=== PATIENT | female | born 1930 | race Caucasian/White ===

== ENCOUNTER → 2017-04-12 | Outpatient (CLI) | payer MEDICARE, OTHER ==
--- NOTE | 2017-04-12 16:20 | REP ---
HISTORY: Pain after trauma. COMPARISON: No priors. Frontal view of the chest 11/20/2004. The frontal view of the chest is unchanged showing chronic changes. Multiple views of the left ribs show the bones to be somewhat demineralized. There is no radiographic evidence of a fracture. The exam is limited by a large amount of content in the left upper quadrant and multiple superimposed ribs. IMPRESSION: No acute fracture with limitations as described above. Signed by Jesus Dowling DO 04/12/2017 04:37 P
== END ==
LOC: M WUC 13:31
PROVIDERS: ATTEND Physician Assistant
DX: S20.222A Contusion of left back wall of thorax, initial encounter (principal); X58.XXXA Exposure to other specified factors, initial encounter; Y92.9 Unspecified place or not applicable; Y93.9 Activity, unspecified; Y99.9 Unspecified external cause status

== ENCOUNTER 2019-05-22 07:01 | Inpatient (IN) | payer MEDICARE, OTHER ==
[~2019-05-22] VITALS: Ht 152.4 cm; Wt 76.1 kg
[2019-05-22] MEDS ORDERED: ROSU40TA4 PO (07:13)
[2019-05-22] MEDS ORDERED: FURO20TA2 PO (07:13)
[2019-05-22] MEDS ORDERED: METO37.5 PO (07:13)
[2019-05-22] MEDS ORDERED: KLOR20TA42 PO (07:13)
[2019-05-22] MEDS ORDERED: LISI-542 PO (07:13)
[2019-05-22] MEDS ORDERED: MORPHINE 2 MG/ML 1ML VIAL (J2270) IV ONE (07:45)
--- NOTE | 2019-05-22 08:14 | REP ---
Show chest AP and lateral views with the patient upright: Comparison is the chest CT dated 04/10/2009 and left rib series dated 04/12/2017. Lung sood are clear. I suspect there is a hiatal hernia. There are sternotomy wires, unchanged. Cardiac size appears enlarged although there is magnification from AP positioning. Upon review of the the comparison rib series of 04/12/2017 there was grade 4 compression deformity of the T11 vertebral body. There are no sagittal reconstructed views on the comparison CT for evaluation of vertebral body heights. On the study today there is demineralization. There is thoracic kyphosis. Grade 4 compression of the T11 vertebral body is again identified. The vertebral bodies above this level are obscured on the current study. Impression: No acute cardiopulmonary findings. Hiatal hernia. Sternotomy wires and cardiomegaly. 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 Electronically Signed by Callum Blanco MD 05/22/2019 08:07 A
[2019-05-22 08:29] LABS: INR 1.15; PROTHROMBIN TIME 14.4 SECONDS (11.8-14.0)
[2019-05-22 08:30] LABS: PARTIAL THROMBOPLASTIN TIME 31.8 SECONDS (25.0-38.4)
[2019-05-22 08:35] LABS: BLOOD UREA NITROGEN 20 MG/DL (7-18); CARBON DIOXIDE LEVEL 24 MEQ/L (21-32); CHLORIDE LEVEL 103 MEQ/L (98-107); CREATININE FOR GFR 0.57 MG/DL (0.55-1.30); GLOMERULAR FILTRATION RATE > 60.0 (>32); GLUCOSE, FASTING 97 MG/DL (70-100); POTASSIUM SERUM 4.3 MEQ/L (3.5-5.1); SODIUM LEVEL 136 MEQ/L (136-145)
[2019-05-22 08:37] LABS: BASO % 0.1 % (0.0-1.0); EOS % 0.1 % (0.0-3.0); HEMATOCRIT 29.7 % (36.0-47.0); HEMOGLOBIN 9.4 g/dl (12.0-15.5); LYMPH # 0.5 10^3/uL (1.5-4.5); LYMPH % 6.2 % (24.0-44.0); MEAN CORPUSCULAR HEMOGLOBIN 29.6 pg (27.0-33.0); MEAN CORPUSCULAR HGB CONC 31.6 g/dl (32.0-36.5); MEAN CORPUSCULAR VOLUME 93.4 fl (80.0-96.0); MONO % 12.1 % (0.0-5.0); PLATELET COUNT, AUTOMATED 206 10^3/uL (150-450); RED BLOOD COUNT 3.18 10^6/uL (4.00-5.40); WHITE BLOOD COUNT 8.6 10^3/uL (4.0-10.0)
[2019-05-22 08:39] LABS: ALBUMIN 2.3 GM/DL (3.2-5.2); ALT/SGPT 24 U/L (12-78); BILIRUBIN,DIRECT 0.2 MG/DL (0.0-0.2); BILIRUBIN,TOTAL 0.4 MG/DL (0.2-1.0); CK-MB VALUE MASS 1.6 NG/ML (<3.6); CPK CREATINE PHOSPHOKINASE 37 U/L (26-192); MB/CK RELATIVE INDEX 4.32 (< OR =4); TOTAL PROTEIN 5.6 GM/DL (6.4-8.2); TROPONIN I < 0.02 NG/ML (< 0.10)
[2019-05-22] MEDS ORDERED: PANTOPRAZOLE 40MG INJ (PROTONIX) (C9113) IV ONE ×2 (09:30→11:15)
[2019-05-22] MEDS ORDERED: POTA20PW PO (09:38)
[2019-05-22] MEDS ORDERED: METO25TA4 PO (09:38)
[2019-05-22] MEDS ORDERED: APAP325T4 PO (09:39)
--- NOTE | 2019-05-22 10:40 | ECGEPIP ---
[facility] - ED Test Date: 2019-05-22 Pat Name: MIRIAM BAKER Department: Room: - Gender: Female Cardiographer: : [id number] Requested By: WILMER Gibbs Order Number: [id number] Reading MD: Susan Nelson Measurements Intervals [place] Rate: 96 P: 57 GA: 148 QRS: -17 QRSD: 121 T: 83 QT: 351 QTc: 445 Interpretive Statements SINUS RHYTHM WITH OCCASIONAL SUPRAVENTRICULAR PREMATURE COMPLEXES SEPTAL MYOCARDIAL INFARCTION, OF INDETERMINATE AGE IVCD NO PRIOR Electronically Signed on 05-22-2019 10:40:01 EDT by Susan Nelson
[2019-05-22] MEDS: PANTOPRAZOLE SODIUM 40 MG in D5W 50 ML IV SCH ×3 (11:48→21:33)
[2019-05-22 13:35] VITALS: BP 139/68
[2019-05-22] MEDS: ROSUVASTATIN 10 MG TAB (CRESTOR) PO SCH (15:15)
[2019-05-22] MEDS: ULTRACET TAB PO SCH ×2 (15:17→21:33)
[2019-05-22] MEDS: METOPROLOL TART 12.5 MG PER 1/2 TAB PO SCH ×2 (15:19→21:32)
[2019-05-22 15:20] LABS: HEMATOCRIT 28.1 % (36.0-47.0); HEMOGLOBIN 8.9 g/dl (12.0-15.5)
[2019-05-22] MEDS: DICLOFENAC EPOLAMINE 1.3 % PATCH TOP SCH ×2 (16:55→21:34)
--- NOTE | 2019-05-22 18:13 | HPEPDOC ---
General Date of Admission 05/22/19 Date of Service: May 22, 2019 Chief Complaint The patient is a 88-year-old female admitted with a reason for visit of Weakness. Source: Patient, RN/, Old records History of Present Illness 88 year old female with PMH of Hypertension, HLD, hiatal hernia, Aortic valve replacement in 2001 by bioprosthetic valve then again had TAVR in 2014 came to the ED for bilateral knee pain and inability to stand. She has had pain in her knees and right shoulders for many years got steroid injections last was 5 months back, seen by ortho in [place] minimal relief . While getting work up in the ED had a large black liquid stool in ED heme positive. She also complained of light headedness for 1 day soft to semiliquid black stools for 2 weeks and bight red Blood in stools off and on for 2 years but never seen a doctor for this. Her HH in ED was at 9.4 down from 11.2 which was 2 years ago. No more recent labs in the system prior to today. She says she takes pepto bismol on a daily basis often more than once other iraheta gets constipated so thought her soft black stools were due to that. Her main concern is her knees. Says the pain is in both knees is 10/10 in intensity, dull aching and throbbing in nature and becomes sharp when ever she tries to bear weight. There is no radiation. But her knees are very weak and from yesterday she has not been able to stand up. In the middle of the night she was rolled to the bathroom in her rolling walker with set by her daughter and then could not stand up the pivot to the commode. Her 2 sons came to help move her but she was in excruciating pain so they were afraid to move her forcefully so called the ambulance and brought her to the ED. She also complained of shoulder pain in the right thinks that she pulled a muscle. Home Medications Scheduled Lisinopril (Lisinopril) 5 Mg Tablet, 5 MG PO DAILY, (Reported) Metoprolol Tartrate (Metoprolol Tartrate) 25 Mg Tablet, 12.5 MG PO BID, (Reported) Potassium Chloride (Potassium Chloride) 20 Meq Packet, 20 MEQ PO DAILY, (Repor alice) Rosuvastatin Calcium (Rosuvastatin Calcium) 40 Mg Tablet, 40 MG PO DAILY, (Reported) Scheduled PRN Acetaminophen (Acetaminophen) 325 Mg Tablet, 650 MG PO Q4H PRN for PAIN, (Reported) Furosemide (Furosemide) 20 Mg Tablet, 20 MG PO BID PRN for EDEMA, (Reported) Allergies Coded Allergies: No Known Allergies (Verified , 01/06/05) Past Medical History Medical History Aortic valve replacement in 2001 and agin TAVR in 2015 Hypertension Hyperlipidemia Hiatal hernia. 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 Advanced osteoarthritis in both knees Surgical History AVR TAVR Cortisone injections in several joints Family History Significant Family History: Hypertension rest reviewed with pateint and is noncontributary Social History * Smoker: Denies Alcohol: Denies Drugs: denies A-FIB/CHADSVASC A-FIB History Current/History of A-Fib/PAF?: No Review of Systems Constitutional: Reports: Weakness; Denies: Chills, Fever, Night Sweats Eyes: Denies: Pain, Vision change ENT: Denies: Head Aches, Ear Pain, Dysphagia Skin: Denies: Rash, Lesions, Breakdown Pulmonary: Denies: Dyspnea, Cough Cardiovascular: Reports: Lt Headedness; Denies: Chest Pain, Palpitations, Orthopnea, Paroxysmal Noc. Dyspnea Gastrointestinal: Reports: Melena, Hematochezia; Denies: Nausea, Vomiting, Abdominal Pain Genitourinary: Denies: Dysuria, Frequency, Incontinence, Retention Musculoskeletal: Reports: Shoulder Pain (right), Joint Pain (both knees) Physical Examination General Exam: Positive: Alert, Cooperative, No Acute Distress Eye Exam: Positive: PERRLA, Conjunctiva & lids normal, EOMI; Negative: Sclera icteric ENT Exam: Positive: Atraumatic, Mucous membr. moist/pink, Pharynx Normal Neck Exam: Positive: Supple; Negative: JVD, thyromegaly Chest Exam: Positive: Clear to auscultation, Normal air movement Heart Exam: Positive: Rate Normal, Regular Rhythm, Normal S1, Normal S2; Negative: Murmurs, Rubs Telemetry: Positive: No significant arrhythmia Abdomen Exam: Positive: Normal bowel sounds, Soft, Tenderness (in the epigastrium and the right lower quadrant); Negative: Hepatospenomegaly Extremity Exam: Positive: Edema, Tenderness (both knees); Negative: Clubbing, Cyanosis Skin Exam: Positive: Nl turgor and temperature; Negative: Breakdown, Lesion Psych Exam: Positive: Memory Intact, Oriented x 3 Vital Signs Vital Signs Date Time Temp Pulse Resp B/P (MAP) Pulse Ox O2 Delivery O2 Flow Rate FiO2 05/22/19 09:16 91 96 05/22/19 08:15 121/63 (82) 05/22/19 07:45 18 05/22/19 07:14 99.5 Room Air Laboratory Data Labs 24H Laboratory Tests 2 05/22/19 07:55: Immature Granulocyte % (Auto) 0.5, White Blood Count 8.6, Red Blood Count 3.18L, Hemoglobin 9.4L, Hematocrit 29.7L, Mean Corpuscular Volume 93.4, Mean Corpuscular Hemoglobin 29.6, Mean Corpuscular Hemoglobin Concent 31.6L, Red Cell Distribution Width 13.2, Platelet Count 206, Neutrophils (%) (Auto) 81.0H, Lymphocytes (%) (Auto) 6.2L, Monocytes (%) (Auto) 12.1H, Eosinophils (%) (Auto) 0.1, Basophils (%) (Auto) 0.1, Neutrophils # (Auto) 7.0, Lymphocytes # (Auto) 0.5L, Monocytes # (Auto) 1.0H, Eosinophils # (Auto) 0.0, Basophils # (Auto) 0.0, Nucleated Red Blood Cells % (auto) 0.0, Prothrombin Time 14.4H, Prothromb Time International Ratio 1.15, Activated Partial Thromboplast Time 31.8, Anion Gap 9, Glomerular Filtration Rate > 60.0, Blood Urea Nitrogen 20H, Creatinine 0.57, Sodium Level 136, Potassium Level 4.3, Chloride Level 103, Carbon Dioxide Level 24, Calcium Level 8.0L, Aspartate Amino Transf (AST/SGOT) 30, Alanine Aminotransferase (ALT/SGPT) 24, Alkaline Phosphatase 94, Total Bilirubin 0.4, Direct Bilirubin 0.2, Total Creatine Kinase 37, Creatine Kinase MB 1.6, Creatine Kinase MB Relative Index 4.32H, Troponin I < 0.02, Total Protein 5.6L, Albumin 2.3L, Albumin/Globulin Ratio 0.70L CBC/BMP Laboratory Tests 05/22/19 07:55 Red Blood Count 3.18 L, Mean Corpuscular Volume 93.4, Mean Corpuscular Hemoglo bin 29.6, Mean Corpuscular Hemoglobin Concent 31.6 L, Red Cell Distribution Width 13.2, Neutrophils (%) (Auto) 81.0 H, Lymphocytes (%) (Auto) 6.2 L, Monocytes (%) (Auto) 12.1 H, Eosinophils (%) (Auto) 0.1, Basophils (%) (Auto) 0.1, Neutrophils # (Auto) 7.0, Lymphocytes # (Auto) 0.5 L, Monocytes # (Auto) 1.0 H, Eosinophils # (Auto) 0.0, Basophils # (Auto) 0.0, Calcium Level 8.0 L Assessment/Plan 88 year old female with PMH of Hypertension, HLD, hiatal hernia, Aortic valve replacement in 2001 by bioprosthetic valve then again had TAVR in 2014 came to the ED for bilateral knee pain and inability to stand. She has had pain in her knees and right shoulders for many years got steroid injections last was 5 months back, seen by ortho in [place] minimal relief . While getting work up in the ED had a large black liquid stool in ED heme positive. She was admitted for GIB and bilateral knee osteoarthritis with inability to ambulate. GIB will monitor HH q 6 hours PRBC transfusion prn is hh< 8.0 clear liquids protonix gtt GI consult Bilateral knee pain, right shoulder pain advanced osteoarthritis will get xrays flector patch in both knees ultracet tid Inability to ambulate due to severe pain in both knees, and generalized muscular deconditioning Pt evaluation and treatment Hyperlipidemia continue statin Hypertension continue metoprolol and lisinopril, hold lasix. GERD/Hiatal hernia on pantoprazole gtt. Plan / VTE VTE Prophylaxis Ordered?: Yes RANDELL CARRION MD May 22, 2019 09:32
[2019-05-22 19:06] LABS: HEMATOCRIT 27.6 % (36.0-47.0); HEMOGLOBIN 8.8 g/dl (12.0-15.5)
--- NOTE | 2019-05-22 20:12 | REP ---
BILATERAL KNEES: AP and lateral views of bilateral knees performed. I see no acute fracture or dislocation. On the left there is severe lateral joint space narrowing with subchondral sclerosis and vacuum phenomenon. There is mild diffuse spurring. On the right, there is severe medial joint space narrowing with subchondral sclerosis. There is moderate lateral joint space narrowing. There is mild diffuse spurring. IMPRESSION: Significant degenerative changes without fracture or dislocation. Electronically Signed by Callum Lindo MD 05/23/2019 02:36 P
[2019-05-22 22:00] VITALS: BP 155/67
[2019-05-23 00:14] LABS: HEMOGLOBIN 8.7 g/dl (12.0-15.5)
[2019-05-23] MEDS: PANTOPRAZOLE SODIUM 40 MG in D5W 50 ML IV SCH ×5 (02:09→23:07)
[2019-05-23 06:00] VITALS: BP 157/89
[2019-05-23 06:26] LABS: BASO % 0.1 % (0.0-1.0); EOS % 0.5 % (0.0-3.0); HEMATOCRIT 28.6 % (36.0-47.0); LYMPH # 0.6 10^3/uL (1.5-4.5); LYMPH % 7.9 % (24.0-44.0); MEAN CORPUSCULAR HEMOGLOBIN 29.4 pg (27.0-33.0); MEAN CORPUSCULAR HGB CONC 31.5 g/dl (32.0-36.5); MEAN CORPUSCULAR VOLUME 93.5 fl (80.0-96.0); MONO # 0.9 10^3/uL (0.0-0.8); MONO % 12.4 % (0.0-5.0); NEUTROPHILS # 5.9 10^3/uL (1.8-7.7); NEUTROPHILS % 78.6 % (36.0-66.0); PLATELET COUNT, AUTOMATED 193 10^3/uL (150-450); RED BLOOD COUNT 3.06 10^6/uL (4.00-5.40); WHITE BLOOD COUNT 7.5 10^3/uL (4.0-10.0)
[2019-05-23] MEDS: ULTRACET TAB PO SCH ×3 (06:32→22:00)
[2019-05-23 06:40] LABS: BLOOD UREA NITROGEN 17 MG/DL (7-18); CALCIUM LEVEL 8.3 MG/DL (8.8-10.2); CARBON DIOXIDE LEVEL 26 MEQ/L (21-32); CHLORIDE LEVEL 104 MEQ/L (98-107); CREATININE FOR GFR 0.48 MG/DL (0.55-1.30); GLOMERULAR FILTRATION RATE > 60.0 (>32); GLUCOSE, FASTING 86 MG/DL (70-100); POTASSIUM SERUM 4.1 MEQ/L (3.5-5.1); SODIUM LEVEL 135 MEQ/L (136-145)
[2019-05-23] MEDS: ROSUVASTATIN 10 MG TAB (CRESTOR) PO SCH (08:13)
[2019-05-23] MEDS: METOPROLOL TART 12.5 MG PER 1/2 TAB PO SCH ×2 (08:16→22:00)
[2019-05-23] MEDS: lisinopriL 5 MG TAB PO SCH (08:16)
[2019-05-23] MEDS: DICLOFENAC EPOLAMINE 1.3 % PATCH TOP SCH ×2 (10:16→22:01)
[2019-05-23 12:06] LABS: HEMATOCRIT 28.8 % (36.0-47.0); HEMOGLOBIN 8.8 g/dl (12.0-15.5)
--- NOTE | 2019-05-23 12:45 | IPNPDOC ---
Subjective Date Seen The patient was seen on 05/23/19. Subjective Chief Complaint/HPI Patient is still complaining of bilateral knee pain. She is hard of hearing but does not offer any more complaints of GI bleed General: Denies: ROS Unobtainable, Chills, Night Sweats, Fatigue, Malaise, Normal Appetite, Other Symptoms Constitutional: Denies: Chills, Fever, Malaise, Night Sweats, Weakness, Fatigue, Weight Loss, Lethargy, Other Eyes: Denies: Pain, Vision change, Conjunctivae inflammation, Eyelid inflammation, Redness, Other ENT: Denies: Head Aches, Ear Pain, Dysphagia, Sinus Congestion, Post Nasal Drip, Sore Throat, Epistaxis, Other Symptoms Skin: Denies: Rash, Lesions, Jaundice, Bruising, Itching, Dry, Breakdown, Nail Changes, Other Pulmonary: Denies: Dyspnea, Cough, Pleuritic Chest Pain, Other Symptoms Cardiovascular: Denies: Chest Pain, Palpitations, Orthopnea, Paroxysmal Noc. Dyspnea, Edema, Lt Headedness, Other Symptoms Gastrointestinal: Denies: Nausea, Vomiting, Abdominal Pain, Diarrhea, Constipation, Melena, Hematochezia, Other Symptoms Neurological: Denies: Weakness, Numbness, Incoordination, Change in speech, Confusion, Seizures, Other Symptoms Objective Physical Examination General Exam: Positive: Alert, Cooperative, No Acute Distress Eye Exam: Positive: PERRLA, Conjunctiva & lids normal, EOMI; Negative: Sclera icteric ENT Exam: Positive: Atraumatic, Mucous membr. moist/pink, Pharynx Normal Neck Exam: Positive: Supple; Negative: JVD, thyromegaly Chest Exam: Positive: Clear to auscultation, Normal air movement Heart Exam: Positive: Rate Normal, Regular Rhythm, Normal S1, Normal S2; Negative: Murmurs, Rubs Telemetry: Positive: No significant arrhythmia Abdomen Exam: Positive: Normal bowel sounds, Soft, Tenderness (in the epigastrium and the right lower quadrant); Negative: Hepatospenomegaly Extremity Exam: Positive: Edema, Tenderness (both knees); Negative: Clubbing, Cyanosis Skin Exam: Positive: Nl turgor and temperature; Negative: Breakdown, Lesion Psych Exam: Positive: Memory Intact, Oriented x 3 Assessment /Plan Problems (1) Knee pain Status: Acute (2) GIB (gastrointestinal bleeding) Status: Acute (3) Acute anemia Status: Acute Plan/VTE VTE Prophylaxis Ordered?: Yes Plan GIB H&H is stable Posttransfusion hemoglobin is 8.8/28.8 Still on clear liquids Continue Protonix drip GI consult was called is pending Further, as per GI recommendations Bilateral knee pain, right shoulder pain advanced osteoarthritis All x-rays are essentially within normal limit, no acute fracture. This shows advanced DJD flector patch in both knees ultracet tid Inability to ambulate due to severe pain in both knees, and generalized muscular deconditioning Pt evaluation and treatment Physical therapy consultation has been called and patient will be evaluated today Hyperlipidemia continue statin Hypertension continue metoprolol and lisinopril, hold lasix. GERD/Hiatal hernia on pantoprazole gtt. VS, I&O, 24H, Fishbone Vital Signs/I&O Vital Signs Date Time Temp Pulse Resp B/P (MAP) Pulse Ox O2 Delivery O2 Flow Rate FiO2 05/23/19 08:16 92 130/72 05/23/19 06:32 20 05/23/19 06:00 98.1 93 05/22/19 07:14 Room Air I&O- Last 24 Hours up to 6 AM 05/23/19 06:00 Intake Total 670 ml Balance 670 ml Laboratory Data 24H LABS Laboratory Tests 2 05/23/19 06:00: Immature Granulocyte % (Auto) 0.5, White Blood Count 7.5, Red Blood Count 3.06L, Hemoglobin 9.0L, Hematocrit 28.6L, Mean Corpuscular Volume 93.5, Mean Corpuscular Hemoglobin 29.4, Mean Corpuscular Hemoglobin Concent 31.5L, Red Cell Distribution Width 13.4, Platelet Count 193, Neutrophils (%) (Auto) 78.6H, Lymphocytes (%) (Auto) 7.9L, Monocytes (%) (Auto) 12.4H, Eosinophils (%) (Auto) 0.5, Basophils (%) (Auto) 0.1, Neutrophils # (Auto) 5.9, Lymphocytes # (Auto) 0.6L, Monocytes # (Auto) 0.9H, Eosinophils # (Auto) 0.0, Basophils # (Auto) 0.0, Nucleated Red Blood Cells % (auto) 0.0, Anion Gap 5L, Glomerular Filtration Rate > 60.0, Blood Urea Nitrogen 17, Creatinine 0.48L, Sodium Level 135L, Potassium Level 4.1, Chloride Level 104, Carbon Dioxide Level 26, Calcium Level 8.3L CBC/BMP Laboratory Tests 05/22/19 15:03 05/22/19 18:52 05/23/19 00:08 05/23/19 06:00 Red Blood Count 3.06 L, Mean Corpuscular Volume 93.5, Mean Corpuscular Hemoglobin 29.4, Mean Corpuscular Hemoglobin Concent 31.5 L, Red Cell Distribution Width 13.4, Neutrophils (%) (Auto) 78.6 H, Lymphocytes (%) (Auto) 7.9 L, Monocytes (%) (Auto) 12.4 H, Eosinophils (%) (Auto) 0.5, Basophils (%) (Auto) 0.1, Neutrophils # (Auto) 5.9, Lymphocytes # (Auto) 0.6 L, Monocytes # (Auto) 0.9 H, Eosinophils # (Auto) 0.0, Basophils # (Auto) 0.0, Calcium Level 8.3 L 05/23/19 11:45 Microbiology Microbiology 05/22/19 Gastrointestinal Tract Panel (PCR) - Final, Complete ANILA VARGAS MD May 23, 2019 12:45
[2019-05-23 14:00] VITALS: BP 133/74
--- NOTE | 2019-05-23 19:17 | CR ---
DATE OF CONSULTATION: 05/22/2019 This is an 88-year white female with multiple medical problems including hypertension, hyperlipidemia, hiatal hernia, apparent aortic valve replacement in 2001 by bioprosthetic valve, then the patient had another repair in 2014 by transcatheter aortic valve replacement (TAVR). The patient came to the emergency room complaining of bilateral knee pain and inability to stand. She apparently has had chronic pain in her knees and right shoulders for many years and receiving steroid injections. The last one apparently was five months ago. The patient has been seen by orthopedics in [place] with minimal relief. The patient was evaluated in the emergency room (ER) and apparently had a large black stool which was hemoccult positive. She apparently complained of lightheadedness and has had one day of soft, semi-black stools for approximately two weeks and bright red blood per rectum in the stools on-and-off for approximately two years. Her hemoglobin and hematocrit in the emergency room was 9.4 which is down from 11.2. She has not had any recent laboratories in our system. She has been taking Pepto-Bismol apparently on a daily basis. She has some issues with constipation. No complaints of abdominal pain, fevers, night sweats or shaking chills. The patient is being seen by gastroenterology (GI) for evaluation of her black stools and anemia. MEDICATIONS AT HOME: Include: Lisinopril, metoprolol, potassium, and a statin. ALLERGIES: No known declared allergies. PAST MEDICAL HISTORY: Positive for: 1. Aortic valve replacement in 2001 and again a transcatheter aortic valve replacement (TAVR) in 2014. 2. Hypertension. 3. Hyperlipidemia. 4. Hiatal hernia. 5. Chronic grade 4 compression deformity of T11 vertebral body. 6. Osteoarthritis in the knees. PAST SURGICAL HISTORY: Transcatheter aortic valve replacement (TAVR) and aortic valve replacement. FAMILY HISTORY: Possible hypertension but otherwise negative. SOCIAL HISTORY: Cigarettes, alcohol, drugs negative. REVIEW OF SYSTEMS: 12-point review of systems noncontributory. PHYSICAL EXAMINATION: General: This is a well-developed, slightly obese white female in no obvious acute distress. Chest is clear to auscultation. Cardiovascular examination showed a regular rhythm. Normal physiological split. A 2/6 systolic ejection murmur noted from the valve. Abdomen: Soft, nontender. No masses, guarding, rebound, or hepatosplenomegaly. Bowel sounds positive. Extremities: No cyanosis, clubbing, edema. Sina's negative. LABORATORY STUDIES: On admission shows a white count of 8600, hemoglobin and hematocrit is 9.4 and 29.7. Last count on 05/22/2019 was 8.8 and 27.6. The patient has not received any blood. The patient's chemistry studies on admission showed normal liver functions. Troponins were negative. Albumin was 2.3. IMAGING STUDIES: Noncontributory to the GI issues. ANALYSIS: Anemia, black tarry stools of unclear etiology in a patient with multiple medical problems. I am concerned the patient may not be able to do very well with a bowel preparation to set up for colonoscopy. We can try to perform an upper endoscopy but I would like to try to discuss this with her director of accounts payable, Dr. Garcia. PLAN: The plan will be to probably transfuse the patient at least one unit of packed cells to prepare for possible anesthetic, Propofol, prior to any kind of endoscopy.
[2019-05-23 22:00] VITALS: BP 146/81
[2019-05-24] MEDS: PANTOPRAZOLE SODIUM 40 MG in D5W 50 ML IV SCH ×4 (04:17→19:41)
[2019-05-24] MEDS: ULTRACET TAB PO SCH ×3 (05:51→22:42)
[2019-05-24 06:00] VITALS: BP 129/72
[2019-05-24 06:20] LABS: BASO % 0.1 % (0.0-1.0); EOS % 0.6 % (0.0-3.0); HEMATOCRIT 28.8 % (36.0-47.0); HEMOGLOBIN 9.2 g/dl (12.0-15.5); LYMPH # 0.6 10^3/uL (1.5-4.5); LYMPH % 8.3 % (24.0-44.0); MEAN CORPUSCULAR HEMOGLOBIN 29.9 pg (27.0-33.0); MEAN CORPUSCULAR HGB CONC 31.9 g/dl (32.0-36.5); MEAN CORPUSCULAR VOLUME 93.5 fl (80.0-96.0); MONO # 1.1 10^3/uL (0.0-0.8); MONO % 15.5 % (0.0-5.0); NEUTROPHILS # 5.2 10^3/uL (1.8-7.7); NEUTROPHILS % 75.1 % (36.0-66.0); PLATELET COUNT, AUTOMATED 178 10^3/uL (150-450); RED BLOOD COUNT 3.08 10^6/uL (4.00-5.40)
[2019-05-24 06:46] LABS: ALBUMIN 1.8 GM/DL (3.2-5.2); ALT/SGPT 19 U/L (12-78); BILIRUBIN,TOTAL 0.4 MG/DL (0.2-1.0); BLOOD UREA NITROGEN 16 MG/DL (7-18); CALCIUM LEVEL 7.9 MG/DL (8.8-10.2); CARBON DIOXIDE LEVEL 25 MEQ/L (21-32); CHLORIDE LEVEL 102 MEQ/L (98-107); CREATININE FOR GFR 0.49 MG/DL (0.55-1.30); GLOMERULAR FILTRATION RATE > 60.0 (>32); GLUCOSE, FASTING 89 MG/DL (70-100); SODIUM LEVEL 134 MEQ/L (136-145); TOTAL PROTEIN 5.6 GM/DL (6.4-8.2)
[2019-05-24] MEDS: METOPROLOL TART 12.5 MG PER 1/2 TAB PO SCH ×2 (07:59→22:42)
[2019-05-24] MEDS: ROSUVASTATIN 10 MG TAB (CRESTOR) PO SCH (07:59)
[2019-05-24] MEDS: DICLOFENAC EPOLAMINE 1.3 % PATCH TOP SCH ×2 (08:00→22:42)
[2019-05-24] MEDS: lisinopriL 5 MG TAB PO SCH (08:00)
[2019-05-24] MEDS: ACETAMINOPHEN 500 MG TAB PO PRN ×2 (08:01→17:43)
--- NOTE | 2019-05-24 10:50 | IPNPDOC ---
Subjective Date Seen The patient was seen on 05/24/19. Subjective Chief Complaint/HPI Patient is confused, hard of hearing but in no distress. Height offers no new complaints General: Denies: ROS Unobtainable, Chills, Night Sweats, Fatigue, Malaise, Normal Appetite, Other Symptoms Constitutional: Denies: Chills, Fever, Malaise, Night Sweats, Weakness, Fatigue, Weight Loss, Lethargy, Other Eyes: Denies: Pain, Vision change, Conjunctivae inflammation, Eyelid infl ammation, Redness, Other ENT: Denies: Head Aches, Ear Pain, Dysphagia, Sinus Congestion, Post Nasal Drip, Sore Throat, Epistaxis, Other Symptoms Skin: Denies: Rash, Lesions, Jaundice, Bruising, Itching, Dry, Breakdown, Nail Changes, Other Pulmonary: Denies: Dyspnea, Cough, Pleuritic Chest Pain, Other Symptoms Cardiovascular: Denies: Chest Pain, Palpitations, Orthopnea, Paroxysmal Noc. Dyspnea, Edema, Lt Headedness, Other Symptoms Gastrointestinal: Denies: Nausea, Vomiting, Abdominal Pain, Diarrhea, Constipation, Melena, Hematochezia, Other Symptoms Musculoskeletal: Denies: Neck Pain, Back Pain, Shoulder Pain, Arm Pain, Hand Pain, Leg Pain, Foot Pain, Joint Pain, Muscle Pain, Spasms, Other Symptoms Neurological: Denies: Weakness, Numbness, Incoordination, Change in speech, Confusion, Seizures, Other Symptoms Objective Physical Examination General Exam: Positive: Alert, Cooperative, No Acute Distress Eye Exam: Positive: PERRLA, Conjunctiva & lids normal, EOMI; Negative: Sclera icteric ENT Exam: Positive: Atraumatic, Mucous membr. moist/pink, Pharynx Normal Neck Exam: Positive: Supple; Negative: JVD, thyromegaly Chest Exam: Positive: Clear to auscultation, Normal air movement Heart Exam: Positive: Rate Normal, Regular Rhythm, Normal S1, Normal S2; Negative: Murmurs, Rubs Telemetry: Positive: No significant arrhythmia Abdomen Exam: Positive: Normal bowel sounds, Soft, Tenderness (in the epigastrium and the right lower quadrant); Negative: Hepatospenomegaly Extremity Exam: Positive: Edema, Tenderness (both knees); Negative: Clubbing, Cyanosis Skin Exam: Positive: Nl turgor and temperature; Negative: Breakdown, Lesion Psych Exam: Positive: Memory Intact, Oriented x 3 Assessment /Plan Problems (1) GIB (gastrointestinal bleeding) Status: Acute Problem Text: H&H is stable. Her hemoglobin is 9.2, hematocrit 28.8 GI consult was noted and appreciated Possible colonoscopy by Dr. Barone We will keep monitoring patient's H&H Continue PPI Further, as per GI recommendations (2) Knee pain Status: Acute Problem Text: Continue local care Physical therapy in progress (3) Acute anemia Status: Acute Problem Text: Secondary GI bleed Monitor H&H She'll probably require subacute area facility when she is ready to be dischar ged Plan/VTE VTE Prophylaxis Ordered?: Yes VS, I&O, 24H, Fishbone Vital Signs/I&O Vital Signs Date Time Temp Pulse Resp B/P (MAP) Pulse Ox O2 Delivery O2 Flow Rate FiO2 05/24/19 08:00 136/77 05/24/19 07:59 89 05/24/19 06:00 96.9 20 94 05/22/19 07:14 Room Air I&O- Last 24 Hours up to 6 AM 05/24/19 06:00 Intake Total 408 ml Output Total 0 ml Balance 408 ml Laboratory Data 24H LABS Laboratory Tests 2 05/24/19 06:06: Immature Granulocyte % (Auto) 0.4, White Blood Count 7.0, Red Blood Count 3.08L, Hemoglobin 9.2L, Hematocrit 28.8L, Mean Corpuscular Volume 93.5, Mean Corpuscular Hemoglobin 29.9, Mean Corpuscular Hemoglobin Concent 31.9L, Red Cell Distribution Width 13.3, Platelet Count 178, Neutrophils (%) (Auto) 75.1H, Lymphocytes (%) (Auto) 8.3L, Monocytes (%) (Auto) 15.5H, Eosinophils (%) (Auto) 0.6, Basophils (%) (Auto) 0.1, Neutrophils # (Auto) 5.2, Lymphocytes # (Auto) 0.6L, Monocytes # (Auto) 1.1H, Eosinophils # (Auto) 0.0, Basophils # (Auto) 0.0, Nucleated Red Blood Cells % (auto) 0.0, Anion Gap 7L, Glomerular Filtration Rate > 60.0, Blood Urea Nitrogen 16, Creatinine 0.49L, Sodium Level 134L, Potassium Level 4.0, Chloride Level 102, Carbon Dioxide Level 25, Calcium Level 7.9L, Aspartate Amino Transf (AST/SGOT) 27, Alanine Aminotransferase (ALT/SGPT) 19, Alkaline Phosphatase 82, Total Bilirubin 0.4, Total Protein 5.6L, Albumin 1.8#L, Albumin/Globulin Ratio 0.47L CBC/BMP Laboratory Tests 05/23/19 11:45 05/23/19 17:56 05/24/19 06:06 Red Blood Count 3.08 L, Mean Corpuscular Volume 93.5, Mean Corpuscular Hemoglobin 29.9, Mean Corpuscular Hemoglobin Concent 31.9 L, Red Cell Distribution Width 13.3, Neutrophils (%) (Auto) 75.1 H, Lymphocytes (%) (Auto) 8.3 L, Monocytes (%) (Auto) 15.5 H, Eosinophils (%) (Auto) 0.6, Basophils (%) (Auto) 0.1, Neutrophils # (Auto) 5.2, Lymphocytes # (Auto) 0.6 L, Monocytes # (Auto) 1.1 H, Eosinophils # (Auto) 0.0, Basophils # (Auto) 0.0, Calcium Level 7.9 L, Aspartate Amino Transf (AST/SGOT) 27, Alanine Aminotransferase (ALT/SGPT) 19, Alkaline Phosphatase 82, Total Bilirubin 0.4, Total Protein 5.6 L, Albumin 1.8 #L Microbiology Microbiology 05/23/19 Stool Occult Blood (TYESHA) - Final, Complete 05/22/19 Gastrointestinal Tract Panel (PCR) - Final, Complete ANILA VARGAS MD May 24, 2019 10:50
[2019-05-24] MEDS ORDERED: GOLYTELY SOLN 4000 ML BTL PO ONE (12:00)
[2019-05-24 14:00] VITALS: BP 109/57
--- NOTE | 2019-05-24 18:53 | ECHO ---
DATE OF PROCEDURE: 05/24/2019 REFERRING PHYSICIAN: Dr. Doty INDICATION: Heart murmur. The patient measures 152 cm and weighs 76 kg. DIMENSIONS: IVS: 1.6 LV: 4.4 LVPW: 1.2 LA: 4.2 Aorta: 3.8 IVC: 1.5 Mitral E wave velocity: 93 A wave: 105 E prime septal: 5.0 E prime lateral: 7.2 Ascending aorta: 3.9 FINDINGS: The study is of acceptable technical quality. The patient is in sinus rhythm. Left ventricle is normal size. There is mild to moderate left ventricular hypertrophy. Overall left ventricular systolic function is preserved, but there is a septal wall motion abnormality likely related to prior open heart surgery. I estimate ejection fraction (EF) around 60%. Right ventricle does not appear enlarged. Both atria are severely enlarged. Left atrium volume index is 50 mL per meter square. 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 There are degenerative abnormalities of mitral valve with mitral annular calcifications but mobility of leaflets is preserved. Tricuspid and pulmonic valves appear normal. No pericardial effusion is noted. Inferior vena cava is normal size. 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 Aortic arch and abdominal aorta was not well seen. Doppler interrogation of aortic bioprosthesis reveals no insufficiency. Mean gradient was 13 mmHg, which is within normal limits. There is no significant mitral valvular disease. There is mild tricuspid insufficiency. Calculated pulmonary artery pressure is in low 50s corresponding to moderate pulmonary hypertension. There is trace pulmonic insufficiency. Mitral inflow pattern and tissue Doppler imaging of mitral annulus revealed grade 1 diastolic dysfunction. CONCLUSIONS: 1. Study is of acceptable technical quality. 2. Normal left ventricular (LV) size with moderate left ventricular hypertrophy, septal wall motion abnormality and overall preserved LV systolic function. Grade 1 diastolic dysfunction. 3. Normally functioning bioprosthesis in aortic position. 4. Mild tricuspid insufficiency. 5. Likely normal central venous pressure but moderate pulmonary hypertension. 6. Severe biatrial enlargement. COMMENT: Subacute bacterial endocarditis (SBE) prophylaxis is recommended. MTDD
[2019-05-24 22:00] VITALS: BP 110/71
[2019-05-25] MEDS: PANTOPRAZOLE SODIUM 40 MG in D5W 50 ML IV SCH ×5 (00:04→22:19)
[2019-05-25 06:00] VITALS: BP 121/72
[2019-05-25 06:39] LABS: BASO % 0.1 % (0.0-1.0); EOS # 0.1 10^3/uL (0.0-0.50); EOS % 1.2 % (0.0-3.0); HEMATOCRIT 28.6 % (36.0-47.0); HEMOGLOBIN 9.1 g/dl (12.0-15.5); LYMPH # 0.6 10^3/uL (1.5-4.5); LYMPH % 7.4 % (24.0-44.0); MEAN CORPUSCULAR HEMOGLOBIN 28.6 pg (27.0-33.0); MEAN CORPUSCULAR HGB CONC 31.8 g/dl (32.0-36.5); MEAN CORPUSCULAR VOLUME 89.9 fl (80.0-96.0); MONO % 13.3 % (0.0-5.0); NEUTROPHILS % 77.7 % (36.0-66.0); PLATELET COUNT, AUTOMATED 193 10^3/uL (150-450); RED BLOOD COUNT 3.18 10^6/uL (4.00-5.40); WHITE BLOOD COUNT 7.8 10^3/uL (4.0-10.0)
[2019-05-25] MEDS: ULTRACET TAB PO SCH ×4 (06:44→21:56)
[2019-05-25 06:55] LABS: ALBUMIN 1.7 GM/DL (3.2-5.2); ALT/SGPT 22 U/L (12-78); BILIRUBIN,TOTAL 0.4 MG/DL (0.2-1.0); BLOOD UREA NITROGEN 12 MG/DL (7-18); CALCIUM LEVEL 7.7 MG/DL (8.8-10.2); CARBON DIOXIDE LEVEL 23 MEQ/L (21-32); CHLORIDE LEVEL 100 MEQ/L (98-107); CREATININE FOR GFR 0.37 MG/DL (0.55-1.30); GLOMERULAR FILTRATION RATE > 60.0 (>32); GLUCOSE, FASTING 68 MG/DL (70-100); POTASSIUM SERUM 3.8 MEQ/L (3.5-5.1); SODIUM LEVEL 133 MEQ/L (136-145); TOTAL PROTEIN 5.6 GM/DL (6.4-8.2)
[2019-05-25] MEDS: ROSUVASTATIN 10 MG TAB (CRESTOR) PO SCH (09:31)
[2019-05-25] MEDS: lisinopriL 5 MG TAB PO SCH (09:31)
[2019-05-25] MEDS: METOPROLOL TART 12.5 MG PER 1/2 TAB PO SCH ×2 (09:31→21:38)
[2019-05-25] MEDS: DICLOFENAC EPOLAMINE 1.3 % PATCH TOP SCH ×2 (09:32→21:39)
--- NOTE | 2019-05-25 11:22 | IPNPDOC ---
Subjective Date Seen The patient was seen on 05/25/19. Subjective Chief Complaint/HPI Patient confused but comfortable, in no apparent distress. Awaiting colonoscopy today General: Denies: ROS Unobtainable, Chills, Night Sweats, Fatigue, Malaise, Normal Appetite, Other Symptoms Constitutional: Denies: Chills, Fever, Malaise, Night Sweats, Weakness, Fatigue, Weight Loss, Lethargy, Other Eyes: Denies: Pain, Vision change, Conjunctivae inflammation, Eyelid inflamm ation, Redness, Other ENT: Denies: Head Aches, Ear Pain, Dysphagia, Sinus Congestion, Post Nasal Drip, Sore Throat, Epistaxis, Other Symptoms Skin: Denies: Rash, Lesions, Jaundice, Bruising, Itching, Dry, Breakdown, Nail Changes, Other Pulmonary: Denies: Dyspnea, Cough, Pleuritic Chest Pain, Other Symptoms Cardiovascular: Denies: Chest Pain, Palpitations, Orthopnea, Paroxysmal Noc. Dyspnea, Edema, Lt Headedness, Other Symptoms Gastrointestinal: Denies: Nausea, Vomiting, Abdominal Pain, Diarrhea, Constipation, Melena, Hematochezia, Other Symptoms Musculoskeletal: Denies: Neck Pain, Back Pain, Shoulder Pain, Arm Pain, Hand Pain, Leg Pain, Foot Pain, Joint Pain, Muscle Pain, Spasms, Other Symptoms Neurological: Denies: Weakness, Numbness, Incoordination, Change in speech, Confusion, Seizures, Other Symptoms Objective Physical Examination General Exam: Positive: Alert, Cooperative, No Acute Distress Eye Exam: Positive: PERRLA, Conjunctiva & lids normal, EOMI; Negative: Sclera icteric ENT Exam: Positive: Atraumatic, Mucous membr. moist/pink, Pharynx Normal Neck Exam: Positive: Supple; Negative: JVD, thyromegaly Chest Exam: Positive: Clear to auscultation, Normal air movement Heart Exam: Positive: Rate Normal, Regular Rhythm, Normal S1, Normal S2; Negative: Murmurs, Rubs Telemetry: Positive: No significant arrhythmia Abdomen Exam: Positive: Normal bowel sounds, Soft, Tenderness (in the epigastrium and the right lower quadrant); Negative: Hepatospenomegaly Extremity Exam: Positive: Edema, Tenderness (both knees); Negative: Clubbing, Cyanosis Skin Exam: Positive: Nl turgor and temperature; Negative: Breakdown, Lesion Psych Exam: Positive: Memory Intact, Oriented x 3 Assessment /Plan Problems (1) GIB (gastrointestinal bleeding) Status: Acute Problem Text: H&H is stable. Her hemoglobin is 9.1/28.6 Patient is scheduled for colonoscopy today by Dr. Barone We will keep monitoring patient's H&H Continue PPI Further, as per GI recommendations (2) Knee pain Status: Acute Problem Text: Continue local care Physical therapy in progress (3) Acute anemia Status: Acute Problem Text: Secondary GI bleed Monitor H&H She'll probably require subacute area facility when she is ready to be discharged Plan/VTE VTE Prophylaxis Ordered?: Yes VS, I&O, 24H, Fishbone Vital Signs/I&O Vital Signs Date Time Temp Pulse Resp B/P (MAP) Pulse Ox O2 Delivery O2 Flow Rate FiO2 05/25/19 09:31 138/74 05/25/19 09:31 91 05/25/19 06:44 18 05/25/19 06:00 97.1 94 05/22/19 07:14 Room Air I&O- Last 24 Hours up to 6 AM 05/25/19 06:00 Intake Total 1995 ml Output Total 0 ml Balance 1995 ml Laboratory Data 24H LABS Laboratory Tests 2 05/25/19 06:06: Immature Granulocyte % (Auto) 0.3, White Blood Count 7.8, Red Blood Count 3.18L, Hemoglobin 9.1L, Hematocrit 28.6L, Mean Corpuscular Volume 89.9, Mean Cor puscular Hemoglobin 28.6, Mean Corpuscular Hemoglobin Concent 31.8L, Red Cell Distribution Width 13.3, Platelet Count 193, Neutrophils (%) (Auto) 77.7H, Lymphocytes (%) (Auto) 7.4L, Monocytes (%) (Auto) 13.3H, Eosinophils (%) (Auto) 1.2, Basophils (%) (Auto) 0.1, Neutrophils # (Auto) 6.0, Lymphocytes # (Auto) 0.6L, Monocytes # (Auto) 1.0H, Eosinophils # (Auto) 0.1, Basophils # (Auto) 0.0, Nucleated Red Blood Cells % (auto) 0.0, Anion Gap 10, Glomerular Filtration Rate > 60.0, Blood Urea Nitrogen 12, Creatinine 0.37L, Sodium Level 133L, Potassium Level 3.8, Chloride Level 100, Carbon Dioxide Level 23, Calcium Level 7.7L, Aspartate Amino Transf (AST/SGOT) 34, Alanine Aminotransferase (ALT/SGPT) 22, Alkaline Phosphatase 86, Total Bilirubin 0.4, Total Protein 5.6L, Albumin 1.7L, Albumin/Globulin Ratio 0.44L CBC/BMP Laboratory Tests 05/25/19 06:06 Red Blood Count 3.18 L, Mean Corpuscular Volume 89.9, Mean Corpuscular Hemoglobin 28.6, Mean Corpuscular Hemoglobin Concent 31.8 L, Red Cell Distribution Width 13.3, Neutrophils (%) (Auto) 77.7 H, Lymphocytes (%) (Auto) 7.4 L, Monocytes (%) (Auto) 13.3 H, Eosinophils (%) (Auto) 1.2, Basophils (%) (Auto) 0.1, Neutrophils # (Auto) 6.0, Lymphocytes # (Auto) 0.6 L, Monocytes # (Auto) 1.0 H, Eosinophils # (Auto) 0.1, Basophils # (Auto) 0.0, Calcium Level 7.7 L, Aspartate Amino Transf (AST/SGOT) 34, Alanine Aminotransferase (ALT/SGPT) 22, Alkaline Phosphatase 86, Total Bilirubin 0.4, Total Protein 5.6 L, Albumin 1.7 L Microbiology Microbiology 05/23/19 Stool Occult Blood (TYESHA) - Final, Complete 05/22/19 Gastrointestinal Tract Panel (PCR) - Final, Complete ANILA VARGAS MD May 25, 2019 11:21
[2019-05-25] MEDS ORDERED: GENTAMICIN 80 MG in IV 1 EA IV ONE (11:30)
[2019-05-25] MEDS ORDERED: AMPICILLIN SOD 2 GM in D5W MINI-BAG PLUS 100 ML IV ONE (12:00)
[2019-05-25] MEDS ORDERED: propofoL 500 MG/50 ML VIAL As Ordered ONE (14:05)
[2019-05-25] MEDS ORDERED: LIDOCAINE 2% INJ 100 MG/5 ML SDV (FOR ANES.) As Ordered ONE (14:05)
--- NOTE | 2019-05-25 14:15 | ROOR ---
Patient Name: Carina Julien Procedure Date: 05/25/2019 7:02 AM Date of : 1930 Age: 88 Room: [facility] Gender: Female Note Status: Finalized Procedure: Upper GI endoscopy Indications: Iron deficiency anemia Providers: Cal Barone MD Referring MD: 2. Inpatient 2. Inpatient Requesting Provider: Medicines: Monitored Anesthesia Care Complications: No immediate complications. Procedure: Pre-Anesthesia Assessment: - The heart rate, respiratory rate, oxygen saturations, blood pressure, adequacy of pulmonary ventilation, and response to care were monitored throughout the procedure. The Endoscope was introduced through the mouth, and advanced to the second part of duodenum. The upper GI endoscopy was accomplished without difficulty. The patient tolerated the procedure well. Findings: The Z-line was regular and was found 33 cm from the incisors. A large hiatal hernia was present. No other significant abnormalities were identified in a careful examination of the stomach. The exam of the duodenum was otherwise normal. Impression: - Z-line regular, 33 cm from the incisors. - Large hiatal hernia. - No specimens collected. Recommendation: - Patient has a contact number available for emergencies. The signs and symptoms of potential delayed complications were discussed with the patient. Return to normal activities tomorrow. Written discharge instructions were provided to the patient. - Resume previous diet. - [facility]. - Continue present medications. - The findings and recommendations were discussed with the patient's family. Cal Barone MD Cal Barone MD 05/25/2019 2:15:51 PM Electronically signed by Cal Barone MD Number of Addenda: 0 Note Initiated On: 05/25/2019 7:02 AM Estimated Blood Loss: Estimated blood loss: none.
--- NOTE | 2019-05-25 14:36 | ROOR ---
Patient Name: Carina Julien Procedure Date: 05/25/2019 2:01 PM Date of : 1930 Age: 88 Room: [facility] Gender: Female Note Status: Finalized Procedure: Colonoscopy to 20 cms + Biopsies ( POOR PREP) Indications: Rectal bleeding, Iron deficiency anemia secondary to chronic blood loss Providers: Cal Barone MD Referring MD: 2. Inpatient 2. Inpatient Requesting Provider: Medicines: Monitored Anesthesia Care Complications: No immediate complications. Procedure: Pre-Anesthesia Assessment: - The heart rate, respiratory rate, oxygen saturations, blood pressure, adequacy of pulmonary ventilation, and response to care were monitored throughout the procedure. The Colonoscope was introduced through the anus with the intention of advancing to the cecum. The scope was advanced to the sigmoid colon before the procedure was aborted. Medications were given. The colonoscopy was performed without difficulty. The patient tolerated the procedure well. The quality of the bowel preparation was inadequate. Findings: The digital rectal exam revealed a firm rectal mass. The mass was circumferential. An ulcerated partially obstructing large mass was found in the rectum. The mass was partially circumferential (involving two-thirds of the lumen circumference). The mass measured six cm in length. No bleeding was present. This was biopsied with a cold forceps for histology. Extensive amounts of stool was found in the entire colon, interfering with visualization. The exam was otherwise without abnormality. Impression: - Preparation of the colon was inadequate. - Rectal mass. - Rule out malignancy, partially obstructing tumor in the rectum. Biopsied. - Stool in the entire examined colon. - The examination was otherwise normal. 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 Biopsied. - The procedure was aborted due to inadequate bowel prep. Recommendation: - Patient has a contact number available for emergencies. The signs and symptoms of potential delayed complications were discussed with the patient. Return to normal activities tomorrow. Written discharge instructions were provided to the patient. - [facility] to [facility] for [facility] care. - Await pathology results. - Telephone GI clinic for pathology results in 1 week. - Refer to a surgeon. - Await pathology results. - The findings and recommendations were discussed with the patient's family. Cal Barone MD Cal Barone MD 05/25/2019 2:36:46 PM Electronically signed by Cal Barone MD Number of Addenda: 0 Note Initiated On: 05/25/2019 2:01 PM Estimated Blood Loss: Estimated blood loss: none.
[2019-05-25 15:00] VITALS: BP 154/69
[2019-05-25 15:30] VITALS: BP 137/69
[2019-05-25 18:00] VITALS: BP 123/59
[2019-05-25 20:00] VITALS: BP 159/93
[2019-05-25 22:00] VITALS: BP 159/93
[2019-05-26 02:00] VITALS: BP 123/58
[2019-05-26] MEDS: PANTOPRAZOLE SODIUM 40 MG in D5W 50 ML IV SCH ×5 (03:45→23:25)
[2019-05-26] MEDS: ACETAMINOPHEN 500 MG TAB PO PRN ×2 (04:59→23:20)
[2019-05-26] MEDS: ULTRACET TAB PO SCH ×3 (05:15→21:03)
[2019-05-26 05:58] LABS: BASO % 0.3 % (0.0-1.0); EOS % 0.5 % (0.0-3.0); HEMATOCRIT 28.7 % (36.0-47.0); HEMOGLOBIN 9.1 g/dl (12.0-15.5); LYMPH # 0.7 10^3/uL (1.5-4.5); LYMPH % 9.6 % (24.0-44.0); MEAN CORPUSCULAR HGB CONC 31.7 g/dl (32.0-36.5); MEAN CORPUSCULAR VOLUME 91.4 fl (80.0-96.0); MONO # 1.3 10^3/uL (0.0-0.8); MONO % 16.9 % (0.0-5.0); NEUTROPHILS # 5.5 10^3/uL (1.8-7.7); NEUTROPHILS % 72.3 % (36.0-66.0); PLATELET COUNT, AUTOMATED 188 10^3/uL (150-450); RED BLOOD COUNT 3.14 10^6/uL (4.00-5.40); WHITE BLOOD COUNT 7.6 10^3/uL (4.0-10.0)
[2019-05-26 06:00] VITALS: BP 134/74
[2019-05-26 06:17] LABS: BLOOD UREA NITROGEN 11 MG/DL (7-18); CALCIUM LEVEL 7.7 MG/DL (8.8-10.2); CARBON DIOXIDE LEVEL 21 MEQ/L (21-32); CHLORIDE LEVEL 100 MEQ/L (98-107); CREATININE FOR GFR 0.44 MG/DL (0.55-1.30); GLOMERULAR FILTRATION RATE > 60.0 (>32); GLUCOSE, FASTING 54 MG/DL (70-100); POTASSIUM SERUM 3.5 MEQ/L (3.5-5.1); SODIUM LEVEL 135 MEQ/L (136-145)
[2019-05-26] MEDS: ROSUVASTATIN 10 MG TAB (CRESTOR) PO SCH (08:32)
[2019-05-26] MEDS: METOPROLOL TART 12.5 MG PER 1/2 TAB PO SCH ×2 (08:32→21:27)
[2019-05-26] MEDS: lisinopriL 5 MG TAB PO SCH (08:32)
[2019-05-26] MEDS: DICLOFENAC EPOLAMINE 1.3 % PATCH TOP SCH ×2 (08:33→21:27)
[2019-05-26] MEDS ORDERED: PERCOCET 5MG/325MG TAB PO PRN (10:30)
--- NOTE | 2019-05-26 11:19 | IPNPDOC ---
Subjective Date Seen The patient was seen on 05/26/19. Subjective Chief Complaint/HPI Patient is comfortable, both inside the bedside and patient offers no new complaints at the present time General: Denies: ROS Unobtainable, Chills, Night Sweats, Fatigue, Malaise, Normal Appetite, Other Symptoms Constitutional: Denies: Chills, Fever, Malaise, Night Sweats, Weakness, Fatigue, Weight Loss, Lethargy, Other Eyes: Denies: Pain, Vision change, Conjunctivae inflammation, Eyelid inflammation, Redness, Other ENT: Denies: Head Aches, Ear Pain, Dysphagia, Sinus Congestion, Post Nasal Drip, Sore Throat, Epistaxis, Other Symptoms Skin: Denies: Rash, Lesions, Jaundice, Bruising, Itching, Dry, Breakdown, Nail Changes, Other Pulmonary: Denies: Dyspnea, Cough, Pleuritic Chest Pain, Other Symptoms Cardiovascular: Denies: Chest Pain, Palpitations, Orthopnea, Paroxysmal Noc. Dyspnea, Edema, Lt Headedness, Other Symptoms Gastrointestinal: Denies: Nausea, Vomiting, Abdominal Pain, Diarrhea, Constipation, Melena, Hematochezia, Other Symptoms Musculoskeletal: Denies: Neck Pain, Back Pain, Shoulder Pain, Arm Pain, Hand Pain, Leg Pain, Foot Pain, Joint Pain, Muscle Pain, Spasms, Other Symptoms Neurological: Denies: Weakness, Numbness, Incoordination, Change in speech, Confusion, Seizures, Other Symptoms Objective Physical Examination General Exam: Positive: Alert, Cooperative, No Acute Distress Eye Exam: Positive: PERRLA, Conjunctiva & lids normal, EOMI; Negative: Sclera icteric ENT Exam: Positive: Atraumatic, Mucous membr. moist/pink, Pharynx Normal Neck Exam: Positive: Supple Chest Exam: Positive: Clear to auscultation, Normal air movement Heart Exam: Positive: Rate Normal, Regular Rhythm, Normal S1, Normal S2 Telemetry: Positive: No significant arrhythmia Abdomen Exam: Positive: Normal bowel sounds, Soft, Tenderness (in the epigastrium and the right lower quadrant) Extremity Exam: Positive: Edema, Tenderness (both knees) Skin Exam: Positive: Nl turgor and temperature Psych Exam: Positive: Memory Intact, Oriented x 3 Assessment /Plan Problems (1) GIB (gastrointestinal bleeding) Status: Acute Problem Text: Patient H&H stable at 9.1/28.7 . No more evidence of active hemorrhage Anoscopy was performed by Dr. Barone yesterday . There is a rectal mass on her colonoscopy EGD was essentially within normal limits Continue PPI by mouth Will await the biopsy report of the rectal mass Monitor H&H (2) Knee pain Status: Acute Problem Text: Continue local care Physical therapy in progress (3) Acute anemia Status: Acute Problem Text: Secondary GI bleed Monitor H&H Transfuse as needed (4) Rectal mass Status: Acute Problem Text: Discussed with Dr. Butt . He will see the patient for surgical evaluation Will order CT of the abdomen and pelvis Will possibly need a radiation therapy for rectal mass I had a long discussion with both sons and they agree with what for waiting till the biopsy report is back and CT of the abdomen and pelvis is back before the back and the decision Plan/VTE VTE Prophylaxis Ordered?: Yes VS, I&O, 24H, Fishbone Vital Signs/I&O Vital Signs Date Time Temp Pulse Resp B/P (MAP) Pulse Ox O2 Delivery O2 Flow Rate FiO2 05/26/19 08:32 131/87 05/26/19 08:32 81 05/26/19 06:00 97.7 18 97 05/22/19 07:14 Room Air I&O- Last 24 Hours up to 6 AM 05/26/19 06:00 Intake Total 197.5 ml Output Total 0 ml Balance 197.5 ml Laboratory Data 24H LABS Laboratory Tests 2 05/26/19 05:25: Immature Granulocyte % (Auto) 0.4, White Blood Count 7.6, Red Blood Count 3.14L, Hemoglobin 9.1L, Hematocrit 28.7L, Mean Corpuscular Volume 91.4, Mean Corpuscular Hemoglobin 29.0, Mean Corpuscular Hemoglobin Concent 31.7L, Red Cell Distribution Width 13.4, Platelet Count 188, Neutrophils (%) (Auto) 72.3H, Lymphocytes (%) (Auto) 9.6L, Monocytes (%) (Auto) 16.9H, Eosinophils (%) (Auto) 0.5, Basophils (%) (Auto) 0.3, Neutrophils # (Auto) 5.5, Lymphocytes # (Auto) 0.7L, Monocytes # (Auto) 1.3H, Eosinophils # (Auto) 0.0, Basophils # (Auto) 0.0, Nucleated Red Blood Cells % (auto) 0.0, Anion Gap 14, Glomerular Filtration Rate > 60.0, Blood Urea Nitrogen 11, Creatinine 0.44L, Sodium Level 135L, Potassium Level 3.5, Chloride Level 100, Carbon Dioxide Level 21, Calcium Level 7.7L CBC/BMP Laboratory Tests 05/26/19 05:25 Red Blood Count 3.14 L, Mean Corpuscular Volume 91.4, Mean Corpuscular Hemoglobin 29.0, Mean Corpuscular Hemoglobin Concent 31.7 L, Red Cell Distribution Width 13.4, Neutrophils (%) (Auto) 72.3 H, Lymphocytes (%) (Auto) 9.6 L, Monocytes (%) (Auto) 16.9 H, Eosinophils (%) (Auto) 0.5, Basophils (%) (Auto) 0.3, Neutrophils # (Auto) 5.5, Lymphocytes # (Auto) 0.7 L, Monocytes # (Auto) 1.3 H, Eosinophils # (Auto) 0.0, Basophils # (Auto) 0.0, Calcium Level 7.7 L Microbiology Microbiology 05/23/19 Stool Occult Blood (TYESHA) - Final, Complete 05/22/19 Gastrointestinal Tract Panel (PCR) - Final, Complete ANILA VARGAS MD May 26, 2019 11:19
[2019-05-26 14:00] VITALS: BP 116/55
[2019-05-26 18:00] VITALS: BP 115/57
[2019-05-26 22:00] VITALS: BP 133/67
[2019-05-27] MEDS: PANTOPRAZOLE SODIUM 40 MG in D5W 50 ML IV SCH ×2 (05:13→09:59)
[2019-05-27] MEDS: ULTRACET TAB PO SCH (05:16)
[2019-05-27 05:44] LABS: BASO % 0.3 % (0.0-1.0); EOS # 0.1 10^3/uL (0.0-0.50); EOS % 0.9 % (0.0-3.0); HEMATOCRIT 28.4 % (36.0-47.0); HEMOGLOBIN 9.2 g/dl (12.0-15.5); LYMPH # 0.7 10^3/uL (1.5-4.5); LYMPH % 9.6 % (24.0-44.0); MEAN CORPUSCULAR HEMOGLOBIN 29.6 pg (27.0-33.0); MEAN CORPUSCULAR HGB CONC 32.4 g/dl (32.0-36.5); MEAN CORPUSCULAR VOLUME 91.3 fl (80.0-96.0); MONO # 1.2 10^3/uL (0.0-0.8); MONO % 14.9 % (0.0-5.0); NEUTROPHILS # 5.7 10^3/uL (1.8-7.7); NEUTROPHILS % 73.9 % (36.0-66.0); PLATELET COUNT, AUTOMATED 201 10^3/uL (150-450); RED BLOOD COUNT 3.11 10^6/uL (4.00-5.40); WHITE BLOOD COUNT 7.7 10^3/uL (4.0-10.0)
[2019-05-27 06:00] VITALS: BP 145/79
[2019-05-27 06:04] LABS: BLOOD UREA NITROGEN 13 MG/DL (7-18); CALCIUM LEVEL 7.9 MG/DL (8.8-10.2); CARBON DIOXIDE LEVEL 28 MEQ/L (21-32); CHLORIDE LEVEL 102 MEQ/L (98-107); CREATININE FOR GFR 0.71 MG/DL (0.55-1.30); GLOMERULAR FILTRATION RATE > 60.0 (>32); GLUCOSE, FASTING 100 MG/DL (70-100); POTASSIUM SERUM 3.4 MEQ/L (3.5-5.1); SODIUM LEVEL 135 MEQ/L (136-145)
[2019-05-27] MEDS: ROSUVASTATIN 10 MG TAB (CRESTOR) PO SCH (08:02)
[2019-05-27] MEDS ORDERED: ISOVUE-370 76% 100ML VIAL (Q9967) As Ordered ONE (08:02)
[2019-05-27] MEDS: METOPROLOL TART 12.5 MG PER 1/2 TAB PO SCH ×2 (08:03→20:26)
[2019-05-27] MEDS: DICLOFENAC EPOLAMINE 1.3 % PATCH TOP SCH ×2 (08:03→20:26)
[2019-05-27] MEDS: lisinopriL 5 MG TAB PO SCH (08:04)
[2019-05-27] MEDS: PANTOPRAZOLE 20 MG TAB PO SCH (09:00)
[2019-05-27] MEDS ORDERED: POTASSIUM CHLORIDE 10 MEQ SR TABLET PO ONE (09:15)
[2019-05-27] MEDS: GASTROGRAFIN SOLUTION 30ML PO SCH ×2 (09:19→09:58)
--- NOTE | 2019-05-27 10:48 | IPNPDOC ---
Subjective Date Seen The patient was seen on 05/27/19. Subjective Chief Complaint/HPI Patient is comfortable in no apparent distress could not sleep last night, getting ready for CT of the abdomen and pelvis General: Denies: ROS Unobtainable, Chills, Night Sweats, Fatigue, Malaise, Normal Appetite, Other Symptoms Constitutional: Denies: Chills, Fever, Malaise, Night Sweats, Weakness, Fatigue, Weight Loss, Lethargy, Other Eyes: Denies: Pain, Vision change, Conjunctivae inflammation, Eyelid inflammation, Redness, Other ENT: Denies: Head Aches, Ear Pain, Dysphagia, Sinus Congestion, Post Nasal Drip, Sore Throat, Epistaxis, Other Symptoms Skin: Denies: Rash, Lesions, Jaundice, Bruising, Itching, Dry, Breakdown, Nail Changes, Other Pulmonary: Denies: Dyspnea, Cough, Pleuritic Chest Pain, Other Symptoms Cardiovascular: Denies: Chest Pain, Palpitations, Orthopnea, Paroxysmal Noc. Dyspnea, Edema, Lt Headedness, Other Symptoms Endocrine: Denies: Polydipsia, Polyphagia, Polyuria, Heat Intolerance, Cold Intolerance, Other Endocrine Sx Musculoskeletal: Denies: Neck Pain, Back Pain, Shoulder Pain, Arm Pain, Hand Pain, Leg Pain, Foot Pain, Joint Pain, Muscle Pain, Spasms, Other Symptoms Neurological: Denies: Weakness, Numbness, Incoordination, Change in speech, Confusion, Seizures, Other Symptoms Objective Physical Examination General Exam: Positive: Alert, Cooperative, No Acute Distress Eye Exam: Positive: PERRLA, Conjunctiva & lids normal, EOMI; Negative: Sclera icteric ENT Exam: Positive: Atraumatic, Mucous membr. moist/pink, Pharynx Normal Neck Exam: Positive: Supple Chest Exam: Positive: Clear to auscultation, Normal air movement Heart Exam: Positive: Rate Normal, Regular Rhythm, Normal S1, Normal S2 Telemetry: Positive: No significant arrhythmia Abdomen Exam: Positive: Normal bowel sounds, Soft, Tenderness (in the epigastrium and the right lower quadrant) Extremity Exam: Positive: Edema, Tenderness (both knees) Skin Exam: Positive: Nl turgor and temperature Psych Exam: Positive: Memory Intact, Oriented x 3 Assessment /Plan Problems (1) GIB (gastrointestinal bleeding) Status: Acute Problem Text: Patient H&H stable at 9.1/28.7 No more evidence of active hemorrhage Anoscopy was performed by Dr. Barone yesterday There is a rectal mass on her colonoscopy EGD was essentially within normal limits Continue PPI by mouth Will await the biopsy report of the rectal mass Monitor H&H (2) Knee pain Status: Acute Problem Text: Continue local care Physical therapy in progress (3) Acute anemia Status: Acute Problem Text: Secondary GI bleed Monitor H&H Transfuse as needed (4) Rectal mass Status: Acute Problem Text: Discussed with Dr. Butt . He will see the patient for surgical evaluation Will order CT of the abdomen and pelvis Will possibly need a radiation therapy for rectal mass I had a long discussion with both sons and they agree with what for waiting till the biopsy report is back and CT of the abdomen and pelvis is back before the back and the decision (5) Hypokalemia Status: Acute Problem Text: Potassium supplement given Repeat level in a.m. Plan/VTE VTE Prophylaxis Ordered?: Yes VS, I&O, 24H, Fishbone Vital Signs/I&O Vital Signs Date Time Temp Pulse Resp B/P (MAP) Pulse Ox O2 Delivery O2 Flow Rate FiO2 05/27/19 08:03 77 138/78 05/27/19 06:00 97.1 18 95 05/22/19 07:14 Room Air I&O- Last 24 Hours up to 6 AM 05/27/19 06:00 Intake Total 618 ml Balance 618 ml Laboratory Data 24H LABS Laboratory Tests 2 05/26/19 23:56: Bedside Glucose (Misc Panel) 111H 05/27/19 05:21: Immature Granulocyte % (Auto) 0.4, White Blood Count 7.7, Red Blood Count 3.11L, Hemoglobin 9.2L, Hematocrit 28.4L, Mean Corpuscular Volume 91.3, Mean Corpuscular Hemoglobin 29.6, Mean Corpuscular Hemoglobin Concent 32.4, Red Cell Distribution Width 13.4, Platelet Count 201, Neutrophils (%) (Auto) 73.9H, Lymphocytes (%) (Auto) 9.6L, Monocytes (%) (Auto) 14.9H, Eosinophils (%) (Auto) 0.9, Basophils (%) (Auto) 0.3, Neutrophils # (Auto) 5.7, Lymphocytes # (Auto) 0.7L, Monocytes # (Auto) 1.2H, Eosinophils # (Auto) 0.1, Basophils # (Auto) 0.0, Nucleated Red Blood Cells % (auto) 0.0, Anion Gap 5L, Glomerular Filtration Rate > 60.0, Blood Urea Nitrogen 13, Creatinine 0.71#, Sodium Level 135L, Potassium Level 3.4L, Chloride Level 102, Carbon Dioxide Level 28, Calcium Level 7.9L CBC/BMP Laboratory Tests 05/27/19 05:21 Red Blood Count 3.11 L, Mean Corpuscular Volume 91.3, Mean Corpuscular Hemoglo bin 29.6, Mean Corpuscular Hemoglobin Concent 32.4, Red Cell Distribution Width 13.4, Neutrophils (%) (Auto) 73.9 H, Lymphocytes (%) (Auto) 9.6 L, Monocytes (%) (Auto) 14.9 H, Eosinophils (%) (Auto) 0.9, Basophils (%) (Auto) 0.3, Neutrophils # (Auto) 5.7, Lymphocytes # (Auto) 0.7 L, Monocytes # (Auto) 1.2 H, Eosinophils # (Auto) 0.1, Basophils # (Auto) 0.0, Calcium Level 7.9 L Microbiology Microbiology 05/23/19 Stool Occult Blood (TYESHA) - Final, Complete 05/22/19 Gastrointestinal Tract Panel (PCR) - Final, Complete ANILA VARGAS MD May 27, 2019 10:48
--- NOTE | 2019-05-27 11:06 | REP ---
CT of the chest with IV contrast: Comparison is 04/10/2009. There is thoracic scoliosis as previously. There are no nodules or masses. There are small bilateral pleural effusions. There is atelectasis in the left lower lobe. 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 This measured 5.2 x 4.2 cm previously. There is an aortic valve replacement. This is unchanged. There is no ascending thoracic aortic dissection. The isthmus and descending thoracic aorta are unremarkable and unchanged. There is no mediastinal, hilar or axillary lymph node enlargement. There are calcified granulomas in the left hilus, unchanged. Cardiac size is enlarged. There is no pericardial effusion. Impression: Small bilateral pleural effusions. Atelectasis in the left lower lobe. 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 There are no lung masses or nodules. There is no mediastinal, hilar or axillary lymph node enlargement. There are calcified granulomas in the left hilus, unchanged. Electronically Signed by Callum Blanco MD 05/27/2019 10:58 A
--- NOTE | 2019-05-27 11:26 | REP ---
CT of the abdomen and pelvis with IV and bowel contrast: Studies performed. Contiguous with the chest CT performed this same date. There is circumferential wall thickening of the rectum in the sigmoid colon. This thickening is asymmetric is asymmetric, compatible with the clinical history of rectal mass. There is slight induration of the perirectal fat planes. The uterus and adnexa are unremarkable except for uterine calcifications compatible with degenerating fibroids. The bladder is unremarkable. There is no ascites. There is no pelvic adenopathy. There are small bilateral pleural effusions in the visualized lung sood. There is a hiatal hernia. There is atelectasis of the lower lobe of the left lung. There is a 1 cm hypodensity in the dome of the liver laterally, unchanged from a chest CT of 04/10/2009, likely a cyst. The hepatic parenchyma is otherwise homogeneous. The gallbladder, pancreas and spleen are unremarkable. The adrenals are unremarkable. The kidneys and abdominal aorta are unremarkable except for aortic calcified atheroma. There is no periaortic adenopathy or mass. There is no ascites. There is no bowel distension or obstruction. Impression: There is asymmetric wall thickening of the rectum and rectosigmoid colon compatible with neoplasm. There is no bowel obstruction. There is no ascites or adenopathy in the abdomen or pelvis. There is no hepatic or adrenal mass. There is a small stable hypodensity in the dome of the liver as described. There is an age indeterminate grade 3 compression of the T10 vertebral body, grade 4 of the T11 vertebral body and grade 4 of the T12 vertebral body. There is advanced degenerative disc disease throughout the lower thoracic and lumbar spine. There are no lytic, blastic or destructive skeletal changes. Electronically Signed by Callum Blanco MD 05/27/2019 11:17 A
[2019-05-27 14:00] VITALS: BP 113/59
--- NOTE | 2019-05-27 18:19 | IPN ---
DATE: 05/27/2019 The patient continues have her diarrhea and from her standpoint she underwent her CT scan of the chest, abdomen, and pelvis today and I am not seeing any evidence of metastatic disease. There is an enlarged lymph node around the rectal mass but otherwise I am not seeing any other significant lymphadenopathy. Her abdomen is distended, tympanitic, but otherwise nontender. IMPRESSION AND PLAN: The patient has evidence of a relatively large rectal mass that it is nearly obstructing. I do feel that it is reasonable to have radiation oncology evaluate her and make additional recommendations concerning treatment. I anticipate this may actually be her best option. She is an extremely frail individual who has difficulty moving around and operative intervention, although we could perform a possible laparoscopic diverting colostomy, this still seems as though it might be quite an undertaking for her and difficult for her to recover from. Thus at this point options were discussed extensively with the family and more importantly at this point recommending radiation oncology to see her. I do not think she would even tolerate neoadjuvant treatment for this to assist with the radiation but I will defer that judgment to the expertise of the radiation oncologist. From my standpoint she can progress her diet as tolerated with the goal of keeping her stools relatively soft so she does not have an obstruction at the site. If radiation oncology does not feel like she would have an adequate response or if they feel that she is at too high risk for obstruction, it may be reasonable to have her undergo a rectal stenting by the cinder dump crane operator. In any case, would recommend starting with the radiation oncology's recommendations next.
--- NOTE | 2019-05-27 18:21 | CR ---
DATE OF CONSULTATION: 05/26/2019 The patient was seen today. She was sleeping and thus did not awaken her from her sleep, but all of her family was present; and essentially at this point, we are still waiting on information from Dr. Barone's colonoscopy report i.e. his colonoscopy which revealed a mass in the distal rectum that was palpable on digital rectal exam and nearly obstructing. Pathology has not returned on this weekend. She has been having diarrhea without significant bloody bowel movements and I am asked for surgical recommendations concerning treatment for this. Her past medical history is significant for history of hypertension, hyperlipidemia, hiatal hernia, aortic valve replacement, bilateral knee pain, compression fractures at multiple levels. Advanced osteoarthritis. Medications include lisinopril, metoprolol, potassium, rosuvastatin, Tylenol and Lasix. PHYSICAL EXAMINATION: Reveals a frail individual, looks stated age. Exam today was deferred. IMPRESSION AND PLAN: At this point, we still have only initial information for her, but essentially it sounds as though she has a nearly obstructing rectal cancer, although it is almost perianal. Pathology will be helpful in determining what the next step is, but most importantly in her advanced age, I anticipate that radiation will be the next step for her. She is a relatively frail individual and I am not convinced that operative intervention would be the next best step for her. However, even more important then this is to determine if she has metastatic disease. If she has metastatic disease to liver/lungs, then she may forego any further treatment at all. Thus will obtain a CT scan of the abdomen, pelvis, chest tomorrow; and depending on those results, will make some additional recommendations.
[2019-05-27] MEDS ORDERED: diphenhydrAMINE 25 MG CAP PO ONE (21:00)
[2019-05-27 22:00] VITALS: BP 120/57
[2019-05-28] MEDS: ACETAMINOPHEN 500 MG TAB PO PRN (01:26)
[2019-05-28 06:00] VITALS: BP 145/75
[2019-05-28 06:08] LABS: BASO % 0.1 % (0.0-1.0); EOS # 0.1 10^3/uL (0.0-0.50); HEMATOCRIT 28.3 % (36.0-47.0); LYMPH # 0.8 10^3/uL (1.5-4.5); LYMPH % 11.5 % (24.0-44.0); MEAN CORPUSCULAR HEMOGLOBIN 28.2 pg (27.0-33.0); MEAN CORPUSCULAR HGB CONC 31.8 g/dl (32.0-36.5); MEAN CORPUSCULAR VOLUME 88.7 fl (80.0-96.0); MONO # 0.9 10^3/uL (0.0-0.8); MONO % 12.4 % (0.0-5.0); NEUTROPHILS # 5.5 10^3/uL (1.8-7.7); NEUTROPHILS % 74.6 % (36.0-66.0); PLATELET COUNT, AUTOMATED 207 10^3/uL (150-450); RED BLOOD COUNT 3.19 10^6/uL (4.00-5.40); WHITE BLOOD COUNT 7.3 10^3/uL (4.0-10.0)
[2019-05-28 06:23] LABS: BLOOD UREA NITROGEN 11 MG/DL (7-18); CALCIUM LEVEL 8.1 MG/DL (8.8-10.2); CARBON DIOXIDE LEVEL 28 MEQ/L (21-32); CHLORIDE LEVEL 103 MEQ/L (98-107); CREATININE FOR GFR 0.56 MG/DL (0.55-1.30); GLOMERULAR FILTRATION RATE > 60.0 (>32); GLUCOSE, FASTING 113 MG/DL (70-100); POTASSIUM SERUM 3.4 MEQ/L (3.5-5.1); SODIUM LEVEL 136 MEQ/L (136-145)
[2019-05-28 06:24] LABS: ALBUMIN 1.7 GM/DL (3.2-5.2); ALT/SGPT 23 U/L (12-78); BILIRUBIN,TOTAL 0.3 MG/DL (0.2-1.0); BLOOD UREA NITROGEN 11 MG/DL (7-18); CALCIUM LEVEL 7.8 MG/DL (8.8-10.2); CARBON DIOXIDE LEVEL 28 MEQ/L (21-32); CHLORIDE LEVEL 103 MEQ/L (98-107); CREATININE FOR GFR 0.57 MG/DL (0.55-1.30); GLOMERULAR FILTRATION RATE > 60.0 (>32); GLUCOSE, FASTING 105 MG/DL (70-100); POTASSIUM SERUM 3.6 MEQ/L (3.5-5.1); SODIUM LEVEL 139 MEQ/L (136-145); TOTAL PROTEIN 5.5 GM/DL (6.4-8.2)
[2019-05-28] MEDS: ROSUVASTATIN 10 MG TAB (CRESTOR) PO SCH (09:42)
[2019-05-28] MEDS: METOPROLOL TART 12.5 MG PER 1/2 TAB PO SCH ×2 (09:43→21:20)
[2019-05-28] MEDS: PANTOPRAZOLE 20 MG TAB PO SCH (09:43)
[2019-05-28] MEDS: DICLOFENAC EPOLAMINE 1.3 % PATCH TOP SCH ×2 (09:44→21:20)
[2019-05-28] MEDS: lisinopriL 5 MG TAB PO SCH (09:44)
--- NOTE | 2019-05-28 11:34 | IPNPDOC ---
Subjective Date Seen The patient was seen on 05/28/19. Subjective Chief Complaint/HPI Patient offers no new complaints at the present time. Wishes to go home General: Denies: ROS Unobtainable, Chills, Night Sweats, Fatigue, Malaise, Normal Appetite, Other Symptoms Constitutional: Denies: Chills, Fever, Malaise, Night Sweats, Weakness, Fatigue, Weight Loss, Lethargy, Other Eyes: Denies: Pain, Vision change, Conjunctivae inflammation, Eyelid inflammation, Redness, Other ENT: Denies: Head Aches, Ear Pain, Dysphagia, Sinus Congestion, Post Nasal Drip, Sore Throat, Epistaxis, Other Symptoms Skin: Denies: Rash, Lesions, Jaundice, Bruising, Itching, Dry, Breakdown, Nail Changes, Other Pulmonary: Denies: Dyspnea, Cough, Pleuritic Chest Pain, Other Symptoms Cardiovascular: Denies: Chest Pain, Palpitations, Orthopnea, Paroxysmal Noc. Dyspnea, Edema, Lt Headedness, Other Symptoms Gastrointestinal: Denies: Nausea, Vomiting, Abdominal Pain, Diarrhea, Con stipation, Melena, Hematochezia, Other Symptoms Genitourinary: Denies: Dysuria, Frequency, Incontinence, Hematuria, Retention, Other Symptoms Musculoskeletal: Denies: Neck Pain, Back Pain, Shoulder Pain, Arm Pain, Hand Pain, Leg Pain, Foot Pain, Joint Pain, Muscle Pain, Spasms, Other Symptoms Neurological: Denies: Weakness, Numbness, Incoordination, Change in speech, Confusion, Seizures, Other Symptoms Objective Physical Examination General Exam: Positive: Alert, Cooperative, No Acute Distress Eye Exam: Positive: PERRLA, Conjunctiva & lids normal, EOMI; Negative: Sclera icteric ENT Exam: Positive: Atraumatic, Mucous membr. moist/pink, Pharynx Normal Neck Exam: Positive: Supple Chest Exam: Positive: Clear to auscultation, Normal air movement Heart Exam: Positive: Rate Normal, Regular Rhythm, Normal S1, Normal S2 Telemetry: Positive: No significant arrhythmia Abdomen Exam: Positive: Normal bowel sounds, Soft, Tenderness (in the epigastrium and the right lower quadrant) Extremity Exam: Positive: Edema, Tenderness (both knees) Skin Exam: Positive: Nl turgor and temperature Psych Exam: Positive: Memory Intact, Oriented x 3 Assessment /Plan Problems (1) GIB (gastrointestinal bleeding) Status: Acute Problem Text: Patient H&H stable at 9.1/28.7 No more evidence of active hemorrhage Anoscopy was performed by Dr. Barone yesterday There is a rectal mass on her colonoscopy EGD was essentially within normal limits Continue PPI by mouth Will await the biopsy report of the rectal mass Monitor H&H (2) Knee pain Status: Acute Problem Text: Continue local care Physical therapy in progress (3) Acute anemia Status: Acute Problem Text: Secondary GI bleed Monitor H&H Transfuse as needed (4) Rectal mass Status: Acute Problem Text: CT abdomen consistent with rectosigmoid mass with possible partial luminal obstruction Stool softeners have been ordered Will follow radiation oncology consult for their input Discussed with patient's son, Rip in detail. He agreed with the radiation oncology consult consult Continue supportive care (5) Hypokalemia Status: Acute Problem Text: Potassium supplement given Repeat level in a.m. Plan/VTE VTE Prophylaxis Ordered?: Yes VS, I&O, 24H, Fishbone Vital Signs/I&O Vital Signs Date Time Temp Pulse Resp B/P (MAP) Pulse Ox O2 Delivery O2 Flow Rate FiO2 05/28/19 09:43 91 146/76 05/28/19 06:00 97.2 20 95 05/22/19 07:14 Room Air I&O- Last 24 Hours up to 6 AM 05/28/19 06:00 Intake Total 500 ml Output Total 0 ml Balance 500 ml Laboratory Data 24H LABS Laboratory Tests 2 05/28/19 05:39: Immature Granulocyte % (Auto) 0.4, White Blood Count 7.3, Red Blood Count 3.19L, Hemoglobin 9.0L, Hematocrit 28.3L, Mean Corpuscular Volume 88.7, Mean Corpuscular Hemoglobin 28.2, Mean Corpuscular Hemoglobin Concent 31.8L, Red Cell Distribution Width 13.2, Platelet Count 207, Neutrophils (%) (Auto) 74.6H, Lymphocytes (%) (Auto) 11.5L, Monocytes (%) (Auto) 12.4H, Eosinophils (%) (Auto) 1.0, Basophils (%) (Auto) 0.1, Neutrophils # (Auto) 5.5, Lymphocytes # (Auto) 0.8L, Monocytes # (Auto) 0.9H, Eosinophils # (Auto) 0.1, Basophils # (Auto) 0.0, Nucleated Red Blood Cells % (auto) 0.0, Anion Gap 8, Glomerular Filtration Rate > 60.0, Blood Urea Nitrogen 11, Creatinine 0.57, Sodium Level 139, Potassium Level 3.6, Chloride Level 103, Carbon Dioxide Level 28, Calcium Level 7.8L, Aspartate Amino Transf (AST/SGOT) 32, Alanine Aminotransferase (ALT/SGPT) 23, Alkaline Phosphatase 93, Total Bilirubin 0.3, Total Protein 5.5L, Albumin 1.7L, Albumin/Globulin Ratio 0.45L CBC/BMP Laboratory Tests 05/28/19 05:39 Red Blood Count 3.19 L, Mean Corpuscular Volume 88.7, Mean Corpuscular Hemoglobin 28.2, Mean Corpuscular Hemoglobin Concent 31.8 L, Red Cell Distribution Width 13.2, Neutrophils (%) (Auto) 74.6 H, Lymphocytes (%) (Auto) 11.5 L, Monocytes (%) (Auto) 12.4 H, Eosinophils (%) (Auto) 1.0, Basophils (%) (Auto) 0.1, Neutrophils # (Auto) 5.5, Lymphocytes # (Auto) 0.8 L, Monocytes # (Auto) 0.9 H, Eosinophils # (Auto) 0.1, Basophils # (Auto) 0.0, Calcium Level 7.8 L, Aspartate Amino Transf (AST/SGOT) 32, Alanine Aminotransferase (ALT/SGPT) 23, Alkaline Phosphatase 93, Total Bilirubin 0.3, Total Protein 5.5 L, Albumin 1.7 L Microbiology Microbiology 05/23/19 Stool Occult Blood (TYESHA) - Final, Complete 05/22/19 Gastrointestinal Tract Panel (PCR) - Final, Complete ANILA VARGAS MD May 28, 2019 11:34
[2019-05-28] MEDS: DOCUSATE SODIUM 100 MG CAP PO SCH ×2 (12:33→21:20)
[2019-05-28] MEDS: MIRALAX *UNIT DOSE* 17GM PACKET PO SCH (12:34)
[2019-05-28 14:00] VITALS: BP 126/60
[2019-05-28 22:00] VITALS: BP 137/62
[2019-05-29 06:00] VITALS: BP 117/72
[2019-05-29 06:46] LABS: BASO % 0.1 % (0.0-1.0); EOS # 0.1 10^3/uL (0.0-0.50); EOS % 0.9 % (0.0-3.0); HEMATOCRIT 27.2 % (36.0-47.0); HEMOGLOBIN 8.7 g/dl (12.0-15.5); LYMPH # 0.9 10^3/uL (1.5-4.5); LYMPH % 11.6 % (24.0-44.0); MEAN CORPUSCULAR HEMOGLOBIN 28.7 pg (27.0-33.0); MEAN CORPUSCULAR VOLUME 89.8 fl (80.0-96.0); MONO # 1.2 10^3/uL (0.0-0.8); MONO % 15.7 % (0.0-5.0); NEUTROPHILS # 5.4 10^3/uL (1.8-7.7); NEUTROPHILS % 71.2 % (36.0-66.0); PLATELET COUNT, AUTOMATED 216 10^3/uL (150-450); RED BLOOD COUNT 3.03 10^6/uL (4.00-5.40); WHITE BLOOD COUNT 7.6 10^3/uL (4.0-10.0)
[2019-05-29 07:14] LABS: BLOOD UREA NITROGEN 12 MG/DL (7-18); CALCIUM LEVEL 8.1 MG/DL (8.8-10.2); CARBON DIOXIDE LEVEL 29 MEQ/L (21-32); CHLORIDE LEVEL 103 MEQ/L (98-107); CREATININE FOR GFR 0.49 MG/DL (0.55-1.30); GLOMERULAR FILTRATION RATE > 60.0 (>32); GLUCOSE, FASTING 95 MG/DL (70-100); POTASSIUM SERUM 3.4 MEQ/L (3.5-5.1); SODIUM LEVEL 135 MEQ/L (136-145)
[2019-05-29] MEDS: BENZOCAINE 10% 9GM TUBE (ANBESOL) MT SCH ×4 (09:00→20:29)
[2019-05-29] MEDS ORDERED: POTASSIUM CHLORIDE 10 MEQ SR TABLET PO ONE (09:00)
[2019-05-29] MEDS: MIRALAX *UNIT DOSE* 17GM PACKET PO SCH (09:04)
[2019-05-29] MEDS: DICLOFENAC EPOLAMINE 1.3 % PATCH TOP SCH ×2 (09:05→20:29)
[2019-05-29] MEDS: lisinopriL 5 MG TAB PO SCH (09:06)
[2019-05-29] MEDS: DOCUSATE SODIUM 100 MG CAP PO SCH ×2 (09:07→20:29)
[2019-05-29] MEDS: ROSUVASTATIN 10 MG TAB (CRESTOR) PO SCH (09:07)
[2019-05-29] MEDS: METOPROLOL TART 12.5 MG PER 1/2 TAB PO SCH ×2 (09:07→20:30)
[2019-05-29] MEDS: PANTOPRAZOLE 20 MG TAB PO SCH (09:22)
--- NOTE | 2019-05-29 11:06 | IPNPDOC ---
Subjective Date Seen The patient was seen on 05/29/19. Subjective Chief Complaint/HPI Patient is comfortable in no distress. Offers no new complaints General: Denies: ROS Unobtainable, Chills, Night Sweats, Fatigue, Malaise, Normal Appetite, Other Symptoms Skin: Denies: Rash, Lesions, Jaundice, Bruising, Itching, Dry, Breakdown, Nail Changes, Other Pulmonary: Denies: Dyspnea, Cough, Pleuritic Chest Pain, Other Symptoms Cardiovascular: Denies: Chest Pain, Palpitations, Orthopnea, Paroxysmal Noc. Dyspnea, Edema, Lt Headedness, Other Symptoms Gastrointestinal: Denies: Nausea, Vomiting, Abdominal Pain, Diarrhea, Const ipation, Melena, Hematochezia, Other Symptoms Musculoskeletal: Denies: Neck Pain, Back Pain, Shoulder Pain, Arm Pain, Hand Pain, Leg Pain, Foot Pain, Joint Pain, Muscle Pain, Spasms, Other Symptoms Neurological: Denies: Weakness, Numbness, Incoordination, Change in speech, Confusion, Seizures, Other Symptoms Objective Physical Examination General Exam: Positive: Alert, No Acute Distress Eye Exam: Positive: Sclera icteric Chest Exam: Positive: Clear to auscultation, Normal air movement Heart Exam: Positive: Rate Normal, Regular Rhythm, Normal S1, Normal S2 Abdomen Exam: Positive: Normal bowel sounds, Soft, Tenderness (in the epigastrium and the right lower quadrant) Extremity Exam: Positive: Edema, Tenderness (both knees) Skin Exam: Positive: Nl turgor and temperature Assessment /Plan Problems (1) GIB (gastrointestinal bleeding) Status: Acute Problem Text: Most likely secondary to rectal mass Hemoglobin is 8.7 and hematocrit 27.2 No more active bleeding noted Continue PPI by mouth Biopsy report from rectal masses still pending Monitor H&H (2) Knee pain Status: Acute Problem Text: Continue local care Physical therapy in progress (3) Acute anemia Status: Acute Problem Text: Secondary GI bleed Monitor H&H Transfuse as needed (4) Rectal mass Status: Acute Problem Text: CT abdomen consistent with rectosigmoid mass with possible partial luminal obstruction Stool softeners have been ordered Discussed with Dr. Miller yesterday and he will do a radiation oncology consult and give us further recommendation, possible palliative radiation to the rectal mass Dr Bazan from oncology also has been called Palliative consult also has been called Patient is not a surgical candidate secondary to advanced age Patient's family is agreeable for the current management (5) Hypokalemia Status: Acute Problem Text: Potassium supplement given today Repeat level in a.m. Plan/VTE VTE Prophylaxis Ordered?: Yes VS, I&O, 24H, Fishbone Vital Signs/I&O Vital Signs Date Time Temp Pulse Resp B/P (MAP) Pulse Ox O2 Delivery O2 Flow Rate FiO2 05/29/19 06:00 98.4 82 17 117/72 (87) 96 I&O- Last 24 Hours up to 6 AM 05/29/19 06:00 Intake Total 690 ml Output Total 0 ml Balance 690 ml Laboratory Data 24H LABS Laboratory Tests 2 05/29/19 05:54: Immature Granulocyte % (Auto) 0.5, White Blood Count 7.6, Red Blood Count 3.03L, Hemoglobin 8.7L, Hematocrit 27.2L, Mean Corpuscular Volume 89.8, Mean Corpuscular Hemoglobin 28.7, Mean Corpuscular Hemoglobin Concent 32.0, Red Cell Distribution Width 13.2, Platelet Count 216, Neutrophils (%) (Auto) 71.2H, Lymphocytes (%) (Auto) 11.6L, Monocytes (%) (Auto) 15.7H, Eosinophils (%) (Auto) 0.9, Basophils (%) (Auto) 0.1, Neutrophils # (Auto) 5.4, Lymphocytes # (Auto) 0. 9L, Monocytes # (Auto) 1.2H, Eosinophils # (Auto) 0.1, Basophils # (Auto) 0.0, Nucleated Red Blood Cells % (auto) 0.0, Anion Gap 3L, Glomerular Filtration Rate > 60.0, Blood Urea Nitrogen 12, Creatinine 0.49L, Sodium Level 135L, Potassium Level 3.4L, Chloride Level 103, Carbon Dioxide Level 29, Calcium Level 8.1L CBC/BMP Laboratory Tests 05/29/19 05:54 Red Blood Count 3.03 L, Mean Corpuscular Volume 89.8, Mean Corpuscular Hemoglobin 28.7, Mean Corpuscular Hemoglobin Concent 32.0, Red Cell Distribution Width 13.2, Neutrophils (%) (Auto) 71.2 H, Lymphocytes (%) (Auto) 11.6 L, Monocytes (%) (Auto) 15.7 H, Eosinophils (%) (Auto) 0.9, Basophils (%) (Auto) 0.1, Neutrophils # (Auto) 5.4, Lymphocytes # (Auto) 0.9 L, Monocytes # (Auto) 1.2 H, Eosinophils # (Auto) 0.1, Basophils # (Auto) 0.0, Calcium Level 8.1 L Microbiology Microbiology 05/23/19 Stool Occult Blood (TYESHA) - Final, Complete 05/22/19 Gastrointestinal Tract Panel (PCR) - Final, Complete ANILA VARGAS MD May 29, 2019 11:06
[2019-05-29 15:16] VITALS: BP 148/71
[2019-05-29 22:00] VITALS: BP 140/68
[2019-05-30 06:00] VITALS: BP 140/68
[2019-05-30 06:11] LABS: HEMATOCRIT 28.6 % (36.0-47.0); HEMOGLOBIN 9.1 g/dl (12.0-15.5); MEAN CORPUSCULAR HEMOGLOBIN 29.4 pg (27.0-33.0); MEAN CORPUSCULAR HGB CONC 31.8 g/dl (32.0-36.5); MEAN CORPUSCULAR VOLUME 92.6 fl (80.0-96.0); PLATELET COUNT, AUTOMATED 201 10^3/uL (150-450); RED BLOOD COUNT 3.09 10^6/uL (4.00-5.40); WHITE BLOOD COUNT 8.6 10^3/uL (4.0-10.0)
[2019-05-30 06:33] LABS: ALBUMIN 1.5 GM/DL (3.2-5.2); ALT/SGPT 19 U/L (12-78); BILIRUBIN,TOTAL 0.3 MG/DL (0.2-1.0); BLOOD UREA NITROGEN 13 MG/DL (7-18); CARBON DIOXIDE LEVEL 28 MEQ/L (21-32); CHLORIDE LEVEL 104 MEQ/L (98-107); CREATININE FOR GFR 0.46 MG/DL (0.55-1.30); GLOMERULAR FILTRATION RATE > 60.0 (>32); GLUCOSE, FASTING 91 MG/DL (70-100); POTASSIUM SERUM 3.8 MEQ/L (3.5-5.1); SODIUM LEVEL 139 MEQ/L (136-145); TOTAL PROTEIN 5.8 GM/DL (6.4-8.2)
[2019-05-30] MEDS ORDERED: POTASSIUM CHL PWD 20 MEQ PACKET PO SCH (09:00)
[2019-05-30] MEDS: MIRALAX *UNIT DOSE* 17GM PACKET PO SCH (10:05)
[2019-05-30] MEDS: ROSUVASTATIN 10 MG TAB (CRESTOR) PO SCH (10:05)
[2019-05-30] MEDS: METOPROLOL TART 12.5 MG PER 1/2 TAB PO SCH (10:06)
[2019-05-30 10:07] VITALS: BP 150/83
[2019-05-30] MEDS: DOCUSATE SODIUM 100 MG CAP PO SCH (10:07)
[2019-05-30] MEDS: lisinopriL 5 MG TAB PO SCH (10:07)
[2019-05-30] MEDS: BENZOCAINE 10% 9GM TUBE (ANBESOL) MT SCH (10:08)
[2019-05-30] MEDS: DICLOFENAC EPOLAMINE 1.3 % PATCH TOP SCH (10:09)
[2019-05-30] MEDS: PANTOPRAZOLE 20 MG TAB PO SCH (10:15)
--- NOTE | 2019-05-30 12:55 | DS.PDOC ---
Discharge Summary General Date of Admission May 22, 2019 at 11:00 Date of Discharge 05/30/19 Discharge Summary PROCEDURES PERFORMED DURING STAY: [None]. ADMITTING DIAGNOSES: 1. GIB 2. Polyarthralgia 3. Debility 4. HLD 5. HTN 6. GERD/Hiatal Hernia 7. Anemia 8. Rectal mass DISCHARGE DIAGNOSES: 1. GIB 2. Polyarthralgia 3. Debility 4. HLD 5. HTN 6. GERD/Hiatal Hernia 7. Anemia 8. Rectal mass COMPLICATIONS/CHIEF COMPLAINT: weakness HISTORY OF PRESENT ILLNESS: "88 year old female with PMH of Hypertension, HLD, hiatal hernia, Aortic valve replacement in 2001 by bioprosthetic valve then again had TAVR in 2014 came to the ED for bilateral knee pain and inability to stand. She has had pain in her knees and right shoulders for many years got steroid injections last was 5 months back, seen by ortho in [place] minimal relief . While getting work up in the ED had a large black liquid stool in ED heme positive. She also complained of light headedness for 1 day soft to semiliquid black stools for 2 w eeks and bight red Blood in stools off and on for 2 years but never seen a doctor for this. Her HH in ED was at 9.4 down from 11.2 which was 2 years ago. No more recent labs in the system prior to today. She says she takes pepto bismol on a daily basis often more than once other iraheta gets constipated so thought her soft black stools were due to that. Her main concern is her knees. Says the pain is in both knees is 10/10 in intensity, dull aching and throbbing in nature and becomes sharp when ever she tries to bear weight. There is no radiation. But her knees are very weak and from yesterday she has not been able to stand up. In the middle of the night she was rolled to the bathroom in her r olling walker with set by her daughter and then could not stand up the pivot to the commode. Her 2 sons came to help move her but she was in excruciating pain so they were afraid to move her forcefully so called the ambulance and brought her to the ED. She also complained of shoulder pain in the right thinks that she pulled a muscle." HOSPITAL COURSE: Patient's bleeding was found to be 2/2 Rectal mass, bleeding resolved during course of hospitalization on PPI and supportive care. CT also showed evidence of possible partial luminal obstruction and patient was started on stool softener. Dr. Falcon, Dr. Bazan as well as Radiation Oncology were notified, considering possible palliative radiation tot he rectal mass. She is not a candidate for surgical resection given advance age and functional status. Patient to be transferred to ARU for continue Rehab with possible palliative Oncologic int erventions. DISCHARGE MEDICATIONS: Please see below. ALLERGIES: Please see below. PHYSICAL EXAMINATION ON DISCHARGE: VITAL SIGNS: Please see below. General: Alert, lethargic, heard of hearing Eyes: Normal sclera, EOMI, GAVIN HENT: Atraumatic, neck supple, moist mucous membranes Cardiovascular: Normal rate, normal rhythm. b/l LE nonpitting edema. Pulmonary: Clear to auscultation b/l, no wheezing GI: Soft, obese, nontender Skin: Warm and dry Neuro: CN grossly intact. Diffuse/generalized weakness throughout with difficulty in hearing. Psych: oriented x 3 LABORATORY DATA: Please see below. IMAGING: Abd/Pelvis CT- Impression: There is asymmetric wall thickening of the rectum and rectosigmoid colon compatible with neoplasm. There is no bowel obstruction. There is no ascites or adenopathy in the abdomen or pelvis. There is no hepatic or adrenal mass. There is a small stable hypodensity in the dome of the liver as described. There is an age indeterminate grade 3 compression of the T10 vertebral body, grade 4 of the T11 vertebral body and grade 4 of the T12 vertebral body. There is advanced degenerative disc disease throughout the lower thoracic and lumbar spine. There are no lytic, blastic or destructive skeletal changes. Chest CT- Impression: Small bilateral pleural effusions. Atelectasis in the left lower lobe. 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 There are no lung masses or nodules. There is no mediastinal, hilar or axillary lymph node enlargement. There are calcified granulomas in the left hilus, unchanged. PROGNOSIS: Poor ACTIVITY: [As tolerated]. DIET: Regular DISCHARGE PLAN: Continue Rehab in ARU To continue being followed by Onc/Rad Onc for possible palliative interventions Palliative care consult DISPOSITION: ARU. DISCHARGE INSTRUCTIONS: continue Rehab, need compression stockings ITEMS TO FOLLOWUP ON ON OUTPATIENT: None DISCHARGE CONDITION: [Stable]. TIME SPENT ON DISCHARGE: 35 minutes. Vital Signs/I&Os Vital Signs Date Time Temp Pulse Resp B/P (MAP) Pulse Ox O2 Delivery O2 Flow Rate FiO2 05/30/19 10:07 150/83 05/30/19 10:06 91 05/29/19 22:00 98.5 18 94 I&O- Last 24 Hours up to 6 AM 05/30/19 06:00 Intake Total 460 ml Balance 460 ml Laboratory Data Labs 24H Laboratory Tests 2 05/30/19 05:46: Nucleated Red Blood Cells % (auto) 0.0, Anion Gap 7L, Glomerular Filtration Rate > 60.0, Blood Urea Nitrogen 13, Creatinine 0.46L, Sodium Level 139, Potassium Level 3.8, Chloride Level 104, Carbon Dioxide Level 28, Calcium Level 8.0L, Aspartate Amino Transf (AST/SGOT) 28, Alanine Aminotransferase (ALT/SGPT) 19, Alkaline Phosphatase 84, Total Bilirubin 0.3, Total Protein 5.8L, Albumin 1.5L, Albumin/Globulin Ratio 0.35L CBC/BMP Laboratory Tests 05/30/19 05:46 Red Blood Count 3.09 L, Mean Corpuscular Volume 92.6, Mean Corpuscular Hemoglobin 29.4, Mean Corpuscular Hemoglobin Concent 31.8 L, Red Cell Distribution Width 13.2, Calcium Level 8.0 L, Aspartate Amino Transf (AST/SGOT) 28, Alanine Aminotransferase (ALT/SGPT) 19, Alkaline Phosphatase 84, Total Bilirubin 0.3, Total Protein 5.8 L, Albumin 1.5 L Microbiology Microbiology 05/23/19 Stool Occult Blood (TYESHA) - Final, Complete 05/22/19 Gastrointestinal Tract Panel (PCR) - Final, Complete Discharge Medications Scheduled Lisinopril (Lisinopril) 5 Mg Tablet, 5 MG PO DAILY, (Reported) Metoprolol Tartrate (Metoprolol Tartrate) 25 Mg Tablet, 12.5 MG PO BID, (Reported) Potassium Chloride (Potassium Chloride) 20 Meq Packet, 20 MEQ PO DAILY, (Reported) Rosuvastatin Calcium (Rosuvastatin Calcium) 40 Mg Tablet, 40 MG PO DAILY, (Reported) Scheduled PRN Acetaminophen (Acetaminophen) 325 Mg Tablet, 650 MG PO Q4H PRN for PAIN, (Reported) Furosemide (Furosemide) 20 Mg Tablet, 20 MG PO BID PRN for EDEMA, (Reported) Allergies Coded Allergies: No Known Allergies (Verified , 01/06/05) TOYA STUART MD May 30, 2019 12:55
[2019-05-30] MEDS ORDERED: FURO20TA2 PO (15:11)
[2019-05-30] MEDS ORDERED: POTA20PW PO (15:11)
[2019-05-30] MEDS ORDERED: LISI-542 PO (15:11)
[2019-05-30] MEDS ORDERED: CRES40TA PO (15:11)
[2019-05-30] MEDS ORDERED: METO25TA4 PO (15:11)
[2019-05-30] MEDS ORDERED: ACET-908 PO (15:11)
--- NOTE | 2019-05-30 15:50 | CR ---
RADIATION ONCOLOGY CONSULTATION NOTE DATE: 05/28/2019 CART NUMBER: [id number] DIAGNOSIS: Rectal cancer. STAGE: In progress. ECOG PERFORMANCE STATUS: 4 CONSULTATION NOTE: Ms. Julien is a very pleasant, 88-year-old white female with the diagnosis of a rectal mass, which has been biopsied, but pathology is not yet available to us. She is presenting to me for discussion of her therapeutic options. HISTORY OF PRESENT ILLNESS: The patient has a long list of medical problems. She has had chronic pain. More recently, she has been complaining of large black stools. She reports that her discolored stools have been going on for 2 years with bright red blood or so. She was seen in the emergency room and was found to be anemic from her chronic bleeding. The patient was subsequently seen by Dr. Cal Barone MD and was found to have a large rectal mass, which was partially obstructing and almost circumferential. A colonoscopy was done on 05/25/2019 and the mass was found to involve two-thirds of the lumen circumference. It measured 6 cm in length. It looked quite malignant and biopsy was undertaken. The pathology report is not yet available to us. She is now presenting however for discussion of her various therapeutic options. PAST MEDICAL HISTORY: The patient's past medical history is positive for hypertension, hyperlipidemia, hiatal hernia, osteoarthritis, and an aortic valve replacement in 2001 and then again with transcatheter aortic valve replacement (TAVR) in 2014. ALLERGIES: The patient has NO KNOWN DRUG ALLERGIES. SOCIAL HISTORY: The patient does not smoke cigarettes nor abuse alcohol. FAMILY HISTORY: The patient's family history is negative for rectal cancer or other malignancies. PHYSICAL EXAMINATION: The patient is an elderly, frail white female who is sitting in her chair with her family in her hospital room. Rectal examination, therefore, was quite limited. HEENT: Exam is normocephalic, atraumatic. Extraocular movements appear to be intact. The remainder of the physical was deferred at this point. The patient was quite sensitive to touch recoiling when I tried to touch her arms. ASSESSMENT: I had a very lengthy discussion with this patient and her family. First, we need to obtain the results of the pathology report. This will tell us what type of cancer she has. 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 I discussed the standard treatment for such malignancy, which would include neoadjuvant chemo and radiation followed by surgery. At the present time, according to the patient's CT scans of the chest, abdomen and pelvis, the disease appears to be limited. There is no evidence of metastatic disease or lymphadenopathy. Therefore, technically if she were treatable this could be a potentially curative disease. The concern, however is the patient's multiple medical problems and advanced age. I agree with Dr. Butt that the likelihood of her tolerating a major surgery or for that matter even chemotherapy may be doubtful. I of course will defer to the expertise of the medical oncologist and surgeon on that point. This leaves us with the idea of palliation. I think she would be a candidate for palliative radiation therapy and I have so informed the family. I have discussed with the patient and her family in detail the potential benefits as well as possible acute chronic sequelae of external beam radiation therapy. We discussed logistics of treatment planning, simulation and subsequent fractionated daily radiation treatments. I did scheduled the patient for simulation tomorrow and radiation treatments can begin subsequently. Of course. we first need to obtain a pathologic confirmation of malignancy. In addition, I have put in a consultation for medical oncology. I look forward to their expert opinion on whether or not she would be a candidate for radiation sensitizing chemotherapy. Clearly the chance of local control would increase with the use of radiation sensitization, however, the potential difficulties tolerating is the question we are asking. I have made the patient and her family aware that radiation alone or even radiation with systemic therapy without subsequent surgery would not be curative. The only way to permanently get rid of this lesion would be a combination of chemotherapy radiation and surgery. I made it clear to them that our goal here would be some type of local control and palliation. I did discuss in detail the possibilities of laparoscopic diverting colostomy. This of course may not pallitate with the patient's bleeding or pain but will pallitate unrestricted bowel movement. Again, I will defer of course to the expertise of Dr. Butt with regards to her ability to tolerate such a procedure. I did make the patient aware that we are already dealing with an obstructive issue here and that radiation may cause some edema and swelling further worsening her rectal obstruction. I made it clear that it may be necessary to undergo diverting colostomy secondary to that issue once we begin radiation. We have also mentioned the possibility of hospice care as another alternative in this woman who is almost [id number]. Once again in summary, step #1 will be obtaining the pathologic confirmation of malignancy, step #2 will be presentation our multidisciplinary tumor conference, step #3 will be our medical oncology consultation, step #4 will be radiation oncology treatment planning. We will then coordinate her care and can initiate radiation without delay if the patient chooses such treatment. Thank you for allowing us to participate in the care of this very pleasant woman. If I could be of any further assistance, please feel free to contact me anytime. As always, warm regards. I look forward to working closely with all of this patient's managing physicians in her care. She is truly a delightful patient with a wonderful family. cc: Parish Butt Jr, MD [place], MD Imtiaz Khokhar, MD Gerald Weinstein, MD MTDD
--- NOTE | 2019-05-31 09:15 | IPN ---
RADIATION ONCOLOGY SIMULATION NOTE DATE: 05/29/2019 CHART #: [id number] We took Ms. Julien to the CT scan for CT simulation of her rectal field. CT was accomplished without difficulty. Unfortunately, when the patient came down today her condition has significantly deteriorated since I saw her last night. She was confused and staring off into space. She seemed slightly agitated and unable to answer questions. I had a lengthy discussion with this patient's family. In light of her present condition, it appears that she is presenting with end-stage issues. The patient's family at this time understands this. We will continue with presentation at multidisciplinary tumor conference and following her closely. If the patient's condition does not improve, I doubt radiation will be of any benefit and I think just comfort care would be indicated at this point in this terminal patient.
--- NOTE | 2019-05-31 14:57 | CR ---
DATE OF SERVICE: 05/29/2019 REASON FOR CONSULTATION: Newly diagnosed adenocarcinoma of the colon, moderately differentiated. HISTORY OF PRESENT ILLNESS: This is an 88-year-old female who was seen on 05/30/2019 with her daughter and nephew at the bedside. The patient's medical records were reviewed. It is noted that the patient has had numerous medical conditions. Hypertension, hyperlipidemia, hiatal hernia, apparent aortic valve replacement in 2001 by bioprosthetic valve. The patient had another repair in 2014 by transcatheter aortic valve replacement. The patient presented to the emergency room complaining of bilateral knee pain and inability to stand. She also reported that she had steroid injections of the knees at [facility]. In the emergency room, the patient reported black stool with hemoccult that was positive, associated with lightheadedness and dizziness. Her daughter reports that the patient had blood in her stools. The patient had a hemoglobin of 9.4 in the emergency room. She has been taking Pepcid on a daily basis. GI was consulted. PAST MEDICAL HISTORY: As per HPI. 1. Aortic valve replacement. 2. Hypertension. 3. Dyslipidemia. 4. Hiatal hernia. 5. T11 chronic compression. 6. Osteoarthritis of the knee. PAST SURGICAL HISTORY: 1. Transcatheter aortic valve replacement. FAMILY HISTORY: Hypertension, otherwise noncontributory. SOCIAL HISTORY: As per record, the patient denies the use of cigarettes, alcohol or illicit drugs. REVIEW OF SYSTEMS: Unable to obtain accurately as the patient was disoriented for evaluation on 05/30/2019 at 10:00 a.m. PHYSICAL EXAMINATION: Awake, alert, oriented times two. VITAL SIGNS: Temperature 98.5, pulse 95, respiratory rate 19, blood pressure 140/68, pulse oximetry 94%. LUNGS: Bilateral air entry. No added sounds. HEENT: Conjunctivae not injected. Sclerae nonicteric. CARDIAC: S1, S2. Positive ejection murmur, systolic 2/6 noted. ABDOMEN: Obese. Organomegaly is not noted. Soft, nontender. Bowel sounds positive. EXTREMITIES: Trace edema in the left. Right knee is swollen with bandage covering the right knee. The patient's right hand appears bluish. NEUROLOGIC: Nonfocal. LYMPHATICS: Unremarkable. LABORATORY DATA: CBC and CMP on 05/30/2019 showed hemoglobin 9.1. Chemistry showed albumin 1.5, remainder unremarkable. Coagulation: PT 14.4. IMAGING STUDIES: Abdominal CT on 05/27/2019 showed asymmetric wall thickening of the rectosigmoid colon compatible with neoplasm. T10 vertebral body grade III compression. T11 vertebral body compression grade IV. Chest CT showed bilateral pleural effusions. Dilation of ascending thoracic aorta. ASSESSMENT AND PLAN: This is an 88-year-old female with newly diagnosed adenocarcinoma of the rectosigmoid. The patient's performance status is 3 to 4 and with multiple comorbid conditions and is found not to be a candidate for surgery, as well as she is not a candidate for chemotherapy. Therefore, the case was discussed with Dr. Miller and the most appropriate plan is to proceed with palliative radiation. PLAN: plan to follow the patient upon discharge in the cancer clinic if family does not pursue hospice care. The patient and her daughter were counseled about the plan. Both understand and agree to proceed as above. I spent 55 minutes during this encounter with more than 50% counseling the patient about the above plan of care. The patient and her family members voiced understand. It is unclear whether the patient was comprehending the information; however, she nodded her head that she understood.
--- NOTE | 2019-06-01 07:45 | IPN ---
RADIATION ONCOLOGY PROGRESS NOTE DATE: 05/30/2019 CHART #: [id number] DIAGNOSIS: Rectal cancer. We undertook simulation of this patient yesterday. Her condition at that time was quite lethargic. She was incoherent and disoriented. We did simulate her and are presently undergoing treatment planning. At this time, I believe we will be able to initiate palliative radiation tomorrow. We are planning on delivering two fractions of radiation this week, perhaps with large fraction sizes of 300 cGy each. This may already initiate some type of response. We will then reevaluate her for further radiation. The patient was seen by the medical oncologist today and clearly deemed not to be a candidate for chemotherapy. In light of her overall condition after seeing her yesterday, palliative care or indeed hospice may be in line for this patient. Clearly, her prognosis is quite poor. Things may worsen following radiation before they get better and indeed she may be in need of a diverting colostomy if she fully obstructs. Hopefully, this will not be the case. Once again, in summary, radiation treatment planning is underway and we are planning on starting the patient tomorrow. We will use a hypo fractionated schedule in order to expedite a response. MTDD
== END 2019-05-30 12:47 | DRG 375 ==
LOC: M ED 07:01 → M ED INP 11:00 → M MSPAV 13:30
PROVIDERS: ADMIT Internal Medicine Nephrology; ATTEND Student in an Organized Health Care Education/Training Program
PROC: 0DJ08ZZ Inspection of Upper Intestinal Tract, Via Natural or Artificial Opening Endoscopic (ICD-10-PCS; 2019-05-25)
PROC: 0DBP8ZX Excision of Rectum, Via Natural or Artificial Opening Endoscopic, Diagnostic (ICD-10-PCS; principal; 2019-05-25 14:15)
DX: C20 Malignant neoplasm of rectum (principal); D62 Acute posthemorrhagic anemia; K92.2 Gastrointestinal hemorrhage, unspecified; M17.0 Bilateral primary osteoarthritis of knee; M19.011 Primary osteoarthritis, right shoulder; M19.012 Primary osteoarthritis, left shoulder; E87.6 Hypokalemia; E78.5 Hyperlipidemia, unspecified; I10 Essential (primary) hypertension; K21.9 Gastro-esophageal reflux disease without esophagitis; K44.9 Diaphragmatic hernia without obstruction or gangrene; Z95.3 Presence of xenogenic heart valve; Z79.899 Other long term (current) drug therapy

== ENCOUNTER 2019-05-30 11:57 | Inpatient (IN) | payer MEDICARE, OTHER ==
[~2019-05-30] VITALS: Ht 152.4 cm; Wt 72.0 kg
[~2019-05-30 11:57] MED LIST: APAP325T4 PO; FURO20TA2 PO; KLOR20TA42 PO; LISI-542 PO; METO25TA4 PO; METO37.5 PO; POTA20PW PO; ROSU40TA4 PO
[2019-05-30 12:50] VITALS: BP 129/63
[2019-05-30] MEDS ORDERED: BISACODYL 10 MG SUPP PR PRN (14:15)
[2019-05-30] MEDS ORDERED: FURO20TA2 PO (15:11)
[2019-05-30] MEDS ORDERED: LISI-542 PO (15:11)
[2019-05-30] MEDS ORDERED: CRES40TA PO (15:11)
[2019-05-30] MEDS ORDERED: ACET-908 PO (15:11)
[2019-05-30] MEDS ORDERED: METO25TA4 PO (15:11)
[2019-05-30] MEDS ORDERED: POTA20PW PO (15:11)
[2019-05-30] MEDS: BENZOCAINE 10% 9GM TUBE (ANBESOL) MT SCH ×2 (16:07→22:02)
[2019-05-30] MEDS: DULoxetine 30 MG CAP (CYMBALTA) PO SCH (16:07)
[2019-05-30] MEDS: ACETAMINOPHEN 500 MG TAB PO SCH ×2 (16:07→22:05)
[2019-05-30 20:00] VITALS: BP 126/61
--- NOTE | 2019-05-30 20:08 | CR.PDOC ---
General Date of Consultation: May 30, 2019 Consultation CHIEF COMPLAINT: generalized weakness HISTORY OF PRESENT ILLNESS: Patient is an 88-year-old female with past medical history of hypertension, hyperlipidemia, aVR as well as TAVR was transferred to rehabilitation unit after admission for generalized weakness with GI bleed and rectal mass. Consult was placed for Dr. Miller, Dr. Bazan and radiation oncology to assess for possible palliative radiation to the rectal mass. Patient was noted to have severe generalized weakness requiring intensive physical therapy. Due to her poor functional status, it is uncertain whether she will receive any type of radiation or treatment to the rectal mass post evaluation by specialist. PAST MEDICAL HISTORY: Refer to HPI PAST SURGICAL HISTORY: AVR 2001 TaVR 2014 SOCIAL HISTORY: Denies tobacco, alcohol or illicit drug use. FAMILY HISTORY: None reported ALLERGIES: Please see below. REVIEW OF SYSTEMS: 10 point review of system negative except as stated in HPI HOME MEDICATIONS: Please see below. PHYSICAL EXAMINATION: General: Alert, lethargic, heard of hearing Eyes: Normal sclera, EOMI, GAVIN HENT: Atraumatic, neck supple, moist mucous membranes Cardiovascular: Normal rate, normal rhythm. b/l LE nonpitting edema. Pulmonary: Clear to auscultation b/l, no wheezing GI: Soft, obese, nontender Skin: Warm and dry Neuro: CN grossly intact. Diffuse/generalized weakness throughout with difficulty in hearing. Psych: oriented x 3t. No focal deficits. Strengths equal b/l. Psych: oriented x 3 LABORATORY DATA: See below. MICROBIOLOGY: Please see below. ASSESSMENT AND PLAN: 1. Significant Debility - will require frequent PT in rehab unit. 2. Rectal mass - Being assessed for possible palliative RT. - Oncology, Rad Onc consulted prior to transfer. - Unsure if she will be a candidate for any type of treatment. 3. GIB - Resolved. - c/w to monitor daily CBCs. Treat anemia as needed. Vital Signs/I&O Vital Signs Date Time Temp Pulse Resp B/P (MAP) Pulse Ox O2 Delivery O2 Flow Rate FiO2 05/30/19 12:50 97.8 76 18 129/63 (85) 94 Allergies Coded Allergies: No Known Allergies (Verified , 01/06/05) Home Medications Scheduled Lisinopril (Lisinopril) 5 Mg Tablet, 5 MG PO DAILY, (Reported) Metoprolol Tartrate (Metoprolol Tartrate) 25 Mg Tablet, 12.5 MG PO BID, (Reported) Potassium Chloride (Potassium Chloride) 20 Meq Packet, 20 MEQ PO DAILY, (Reported) Rosuvastatin Calcium (Crestor) 40 Mg Tablet, 40 MG PO DAILY, (Reported) Scheduled PRN Acetaminophen (Acetaminophen) 325 Mg Tablet, 650 MG PO Q4H PRN for PAIN, (Rep orted) Furosemide (Furosemide) 20 Mg Tablet, 20 MG PO BID PRN for EDEMA, (Reported) TOYA STUART MD May 30, 2019 20:08
[2019-05-30] MEDS: DICLOFENAC EPOLAMINE 1.3 % PATCH TOP SCH (22:01)
[2019-05-30] MEDS: HEPARIN SOD (PORCINE) 5000 UNITS/ML VIAL SC SCH (22:02)
[2019-05-30] MEDS: SENNA 8.6 MG TAB (SENOKOT) PO SCH (22:02)
[2019-05-30] MEDS: DOCUSATE SODIUM 100 MG CAP PO SCH (22:02)
[2019-05-30] MEDS: PANTOPRAZOLE 40MG TAB (PROTONIX) PO SCH (22:02)
[2019-05-30] MEDS: METOPROLOL TART 12.5 MG PER 1/2 TAB PO SCH (22:03)
[2019-05-31] MEDS: methylPREDNISolone 4 MG TAB PO SCH ×6 (04:02→23:51)
[2019-05-31 05:34] VITALS: BP 134/62
[2019-05-31 06:00] LABS: BASO % 0.3 % (0.0-1.0); EOS # 0.1 10^3/uL (0.0-0.50); EOS % 1.8 % (0.0-3.0); HEMATOCRIT 28.7 % (36.0-47.0); HEMOGLOBIN 9.2 g/dl (12.0-15.5); LYMPH # 0.7 10^3/uL (1.5-4.5); LYMPH % 8.3 % (24.0-44.0); MEAN CORPUSCULAR HEMOGLOBIN 29.6 pg (27.0-33.0); MEAN CORPUSCULAR HGB CONC 32.1 g/dl (32.0-36.5); MEAN CORPUSCULAR VOLUME 92.3 fl (80.0-96.0); MONO # 0.9 10^3/uL (0.0-0.8); MONO % 10.6 % (0.0-5.0); NEUTROPHILS # 6.3 10^3/uL (1.8-7.7); NEUTROPHILS % 78.6 % (36.0-66.0); PLATELET COUNT, AUTOMATED 201 10^3/uL (150-450); RED BLOOD COUNT 3.11 10^6/uL (4.00-5.40)
[2019-05-31] MEDS ORDERED: methylPREDNISolone 4 MG TAB PO SCH (06:00)
[2019-05-31 06:28] LABS: ALBUMIN 1.5 GM/DL (3.2-5.2); ALT/SGPT 20 U/L (12-78); BILIRUBIN,TOTAL 0.4 MG/DL (0.2-1.0); BLOOD UREA NITROGEN 14 MG/DL (7-18); CALCIUM LEVEL 7.8 MG/DL (8.8-10.2); CARBON DIOXIDE LEVEL 29 MEQ/L (21-32); CHLORIDE LEVEL 103 MEQ/L (98-107); CREATININE FOR GFR 0.43 MG/DL (0.55-1.30); GLOMERULAR FILTRATION RATE > 60.0 (>32); GLUCOSE, FASTING 92 MG/DL (70-100); SODIUM LEVEL 136 MEQ/L (136-145); TOTAL PROTEIN 5.3 GM/DL (6.4-8.2)
[2019-05-31] MEDS: HEPARIN SOD (PORCINE) 5000 UNITS/ML VIAL SC SCH ×2 (08:50→20:10)
[2019-05-31] MEDS: DOCUSATE SODIUM 100 MG CAP PO SCH ×2 (08:51→20:10)
[2019-05-31] MEDS: ACETAMINOPHEN 500 MG TAB PO SCH ×3 (08:51→20:12)
[2019-05-31] MEDS: METOPROLOL TART 12.5 MG PER 1/2 TAB PO SCH ×2 (08:51→20:11)
[2019-05-31] MEDS: DULoxetine 30 MG CAP (CYMBALTA) PO SCH (08:51)
[2019-05-31] MEDS: POTASSIUM CHLORIDE 10 MEQ SR TABLET PO SCH (08:51)
[2019-05-31] MEDS: lisinopriL 5 MG TAB PO SCH (08:52)
[2019-05-31] MEDS: PANTOPRAZOLE 40MG TAB (PROTONIX) PO SCH ×2 (08:52→20:10)
[2019-05-31] MEDS: DICLOFENAC EPOLAMINE 1.3 % PATCH TOP SCH ×2 (08:52→22:34)
[2019-05-31] MEDS: BENZOCAINE 10% 9GM TUBE (ANBESOL) MT SCH ×3 (08:52→20:21)
[2019-05-31] MEDS ORDERED: PANTOPRAZOLE 40MG TAB (PROTONIX) PO SCH (09:00)
--- NOTE | 2019-05-31 13:39 | REP ---
Bilateral lower extremity deep vein duplex ultrasound: The deep veins demonstrate normal compression, normal Doppler color flow and normal Doppler waveforms with respiration and augmentation from the popliteal vein to the common femoral vein the right or the left. There is a left popliteal fossa Ruiz's cyst measuring six pleural 8-0.8 x 4.9 cm. Impression: There is no deep vein thrombus there are left lower extremities . There is a left popliteal fossa Ruiz's cyst. Electronically Signed by Callum Blanco MD 05/31/2019 01:30 P
--- NOTE | 2019-05-31 13:56 | HPEPDOC ---
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 While in the ED she had melena, which was positive for blood, and reported having loose black stools for weeks. She reported her knee pain was her greatest concern, for which Xrays revealed arthritis changes. She was provided with pain medicine and evaluated by GI who performed an Endoscopy on 05/25/19 showing a large hiatal hernia and a colonoscopy was not successfully completed to do poor bowel prep. Patient was found to have a rectal mass which was biopsied with pathology showing adenocarcinoma. She was evaluated by surgery who did not recommend surgical intervention, CT abdomen pelvis and chest did rule out metastatic disease, and she was scheduled for radiation treatment. Patient was seen by therapy and noted to be well below her prior level of function for mobility and ADLs and deemed medically appropriate for discharge to ARU on 05/30/19. REVIEW OF SYSTEMS: The following is a completed review of systems and has been reviewed. Review of systems otherwise unremarkable. PAIN: Patient self reports diffuse pain worst in the right knee EYES: No recent vision changes EARS, NOSE, & THROAT:+ PAUMA CARDIOVASCULAR: Denies chest pain or palpitations PULMONARY: Denies shortness of breath GASTROINTESTINAL: Denies constipation/diarrhea GENITOURINARY: +incontinence (chronic) MUSCULOSKELETAL: OA NEUROLOGICAL: no seizure activity or tremor HEMATOLOGICAL:+ anemia SKIN: no rash PSYCHIATRIC: Unremarkable All other review of systems found to be negative. PAST MEDICAL HISTORY: as per HPI PAST SURGICAL HISTORY: as per HPI ALLERGIES: Please see below. MEDICATIONS: Please see below. 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 GENERAL: Pleasant and cooperative. No acute distress. HEENT: PERRL. Extraocular movements intact. Clear conjunctiva CARDIOVASCULAR: Regular rate and rhythm. No murmurs, rubs, or gallops LUNGS: Clear to auscultation bilaterally. No wheezes. No rhonchi ABDOMEN: Soft, nontender, mildly distended. Positive bowel sounds. Normal active bowel sounds NEUROLOGICAL: Alert and oriented times three. Cranial nerves II through XII grossly intact. Sensation grossly intact EXTREMITIES: 4\5 strength bilateral upper extremities. >3\5 strength right lower extremity. >3/5 strength in left lower extremity. restricted range of motion in in all 4 extremities (+) TTP bilateral knees- medial/lateral joint line, with mild swelling (+) Hawkin's left shoulder with crepitus + gabriele's bilat SKIN: intact LABORATORY DATA: Please see below. IMAGING:[Imaging documentation personally reviewed by record]. FUNCTIONAL STATUS: Premorbid: Modified Independent household distances with RW, assistance with A DLs On Admission: Mod- Maximum assistance for bathing, upper body dressing, bed chair and wheelchair transfers, toilet transfers, ambulation. GOALS: Mod-I ambulation with RW hosuehold distances, functional transfers, grooming, toileting, supervision for stairs and bathing, medical optimization, assess for DMEs ASSESSMENT:88-year-old F with past medical history of HTN, multi-joint OA who presents status post acute on chronic OA exacerbation with difficulty walking and newly diagnosed rectal tumor. PLAN: 1. Rehab: PT- improve strength, maintain ROM, stretch bilat LE OT- improve strength, maintain ROM, stretch bilat UE for optimal ADL management 2. Neuro: avoid delirogenic meds, patient reporting she became delirious with tramadol 3. 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 CArdio: pmh AVR, with grade 1 diastolic CHF, c/u BP and HLD meds, medicine consulted to assist in management 5. Resp: encourage incentive spirometry 6. GI/heme-onc- recently diagnosed rectal tumor, plan for radiation per Dr. Paul candelaria, monitor Hgb while on medrol dose pack, protonix increased to BID -c/u stool softener 7. DVT ppx: nani order dopplers, c/u teds and heparin 8. Dispo: tbd POST ADMISSION PHYSICIAN EVALUATION: Medical and functional status: Description of medical status, medical assessment: As above. Rehabilitation diagnosis and current and prior cold morbid medical conditions as above. Risk of complications and plans to mitigate them as above. Description of functional status current status is as above. Prior status as above. Status compared to preadmission: There are no clinically significant differences between the patient's current status and the information described on the preadmission screening document. Treatment plan anticipated: Treatment plan is as described above. Required disciplines including physical therapy, occupational therapy, others as noted above. Intensity of services: 3 hours a day, 6 days a week. Special considerations: There are no specific special or safety considerations that would likely preclude immediate implementation of an intensive rehabilit ation program or subsequently influence the plan of care ATTESTATION: Considering all the information above, it is my best judgment that this patient requires intensive rehabilitation therapy as described above and an inpatient hospital environment due to the complexity of nursing, medical, and rehabilitation needs required by the patient. Furthermore, this patient can reasonably be expected to participate in an benefit from an inpatient rehabilitation stay with an interdisciplinary team approach to the delivery of rehabilitation care under the direction and supervision of rehabilitation phys ician. PROGNOSIS: fair ESTIMATED LENGTH OF STAY:18-21 days. PROJECTED DISCHARGE DESTINATION: Home with family support and any durable medical equipment required to increase functional safety and mobility. TIME SPENT COUNSELING AND COORDINATING INITIAL CARE: Greater than 70 minutes. Vital Signs Vital Sign - Last 24 Hours 05/30/19 05/30/19 05/31/19 05/31/19 20:00 22:03 05:34 08:51 Temp 97.5 97.0 Pulse 89 89 73 73 Resp 18 18 B/P (MAP) 126/61 (82) 126/61 134/62 (86) 134/62 Pulse Ox 100 93 05/31/19 08:52 B/P (MAP) 134/62 Laboratory Data CBC/BMP Laboratory Tests 05/31/19 05:29 Red Blood Count 3.11 L, Mean Corpuscular Volume 92.3, Mean Corpuscular Hemoglobin 29.6, Mean Corpuscular Hemoglobin Concent 32.1, Red Cell Distribution Width 13.1, Neutrophils (%) (Auto) 78.6 H, Lymphocytes (%) (Auto) 8.3 L, Monocytes (%) (Auto) 10.6 H, Eosinophils (%) (Auto) 1.8, Basophils (%) (Auto) 0.3, Neutrophils # (Auto) 6.3, Lymphocytes # (Auto) 0.7 L, Monocytes # (Auto) 0.9 H, Eosinophils # (Auto) 0.1, Basophils # (Auto) 0.0, Calcium Level 7.8 L, Aspartate Amino Transf (AST/SGOT) 30, Alanine Aminotransferase (ALT/SGPT) 20, Alkaline Phosphatase 81, Total Bilirubin 0.4, Total Protein 5.3 L, Albumin 1.5 L Labs 24H Laboratory Tests 2 05/31/19 05:29: Immature Granulocyte % (Auto) 0.4, White Blood Count 8.0, Red Blood Count 3.11L, Hemoglobin 9.2L, Hematocrit 28.7L, Mean Corpuscular Volume 92.3, Mean Corpuscular Hemoglobin 29.6, Mean Corpuscular Hemoglobin Concent 32.1, Red Cell Distribution Width 13.1, Platelet Count 201, Neutrophils (%) (Auto) 78.6H, Lymphocytes (%) (Auto) 8.3L, Monocytes (%) (Auto) 10.6H, Eosinophils (%) (Auto) 1.8, Basophils (%) (Auto) 0.3, Neutrophils # (Auto) 6.3, Lymphocytes # (Auto) 0.7L, Monocytes # (Auto) 0.9H, Eosinophils # (Auto) 0.1, Basophils # (Auto) 0.0, Nucleated Red Blood Cells % (auto) 0.0, Anion Gap 4L, Glomerular Filtration Rate > 60.0, Blood Urea Nitrogen 14, Creatinine 0.43L, Sodium Level 136, Potassium Level 4.0, Chloride Level 103, Carbon Dioxide Level 29, Calcium Level 7.8L, Aspartate Amino Transf (AST/SGOT) 30, Alanine Aminotransferase (ALT/SGPT) 20, Alkaline Phosphatase 81, Total Bilirubin 0.4, Total Protein 5.3L, Albumin 1.5L, Albumin/Globulin Ratio 0.39L Home Medications Scheduled Lisinopril (Lisinopril) 5 Mg Tablet, 5 MG PO DAILY, (Reported) Metoprolol Tartrate (Metoprolol Tartrate) 25 Mg Tablet, 12.5 MG PO BID, (Reported) Potassium Chloride (Potassium Chloride) 20 Meq Packet, 20 MEQ PO DAILY, (Reported) Rosuvastatin Calcium (Crestor) 40 Mg Tablet, 40 MG PO DAILY, (Reported) Scheduled PRN Acetaminophen (Acetaminophen) 325 Mg Tablet, 650 MG PO Q4H PRN for PAIN, (Reported) Furosemide (Furosemide) 20 Mg Tablet, 20 MG PO BID PRN for EDEMA, (Reported) Allergies Coded Allergies: No Known Allergies (Verified , 01/06/05) A-FIB/CHADSVASC A-FIB History Current/History of A-Fib/PAF?: No BROOKLYN CALLES MD May 31, 2019 13:56
[2019-05-31 14:00] VITALS: BP 129/66
--- NOTE | 2019-05-31 16:18 | IPNPDOC ---
Date Seen The patient was seen on 05/31/19. Progress Note SUBJECTIVE: Patient complains of chronic diffuse joint pains as before. No other complaints. Afebrile overnight. OBJECTIVE PHYSICAL EXAMINATION: VITAL SIGNS: Please see below. General: No acute distress, Alert Eyes: Normal sclera, EOMI, GAVIN HENT: Atraumatic, neck supple, moist mucous membranes Cardiovascular: Normal rate, normal rhythm. No murmurs appreciated. Pulmonary: Clear to auscultation b/l, no wheezing GI: Soft, nontender, nondistended Skin: Warm and dry Neuro: CN grossly intact. No focal deficits. Strengths equal b/l. Psych: oriented x 3 LABORATORY DATA, IMAGING STUDIES, MICROBIOLOGY: Please see below. DVT prophylaxis ordered?: HSQ ASSESSMENT AND PLAN: 1. Significant Debility - c/w PT. 2. Adenocarcinoma of the rectum - Being assessed for palliative RT. - Not a candidate for surgical intervention or chemo. - Oncology consulted. 3. GIB - Resolved. - c/w to monitor daily CBCs. Treat anemia as needed. 4. Severe OA - Severe polyarthralgias. - Started on Cymbalta and medrol dose pack. - Pain control. 5. HTN -BP controlled. c/w metoprolol. 6. HLD -c/w Crestor 40 mg daily 7. 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 VS, I&O, [facility] Vital Signs/I&O Vital Signs Date Time Temp Pulse Resp B/P (MAP) Pulse Ox O2 Delivery O2 Flow Rate FiO2 05/31/19 08:52 134/62 05/31/19 08:51 73 05/31/19 05:34 97.0 18 93 I&O- Last 24 Hours up to 6 AM 05/31/19 06:00 Intake Total 110 ml Balance 110 ml Laboratory Data 24H LABS Laboratory Tests 2 05/31/19 05:29: Immature Granulocyte % (Auto) 0.4, White Blood Count 8.0, Red Blood Count 3.11L, Hemoglobin 9.2L, Hematocrit 28.7L, Mean Corpuscular Volume 92.3, Mean Corpuscular Hemoglobin 29.6, Mean Corpuscular Hemoglobin Concent 32.1, Red Cell Distribution Width 13.1, Platelet Count 201, Neutrophils (%) (Auto) 78.6H, Lymphocytes (%) (Auto) 8.3L, Monocytes (%) (Auto) 10.6H, Eosinophils (%) (Auto) 1.8, Basophils (%) (Auto) 0.3, Neutrophils # (Auto) 6.3, Lymphocytes # (Auto) 0.7L, Monocytes # (Auto) 0.9H, Eosinophils # (Auto) 0.1, Basophils # (Auto) 0.0, Nucleated Red Blood Cells % (auto) 0.0, Anion Gap 4L, Glomerular Filtration Rate > 60.0, Blood Urea Nitrogen 14, Creatinine 0.43L, Sodium Level 136, Potassium Level 4.0, Chloride Level 103, Carbon Dioxide Level 29, Calcium Level 7.8L, Aspartate Amino Transf (AST/SGOT) 30, Alanine Aminotransferase (ALT/SGPT) 20, Alkaline Phosphatase 81, Total Bilirubin 0.4, Total Protein 5.3L, Albumin 1.5L, Albumin/Globulin Ratio 0.39L CBC/BMP Laboratory Tests 05/31/19 05:29 Red Blood Count 3.11 L, Mean Corpuscular Volume 92.3, Mean Corpuscular Hemoglobin 29.6, Mean Corpuscular Hemoglobin Concent 32.1, Red Cell Distribution Width 13.1, Neutrophils (%) (Auto) 78.6 H, Lymphocytes (%) (Auto) 8.3 L, Monocytes (%) (Auto) 10.6 H, Eosinophils (%) (Auto) 1.8, Basophils (%) (Auto) 0.3, Neutrophils # (Auto) 6.3, Lymphocytes # (Auto) 0.7 L, Monocytes # (Auto) 0.9 H, Eosinophils # (Auto) 0.1, Basophils # (Auto) 0.0, Calcium Level 7.8 L, Aspartate Amino Transf (AST/SGOT) 30, Alanine Aminotransferase (ALT/SGPT) 20, Alkaline Phosphatase 81, Total Bilirubin 0.4, Total Protein 5.3 L, Albumin 1.5 L TOYA STUART MD May 31, 2019 16:18
[2019-05-31] MEDS: ROSUVASTATIN 10 MG TAB (CRESTOR) PO SCH (20:10)
[2019-05-31] MEDS: SENNA 8.6 MG TAB (SENOKOT) PO SCH (20:11)
[2019-05-31 21:19] VITALS: BP 144/67
[2019-06-01 05:17] VITALS: BP 124/69
[2019-06-01] MEDS: methylPREDNISolone 4 MG TAB PO SCH ×5 (05:36→20:51)
[2019-06-01 06:43] LABS: BASO % 0.1 % (0.0-1.0); EOS % 0.1 % (0.0-3.0); HEMATOCRIT 30.4 % (36.0-47.0); HEMOGLOBIN 9.6 g/dl (12.0-15.5); HEMOGLOBIN 9.7 g/dl (12.0-15.5); LYMPH # 0.7 10^3/uL (1.5-4.5); LYMPH % 6.1 % (24.0-44.0); MEAN CORPUSCULAR HEMOGLOBIN 28.9 pg (27.0-33.0); MEAN CORPUSCULAR HEMOGLOBIN 29.1 pg (27.0-33.0); MEAN CORPUSCULAR HGB CONC 31.6 g/dl (32.0-36.5); MEAN CORPUSCULAR HGB CONC 31.9 g/dl (32.0-36.5); MEAN CORPUSCULAR VOLUME 91.3 fl (80.0-96.0); MEAN CORPUSCULAR VOLUME 91.6 fl (80.0-96.0); MONO # 0.9 10^3/uL (0.0-0.8); MONO % 8.5 % (0.0-5.0); NEUTROPHILS % 84.6 % (36.0-66.0); PLATELET COUNT, AUTOMATED 220 10^3/uL (150-450); PLATELET COUNT, AUTOMATED 228 10^3/uL (150-450); RED BLOOD COUNT 3.32 10^6/uL (4.00-5.40); RED BLOOD COUNT 3.33 10^6/uL (4.00-5.40); WHITE BLOOD COUNT 10.4 10^3/uL (4.0-10.0); WHITE BLOOD COUNT 10.6 10^3/uL (4.0-10.0)
[2019-06-01 07:01] LABS: BLOOD UREA NITROGEN 13 MG/DL (7-18); CALCIUM LEVEL 7.9 MG/DL (8.8-10.2); CARBON DIOXIDE LEVEL 22 MEQ/L (21-32); CHLORIDE LEVEL 102 MEQ/L (98-107); CREATININE FOR GFR 0.35 MG/DL (0.55-1.30); GLOMERULAR FILTRATION RATE > 60.0 (>32); GLUCOSE, FASTING 99 MG/DL (70-100); POTASSIUM SERUM 4.2 MEQ/L (3.5-5.1); SODIUM LEVEL 132 MEQ/L (136-145)
[2019-06-01] MEDS: DULoxetine 30 MG CAP (CYMBALTA) PO SCH (08:52)
[2019-06-01] MEDS: BENZOCAINE 10% 9GM TUBE (ANBESOL) MT SCH ×3 (08:52→20:57)
[2019-06-01] MEDS: lisinopriL 5 MG TAB PO SCH (08:53)
[2019-06-01] MEDS: POTASSIUM CHLORIDE 10 MEQ SR TABLET PO SCH (08:53)
[2019-06-01] MEDS: DOCUSATE SODIUM 100 MG CAP PO SCH ×2 (08:53→20:50)
[2019-06-01] MEDS: HEPARIN SOD (PORCINE) 5000 UNITS/ML VIAL SC SCH ×2 (08:54→20:51)
[2019-06-01] MEDS: PANTOPRAZOLE 40MG TAB (PROTONIX) PO SCH ×2 (08:54→20:51)
[2019-06-01] MEDS: ACETAMINOPHEN 500 MG TAB PO SCH ×3 (08:54→20:50)
[2019-06-01] MEDS: METOPROLOL TART 12.5 MG PER 1/2 TAB PO SCH ×2 (08:54→20:50)
[2019-06-01] MEDS: DICLOFENAC EPOLAMINE 1.3 % PATCH TOP SCH ×2 (08:55→20:51)
--- NOTE | 2019-06-01 10:48 | IPNPDOC ---
PM&R Progress Note DATE OF SERVICE: May 31, 2019 [employer] Member Progress Note Subjective: Patient reporting her right knee pain is better today with the initiation of steroids. REVIEW OF SYSTEMS: The following is a completed review of systems and has been reviewed. Review of systems otherwise unremarkable. PAIN: Patient self reports diffuse pain worst in the right knee EYES: No recent vision changes EARS, NOSE, & THROAT:+ [place] CARDIOVASCULAR: Denies chest pain or palpitations PULMONARY: Denies shortness of breath GASTROINTESTINAL: Denies constipation/diarrhea GENITOURINARY: +incontinence (chronic) MUSCULOSKELETAL: OA NEUROLOGICAL: no seizure activity or tremor HEMATOLOGICAL:+ anemia SKIN: no rash PSYCHIATRIC: Unremarkable All other review of systems found to be negative. PHYSICAL EXAMINATION: VITAL SIGNS: Please see below. GENERAL: Pleasant and cooperative. No acute distress. HEENT: PERRL. Extraocular movements intact. Clear conjunctiva CARDIOVASCULAR: Regular rate and rhythm. No murmurs, rubs, or gallops LUNGS: Clear to auscultation bilaterally. No wheezes. No rhonchi ABDOMEN: Soft, nontender, mildly distended. Positive bowel sounds. Normal active bowel sounds NEUROLOGICAL: Alert and oriented times three. Cranial nerves II through XII grossly intact. Sensation grossly intact EXTREMITIES: 4\5 strength bilateral upper extremities. >3\5 strength right lower extremity. >3/5 strength in left lower extremity. restricted range of motion in in all 4 extremities (+) TTP bilateral knees- medial/lateral joint line, with mild swelling (+) Hawkin's left shoulder with crepitus + gabriele's bilat GOALS: Mod-I ambulation with RW hosuehold distances, functional transfers, grooming, toileting, supervision for stairs and bathing, medical optimization, assess for DMEs ASSESSMENT:88-year-old F with past medical history of HTN, multi-joint OA who presents status post acute on chronic OA exacerbation with difficulty walking and newly diagnosed rectal tumor. PLAN: 1. Rehab: PT- improve strength, maintain ROM, stretch bilat LE- difficulty with bed mobility and standing OT- improve strength, maintain ROM, stretch bilat UE for optimal ADL management 2. Neuro: avoid delirogenic meds, patient reporting she became delirious with tramadol 3. 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 CArdio: pmh AVR, with grade 1 diastolic CHF, c/u BP and HLD meds, medicine consulted to assist in management 5. Resp: encourage incentive spirometry 6. GI/heme-onc- recently diagnosed rectal tumor, plan for radiation per Dr. Paul candelaria, monitor Hgb while on medrol dose pack, protonix increased to BID -c/u stool softener 7. DVT ppx: dopplers negative for DVT, + left lew's cysts, c/u teds and heparin 8. Dispo: tbd Allergies Coded Allergies: No Known Allergies (Verified , 01/06/05) Vital Signs Vital Signs Date Time Temp Pulse Resp B/P (MAP) Pulse Ox O2 Delivery O2 Flow Rate FiO2 06/01/19 08:54 70 06/01/19 08:53 134/70 06/01/19 05:17 97.6 20 05/31/19 21:19 94 Laboratory Data CBC/BMP Laboratory Tests 06/01/19 06:32 Red Blood Count 3.32 L, Mean Corpuscular Volume 91.6, Mean Corpuscular Hemoglobin 28.9, Mean Corpuscular Hemoglobin Concent 31.6 L, Red Cell Distribution Width 12.7, Neutrophils (%) (Auto) 84.6 H, Lymphocytes (%) (Auto) 6.1 L, Monocytes (%) (Auto) 8.5 H, Eosinophils (%) (Auto) 0.1, Basophils (%) (Auto) 0.1, Neutrophils # (Auto) 9.0 H, Lymphocytes # (Auto) 0.7 L, Monocytes # (Auto) 0.9 H, Eosinophils # (Auto) 0.0, Basophils # (Auto) 0.0, Calcium Level 7.9 L Labs 24H Laboratory Tests 2 06/01/19 06:32: Immature Granulocyte % (Auto) 0.6, White Blood Count 10.6H, Red Blood Count 3.32L, Hemoglobin 9.6L, Hematocrit 30.4L, Mean Corpuscular Volume 91.6, Mean Corpuscular Hemoglobin 28.9, Mean Corpuscular Hemoglobin Concent 31.6L, Red Cell Distribution Width 12.7, Platelet Count 220, Neutrophils (%) (Auto) 84.6H, Lymphocytes (%) (Auto) 6.1L, Monocytes (%) (Auto) 8.5H, Eosinophils (%) (Auto) 0.1, Basophils (%) (Auto) 0.1, Neutrophils # (Auto) 9.0H, Lymphocytes # (Auto) 0.7L, Monocytes # (Auto) 0.9H, Eosinophils # (Auto) 0.0, Basophils # (Auto) 0.0, Nucleated Red Blood Cells % (auto) 0.0, Anion Gap 8, Glomerular Filtration Rate > 60.0, Blood Urea Nitrogen 13, Creatinine 0.35L, Sodium Level 132L, Potassium Level 4.2, Chloride Level 102, Carbon Dioxide Level 22, Calcium Level 7.9L Current Medications Current Medications Current Medications Medications (Trade) Dose Ordered Sig/Harleen Route PRN Reason Start Time Stop Time Status Last Admin Dose Admin Acetaminophen (Tylenol Tab) 1,000 mg TID PO 05/30/19 16:00 06/01/19 08:54 Benzocaine (Anbesol Gel) TO MOUTH SORES TID MT 05/30/19 16:00 06/01/19 08:52 Bisacodyl (Dulcolax Suppository) 10 mg DAILYPRN PRN [place] CONSTIPATION 05/30/19 14:15 Diclofenac Epolamine (Flector 1.3%) 2 patch Q12H [facility] 05/30/19 21:00 06/01/19 08:55 Docusate Sodium (Colace) 100 mg BID PO 05/30/19 21:00 06/01/19 08:53 Duloxetine HCl (Cymbalta) 30 mg DAILY PO 05/30/19 09:00 06/01/19 08:52 Heparin Sodium (Porcine) (Heparin) 5,000 units Q12H [place] 05/30/19 21:00 06/01/19 08:54 Home Med (Med Rec Complete!) ASDIRECTED XX 05/30/19 15:15 05/30/19 15:20 DC Lisinopril (Prinivil) 5 mg DAILY PO 05/31/19 09:00 06/01/19 08:53 Methylprednisolone (Medrol) 4 mg ASDIRECTED PO 05/31/19 06:00 UNV Methylprednisolone (Medrol) 4 mg BID PO 06/04/19 09:00 06/04/19 21:01 Methylprednisolone (Medrol) 4 mg DAILY PO 06/05/19 09:00 06/05/19 09:01 Methylprednisolone (Medrol) 4 mg Q4H PO 05/31/19 04:00 06/01/19 00:01 DC 05/31/19 23:51 Methylprednisolone (Medrol) 4 mg Q4H PO 06/01/19 06:00 06/01/19 22:01 06/01/19 09:00 Methylprednisolone (Medrol) 4 mg QID PO 06/02/19 09:00 06/02/19 21:01 Methylprednisolone (Medrol) 4 mg TID PO 06/03/19 09:00 06/03/19 21:01 Metoprolol Tartrate (Lopressor) 12.5 mg BID PO 05/30/19 21:00 06/01/19 08:54 Pantoprazole Sodium (Protonix) 40 mg BID PO 05/30/19 21:00 06/01/19 08:54 Pantoprazole Sodium (Protonix) 40 mg DAILY PO 05/31/19 09:00 05/31/19 09:00 DC Potassium Chloride (Micro-K Extencaps) 20 meq DAILY PO 05/31/19 09:00 06/01/19 08:53 Rosuvastatin Calcium (Crestor) 40 mg QHS PO 05/31/19 21:00 05/31/19 20:10 Senna (Senokot) 1 tab QHS PO 05/30/19 21:00 05/31/19 20:11 BROOKLYN CALLES MD Jun 01, 2019 10:48
--- NOTE | 2019-06-01 10:49 | IPNPDOC ---
PM&R Progress Note DATE OF SERVICE: Jun 01, 2019 Systems Analyst Engineer Progress Note Subjective: Patient reporting she feels ok, she is preparing to see radiation-oncology today to plan for palliative radiation. REVIEW OF SYSTEMS: The following is a completed review of systems and has been reviewed. Review of systems otherwise unremarkable. PAIN: Patient self reports diffuse pain worst in the right knee EYES: No recent vision changes EARS, NOSE, & THROAT:+ [place] CARDIOVASCULAR: Denies chest pain or palpitations PULMONARY: Denies shortness of breath GASTROINTESTINAL: Denies constipation/diarrhea GENITOURINARY: +incontinence (chronic) MUSCULOSKELETAL: OA NEUROLOGICAL: no seizure activity or tremor HEMATOLOGICAL:+ anemia SKIN: no rash PSYCHIATRIC: Unremarkable All other review of systems found to be negative. PHYSICAL EXAMINATION: VITAL SIGNS: Please see below. GENERAL: Pleasant and cooperative. No acute distress. HEENT: PERRL. Extraocular movements intact. Clear conjunctiva CARDIOVASCULAR: Regular rate and rhythm. No murmurs, rubs, or gallops LUNGS: Clear to auscultation bilaterally. No wheezes. No rhonchi ABDOMEN: Soft, nontender, mildly distended. Positive bowel sounds. Normal active bowel sounds NEUROLOGICAL: Alert and oriented times three. Cranial nerves II through XII grossly intact. Sensation grossly intact EXTREMITIES: 4\5 strength bilateral upper extremities. >3\5 strength right lower extremity. >3/5 strength in left lower extremity. restricted range of motion in in all 4 extremities (+) TTP bilateral knees- medial/lateral joint line, with mild swelling (+) Hawkin's left shoulder with crepitus + gabriele's bilat GOALS: Mod-I ambulation with RW hosuehold distances, functional transfers, grooming, toileting, supervision for stairs and bathing, medical optimization, assess for DMEs ASSESSMENT:88-year-old F with past medical history of HTN, multi-joint OA who presents status post acute on chronic OA exacerbation with difficulty walking and newly diagnosed rectal tumor. PLAN: 1. Rehab: PT- improve strength, maintain ROM, stretch bilat LE- difficulty with bed mobility and standing OT- improve strength, maintain ROM, stretch bilat UE for optimal ADL management 2. Neuro: avoid delirogenic meds, patient reporting she became delirious with tramadol 3. 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 CArdio: pmh AVR, with grade 1 diastolic CHF, c/u BP and HLD meds, medicine consulted to assist in management 5. Resp: encourage incentive spirometry 6. GI/heme-onc- recently diagnosed rectal tumor, plan for radiation per Dr. Paul candelaria, monitor Hgb while on medrol dose pack, protonix increased to BID -c/u stool softener 7. Hyponatremia-Na 132, recheck tomorrow and consider fluid restriction in setting of grade 1 diastolic CHF, changing diet to regular 8. DVT ppx: dopplers negative for DVT, + left lew's cysts, c/u teds and heparin 9. Dispo: tbd Allergies Coded Allergies: No Known Allergies (Verified , 01/06/05) Vital Signs Vital Signs Date Time Temp Pulse Resp B/P (MAP) Pulse Ox O2 Delivery O2 Flow Rate FiO2 06/01/19 08:54 70 06/01/19 08:53 134/70 06/01/19 05:17 97.6 20 05/31/19 21:19 94 Laboratory Data CBC/BMP Laboratory Tests 06/01/19 06:32 Red Blood Count 3.32 L, Mean Corpuscular Volume 91.6, Mean Corpuscular Hemoglobin 28.9, Mean Corpuscular Hemoglobin Concent 31.6 L, Red Cell Distribution Width 12.7, Neutrophils (%) (Auto) 84.6 H, Lymphocytes (%) (Auto) 6.1 L, Monocytes (%) (Auto) 8.5 H, Eosinophils (%) (Auto) 0.1, Basophils (%) (Auto) 0.1, Neutrophils # (Auto) 9.0 H, Lymphocytes # (Auto) 0.7 L, Monocytes # (Auto) 0.9 H, Eosinophils # (Auto) 0.0, Basophils # (Auto) 0.0, Calcium Level 7.9 L Labs 24H Laboratory Tests 2 06/01/19 06:32: Immature Granulocyte % (Auto) 0.6, White Blood Count 10.6H, Red Blood Count 3.32L, Hemoglobin 9.6L, Hematocrit 30.4L, Mean Corpuscular Volume 91.6, Mean Corpuscular Hemoglobin 28.9, Mean Corpuscular Hemoglobin Concent 31.6L, Red Cell Distribution Width 12.7, Platelet Count 220, Neutrophils (%) (Auto) 84.6H, Lymphocytes (%) (Auto) 6.1L, Monocytes (%) (Auto) 8.5H, Eosinophils (%) (Auto) 0.1, Basophils (%) (Auto) 0.1, Neutrophils # (Auto) 9.0H, Lymphocytes # (Auto) 0.7L, Monocytes # (Auto) 0.9H, Eosinophils # (Auto) 0.0, Basophils # (Auto) 0.0, Nucleated Red Blood Cells % (auto) 0.0, Anion Gap 8, Glomerular Filtration Rate > 60.0, Blood Urea Nitrogen 13, Creatinine 0.35L, Sodium Level 132L, Potassium Level 4.2, Chloride Level 102, Carbon Dioxide Level 22, Calcium Level 7.9L Current Medications Current Medications Current Medications Medications (Trade) Dose Ordered Sig/Harleen Route PRN Reason Start Time Stop Time Status Last Admin Dose Admin Acetaminophen (Tylenol Tab) 1,000 mg TID PO 05/30/19 16:00 06/01/19 08:54 Benzocaine (Anbesol Gel) TO MOUTH SORES TID MT 05/30/19 16:00 06/01/19 08:52 Bisacodyl (Dulcolax Suppository) 10 mg DAILYPRN PRN [place] CONSTIPATION 05/30/19 14:15 Diclofenac Epolamine (Flector 1.3%) 2 patch Q12H [facility] 05/30/19 21:00 06/01/19 08:55 Docusate Sodium (Colace) 100 mg BID PO 05/30/19 21:00 06/01/19 08:53 Duloxetine HCl (Cymbalta) 30 mg DAILY PO 05/30/19 09:00 06/01/19 08:52 Heparin Sodium (Porcine) (Heparin) 5,000 units Q12H [place] 05/30/19 21:00 06/01/19 08:54 Home Med (Med Rec Complete!) ASDIRECTED XX 05/30/19 15:15 05/30/19 15:20 DC Lisinopril (Prinivil) 5 mg DAILY PO 05/31/19 09:00 06/01/19 08:53 Methylprednisolone (Medrol) 4 mg ASDIRECTED PO 05/31/19 06:00 UNV Methylprednisolone (Medrol) 4 mg BID PO 06/04/19 09:00 06/04/19 21:01 Methylprednisolone (Medrol) 4 mg DAILY PO 06/05/19 09:00 06/05/19 09:01 Methylprednisolone (Medrol) 4 mg Q4H PO 05/31/19 04:00 06/01/19 00:01 DC 05/31/19 23:51 Methylprednisolone (Medrol) 4 mg Q4H PO 06/01/19 06:00 06/01/19 22:01 06/01/19 09:00 Methylprednisolone (Medrol) 4 mg QID PO 06/02/19 09:00 06/02/19 21:01 Methylprednisolone (Medrol) 4 mg TID PO 06/03/19 09:00 06/03/19 21:01 Metoprolol Tartrate (Lopressor) 12.5 mg BID PO 05/30/19 21:00 06/01/19 08:54 Pantoprazole Sodium (Protonix) 40 mg BID PO 05/30/19 21:00 06/01/19 08:54 Pantoprazole Sodium (Protonix) 40 mg DAILY PO 05/31/19 09:00 05/31/19 09:00 DC Potassium Chloride (Micro-K Extencaps) 20 meq DAILY PO 05/31/19 09:00 06/01/19 08:53 Rosuvastatin Calcium (Crestor) 40 mg QHS PO 05/31/19 21:00 05/31/19 20:10 Senna (Senokot) 1 tab QHS PO 05/30/19 21:00 05/31/19 20:11 BROOKLYN CALLES MD Jun 01, 2019 10:49
[2019-06-01 14:00] VITALS: BP 135/76
--- NOTE | 2019-06-01 16:24 | IPNPDOC ---
Date Seen The patient was seen on 06/01/19. Progress Note SUBJECTIVE: Patient has no physical complaints this morning. Afebrile overnight. Na 132. WBC 10.6 from 10.4. OBJECTIVE PHYSICAL EXAMINATION: VITAL SIGNS: Please see below. General: No acute distress, Alert Eyes: Normal sclera, EOMI, GAVIN HENT: Atraumatic, neck supple, moist mucous membranes Cardiovascular: Normal rate, normal rhythm. No murmurs appreciated. Pulmonary: Clear to auscultation b/l, no wheezing GI: Soft, nontender, nondistended Skin: Warm and dry Neuro: CN grossly intact. No focal deficits. Strengths equal b/l. Psych: oriented x 3 LABORATORY DATA, IMAGING STUDIES, MICROBIOLOGY: Please see below. DVT prophylaxis ordered?: HSQ ASSESSMENT AND PLAN: 1. Significant Debility - c/w PT. 2. Adenocarcinoma of the rectum - Being assessed for palliative RT. - Not a candidate for surgical intervention or chemo. - Oncology consulted. 3. GIB - Resolved. - c/w to monitor daily CBCs. Treat anemia as needed. 4. Severe OA - Severe polyarthralgias. - Started on Cymbalta and medrol dose pack. - Pain control. 5. HTN -BP controlled. c/w metoprolol. 6. HLD -c/w Crestor 40 mg daily 7. 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 Hyponatremia - SIADH 2/2 malignancy vs. hypovolemic due to poor oral intake. - c/w monitor Na level tomorrow. - Mild without symptoms can be monitored. Consider salt tablets if continues to decline. VS, I&O, 24H, Fishbone Vital Signs/I&O Vital Signs Date Time Temp Pulse Resp B/P (MAP) Pulse Ox O2 Delivery O2 Flow Rate FiO2 06/01/19 14:00 97.2 93 20 135/76 (95) 96 I&O- Last 24 Hours up to 6 AM 06/01/19 06:00 Intake Total 460 ml Balance 460 ml Laboratory Data 24H LABS Laboratory Tests 2 06/01/19 06:32: Immature Granulocyte % (Auto) 0.6, White Blood Count 10.6H, Red Blood Count 3.32L, Hemoglobin 9.6L, Hematocrit 30.4L, Mean Corpuscular Volume 91.6, Mean Corpuscular Hemoglobin 28.9, Mean Corpuscular Hemoglobin Concent 31.6L, Red Cell Distribution Width 12.7, Platelet Count 220, Neutrophils (%) (Auto) 84.6H, Lymphocytes (%) (Auto) 6.1L, Monocytes (%) (Auto) 8.5H, Eosinophils (%) (Auto) 0.1, Basophils (%) (Auto) 0.1, Neutrophils # (Auto) 9.0H, Lymphocytes # (Auto) 0.7L, Monocytes # (Auto) 0.9H, Eosinophils # (Auto) 0.0, Basophils # (Auto) 0.0, Nucleated Red Blood Cells % (auto) 0.0, Anion Gap 8, Glomerular Filtration Rate > 60.0, Blood Urea Nitrogen 13, Creatinine 0.35L, Sodium Level 132L, Potassium Level 4.2, Chloride Level 102, Carbon Dioxide Level 22, Calcium Level 7.9L CBC/BMP Laboratory Tests 06/01/19 06:32 Red Blood Count 3.32 L, Mean Corpuscular Volume 91.6, Mean Corpuscular Hemoglobin 28.9, Mean Corpuscular Hemoglobin Concent 31.6 L, Red Cell Distribution Width 12.7, Neutrophils (%) (Auto) 84.6 H, Lymphocytes (%) (Auto) 6.1 L, Monocytes (%) (Auto) 8.5 H, Eosinophils (%) (Auto) 0.1, Basophils (%) (Auto) 0.1, Neutrophils # (Auto) 9.0 H, Lymphocytes # (Auto) 0.7 L, Monocytes # (Auto) 0.9 H, Eosinophils # (Auto) 0.0, Basophils # (Auto) 0.0, Calcium Level 7.9 L TOYA STUART MD Jun 01, 2019 16:24
[2019-06-01 20:00] VITALS: BP 121/61
[2019-06-01] MEDS: ROSUVASTATIN 10 MG TAB (CRESTOR) PO SCH (20:50)
[2019-06-01] MEDS: SENNA 8.6 MG TAB (SENOKOT) PO SCH (20:50)
[2019-06-02 06:00] VITALS: BP 135/63
[2019-06-02 06:11] LABS: HEMATOCRIT 30.9 % (36.0-47.0); HEMOGLOBIN 9.8 g/dl (12.0-15.5); MEAN CORPUSCULAR HEMOGLOBIN 28.9 pg (27.0-33.0); MEAN CORPUSCULAR HGB CONC 31.7 g/dl (32.0-36.5); MEAN CORPUSCULAR VOLUME 91.2 fl (80.0-96.0); PLATELET COUNT, AUTOMATED 228 10^3/uL (150-450); RED BLOOD COUNT 3.39 10^6/uL (4.00-5.40); WHITE BLOOD COUNT 8.7 10^3/uL (4.0-10.0)
[2019-06-02 06:35] LABS: BLOOD UREA NITROGEN 18 MG/DL (7-18); CALCIUM LEVEL 8.2 MG/DL (8.8-10.2); CARBON DIOXIDE LEVEL 27 MEQ/L (21-32); CHLORIDE LEVEL 100 MEQ/L (98-107); CREATININE FOR GFR 0.43 MG/DL (0.55-1.30); GLOMERULAR FILTRATION RATE > 60.0 (>32); GLUCOSE, FASTING 102 MG/DL (70-100); POTASSIUM SERUM 4.3 MEQ/L (3.5-5.1); SODIUM LEVEL 132 MEQ/L (136-145)
[2019-06-02] MEDS: HEPARIN SOD (PORCINE) 5000 UNITS/ML VIAL SC SCH ×2 (10:07→20:38)
[2019-06-02] MEDS: DOCUSATE SODIUM 100 MG CAP PO SCH ×2 (10:07→20:38)
[2019-06-02] MEDS: POTASSIUM CHLORIDE 10 MEQ SR TABLET PO SCH (10:07)
[2019-06-02] MEDS: PANTOPRAZOLE 40MG TAB (PROTONIX) PO SCH ×2 (10:08→20:38)
[2019-06-02] MEDS: DULoxetine 30 MG CAP (CYMBALTA) PO SCH (10:08)
[2019-06-02] MEDS: DICLOFENAC EPOLAMINE 1.3 % PATCH TOP SCH ×2 (10:08→20:37)
[2019-06-02] MEDS: methylPREDNISolone 4 MG TAB PO SCH ×4 (10:09→20:38)
[2019-06-02] MEDS: ACETAMINOPHEN 500 MG TAB PO SCH ×3 (10:09→20:37)
[2019-06-02] MEDS: lisinopriL 5 MG TAB PO SCH (10:11)
[2019-06-02] MEDS: METOPROLOL TART 12.5 MG PER 1/2 TAB PO SCH ×2 (10:11→20:37)
[2019-06-02] MEDS: BENZOCAINE 10% 9GM TUBE (ANBESOL) MT SCH ×3 (10:15→20:38)
--- NOTE | 2019-06-02 11:32 | IPNPDOC ---
Date Seen The patient was seen on 06/02/19. Progress Note SUBJECTIVE: Patient says she is not well because she wants to go home but know that she is too weak to do so but offered no physical complaints. Afebrile overnight. Na 132, unchanged. WBC 8.7. OBJECTIVE PHYSICAL EXAMINATION: VITAL SIGNS: Please see below. General: No acute distress, Alert, generalized weakness Eyes: Normal sclera, EOMI, GAVIN HENT: Atraumatic, neck supple, moist mucous membranes Cardiovascular: Normal rate, normal rhythm. No murmurs appreciated. Pulmonary: Clear to auscultation b/l, no wheezing GI: Soft, nontender, nondistended Skin: Warm and dry Neuro: CN grossly intact. No focal deficits. Strengths equal b/l. Psych: oriented x 3 LABORATORY DATA, IMAGING STUDIES, MICROBIOLOGY: Please see below. DVT prophylaxis ordered?: HSQ ASSESSMENT AND PLAN: 1. Significant Debility - c/w PT. - Encourage oral intake. 2. Adenocarcinoma of the rectum - Being assessed for palliative RT. - Not a candidate for surgical intervention or chemo. - Oncology consulted. 3. GIB - Resolved. - c/w to monitor daily CBCs. Treat anemia as needed. 4. Severe OA - Severe polyarthralgias. - Started on Cymbalta and medrol dose pack. - Pain control. 5. HTN -BP controlled. c/w metoprolol. 6. HLD -c/w Crestor 40 mg daily 7. 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 Hyponatremia - SIADH 2/2 malignancy vs. hypovolemic due to poor oral intake. - c/w monitor Na level tomorrow. - Mild without symptoms can be monitored. Consider salt tablets if continues to decline. 9. Hyponatremia - Mild. 2/2 poor oral intake and dehydration. May need IVF supplementation if continue to decline. VS, I&O, 24H, Fishbone Vital Signs/I&O Vital Signs Date Time Temp Pulse Resp B/P (MAP) Pulse Ox O2 Delivery O2 Flow Rate FiO2 06/02/19 10:11 87 06/02/19 10:11 105/51 06/02/19 06:00 96.7 18 97 I&O- Last 24 Hours up to 6 AM 06/02/19 06:00 Intake Total 720 ml Output Total 75 ml Balance 645 ml Laboratory Data 24H LABS Laboratory Tests 2 06/02/19 05:50: Nucleated Red Blood Cells % (auto) 0.0, Anion Gap 5L, Glomerular Filtration Rate > 60.0, Blood Urea Nitrogen 18, Creatinine 0.43L, Sodium Level 132L, Potassium Level 4.3, Chloride Level 100, Carbon Dioxide Level 27, Calcium Level 8.2L CBC/BMP Laboratory Tests 06/02/19 05:50 Red Blood Count 3.39 L, Mean Corpuscular Volume 91.2, Mean Corpuscular Hemo globin 28.9, Mean Corpuscular Hemoglobin Concent 31.7 L, Red Cell Distribution Width 13.0, Calcium Level 8.2 L TOYA STUART MD Jun 02, 2019 11:32
[2019-06-02 14:00] VITALS: BP 120/64
[2019-06-02 20:00] VITALS: BP 139/65
[2019-06-02] MEDS: ROSUVASTATIN 10 MG TAB (CRESTOR) PO SCH (20:38)
[2019-06-02] MEDS: SENNA 8.6 MG TAB (SENOKOT) PO SCH (20:38)
[2019-06-03 06:00] VITALS: BP 142/68
[2019-06-03 07:18] LABS: HEMATOCRIT 30.3 % (36.0-47.0); HEMOGLOBIN 9.5 g/dl (12.0-15.5); MEAN CORPUSCULAR HEMOGLOBIN 27.9 pg (27.0-33.0); MEAN CORPUSCULAR HGB CONC 31.4 g/dl (32.0-36.5); MEAN CORPUSCULAR VOLUME 89.1 fl (80.0-96.0); PLATELET COUNT, AUTOMATED 238 10^3/uL (150-450); WHITE BLOOD COUNT 9.1 10^3/uL (4.0-10.0)
[2019-06-03 07:39] LABS: BLOOD UREA NITROGEN 18 MG/DL (7-18); CALCIUM LEVEL 8.2 MG/DL (8.8-10.2); CARBON DIOXIDE LEVEL 27 MEQ/L (21-32); CHLORIDE LEVEL 100 MEQ/L (98-107); CREATININE FOR GFR 0.47 MG/DL (0.55-1.30); GLOMERULAR FILTRATION RATE > 60.0 (>32); GLUCOSE, FASTING 94 MG/DL (70-100); POTASSIUM SERUM 4.4 MEQ/L (3.5-5.1); SODIUM LEVEL 131 MEQ/L (136-145)
[2019-06-03] MEDS: PANTOPRAZOLE 40MG TAB (PROTONIX) PO SCH ×2 (10:19→21:36)
[2019-06-03] MEDS: methylPREDNISolone 4 MG TAB PO SCH ×3 (10:19→21:36)
[2019-06-03] MEDS: DULoxetine 30 MG CAP (CYMBALTA) PO SCH (10:19)
[2019-06-03] MEDS: DOCUSATE SODIUM 100 MG CAP PO SCH ×2 (10:19→21:36)
[2019-06-03] MEDS: POTASSIUM CHLORIDE 10 MEQ SR TABLET PO SCH (10:19)
[2019-06-03] MEDS: DICLOFENAC EPOLAMINE 1.3 % PATCH TOP SCH ×2 (10:20→21:37)
[2019-06-03] MEDS: ACETAMINOPHEN 500 MG TAB PO SCH ×3 (10:20→21:37)
[2019-06-03] MEDS: HEPARIN SOD (PORCINE) 5000 UNITS/ML VIAL SC SCH ×2 (10:20→21:36)
[2019-06-03] MEDS: lisinopriL 5 MG TAB PO SCH (10:23)
[2019-06-03] MEDS: METOPROLOL TART 12.5 MG PER 1/2 TAB PO SCH ×2 (10:25→21:36)
[2019-06-03] MEDS: NS 500 ML IV ONE ×2 (10:26→12:00)
[2019-06-03] MEDS: BENZOCAINE 10% 9GM TUBE (ANBESOL) MT SCH ×3 (10:32→21:35)
[2019-06-03 14:00] VITALS: BP 109/60
--- NOTE | 2019-06-03 16:09 | IPNPDOC ---
Date Seen The patient was seen on 06/03/19. Progress Note SUBJECTIVE: Patient appeared unchanged, still say she wants to go home. No events reported overnight, patient getting continue PT. Afebrile overnight. Na 131 today, 500cc NS ordered at maintenance rate. OBJECTIVE PHYSICAL EXAMINATION: VITAL SIGNS: Please see below. General: No acute distress, Alert, generalized weakness Eyes: Normal sclera, EOMI, GAVIN HENT: Atraumatic, neck supple, moist mucous membranes Cardiovascular: Normal rate, normal rhythm. No murmurs appreciated. Pulmonary: Clear to auscultation b/l, no wheezing GI: Soft, nontender, nondistended Skin: Warm and dry Neuro: CN grossly intact. No focal deficits. Strengths equal b/l. Psych: oriented x 3 LABORATORY DATA, IMAGING STUDIES, MICROBIOLOGY: Please see below. DVT prophylaxis ordered?: HSQ ASSESSMENT AND PLAN: 1. Significant Debility - c/w PT. - Encourage oral intake. 2. Adenocarcinoma of the rectum - Being assessed for palliative RT. - Not a candidate for surgical intervention or chemo. - Oncology consulted. 3. GIB - Resolved. - c/w to monitor daily CBCs. Treat anemia as needed. 4. Severe OA - Severe polyarthralgias. - Started on Cymbalta and medrol dose pack. - Pain control. 5. HTN -BP controlled. c/w metoprolol. 6. HLD -c/w Crestor 40 mg daily 7. 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 Hyponatremia - SIADH 2/2 malignancy vs. hypovolemic due to poor oral intake. - c/w monitor Na level tomorrow. - Mild without symptoms can be monitored. Consider salt tablets if continues to decline. 9. Hyponatremia - Mild. 2/2 poor oral intake and dehydration. - Get 500 cc NS today for volume repletion. - c/w monitor BMPs. VS, I&O, 24H, [facility] Vital Signs/I&O Vital Signs Date Time Temp Pulse Resp B/P (MAP) Pulse Ox O2 Delivery O2 Flow Rate FiO2 06/03/19 14:00 98.4 75 17 109/60 (76) 96 I&O- Last 24 Hours up to 6 AM 06/03/19 06:00 Intake Total 420 ml Output Total 0 ml Balance 420 ml Laboratory Data 24H LABS Laboratory Tests 2 06/03/19 06:57: Nucleated Red Blood Cells % (auto) 0.0, Anion Gap 4L, Glomerular Filtration Rate > 60.0, Blood Urea Nitrogen 18, Creatinine 0.47L, Sodium Level 131L, Potassium Level 4.4, Chloride Level 100, Carbon Dioxide Level 27, Calcium Level 8.2L CBC/BMP Laboratory Tests 06/03/19 06:57 Red Blood Count 3.40 L, Mean Corpuscular Volume 89.1, Mean Corpuscular Hemog lobin 27.9, Mean Corpuscular Hemoglobin Concent 31.4 L, Red Cell Distribution Width 13.0, Calcium Level 8.2 L TOYA STUART MD Jun 03, 2019 16:09
[2019-06-03 20:03] VITALS: BP 123/60
[2019-06-03] MEDS: SENNA 8.6 MG TAB (SENOKOT) PO SCH (21:36)
[2019-06-03] MEDS: ROSUVASTATIN 10 MG TAB (CRESTOR) PO SCH (21:36)
[2019-06-04 06:00] VITALS: BP 122/58
[2019-06-04 07:52] LABS: HEMATOCRIT 27.7 % (36.0-47.0); HEMOGLOBIN 8.7 g/dl (12.0-15.5); MEAN CORPUSCULAR HEMOGLOBIN 28.1 pg (27.0-33.0); MEAN CORPUSCULAR HGB CONC 31.4 g/dl (32.0-36.5); MEAN CORPUSCULAR VOLUME 89.4 fl (80.0-96.0); PLATELET COUNT, AUTOMATED 191 10^3/uL (150-450); WHITE BLOOD COUNT 6.8 10^3/uL (4.0-10.0)
[2019-06-04 08:18] LABS: BLOOD UREA NITROGEN 15 MG/DL (7-18); CALCIUM LEVEL 7.9 MG/DL (8.8-10.2); CARBON DIOXIDE LEVEL 28 MEQ/L (21-32); CHLORIDE LEVEL 102 MEQ/L (98-107); CREATININE FOR GFR 0.37 MG/DL (0.55-1.30); GLOMERULAR FILTRATION RATE > 60.0 (>32); GLUCOSE, FASTING 86 MG/DL (70-100); POTASSIUM SERUM 4.4 MEQ/L (3.5-5.1); SODIUM LEVEL 135 MEQ/L (136-145)
--- NOTE | 2019-06-04 09:25 | IPNPDOC ---
Date Seen The patient was seen on 06/04/19. Progress Note SUBJECTIVE: Patient was in bed this morning, not talking much but had no complaints. Received 500 cc NS yesterday. Na up to 135 from 131 yesterday. OBJECTIVE PHYSICAL EXAMINATION: VITAL SIGNS: Please see below. General: No acute distress, Alert, generalized weakness Eyes: Normal sclera, EOMI, GAVIN HENT: Atraumatic, neck supple, moist mucous membranes Cardiovascular: Normal rate, normal rhythm. No murmurs appreciated. Pulmonary: Clear to auscultation b/l, no wheezing GI: Soft, nontender, nondistended Skin: Warm and dry Neuro: CN grossly intact. No focal deficits. generalized weakness. LABORATORY DATA, IMAGING STUDIES, MICROBIOLOGY: Please see below. DVT prophylaxis ordered?: HSQ ASSESSMENT AND PLAN: 1. Significant Debility - c/w PT. - Encourage oral intake. 2. Adenocarcinoma of the rectum - Being assessed for palliative RT. - Not a candidate for surgical intervention or chemo. - Oncology consulted. 3. GIB - Resolved. - c/w to monitor daily CBCs. Treat anemia as needed. 4. Severe OA - Severe polyarthralgias. - Started on Cymbalta and medrol dose pack. - Pain control. 5. HTN -BP controlled. c/w metoprolol. 6. HLD -c/w Crestor 40 mg daily 7. 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 Hyponatremia - Mild. 2/2 poor oral intake and dehydration. - Improved post 500 cc IVF yesterday. - c/w monitor BMPs, may require intermittent IVF support. VS, I&O, 24H, [facility] Vital Signs/I&O Vital Signs Date Time Temp Pulse Resp B/P (MAP) Pulse Ox O2 Delivery O2 Flow Rate FiO2 06/04/19 06:00 96.8 73 18 122/58 (79) 98 I&O- Last 24 Hours up to 6 AM 06/04/19 05:59 Intake Total 760 ml Output Total 0 ml Balance 760 ml Laboratory Data 24H LABS Laboratory Tests 2 06/04/19 07:28: Nucleated Red Blood Cells % (auto) 0.0, Anion Gap 5L, Glomerular Filtration Rate > 60.0, Blood Urea Nitrogen 15, Creatinine 0.37L, Sodium Level 135L, Potassium Level 4.4, Chloride Level 102, Carbon Dioxide Level 28, Calcium Level 7.9L CBC/BMP Laboratory Tests 06/04/19 07:28 Red Blood Count 3.10 L, Mean Corpuscular Volume 89.4, Mean Corpuscular Hemoglobin 28.1, Mean Corpuscular Hemoglobin Concent 31.4 L, Red Cell Distribu tion Width 13.1, Calcium Level 7.9 L TOYA STUART MD Jun 04, 2019 09:25
[2019-06-04] MEDS: BENZOCAINE 10% 9GM TUBE (ANBESOL) MT SCH ×3 (09:31→20:45)
[2019-06-04] MEDS: HEPARIN SOD (PORCINE) 5000 UNITS/ML VIAL SC SCH ×2 (09:31→20:45)
[2019-06-04] MEDS: methylPREDNISolone 4 MG TAB PO SCH ×2 (09:31→20:45)
[2019-06-04] MEDS: DULoxetine 30 MG CAP (CYMBALTA) PO SCH (09:32)
[2019-06-04] MEDS: DOCUSATE SODIUM 100 MG CAP PO SCH ×2 (09:33→21:00)
[2019-06-04] MEDS: POTASSIUM CHLORIDE 10 MEQ SR TABLET PO SCH (09:34)
[2019-06-04] MEDS: PANTOPRAZOLE 40MG TAB (PROTONIX) PO SCH ×2 (09:35→20:46)
[2019-06-04] MEDS: lisinopriL 5 MG TAB PO SCH (09:35)
[2019-06-04] MEDS: ACETAMINOPHEN 500 MG TAB PO SCH ×3 (09:35→20:46)
[2019-06-04] MEDS: METOPROLOL TART 12.5 MG PER 1/2 TAB PO SCH ×2 (09:36→20:46)
[2019-06-04] MEDS: DICLOFENAC EPOLAMINE 1.3 % PATCH TOP SCH ×2 (09:37→20:46)
[2019-06-04 14:00] VITALS: BP 139/63
[2019-06-04 20:00] VITALS: BP 121/60
[2019-06-04] MEDS: ROSUVASTATIN 10 MG TAB (CRESTOR) PO SCH (20:45)
[2019-06-04] MEDS: SENNA 8.6 MG TAB (SENOKOT) PO SCH (21:00)
[2019-06-05 05:30] VITALS: BP 141/67
[2019-06-05 07:24] LABS: HEMATOCRIT 29.3 % (36.0-47.0); HEMOGLOBIN 9.4 g/dl (12.0-15.5); MEAN CORPUSCULAR HEMOGLOBIN 29.5 pg (27.0-33.0); MEAN CORPUSCULAR HGB CONC 32.1 g/dl (32.0-36.5); MEAN CORPUSCULAR VOLUME 91.8 fl (80.0-96.0); PLATELET COUNT, AUTOMATED 183 10^3/uL (150-450); RED BLOOD COUNT 3.19 10^6/uL (4.00-5.40); WHITE BLOOD COUNT 6.8 10^3/uL (4.0-10.0)
[2019-06-05 07:43] LABS: BLOOD UREA NITROGEN 12 MG/DL (7-18); CALCIUM LEVEL 8.2 MG/DL (8.8-10.2); CARBON DIOXIDE LEVEL 31 MEQ/L (21-32); CHLORIDE LEVEL 100 MEQ/L (98-107); CREATININE FOR GFR 0.37 MG/DL (0.55-1.30); GLOMERULAR FILTRATION RATE > 60.0 (>32); GLUCOSE, FASTING 91 MG/DL (70-100); POTASSIUM SERUM 4.4 MEQ/L (3.5-5.1); SODIUM LEVEL 134 MEQ/L (136-145)
[2019-06-05] MEDS: DOCUSATE SODIUM 100 MG CAP PO SCH ×2 (09:00→20:43)
[2019-06-05] MEDS ORDERED: methylPREDNISolone 4 MG TAB PO SCH (09:00)
[2019-06-05] MEDS: DICLOFENAC EPOLAMINE 1.3 % PATCH TOP SCH ×2 (09:47→20:45)
[2019-06-05] MEDS: METOPROLOL TART 12.5 MG PER 1/2 TAB PO SCH ×3 (09:47→20:46)
[2019-06-05] MEDS: HEPARIN SOD (PORCINE) 5000 UNITS/ML VIAL SC SCH ×2 (09:47→20:43)
[2019-06-05] MEDS: PANTOPRAZOLE 40MG TAB (PROTONIX) PO SCH ×2 (09:48→20:43)
[2019-06-05] MEDS: POTASSIUM CHLORIDE 10 MEQ SR TABLET PO SCH (09:48)
[2019-06-05] MEDS: lisinopriL 5 MG TAB PO SCH (09:48)
[2019-06-05] MEDS: ACETAMINOPHEN 500 MG TAB PO SCH ×3 (09:49→20:44)
[2019-06-05] MEDS: DULoxetine 30 MG CAP (CYMBALTA) PO SCH (09:49)
[2019-06-05] MEDS: BENZOCAINE 10% 9GM TUBE (ANBESOL) MT SCH ×3 (09:57→20:44)
[2019-06-05 14:00] VITALS: BP 134/64
[2019-06-05 20:00] VITALS: BP 119/58
[2019-06-05] MEDS: SENNA 8.6 MG TAB (SENOKOT) PO SCH (20:43)
[2019-06-05] MEDS: ROSUVASTATIN 10 MG TAB (CRESTOR) PO SCH (20:44)
[2019-06-05] MEDS: BOUDREAUX'S BUTT PASTE TOP SCH (21:00)
[2019-06-06 06:00] VITALS: BP 124/66
[2019-06-06 07:26] LABS: HEMATOCRIT 28.3 % (36.0-47.0); HEMOGLOBIN 8.9 g/dl (12.0-15.5); MEAN CORPUSCULAR HEMOGLOBIN 28.2 pg (27.0-33.0); MEAN CORPUSCULAR HGB CONC 31.4 g/dl (32.0-36.5); MEAN CORPUSCULAR VOLUME 89.6 fl (80.0-96.0); PLATELET COUNT, AUTOMATED 171 10^3/uL (150-450); RED BLOOD COUNT 3.16 10^6/uL (4.00-5.40); WHITE BLOOD COUNT 6.4 10^3/uL (4.0-10.0)
[2019-06-06 07:56] LABS: BLOOD UREA NITROGEN 15 MG/DL (7-18); CALCIUM LEVEL 7.9 MG/DL (8.8-10.2); CARBON DIOXIDE LEVEL 29 MEQ/L (21-32); CHLORIDE LEVEL 100 MEQ/L (98-107); CREATININE FOR GFR 0.39 MG/DL (0.55-1.30); GLOMERULAR FILTRATION RATE > 60.0 (>32); GLUCOSE, FASTING 90 MG/DL (70-100); POTASSIUM SERUM 4.2 MEQ/L (3.5-5.1); SODIUM LEVEL 132 MEQ/L (136-145)
[2019-06-06] MEDS: BOUDREAUX'S BUTT PASTE TOP SCH ×4 (09:00→20:31)
[2019-06-06] MEDS: BENZOCAINE 10% 9GM TUBE (ANBESOL) MT SCH ×3 (09:00→20:30)
[2019-06-06] MEDS: DICLOFENAC EPOLAMINE 1.3 % PATCH TOP SCH ×2 (09:46→20:31)
[2019-06-06] MEDS: HEPARIN SOD (PORCINE) 5000 UNITS/ML VIAL SC SCH ×2 (09:47→20:31)
[2019-06-06] MEDS: METOPROLOL TART 12.5 MG PER 1/2 TAB PO SCH ×2 (09:47→20:30)
[2019-06-06] MEDS: ACETAMINOPHEN 500 MG TAB PO SCH ×3 (09:48→20:30)
[2019-06-06] MEDS: PANTOPRAZOLE 40MG TAB (PROTONIX) PO SCH ×2 (09:49→20:29)
[2019-06-06] MEDS: DULoxetine 30 MG CAP (CYMBALTA) PO SCH (09:49)
[2019-06-06] MEDS: lisinopriL 5 MG TAB PO SCH (09:49)
[2019-06-06] MEDS: POTASSIUM CHLORIDE 10 MEQ SR TABLET PO SCH (09:49)
[2019-06-06] MEDS: DOCUSATE SODIUM 100 MG CAP PO SCH ×2 (09:49→20:29)
[2019-06-06] MEDS ORDERED: ACETAMINOPH W/CODEINE #3 TAB UD PO ONE (12:00)
--- NOTE | 2019-06-06 12:14 | IPNPDOC ---
PM&R Progress Note DATE OF SERVICE: Jun 05, 2019 [facility] Progress Note Subjective: Patient reporting she is having loose stools, but otherwise feels ok. She was encouraged to push herself more in therapy now that her pain is getting better. REVIEW OF SYSTEMS: The following is a completed review of systems and has been reviewed. Review of systems otherwise unremarkable. PAIN: Patient self reports diffuse pain worst in the right knee EYES: No recent vision changes EARS, NOSE, & THROAT:+ CHILKAT CARDIOVASCULAR: Denies chest pain or palpitations PULMONARY: Denies shortness of breath GASTROINTESTINAL: Denies constipation/diarrhea GENITOURINARY: +incontinence (chronic) MUSCULOSKELETAL: OA NEUROLOGICAL: no seizure activity or tremor HEMATOLOGICAL:+ anemia SKIN: no rash PSYCHIATRIC: Unremarkable All other review of systems found to be negative. PHYSICAL EXAMINATION: VITAL SIGNS: Please see below. GENERAL: Pleasant and cooperative. No acute distress. HEENT: PERRL. Extraocular movements intact. Clear conjunctiva CARDIOVASCULAR: Regular rate and rhythm. No murmurs, rubs, or gallops LUNGS: Clear to auscultation bilaterally. No wheezes. No rhonchi ABDOMEN: Soft, nontender, mildly distended. Positive bowel sounds. Normal active bowel sounds NEUROLOGICAL: Alert and oriented times three. Cranial nerves II through XII grossly intact. Sensation grossly intact EXTREMITIES: 4\5 strength bilateral upper extremities. >3\5 strength right lower extremity. >3/5 strength in left lower extremity. restricted range of motion in in all 4 extremities (+) TTP bilateral knees- medial/lateral joint line, with mild swelling (+) Hawkin's left shoulder with crepitus + gabriele's bilat GOALS: Mod-I ambulation with RW household distances, functional transfers, grooming, toileting, supervision for stairs and bathing, medical optimization, assess for DMEs ASSESSMENT:88-year-old F with past medical history of HTN, multi-joint OA who presents status post acute on chronic OA exacerbation with difficulty walking and newly diagnosed rectal tumor. PLAN: 1. Rehab: PT- improve strength, maintain ROM, stretch bilat LE- difficulty with bed mobility and standing OT- improve strength, maintain ROM, stretch bilat UE for optimal ADL management 2. Neuro: avoid delirogenic meds, patient reporting she became delirious with tramadol 3. 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 CArdio: pmh AVR, with grade 1 diastolic CHF, c/u BP and HLD meds, medicine consulted to assist in management 5. Resp: encourage incentive spirometry 6. GI/heme-onc- recently diagnosed rectal tumor, plan for radiation per Dr. Paul candelaria, monitor Hgb while on medrol dose pack, protonix increased to BID -c/u stool softener 7. Hyponatremia-Na 132, recheck tomorrow and consider fluid restriction in setting of grade 1 diastolic CHF, changing diet to regular 8. DVT ppx: dopplers negative for DVT, + left lew's cysts, c/u teds and heparin 9. Dispo: tbd Allergies Coded Allergies: No Known Allergies (Verified , 01/06/05) Vital Signs Vital Signs Date Time Temp Pulse Resp B/P (MAP) Pulse Ox O2 Delivery O2 Flow Rate FiO2 06/06/19 09:49 130/69 06/06/19 09:47 91 06/06/19 06:00 98.3 18 95 Laboratory Data CBC/BMP Laboratory Tests 06/06/19 07:00 Red Blood Count 3.16 L, Mean Corpuscular Volume 89.6, Mean Corpuscular Hemoglobin 28.2, Mean Corpuscular Hemoglobin Concent 31.4 L, Red Cell Distribution Width 13.2, Calcium Level 7.9 L Labs 24H Laboratory Tests 2 06/06/19 07:00: Nucleated Red Blood Cells % (auto) 0.0, Anion Gap 3L, Glomerular Filtration Rate > 60.0, Blood Urea Nitrogen 15, Creatinine 0.39L, Sodium Level 132L, Potassium Level 4.2, Chloride Level 100, Carbon Dioxide Level 29, Calcium Level 7.9L Current Medications Current Medications Current Medications Medications (Trade) Dose Ordered Sig/Harleen Route PRN Reason Start Time Stop Time Status Last Admin Dose Admin Acetaminophen (Tylenol Tab) 1,000 mg TID PO 05/30/19 16:00 06/06/19 09:48 Benzocaine (Anbesol Gel) TO MOUTH SORES TID MT 05/30/19 16:00 06/06/19 09:00 Bisacodyl (Dulcolax Suppository) 10 mg DAILYPRN PRN [place] CONSTIPATION 05/30/19 14:15 Diclofenac Epolamine (Flector 1.3%) 2 patch Q12H TOP 05/30/19 21:00 06/06/19 09:46 Docusate Sodium (Colace) 100 mg BID PO 05/30/19 21:00 06/06/19 09:49 Duloxetine HCl (Cymbalta) 30 mg DAILY PO 05/30/19 09:00 06/06/19 09:49 Heparin Sodium (Porcine) (Heparin) 5,000 units Q12H SC 05/30/19 21:00 06/06/19 09:47 Home Med (Med Rec Complete!) ASDIRECTED XX 05/30/19 15:15 05/30/19 15:20 DC Lisinopril (Prinivil) 5 mg DAILY PO 05/31/19 09:00 06/06/19 09:49 Methylprednisolone (Medrol) 4 mg ASDIRECTED PO 05/31/19 06:00 UNV Methylprednisolone (Medrol) 4 mg BID PO 06/04/19 09:00 06/04/19 21:01 DC 06/04/19 20:45 Methylprednisolone (Medrol) 4 mg DAILY PO 06/05/19 09:00 06/05/19 09:01 DC 06/05/19 09:48 Methylprednisolone (Medrol) 4 mg Q4H PO 05/31/19 04:00 06/01/19 00:01 DC 05/31/19 23:51 Methylprednisolone (Medrol) 4 mg Q4H PO 06/01/19 06:00 06/01/19 22:01 DC 06/01/19 20:51 Methylprednisolone (Medrol) 4 mg QID PO 06/02/19 09:00 06/02/19 21:01 DC 06/02/19 20:38 Methylprednisolone (Medrol) 4 mg TID PO 06/03/19 09:00 06/03/19 21:01 DC 06/03/19 21:36 Metoprolol Tartrate (Lopressor) 12.5 mg BID PO 05/30/19 21:00 06/06/19 09:47 Pantoprazole Sodium (Protonix) 40 mg BID PO 05/30/19 21:00 06/06/19 09:49 Pantoprazole Sodium (Protonix) 40 mg DAILY PO 05/31/19 09:00 05/31/19 09:00 DC Potassium Chloride (Micro-K Extencaps) 20 meq DAILY PO 05/31/19 09:00 06/06/19 09:49 Rosuvastatin Calcium (Crestor) 40 mg QHS PO 05/31/19 21:00 06/05/19 20:44 Senna (Senokot) 1 tab QHS PO 05/30/19 21:00 06/05/19 20:43 Zinc Oxide (Boudreauxs Butt Paste) 1 dose TID TOP 06/05/19 21:00 BROOKLYN CALLES MD Jun 06, 2019 12:14
--- NOTE | 2019-06-06 12:16 | IPNPDOC ---
PM&R Progress Note DATE OF SERVICE: Jun 06, 2019 Registration Specialist Progress Note Subjective: Patient seen in OT working on arm bike exercises stating in the past Tylenol-3 seemed to help her. She would like to try this today. REVIEW OF SYSTEMS: The following is a completed review of systems and has been reviewed. Review of systems otherwise unremarkable. PAIN: Patient self reports diffuse pain worst in the right knee EYES: No recent vision changes EARS, NOSE, & THROAT:+ TEJON CARDIOVASCULAR: Denies chest pain or palpitations PULMONARY: Denies shortness of breath GASTROINTESTINAL: Denies constipation/diarrhea GENITOURINARY: +incontinence (chronic) MUSCULOSKELETAL: OA NEUROLOGICAL: no seizure activity or tremor HEMATOLOGICAL:+ anemia SKIN: no rash PSYCHIATRIC: Unremarkable All other review of systems found to be negative. PHYSICAL EXAMINATION: VITAL SIGNS: Please see below. GENERAL: Pleasant and cooperative. No acute distress. HEENT: PERRL. Extraocular movements intact. Clear conjunctiva CARDIOVASCULAR: Regular rate and rhythm. No murmurs, rubs, or gallops LUNGS: Clear to auscultation bilaterally. No wheezes. No rhonchi ABDOMEN: Soft, nontender, mildly distended. Positive bowel sounds. Normal active bowel sounds NEUROLOGICAL: Alert and oriented times three. Cranial nerves II through XII grossly intact. Sensation grossly intact EXTREMITIES: 4\5 strength bilateral upper extremities. >3\5 strength right lower extremity. >3/5 strength in left lower extremity. restricted range of motion in in all 4 extremities (+) TTP bilateral knees- medial/lateral joint line, with mild swelling (+) Hawkin's left shoulder with crepitus + gabriele's bilat ASSESSMENT:88-year-old F with past medical history of HTN, multi-joint OA who presents status post acute on chronic OA exacerbation with difficulty walking and newly diagnosed rectal tumor. PLAN: 1. Rehab: PT- improve strength, maintain ROM, stretch bilat LE- difficulty with bed mobility and standing OT- improve strength, maintain ROM, stretch bilat UE for optimal ADL management 2. Neuro: avoid delirogenic meds, patient reporting she became delirious with tramadol 3. Ortho: acute flare of bilateral knee OA and right shoulder OA severely limiting mobility in setting of rectal mass, will start medrol dose pack, Cymbalta, c/u Flector patches, and Tylenol, will trial Tylenol with codeine and monitor for delirium 4. CArdio: pmh AVR, with grade 1 diastolic CHF, c/u BP and HLD meds, medicine consulted to assist in management 5. Resp: encourage incentive spirometry 6. GI/heme-onc- recently diagnosed rectal tumor, plan for radiation per Dr. Paul candelaria, monitor Hgb while on medrol dose pack, protonix increased to BID -c/u stool softener 7. Hyponatremia-still at Na 132 will fluid restrict to 1800cc/day in setting of grade 1 diastolic CHF, c/u regular diet 8. DVT ppx: dopplers negative for DVT, + left lew's cysts, c/u teds and heparin 9. Dispo: tbd Allergies Coded Allergies: No Known Allergies (Verified , 01/06/05) Vital Signs Vital Signs Date Time Temp Pulse Resp B/P (MAP) Pulse Ox O2 Delivery O2 Flow Rate FiO2 06/06/19 09:49 130/69 06/06/19 09:47 91 06/06/19 06:00 98.3 18 95 Laboratory Data CBC/BMP Laboratory Tests 06/06/19 07:00 Red Blood Count 3.16 L, Mean Corpuscular Volume 89.6, Mean Corpuscular Hemoglobin 28.2, Mean Corpuscular Hemoglobin Concent 31.4 L, Red Cell Distribution Width 13.2, Calcium Level 7.9 L Labs 24H Laboratory Tests 2 06/06/19 07:00: Nucleated Red Blood Cells % (auto) 0.0, Anion Gap 3L, Glomerular Filtration Rate > 60.0, Blood Urea Nitrogen 15, Creatinine 0.39L, Sodium Level 132L, Potassium Level 4.2, Chloride Level 100, Carbon Dioxide Level 29, Calcium Level 7.9L Current Medications Current Medications Current Medications Medications (Trade) Dose Ordered Sig/Harleen Route PRN Reason Start Time Stop Time Status Last Admin Dose Admin Acetaminophen (Tylenol Tab) 1,000 mg TID PO 05/30/19 16:00 06/06/19 09:48 Benzocaine (Anbesol Gel) TO MOUTH SORES TID MT 05/30/19 16:00 06/06/19 09:00 Bisacodyl (Dulcolax Suppository) 10 mg DAILYPRN PRN [place] CONSTIPATION 05/30/19 14:15 Diclofenac Epolamine (Flector 1.3%) 2 patch Q12H TOP 05/30/19 21:00 06/06/19 09:46 Docusate Sodium (Colace) 100 mg BID PO 05/30/19 21:00 06/06/19 09:49 Duloxetine HCl (Cymbalta) 30 mg DAILY PO 05/30/19 09:00 06/06/19 09:49 Heparin Sodium (Porcine) (Heparin) 5,000 units Q12H SC 05/30/19 21:00 06/06/19 09:47 Home Med (Med Rec Complete!) ASDIRECTED XX 05/30/19 15:15 05/30/19 15:20 DC Lisinopril (Prinivil) 5 mg DAILY PO 05/31/19 09:00 06/06/19 09:49 Methylprednisolone (Medrol) 4 mg ASDIRECTED PO 05/31/19 06:00 UNV Methylprednisolone (Medrol) 4 mg BID PO 06/04/19 09:00 06/04/19 21:01 DC 06/04/19 20:45 Methylprednisolone (Medrol) 4 mg DAILY PO 06/05/19 09:00 06/05/19 09:01 DC 06/05/19 09:48 Methylprednisolone (Medrol) 4 mg Q4H PO 05/31/19 04:00 06/01/19 00:01 DC 05/31/19 23:51 Methylprednisolone (Medrol) 4 mg Q4H PO 06/01/19 06:00 06/01/19 22:01 DC 06/01/19 20:51 Methylprednisolone (Medrol) 4 mg QID PO 06/02/19 09:00 06/02/19 21:01 DC 06/02/19 20:38 Methylprednisolone (Medrol) 4 mg TID PO 06/03/19 09:00 06/03/19 21:01 DC 06/03/19 21:36 Metoprolol Tartrate (Lopressor) 12.5 mg BID PO 05/30/19 21:00 06/06/19 09:47 Pantoprazole Sodium (Protonix) 40 mg BID PO 05/30/19 21:00 06/06/19 09:49 Pantoprazole Sodium (Protonix) 40 mg DAILY PO 05/31/19 09:00 05/31/19 09:00 DC Potassium Chloride (Micro-K Extencaps) 20 meq DAILY PO 05/31/19 09:00 06/06/19 09:49 Rosuvastatin Calcium (Crestor) 40 mg QHS PO 05/31/19 21:00 06/05/19 20:44 Senna (Senokot) 1 tab QHS PO 05/30/19 21:00 06/05/19 20:43 Zinc Oxide (Boudreauxs Butt Paste) 1 dose TID TOP 06/05/19 21:00 BROOKLYN CALLES MD Jun 06, 2019 12:16
[2019-06-06 14:00] VITALS: BP 121/58
[2019-06-06 20:00] VITALS: BP 148/61
[2019-06-06] MEDS: SENNA 8.6 MG TAB (SENOKOT) PO SCH (20:29)
[2019-06-06] MEDS: ROSUVASTATIN 10 MG TAB (CRESTOR) PO SCH (20:29)
[2019-06-07 04:00] VITALS: BP 138/63
[2019-06-07] MEDS: ACETAMINOPH W/CODEINE #3 TAB UD PO SCH ×3 (09:00→21:17)
[2019-06-07] MEDS ORDERED: ACETAMINOPH W/CODEINE #3 TAB UD PO ONE (09:00)
[2019-06-07] MEDS: DOCUSATE SODIUM 100 MG CAP PO SCH ×2 (09:12→21:17)
[2019-06-07] MEDS: ACETAMINOPHEN 500 MG TAB PO SCH (09:13)
[2019-06-07] MEDS: POTASSIUM CHLORIDE 10 MEQ SR TABLET PO SCH (09:13)
[2019-06-07] MEDS: PANTOPRAZOLE 40MG TAB (PROTONIX) PO SCH ×2 (09:13→21:17)
[2019-06-07] MEDS: DULoxetine 30 MG CAP (CYMBALTA) PO SCH (09:13)
[2019-06-07] MEDS: DICLOFENAC EPOLAMINE 1.3 % PATCH TOP SCH ×2 (09:14→21:18)
[2019-06-07] MEDS: HEPARIN SOD (PORCINE) 5000 UNITS/ML VIAL SC SCH ×2 (09:14→21:16)
[2019-06-07] MEDS: BENZOCAINE 10% 9GM TUBE (ANBESOL) MT SCH ×3 (09:15→21:18)
[2019-06-07] MEDS: BOUDREAUX'S BUTT PASTE TOP SCH ×3 (09:15→21:18)
[2019-06-07] MEDS: lisinopriL 5 MG TAB PO SCH (09:15)
[2019-06-07] MEDS: METOPROLOL TART 12.5 MG PER 1/2 TAB PO SCH ×2 (09:15→21:16)
--- NOTE | 2019-06-07 09:51 | IPNPDOC ---
PM&R Progress Note DATE OF SERVICE: Jun 07, 2019 Rn Wound Care Progress Note Subjective: Patient seen in her room today, stating she does not think she feels up to doing therapy, but was encouraged to try. She cannot tell if the Tylenol with codeine helped her yesterday, but would like to try it again today. REVIEW OF SYSTEMS: The following is a completed review of systems and has been reviewed. Review of systems otherwise unremarkable. PAIN: Patient self reports diffuse pain worst in the right knee EYES: No recent vision changes EARS, NOSE, & THROAT:+ MINTO CARDIOVASCULAR: Denies chest pain or palpitations PULMONARY: Denies shortness of breath GASTROINTESTINAL: Denies constipation/diarrhea GENITOURINARY: +incontinence (chronic) MUSCULOSKELETAL: OA NEUROLOGICAL: no seizure activity or tremor HEMATOLOGICAL:+ anemia SKIN: no rash PSYCHIATRIC: Unremarkable All other review of systems found to be negative. PHYSICAL EXAMINATION: VITAL SIGNS: Please see below. GENERAL: Pleasant and cooperative. No acute distress. HEENT: PERRL. Extraocular movements intact. Clear conjunctiva CARDIOVASCULAR: Regular rate and rhythm. No murmurs, rubs, or gallops LUNGS: Clear to auscultation bilaterally. No wheezes. No rhonchi ABDOMEN: Soft, nontender, mildly distended. Positive bowel sounds. Normal active bowel sounds NEUROLOGICAL: Alert and oriented times three. Cranial nerves II through XII grossly intact. Sensation grossly intact EXTREMITIES: 4\5 strength bilateral upper extremities. >3\5 strength right lower extremity. >3/5 strength in left lower extremity. restricted range of motion in in all 4 extremities (+) TTP bilateral knees- medial/lateral joint line, with mild swelling (+) Hawkin's left shoulder with crepitus + gabriele's bilat ASSESSMENT:88-year-old F with past medical history of HTN, multi-joint OA who presents status post acute on chronic OA exacerbation with difficulty walking and newly diagnosed rectal tumor. PLAN: 1. Rehab: PT- improve strength, maintain ROM, stretch bilat LE- difficulty with bed mobility and standing OT- improve strength, maintain ROM, stretch bilat UE for optimal ADL management 2. Neuro: avoid delirogenic meds, patient reporting she became delirious with tramadol 3. Ortho: acute flare of bilateral knee OA and right shoulder OA severely limiting mobility in setting of rectal mass, s/p medrol dose pack -will increase Cymbalta to 60mg, c/u Flector patches, c/u Tylenol with codeine and monitor for delirium -will add low dose gabapentin 4. Cardio: pmh AVR, with grade 1 diastolic CHF, c/u BP and HLD meds, medicine consulted to assist in management 5. Resp: encourage incentive spirometry 6. GI/heme-onc- recently diagnosed rectal tumor, receiving radiation with Dr. Paul candelaria -c/u protonix increased to BID -c/u stool softener 7. Hyponatremia- c/u to fluid restrict to 1800cc/day in setting of grade 1 diastolic CHF, c/u regular diet, check BMP tomorrow 8. DVT ppx: dopplers negative for DVT, + left lew's cysts, c/u teds and heparin 9. Insomnia- will start Remeron 9. Dispo: tbd Allergies Coded Allergies: No Known Allergies (Verified , 01/06/05) Vital Signs Vital Signs Date Time Temp Pulse Resp B/P (MAP) Pulse Ox O2 Delivery O2 Flow Rate FiO2 06/07/19 09:33 18 06/07/19 09:15 82 138/63 06/07/19 04:00 98.1 98 Current Medications Current Medications Current Medications Medications (Trade) Dose Ordered Sig/Harleen Route PRN Reason Start Time Stop Time Status Last Admin Dose Admin Acetaminophen (Tylenol Tab) 1,000 mg TID PO 05/30/19 16:00 06/07/19 09:13 Benzocaine (Anbesol Gel) TO MOUTH SORES TID MT 05/30/19 16:00 06/07/19 09:15 Bisacodyl (Dulcolax Suppository) 10 mg DAILYPRN PRN [place] CONSTIPATION 05/30/19 14:15 Diclofenac Epolamine (Flector 1.3%) 2 patch Q12H TOP 05/30/19 21:00 06/07/19 09:14 Docusate Sodium (Colace) 100 mg BID PO 05/30/19 21:00 06/07/19 09:12 Duloxetine HCl (Cymbalta) 30 mg DAILY PO 05/30/19 09:00 06/07/19 09:13 Heparin Sodium (Porcine) (Heparin) 5,000 units Q12H SC 05/30/19 21:00 06/07/19 09:14 Home Med (Med Rec Complete!) ASDIRECTED XX 05/30/19 15:15 05/30/19 15:20 DC Lisinopril (Prinivil) 5 mg DAILY PO 05/31/19 09:00 06/07/19 09:15 Methylprednisolone (Medrol) 4 mg ASDIRECTED PO 05/31/19 06:00 UNV Methylprednisolone (Medrol) 4 mg BID PO 06/04/19 09:00 06/04/19 21:01 DC 06/04/19 20:45 Methylprednisolone (Medrol) 4 mg DAILY PO 06/05/19 09:00 06/05/19 09:01 DC 06/05/19 09:48 Methylprednisolone (Medrol) 4 mg Q4H PO 05/31/19 04:00 06/01/19 00:01 DC 05/31/19 23:51 Methylprednisolone (Medrol) 4 mg Q4H PO 06/01/19 06:00 06/01/19 22:01 DC 06/01/19 20:51 Methylprednisolone (Medrol) 4 mg QID PO 06/02/19 09:00 06/02/19 21:01 DC 06/02/19 20:38 Methylprednisolone (Medrol) 4 mg TID PO 06/03/19 09:00 06/03/19 21:01 DC 06/03/19 21:36 Metoprolol Tartrate (Lopressor) 12.5 mg BID PO 05/30/19 21:00 06/07/19 09:15 Pantoprazole Sodium (Protonix) 40 mg BID PO 05/30/19 21:00 06/07/19 09:13 Pantoprazole Sodium (Protonix) 40 mg DAILY PO 05/31/19 09:00 05/31/19 09:00 DC Potassium Chloride (Micro-K Extencaps) 20 meq DAILY PO 05/31/19 09:00 06/07/19 09:13 Rosuvastatin Calcium (Crestor) 40 mg QHS PO 05/31/19 21:00 06/06/19 20:29 Senna (Senokot) 1 tab QHS PO 05/30/19 21:00 06/06/19 20:29 Zinc Oxide (Boudreauxs Butt Paste) 1 dose TID TOP 06/05/19 21:00 06/07/19 09:15 BROOKLYN CALLES MD Jun 07, 2019 09:51
[2019-06-07] MEDS: GABAPENTIN 100 MG CAP PO SCH ×2 (10:14→21:17)
[2019-06-07 14:00] VITALS: BP 111/56
[2019-06-07] MEDS ORDERED: predniSONE 5 MG TAB PO ONE (15:00)
[2019-06-07] MEDS ORDERED: predniSONE 5 MG TAB PO SCH (15:00)
[2019-06-07] MEDS: ACETAMINOPHEN TAB 650MG DOSE (2X325MG) PO SCH ×2 (15:55→21:17)
[2019-06-07] MEDS: SENNA 8.6 MG TAB (SENOKOT) PO SCH (21:16)
[2019-06-07] MEDS: MIRTAZAPINE 7.5MG PER 1/2 TABLET PO SCH (21:16)
[2019-06-07] MEDS: ROSUVASTATIN 10 MG TAB (CRESTOR) PO SCH (21:17)
[2019-06-07 21:27] VITALS: BP 131/60
[2019-06-08 05:55] VITALS: BP 148/68
[2019-06-08 06:58] LABS: BASO % 0.2 % (0.0-1.0); EOS # 0.1 10^3/uL (0.0-0.5); EOS % 1.4 % (0.0-3.0); HEMATOCRIT 29.9 % (36.0-47.0); HEMOGLOBIN 9.3 g/dl (12.0-15.5); LYMPH # 0.6 10^3/uL (1.5-5.0); LYMPH % 9.9 % (24.0-44.0); MEAN CORPUSCULAR HGB CONC 31.1 g/dl (32.0-36.5); MEAN CORPUSCULAR VOLUME 93.1 fl (80.0-96.0); MONO # 0.7 10^3/uL (0.0-0.8); MONO % 12.7 % (0.0-5.0); NEUTROPHILS # 4.2 10^3/uL (1.5-8.5); NEUTROPHILS % 75.3 % (36.0-66.0); PLATELET COUNT, AUTOMATED 158 10^3/uL (150-450); RED BLOOD COUNT 3.21 10^6/uL (4.00-5.40); WHITE BLOOD COUNT 5.6 10^3/uL (4.0-10.0)
[2019-06-08 07:09] LABS: BLOOD UREA NITROGEN 15 MG/DL (7-18); CALCIUM LEVEL 8.4 MG/DL (8.8-10.2); CARBON DIOXIDE LEVEL 28 MEQ/L (21-32); CHLORIDE LEVEL 102 MEQ/L (98-107); CREATININE FOR GFR 0.44 MG/DL (0.55-1.30); GLOMERULAR FILTRATION RATE > 60.0 (>32); GLUCOSE, FASTING 87 MG/DL (70-100); POTASSIUM SERUM 4.6 MEQ/L (3.5-5.1); SODIUM LEVEL 134 MEQ/L (136-145)
[2019-06-08] MEDS: DOCUSATE SODIUM 100 MG CAP PO SCH ×3 (09:00→21:18)
[2019-06-08] MEDS: BENZOCAINE 10% 9GM TUBE (ANBESOL) MT SCH ×3 (09:26→21:20)
[2019-06-08] MEDS: HEPARIN SOD (PORCINE) 5000 UNITS/ML VIAL SC SCH ×2 (09:26→21:20)
[2019-06-08] MEDS: BOUDREAUX'S BUTT PASTE TOP SCH ×3 (09:26→21:20)
[2019-06-08] MEDS: GABAPENTIN 100 MG CAP PO SCH ×2 (09:27→21:19)
[2019-06-08] MEDS: METOPROLOL TART 12.5 MG PER 1/2 TAB PO SCH ×2 (09:27→21:19)
[2019-06-08] MEDS: PANTOPRAZOLE 40MG TAB (PROTONIX) PO SCH ×2 (09:27→21:18)
[2019-06-08] MEDS: ACETAMINOPH W/CODEINE #3 TAB UD PO SCH (09:27)
[2019-06-08] MEDS: predniSONE 5 MG TAB PO SCH (09:28)
[2019-06-08] MEDS: ACETAMINOPHEN TAB 650MG DOSE (2X325MG) PO SCH ×3 (09:28→21:18)
[2019-06-08] MEDS: lisinopriL 5 MG TAB PO SCH (09:28)
[2019-06-08] MEDS: DULoxetine 30 MG CAP (CYMBALTA) PO SCH (09:28)
[2019-06-08] MEDS: POTASSIUM CHLORIDE 10 MEQ SR TABLET PO SCH (09:28)
[2019-06-08] MEDS: DICLOFENAC EPOLAMINE 1.3 % PATCH TOP SCH ×2 (09:29→21:19)
--- NOTE | 2019-06-08 11:57 | IPN ---
RADIATION ONCOLOGY PROGRESS NOTE DATE: 06/05/2019 CHART NUMBER: [id number] DIAGNOSIS: Rectal cancer. PROGRESS NOTE: Mrs. Julien an 88-year-old female with a diagnosis of a rectal cancer is currently receiving local regional palliative radiotherapy to the rectal area. She has achieved a dose thus far of 900 cGy of an anticipated 3000 cGy. She appears to be tolerating her radiotherapy reasonably well and she feels that the pain in the pelvic area has improved slightly. She is complaining of new pain in her neck and shoulder. As stated, she denies any nausea, vomiting, coughing, sputum production or hemoptysis. EXAMINATION FINDINGS: The skin within the irradiated volume shows no changes thus far. There is no palpable peripheral lymphadenopathy. Lungs are clear. Heart: Regular without murmurs. Abdomen: Without evidence of hepatomegaly, masses, deep abdominal tenderness. The remainder of the physical examination is unchanged. IMPRESSION: Tolerating therapy well. PLAN: Treatments to continue.
--- NOTE | 2019-06-08 12:08 | IPNPDOC ---
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 REVIEW OF SYSTEMS: The following is a completed review of systems and has been reviewed. Review of systems otherwise unremarkable. PAIN: Patient self reports diffuse pain worst in the right knee EYES: No recent vision changes EARS, NOSE, & THROAT:+ [place] CARDIOVASCULAR: Denies chest pain or palpitations PULMONARY: Denies shortness of breath GASTROINTESTINAL: Denies constipation/diarrhea GENITOURINARY: +incontinence (chronic) MUSCULOSKELETAL: OA NEUROLOGICAL: no seizure activity or tremor HEMATOLOGICAL:+ anemia SKIN: no rash PSYCHIATRIC: Unremarkable All other review of systems found to be negative. PHYSICAL EXAMINATION: VITAL SIGNS: Please see below. GENERAL: Pleasant and cooperative. No acute distress. HEENT: PERRL. Extraocular movements intact. Clear conjunctiva CARDIOVASCULAR: Regular rate and rhythm. No murmurs, rubs, or gallops LUNGS: Clear to auscultation bilaterally. No wheezes. No rhonchi ABDOMEN: Soft, nontender, mildly distended. Positive bowel sounds. Normal active bowel sounds NEUROLOGICAL: Alert and oriented times three. Cranial nerves II through XII grossly intact. Sensation grossly intact EXTREMITIES: 4\5 strength bilateral upper extremities. >3\5 strength right lower extremity. >3/5 strength in left lower extremity. restricted range of motion in in all 4 extremities (+) TTP bilateral knees- medial/lateral joint line, with mild swelling (+) Hawkin's left shoulder with crepitus + gabriele's bilat ASSESSMENT:88-year-old F with past medical history of HTN, multi-joint OA who presents status post acute on chronic OA exacerbation with difficulty walking and newly diagnosed rectal tumor. PLAN: 1. Rehab: PT- improve strength, maintain ROM, stretch bilat LE- difficulty with bed mobility and standing OT- improve strength, maintain ROM, stretch bilat UE for optimal ADL management 2. Neuro: avoid delirogenic meds, patient reporting she became delirious with tramadol 3. Ortho: acute flare of bilateral knee OA and right shoulder OA severely limiting mobility in setting of rectal mass, s/p medrol dose pack will start daily prednisone 5 mg daily to assist with worsening inflammation since medrol pack tapered -c/u Cymbalta 60mg, c/u Flector patches, change Tylenol with codeine to prn to avoid daytime drowsiness and monitor for delirium -c/u low dose gabapentin 4. Cardio: pmh AVR, with grade 1 diastolic CHF, c/u BP and HLD meds, medicine consulted to assist in management 5. Resp: encourage incentive spirometry 6. GI/heme-onc- recently diagnosed rectal tumor, receiving radiation with Dr. Miller -c/u protonix increased to BID -c/u stool softener 7. Hyponatremia- c/u to fluid restrict to 1800cc/day in setting of grade 1 diastolic CHF, c/u regular diet, Na134, c/u to monitor 8. DVT ppx: dopplers negative for DVT, + left lew's cysts, c/u teds and heparin 9. Insomnia- c/u Remeron for insomnia and mood, patient endorses feeling of depression 9. Dispo: tbd Allergies Coded Allergies: No Known Allergies (Verified , 01/06/05) Vital Signs Vital Signs Date Time Temp Pulse Resp B/P (MAP) Pulse Ox O2 Delivery O2 Flow Rate FiO2 06/08/19 09:57 18 06/08/19 09:28 148/68 06/08/19 09:27 86 06/08/19 05:55 97.1 96 Laboratory Data CBC/BMP Laboratory Tests 06/08/19 06:31 Red Blood Count 3.21 L, Mean Corpuscular Volume 93.1, Mean Corpuscular Hemoglobin 29.0, Mean Corpuscular Hemoglobin Concent 31.1 L, Red Cell Distribution Width 13.5, Neutrophils (%) (Auto) 75.3 H, Lymphocytes (%) (Auto) 9.9 L, Monocytes (%) (Auto) 12.7 H, Eosinophils (%) (Auto) 1.4, Basophils (%) (Auto) 0.2, Neutrophils # (Auto) 4.2, Lymphocytes # (Auto) 0.6 L, Monocytes # (Auto) 0.7, Eosinophils # (Auto) 0.1, Basophils # (Auto) 0.0, Calcium Level 8.4 L Labs 24H Laboratory Tests 2 06/08/19 06:31: Immature Granulocyte % (Auto) 0.5, White Blood Count 5.6, Red Blood Count 3.21L, Hemoglobin 9.3L, Hematocrit 29.9L, Mean Corpuscular Volume 93.1, Mean Corpuscular Hemoglobin 29.0, Mean Corpuscular Hemoglobin Concent 31.1L, Red Cell Distribution Width 13.5, Platelet Count 158, Neutrophils (%) (Auto) 75.3H, Lymphocytes (%) (Auto) 9.9L, Monocytes (%) (Auto) 12.7H, Eosinophils (%) (Auto) 1.4, Basophils (%) (Auto) 0.2, Neutrophils # (Auto) 4.2, Lymphocytes # (Auto) 0.6L, Monocytes # (Auto) 0.7, Eosinophils # (Auto) 0.1, Basophils # (Auto) 0.0, Nucleated Red Blood Cells % (auto) 0.0, Anion Gap 4L, Glomerular Filtration Rate > 60.0, Blood Urea Nitrogen 15, Creatinine 0.44L, Sodium Level 134L, Potassium Level 4.6, Chloride Level 102, Carbon Dioxide Level 28, Calcium Level 8.4L Current Medications Current Medications Current Medications Medications (Trade) Dose Ordered Sig/Harleen Route PRN Reason Start Time Stop Time Status Last Admin Dose Admin Acetaminophen (Tylenol Tab) 650 mg TID PO 06/07/19 16:00 06/08/19 09:28 Acetaminophen (Tylenol Tab) 1,000 mg TID PO 05/30/19 16:00 06/07/19 09:45 DC 06/07/19 09:13 Acetaminophen/ Codeine Phosphate (Tylenol/Codeine #3 Tablet) 1 ea TID PO 06/07/19 09:00 06/08/19 09:27 Benzocaine (Anbesol Gel) TO MOUTH SORES TID MT 05/30/19 16:00 06/08/19 09:26 Bisacodyl (Dulcolax Suppository) 10 mg DAILYPRN PRN [place] CONSTIPATION 05/30/19 14:15 Diclofenac Epolamine (Flector 1.3%) 2 patch Q12H TOP 05/30/19 21:00 06/08/19 09:29 Docusate Sodium (Colace) 100 mg BID PO 05/30/19 21:00 06/08/19 09:27 Duloxetine HCl (Cymbalta) 30 mg DAILY PO 05/30/19 09:00 06/07/19 09:45 DC 06/07/19 09:13 Duloxetine HCl (Cymbalta) 60 mg DAILY PO 06/08/19 09:00 06/08/19 09:28 Gabapentin (Neurontin) 100 mg BID PO 06/07/19 09:00 06/08/19 09:27 Heparin Sodium (Porcine) (Heparin) 5,000 units Q12H SC 05/30/19 21:00 06/08/19 09:26 Home Med (Med Rec Complete!) ASDIRECTED XX 05/30/19 15:15 05/30/19 15:20 DC Lisinopril (Prinivil) 5 mg DAILY PO 05/31/19 09:00 06/08/19 09:28 Methylprednisolone (Medrol) 4 mg ASDIRECTED PO 05/31/19 06:00 UNV Methylprednisolone (Medrol) 4 mg BID PO 06/04/19 09:00 06/04/19 21:01 DC 06/04/19 20:45 Methylprednisolone (Medrol) 4 mg DAILY PO 06/05/19 09:00 06/05/19 09:01 DC 06/05/19 09:48 Methylprednisolone (Medrol) 4 mg Q4H PO 05/31/19 04:00 06/01/19 00:01 DC 05/31/19 23:51 Methylprednisolone (Medrol) 4 mg Q4H PO 06/01/19 06:00 06/01/19 22:01 DC 06/01/19 20:51 Methylprednisolone (Medrol) 4 mg QID PO 06/02/19 09:00 06/02/19 21:01 DC 06/02/19 20:38 Methylprednisolone (Medrol) 4 mg TID PO 06/03/19 09:00 06/03/19 21:01 DC 06/03/19 21:36 Metoprolol Tartrate (Lopressor) 12.5 mg BID PO 05/30/19 21:00 06/08/19 09:27 Mirtazapine (Remeron) 7.5 mg QHS PO 06/07/19 21:00 06/07/19 21:16 Pantoprazole Sodium (Protonix) 40 mg BID PO 05/30/19 21:00 06/08/19 09:27 Pantoprazole Sodium (Protonix) 40 mg DAILY PO 05/31/19 09:00 05/31/19 09:00 DC Potassium Chloride (Micro-K Extencaps) 20 meq DAILY PO 05/31/19 09:00 06/08/19 09:28 Prednisone (Deltasone) 5 mg DAILY PO 06/07/19 15:00 06/07/19 15:00 DC Prednisone (Deltasone) 5 mg DAILY PO 06/08/19 09:00 06/08/19 09:28 Rosuvastatin Calcium (Crestor) 40 mg QHS PO 05/31/19 21:00 06/07/19 21:17 Senna (Senokot) 1 tab QHS PO 05/30/19 21:00 06/07/19 21:16 Zinc Oxide (Boudreauxs Butt Paste) 1 dose TID TOP 06/05/19 21:00 06/08/19 09:26 BROOKLYN CALLES MD Jun 08, 2019 12:08
[2019-06-08 14:00] VITALS: BP 114/57
[2019-06-08] MEDS ORDERED: ACETAMINOPH W/CODEINE #3 TAB UD PO PRN (15:00)
[2019-06-08 20:00] VITALS: BP 117/56
[2019-06-08] MEDS: ROSUVASTATIN 10 MG TAB (CRESTOR) PO SCH (21:18)
[2019-06-08] MEDS: MIRTAZAPINE 7.5MG PER 1/2 TABLET PO SCH (21:19)
[2019-06-08] MEDS: SENNA 8.6 MG TAB (SENOKOT) PO SCH (21:19)
[2019-06-09 06:00] VITALS: BP 122/56
[2019-06-09] MEDS: DICLOFENAC EPOLAMINE 1.3 % PATCH TOP SCH ×2 (09:13→21:01)
[2019-06-09] MEDS: HEPARIN SOD (PORCINE) 5000 UNITS/ML VIAL SC SCH ×2 (09:13→20:59)
[2019-06-09] MEDS: METOPROLOL TART 12.5 MG PER 1/2 TAB PO SCH ×2 (09:14→20:59)
[2019-06-09] MEDS: ACETAMINOPHEN TAB 650MG DOSE (2X325MG) PO SCH ×3 (09:14→21:00)
[2019-06-09] MEDS: GABAPENTIN 100 MG CAP PO SCH ×2 (09:14→21:00)
[2019-06-09] MEDS: predniSONE 5 MG TAB PO SCH (09:14)
[2019-06-09] MEDS: lisinopriL 5 MG TAB PO SCH (09:14)
[2019-06-09] MEDS: POTASSIUM CHLORIDE 10 MEQ SR TABLET PO SCH (09:15)
[2019-06-09] MEDS: DOCUSATE SODIUM 100 MG CAP PO SCH ×2 (09:15→21:00)
[2019-06-09] MEDS: BOUDREAUX'S BUTT PASTE TOP SCH ×3 (09:15→21:02)
[2019-06-09] MEDS: PANTOPRAZOLE 40MG TAB (PROTONIX) PO SCH ×2 (09:15→21:00)
[2019-06-09] MEDS: DULoxetine 30 MG CAP (CYMBALTA) PO SCH (09:15)
[2019-06-09] MEDS: BENZOCAINE 10% 9GM TUBE (ANBESOL) MT SCH ×3 (09:16→21:01)
[2019-06-09 20:00] VITALS: BP 119/57
[2019-06-09] MEDS: SENNA 8.6 MG TAB (SENOKOT) PO SCH (21:00)
[2019-06-09] MEDS: ROSUVASTATIN 10 MG TAB (CRESTOR) PO SCH (21:00)
[2019-06-09] MEDS: MIRTAZAPINE 7.5MG PER 1/2 TABLET PO SCH (21:04)
[2019-06-10 06:00] VITALS: BP 121/60
[2019-06-10] MEDS: DICLOFENAC EPOLAMINE 1.3 % PATCH TOP SCH ×2 (08:41→20:51)
[2019-06-10] MEDS: DULoxetine 30 MG CAP (CYMBALTA) PO SCH (08:42)
[2019-06-10] MEDS: ACETAMINOPHEN TAB 650MG DOSE (2X325MG) PO SCH ×3 (08:42→20:52)
[2019-06-10] MEDS: PANTOPRAZOLE 40MG TAB (PROTONIX) PO SCH ×2 (08:42→20:51)
[2019-06-10] MEDS: POTASSIUM CHLORIDE 10 MEQ SR TABLET PO SCH (08:42)
[2019-06-10] MEDS: METOPROLOL TART 12.5 MG PER 1/2 TAB PO SCH ×2 (08:42→20:52)
[2019-06-10] MEDS: predniSONE 5 MG TAB PO SCH (08:42)
[2019-06-10] MEDS: lisinopriL 5 MG TAB PO SCH (08:42)
[2019-06-10] MEDS: GABAPENTIN 100 MG CAP PO SCH ×2 (08:42→20:51)
[2019-06-10] MEDS: DOCUSATE SODIUM 100 MG CAP PO SCH ×2 (08:42→20:51)
[2019-06-10] MEDS: HEPARIN SOD (PORCINE) 5000 UNITS/ML VIAL SC SCH ×2 (08:42→20:52)
[2019-06-10] MEDS: BOUDREAUX'S BUTT PASTE TOP SCH ×3 (08:43→20:52)
[2019-06-10] MEDS: BENZOCAINE 10% 9GM TUBE (ANBESOL) MT SCH ×3 (08:43→20:53)
[2019-06-10 14:00] VITALS: BP 104/52
--- NOTE | 2019-06-10 17:05 | IPNPDOC ---
Text Note Date of Service The patient was seen on 06/10/19. NOTE Patient is in no distress. She is hard of hearing and wears hearing aids. She is avidly watching a football game. Physical exam: HENT: Neck is supple, oral mucosa is moist, she does not have any scleral icterus or injection Cardiovascular: Regular rate and rhythm with a normal S1 and S2 Respiratory: Clear to auscultation with good air movement. Abdomen: Soft, nontender, nondistended, mild central obesity. Extremities: No remarkable edema, pedal pulses are palpable. Neuro no focal neuromotor or sensory deficits Assessment/plan: Rectal adenocarcinoma. Proceed with palliative radiation therapy. Osteoarthritis. Analgesics, Cymbalta and oral steroids. Essential hypertension. Remains controlled on metoprolol VS,Fishbone, I+O VS, Fishbone, I+O Vital Signs Date Time Temp Pulse Resp B/P (MAP) Pulse Ox O2 Delivery O2 Flow Rate FiO2 06/10/19 14:00 97.0 76 16 104/52 (05) 94 I&O- Last 24 Hours up to 6 AM 06/10/19 06:00 Intake Total 1080 ml Balance 1080 ml ROBYN SOLIS MD Jun 10, 2019 17:05
[2019-06-10 20:00] VITALS: BP 118/56
[2019-06-10] MEDS: MIRTAZAPINE 7.5MG PER 1/2 TABLET PO SCH (20:51)
[2019-06-10] MEDS: ROSUVASTATIN 10 MG TAB (CRESTOR) PO SCH (20:51)
[2019-06-10] MEDS: SENNA 8.6 MG TAB (SENOKOT) PO SCH (20:52)
[2019-06-11 06:00] VITALS: BP 116/80
[2019-06-11 06:38] LABS: BASO % 0.2 % (0.0-1.0); EOS # 0.1 10^3/uL (0.0-0.5); HEMATOCRIT 27.9 % (36.0-47.0); LYMPH # 0.4 10^3/uL (1.5-5.0); LYMPH % 6.4 % (24.0-44.0); MEAN CORPUSCULAR HEMOGLOBIN 29.5 pg (27.0-33.0); MEAN CORPUSCULAR HGB CONC 32.3 g/dl (32.0-36.5); MEAN CORPUSCULAR VOLUME 91.5 fl (80.0-96.0); MONO # 0.7 10^3/uL (0.0-0.8); MONO % 11.4 % (0.0-5.0); NEUTROPHILS # 5.1 10^3/uL (1.5-8.5); NEUTROPHILS % 79.4 % (36.0-66.0); PLATELET COUNT, AUTOMATED 136 10^3/uL (150-450); RED BLOOD COUNT 3.05 10^6/uL (4.00-5.40); WHITE BLOOD COUNT 6.4 10^3/uL (4.0-10.0)
[2019-06-11 06:59] LABS: BLOOD UREA NITROGEN 13 MG/DL (7-18); CALCIUM LEVEL 8.2 MG/DL (8.8-10.2); CARBON DIOXIDE LEVEL 27 MEQ/L (21-32); CHLORIDE LEVEL 101 MEQ/L (98-107); CREATININE FOR GFR 0.39 MG/DL (0.55-1.30); GLOMERULAR FILTRATION RATE > 60.0 (>32); GLUCOSE, FASTING 88 MG/DL (70-100); POTASSIUM SERUM 4.2 MEQ/L (3.5-5.1); SODIUM LEVEL 134 MEQ/L (136-145)
[2019-06-11] MEDS: HEPARIN SOD (PORCINE) 5000 UNITS/ML VIAL SC SCH ×2 (09:00→20:09)
[2019-06-11] MEDS: BOUDREAUX'S BUTT PASTE TOP SCH ×3 (09:00→20:12)
[2019-06-11] MEDS: predniSONE 5 MG TAB PO SCH (09:17)
[2019-06-11] MEDS: BENZOCAINE 10% 9GM TUBE (ANBESOL) MT SCH ×3 (09:18→20:09)
[2019-06-11] MEDS: PANTOPRAZOLE 40MG TAB (PROTONIX) PO SCH ×2 (09:20→20:09)
[2019-06-11] MEDS: lisinopriL 5 MG TAB PO SCH (09:20)
[2019-06-11] MEDS: METOPROLOL TART 12.5 MG PER 1/2 TAB PO SCH ×2 (09:20→20:10)
[2019-06-11] MEDS: DULoxetine 30 MG CAP (CYMBALTA) PO SCH (09:21)
[2019-06-11] MEDS: ACETAMINOPHEN TAB 650MG DOSE (2X325MG) PO SCH ×3 (09:21→20:10)
[2019-06-11] MEDS: GABAPENTIN 100 MG CAP PO SCH ×2 (09:21→20:09)
[2019-06-11] MEDS: DOCUSATE SODIUM 100 MG CAP PO SCH ×2 (09:21→20:10)
[2019-06-11] MEDS: POTASSIUM CHLORIDE 10 MEQ SR TABLET PO SCH (09:21)
[2019-06-11] MEDS: DICLOFENAC EPOLAMINE 1.3 % PATCH TOP SCH ×2 (09:22→20:11)
[2019-06-11 14:00] VITALS: BP 122/58
--- NOTE | 2019-06-11 14:18 | IPNPDOC ---
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 She was able to do [id number] with a walker with a lot of help and encoura gement and was reminded to do her shoulder pendulum exercises to maintain range of motion. She was short of breath with activity. REVIEW OF SYSTEMS: The following is a completed review of systems and has been reviewed. Review of systems otherwise unremarkable. PAIN: Patient self reports diffuse pain worst in the right knee EYES: No recent vision changes EARS, NOSE, & THROAT:+ [place] CARDIOVASCULAR: Denies chest pain or palpitations PULMONARY: Denies shortness of breath GASTROINTESTINAL:+ loose stools GENITOURINARY: +incontinence (chronic) MUSCULOSKELETAL: OA NEUROLOGICAL: no seizure activity or tremor HEMATOLOGICAL:+ anemia SKIN: no rash PSYCHIATRIC: Unremarkable All other review of systems found to be negative. PHYSICAL EXAMINATION: VITAL SIGNS: Please see below. GENERAL: Pleasant and cooperative. No acute distress. HEENT: PERRL. Extraocular movements intact. Clear conjunctiva CARDIOVASCULAR: Regular rate and rhythm. No murmurs, rubs, or gallops LUNGS: decreased breath sounds bilaterally. No wheezes. No rhonchi ABDOMEN: Soft, nontender, mildly distended. Positive bowel sounds. Normal active bowel sounds NEUROLOGICAL: Alert and oriented times three. Cranial nerves II through XII grossly intact. Sensation grossly intact EXTREMITIES: 4\5 strength bilateral upper extremities. >3\5 strength right lower extremity. >3/5 strength in left lower extremity. restricted range of motion in in all 4 extremities RUE edema (+) TTP bilateral knees- medial/lateral joint line, with mild swelling (+) Hawkin's left shoulder with crepitus + gabriele's bilat ASSESSMENT:88-year-old F with past medical history of HTN, multi-joint OA who presents status post acute on chronic OA exacerbation with difficulty walking and newly diagnosed rectal tumor. PLAN: 1. Rehab: PT- improve strength, maintain ROM, stretch bilat LE- difficulty with bed mobility and standing OT- improve strength, maintain ROM, stretch bilat UE for optimal ADL management 2. Neuro: avoid delirogenic meds, patient reporting she became delirious with tramadol 3. 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 Cardio: pmh AVR, with grade 1 diastolic CHF, c/u BP and HLD meds, medicine consulted to assist in management, will start lasix 20 daily for suspected fluid overload 5. Resp: encourage incentive spirometry 6. GI/heme-onc- recently diagnosed rectal tumor, receiving radiation with Dr. Miller -c/u protonix increased to BID -c/u stool softener 7. Hyponatremia- c/u to fluid restrict to 1800cc/day in setting of grade 1 diastolic CHF, c/u regular diet, Na134, c/u to monitor 8. DVT ppx: dopplers negative for DVT, + left lew's cysts, c/u teds and heparin 9. Insomnia- c/u Remeron for insomnia and mood will increase to 15mg, patient endorses feeling of depression 9. Dispo: tbd Allergies Coded Allergies: No Known Allergies (Verified , 01/06/05) Vital Signs Vital Signs Date Time Temp Pulse Resp B/P (MAP) Pulse Ox O2 Delivery O2 Flow Rate FiO2 06/11/19 09:20 89 120/59 06/11/19 06:00 98.3 18 92 Laboratory Data CBC/BMP Laboratory Tests 06/11/19 06:21 Red Blood Count 3.05 L, Mean Corpuscular Volume 91.5, Mean Corpuscular Hemoglobin 29.5, Mean Corpuscular Hemoglobin Concent 32.3, Red Cell Distribution Width 14.2, Neutrophils (%) (Auto) 79.4 H, Lymphocytes (%) (Auto) 6.4 L, Monocytes (%) (Auto) 11.4 H, Eosinophils (%) (Auto) 2.0, Basophils (%) (Auto) 0.2, Neutrophils # (Auto) 5.1, Lymphocytes # (Auto) 0.4 L, Monocytes # (Auto) 0.7, Eosinophils # (Auto) 0.1, Basophils # (Auto) 0.0, Calcium Level 8.2 L Labs 24H Laboratory Tests 2 06/11/19 06:21: Immature Granulocyte % (Auto) 0.6, White Blood Count 6.4, Red Blood Count 3.05L, Hemoglobin 9.0L, Hematocrit 27.9L, Mean Corpuscular Volume 91.5, Mean Corpuscular Hemoglobin 29.5, Mean Corpuscular Hemoglobin Concent 32.3, Red Cell Distribution Width 14.2, Platelet Count 136L, Neutrophils (%) (Auto) 79.4H, Lymphocytes (%) (Auto) 6.4L, Monocytes (%) (Auto) 11.4H, Eosinophils (%) (Auto) 2.0, Basophils (%) (Auto) 0.2, Neutrophils # (Auto) 5.1, Lymphocytes # (Auto) 0.4L, Monocytes # (Auto) 0.7, Eosinophils # (Auto) 0.1, Basophils # (Auto) 0.0, Nucleated Red Blood Cells % (auto) 0.0, Anion Gap 6L, Glomerular Filtration Rate > 60.0, Blood Urea Nitrogen 13, Creatinine 0.39L, Sodium Level 134L, Potassium Level 4.2, Chloride Level 101, Carbon Dioxide Level 27, Calcium Level 8.2L Current Medications Current Medications Current Medications Medications (Trade) Dose Ordered Sig/Harleen Route PRN Reason Start Time Stop Time Status Last Admin Dose Admin Acetaminophen (Tylenol Tab) 650 mg TID PO 06/07/19 16:00 06/11/19 09:21 Acetaminophen (Tylenol Tab) 1,000 mg TID PO 05/30/19 16:00 06/07/19 09:45 DC 06/07/19 09:13 Acetaminophen/ Codeine Phosphate (Tylenol/Codeine #3 Tablet) 1 ea Q6HP PRN PO MILD PAIN (PS 8-10) 06/08/19 15:00 06/09/19 06:29 Acetaminophen/ Codeine Phosphate (Tylenol/Codeine #3 Tablet) 1 ea TID PO 06/07/19 09:00 06/08/19 14:24 DC 06/08/19 09:27 Benzocaine (Anbesol Gel) TO MOUTH SORES TID MT 05/30/19 16:00 06/11/19 09:18 Bisacodyl (Dulcolax Suppository) 10 mg DAILYPRN PRN [place] CONSTIPATION 05/30/19 14:15 Diclofenac Epolamine (Flector 1.3%) 2 patch Q12H [facility] 05/30/19 21:00 06/11/19 09:22 Docusate Sodium (Colace) 100 mg BID PO 05/30/19 21:00 06/11/19 09:21 Duloxetine HCl (Cymbalta) 30 mg DAILY PO 05/30/19 09:00 06/07/19 09:45 DC 06/07/19 09:13 Duloxetine HCl (Cymbalta) 60 mg DAILY PO 06/08/19 09:00 06/11/19 09:21 Gabapentin (Neurontin) 100 mg BID PO 06/07/19 09:00 06/11/19 09:21 Heparin Sodium (Porcine) (Heparin) 5,000 units Q12H SC 05/30/19 21:00 06/10/19 20:52 Home Med (Med Rec Complete!) ASDIRECTED XX 05/30/19 15:15 05/30/19 15:20 DC Lisinopril (Prinivil) 5 mg DAILY PO 05/31/19 09:00 06/11/19 09:20 Methylprednisolone (Medrol) 4 mg ASDIRECTED PO 05/31/19 06:00 UNV Methylprednisolone (Medrol) 4 mg BID PO 06/04/19 09:00 06/04/19 21:01 DC 06/04/19 20:45 Methylprednisolone (Medrol) 4 mg DAILY PO 06/05/19 09:00 06/05/19 09:01 DC 06/05/19 09:48 Methylprednisolone (Medrol) 4 mg Q4H PO 05/31/19 04:00 06/01/19 00:01 DC 05/31/19 23:51 Methylprednisolone (Medrol) 4 mg Q4H PO 06/01/19 06:00 06/01/19 22:01 DC 06/01/19 20:51 Methylprednisolone (Medrol) 4 mg QID PO 06/02/19 09:00 06/02/19 21:01 DC 06/02/19 20:38 Methylprednisolone (Medrol) 4 mg TID PO 06/03/19 09:00 06/03/19 21:01 DC 06/03/19 21:36 Metoprolol Tartrate (Lopressor) 12.5 mg BID PO 05/30/19 21:00 06/11/19 09:20 Mirtazapine (Remeron) 7.5 mg QHS PO 06/07/19 21:00 06/10/19 20:51 Miscellaneous (Unresolved Clarification Entry) SEE LABEL COMMENTS DAILY XX 06/11/19 09:00 06/11/19 09:00 Pantoprazole Sodium (Protonix) 40 mg BID PO 05/30/19 21:00 06/11/19 09:20 Pantoprazole Sodium (Protonix) 40 mg DAILY PO 05/31/19 09:00 05/31/19 09:00 DC Potassium Chloride (Micro-K Extencaps) 20 meq DAILY PO 05/31/19 09:00 06/11/19 09:21 Prednisone (Deltasone) 5 mg DAILY PO 06/07/19 15:00 06/07/19 15:00 DC Prednisone (Deltasone) 5 mg DAILY PO 06/08/19 09:00 06/11/19 09:17 Rosuvastatin Calcium (Crestor) 40 mg QHS PO 05/31/19 21:00 06/10/19 20:51 Senna (Senokot) 1 tab QHS PO 05/30/19 21:00 06/10/19 20:52 Zinc Oxide (Boudreauxs Butt Paste) 1 dose TID TOP 06/05/19 21:00 06/10/19 20:52 BROOKLYN CALLES MD Jun 11, 2019 14:18
[2019-06-11] MEDS: FUROSEMIDE 20 MG TAB PO SCH (16:15)
[2019-06-11 19:51] VITALS: BP 108/70
[2019-06-11] MEDS: MIRTAZAPINE 15 MG TAB PO SCH (20:10)
[2019-06-11] MEDS: SENNA 8.6 MG TAB (SENOKOT) PO SCH (20:10)
[2019-06-11] MEDS: ROSUVASTATIN 10 MG TAB (CRESTOR) PO SCH (20:10)
[2019-06-12 06:00] VITALS: BP 122/60
[2019-06-12 08:00] VITALS: BP 123/59
[2019-06-12] MEDS: PANTOPRAZOLE 40MG TAB (PROTONIX) PO SCH ×2 (09:14→20:35)
[2019-06-12] MEDS: DULoxetine 30 MG CAP (CYMBALTA) PO SCH (09:14)
[2019-06-12] MEDS: ACETAMINOPHEN TAB 650MG DOSE (2X325MG) PO SCH ×3 (09:14→20:33)
[2019-06-12] MEDS: BENZOCAINE 10% 9GM TUBE (ANBESOL) MT SCH ×3 (09:14→20:36)
[2019-06-12] MEDS: METOPROLOL TART 12.5 MG PER 1/2 TAB PO SCH ×2 (09:15→20:34)
[2019-06-12] MEDS: GABAPENTIN 100 MG CAP PO SCH (09:15)
[2019-06-12] MEDS: POTASSIUM CHLORIDE 10 MEQ SR TABLET PO SCH (09:15)
[2019-06-12] MEDS: DOCUSATE SODIUM 100 MG CAP PO SCH ×2 (09:15→20:36)
[2019-06-12] MEDS: FUROSEMIDE 20 MG TAB PO SCH (09:15)
[2019-06-12] MEDS: lisinopriL 5 MG TAB PO SCH (09:16)
[2019-06-12] MEDS: BOUDREAUX'S BUTT PASTE TOP SCH ×3 (09:16→20:34)
[2019-06-12] MEDS: HEPARIN SOD (PORCINE) 5000 UNITS/ML VIAL SC SCH ×2 (09:16→20:34)
[2019-06-12] MEDS: predniSONE 5 MG TAB PO SCH (09:16)
[2019-06-12] MEDS: DICLOFENAC EPOLAMINE 1.3 % PATCH TOP SCH ×2 (09:16→20:35)
[2019-06-12 09:53] LABS: HEMATOCRIT 28.7 % (36.0-47.0); HEMOGLOBIN 9.1 g/dl (12.0-15.5); MEAN CORPUSCULAR HGB CONC 31.7 g/dl (32.0-36.5); MEAN CORPUSCULAR VOLUME 91.4 fl (80.0-96.0); PLATELET COUNT, AUTOMATED 130 10^3/uL (150-450); RED BLOOD COUNT 3.14 10^6/uL (4.00-5.40)
[2019-06-12 10:11] LABS: ERYTHROCYTE SEDIMENTATION RATE 73 mm/hr (0-30)
[2019-06-12 10:27] LABS: BLOOD UREA NITROGEN 14 MG/DL (7-18); C REACTIVE PROTEIN QUANTITATIV 8.25 MG/DL (0.00-0.30); CALCIUM LEVEL 7.8 MG/DL (8.8-10.2); CARBON DIOXIDE LEVEL 25 MEQ/L (21-32); CHLORIDE LEVEL 99 MEQ/L (98-107); CREATININE FOR GFR 0.52 MG/DL (0.55-1.30); GLOMERULAR FILTRATION RATE > 60.0 (>32); GLUCOSE, FASTING 137 MG/DL (70-100); SODIUM LEVEL 132 MEQ/L (136-145); TROPONIN I < 0.02 NG/ML (< 0.10)
[2019-06-12 14:00] VITALS: BP 101/53
--- NOTE | 2019-06-12 14:14 | IPNPDOC ---
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 REVIEW OF SYSTEMS: The following is a completed review of systems and has been reviewed. Review of systems otherwise unremarkable. PAIN: Patient self reports diffuse pain worst in the right knee EYES: No recent vision changes EARS, NOSE, & THROAT:+ [place] CARDIOVASCULAR: Denies chest pain or palpitations PULMONARY: Denies shortness of breath GASTROINTESTINAL:+ loose stools GENITOURINARY: +incontinence (chronic) MUSCULOSKELETAL: OA NEUROLOGICAL: no seizure activity or tremor HEMATOLOGICAL:+ anemia SKIN: no rash PSYCHIATRIC: Unremarkable All other review of systems found to be negative. PHYSICAL EXAMINATION: VITAL SIGNS: Please see below. GENERAL: Pleasant and cooperative. No acute distress. HEENT: PERRL. Extraocular movements intact. Clear conjunctiva CARDIOVASCULAR: Regular rate and rhythm. No murmurs, rubs, or gallops LUNGS: decreased breath sounds bilaterally. No wheezes. No rhonchi ABDOMEN: Soft, nontender, mildly distended. Positive bowel sounds. Normal active bowel sounds NEUROLOGICAL: Alert and oriented times three. Cranial nerves II through XII grossly intact. Sensation grossly intact EXTREMITIES: 4\5 strength bilateral upper extremities. >3\5 strength right lower extremity. >3/5 strength in left lower extremity. restricted range of motion in in all 4 extremities RUE edema (+) TTP bilateral knees- medial/lateral joint line, with mild swelling (+) Hawkin's left shoulder with crepitus + gabriele's bilat ASSESSMENT:88-year-old F with past medical history of HTN, multi-joint OA who presents status post acute on chronic OA exacerbation with difficulty walking and newly diagnosed rectal tumor. PLAN: 1. Rehab: PT- improve strength, maintain ROM, stretch bilat LE- difficulty with bed mobility and standing OT- improve strength, maintain ROM, stretch bilat UE for optimal ADL management 2. Neuro: avoid delirogenic meds, patient reporting she became delirious with tramadol 3. 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 Cardio: pmh AVR, with grade 1 diastolic CHF, c/u BP and HLD meds, medicine consulted to assist in management, will start lasix 20 daily for suspected fluid overload 5. Resp: encourage incentive spirometry 6. GI/heme-onc- recently diagnosed rectal tumor, receiving radiation with Dr. Miller -c/u protonix increased to BID -c/u stool softener 7. Hyponatremia- c/u to fluid restrict to 1800cc/day in setting of grade 1 diastolic CHF, c/u regular diet, Na132 will add salt tabs 8. DVT ppx: dopplers negative for DVT, + left lew's cysts, c/u teds and heparin 9. Insomnia- c/u Remeron for insomnia, increased to 15mg, patient endorses feeling of depression 9. Dispo: tbd Allergies Coded Allergies: No Known Allergies (Verified , 01/06/05) Vital Signs Vital Signs Date Time Temp Pulse Resp B/P (MAP) Pulse Ox O2 Delivery O2 Flow Rate FiO2 06/12/19 09:15 101 123/63 06/12/19 08:00 98.7 17 94 Laboratory Data CBC/BMP Laboratory Tests 06/12/19 09:40 Red Blood Count 3.14 L, Mean Corpuscular Volume 91.4, Mean Corpuscular Hemoglobin 29.0, Mean Corpuscular Hemoglobin Concent 31.7 L, Red Cell Distribution Width 14.5, Calcium Level 7.8 L Labs 24H Laboratory Tests 2 06/12/19 09:40: Nucleated Red Blood Cells % (auto) 0.0, Erythrocyte Sedimentation Rate 73H, Anion Gap 8, Glomerular Filtration Rate > 60.0, Blood Urea Nitrogen 14, Creatinine 0.52L, Sodium Level 132L, Potassium Level 4.0, Chloride Level 99, Carbon Dioxide Level 25, Calcium Level 7.8L, Troponin I < 0.02, C-Reactive Protein, Quantitative 8.25H Current Medications Current Medications Current Medications Medications (Trade) Dose Ordered Sig/Harleen Route PRN Reason Start Time Stop Time Status Last Admin Dose Admin Acetaminophen (Tylenol Tab) 650 mg TID PO 06/07/19 16:00 06/12/19 09:14 Acetaminophen (Tylenol Tab) 1,000 mg TID PO 05/30/19 16:00 06/07/19 09:45 DC 06/07/19 09:13 Acetaminophen/ Codeine Phosphate (Tylenol/Codeine #3 Tablet) 1 ea Q6HP PRN PO MILD PAIN (PS 8-10) 06/08/19 15:00 06/09/19 06:29 Acetaminophen/ Codeine Phosphate (Tylenol/Codeine #3 Tablet) 1 ea TID PO 06/07/19 09:00 06/08/19 14:24 DC 06/08/19 09:27 Benzocaine (Anbesol Gel) TO MOUTH SORES TID MT 05/30/19 16:00 06/12/19 09:14 Bisacodyl (Dulcolax Suppository) 10 mg DAILYPRN PRN [place] CONSTIPATION 05/30/19 14:15 Diclofenac Epolamine (Flector 1.3%) 2 patch Q12H TOP 05/30/19 21:00 06/12/19 09:16 Docusate Sodium (Colace) 100 mg BID PO 05/30/19 21:00 06/12/19 09:15 Duloxetine HCl (Cymbalta) 30 mg DAILY PO 05/30/19 09:00 06/07/19 09:45 DC 06/07/19 09:13 Duloxetine HCl (Cymbalta) 60 mg DAILY PO 06/08/19 09:00 06/12/19 09:14 Furosemide (Lasix) 20 mg DAILY PO 06/11/19 14:15 06/12/19 09:15 Gabapentin (Neurontin) 100 mg BID PO 06/07/19 09:00 06/12/19 09:15 Heparin Sodium (Porcine) (Heparin) 5,000 units Q12H [facility] 05/30/19 21:00 06/12/19 09:16 Home Med (Med Rec Complete!) ASDIRECTED XX 05/30/19 15:15 05/30/19 15:20 DC Lisinopril (Prinivil) 5 mg DAILY PO 05/31/19 09:00 06/12/19 09:16 Methylprednisolone (Medrol) 4 mg ASDIRECTED PO 05/31/19 06:00 UNV Methylprednisolone (Medrol) 4 mg BID PO 06/04/19 09:00 06/04/19 21:01 DC 06/04/19 20:45 Methylprednisolone (Medrol) 4 mg DAILY PO 06/05/19 09:00 06/05/19 09:01 DC 06/05/19 09:48 Methylprednisolone (Medrol) 4 mg Q4H PO 05/31/19 04:00 06/01/19 00:01 DC 05/31/19 23:51 Methylprednisolone (Medrol) 4 mg Q4H PO 06/01/19 06:00 06/01/19 22:01 DC 06/01/19 20:51 Methylprednisolone (Medrol) 4 mg QID PO 06/02/19 09:00 06/02/19 21:01 DC 06/02/19 20:38 Methylprednisolone (Medrol) 4 mg TID PO 06/03/19 09:00 06/03/19 21:01 DC 06/03/19 21:36 Metoprolol Tartrate (Lopressor) 12.5 mg BID PO 05/30/19 21:00 06/12/19 09:15 Mirtazapine (Remeron) 7.5 mg QHS PO 06/07/19 21:00 06/11/19 14:10 DC 06/10/19 20:51 Mirtazapine (Remeron) 15 mg QHS PO 06/11/19 21:00 06/11/19 20:10 Miscellaneous (Unresolved Clarification Entry) SEE LABEL COMMENTS DAILY XX 06/11/19 09:00 06/11/19 14:14 DC 06/11/19 09:00 Pantoprazole Sodium (Protonix) 40 mg BID PO 05/30/19 21:00 06/12/19 09:14 Pantoprazole Sodium (Protonix) 40 mg DAILY PO 05/31/19 09:00 05/31/19 09:00 DC Potassium Chloride (Micro-K Extencaps) 20 meq DAILY PO 05/31/19 09:00 06/12/19 09:15 Prednisone (Deltasone) 5 mg DAILY PO 06/07/19 15:00 06/07/19 15:00 DC Prednisone (Deltasone) 5 mg DAILY PO 06/08/19 09:00 06/12/19 09:16 Rosuvastatin Calcium (Crestor) 40 mg QHS PO 05/31/19 21:00 06/11/19 20:10 Senna (Senokot) 1 tab QHS PO 05/30/19 21:00 9/9/19 20:10 Zinc Oxide (Boudreauxs Butt Paste) 1 dose TID TOP 06/05/19 21:00 06/12/19 09:16 BROOKLYN CALLES MD Jun 12, 2019 14:14
--- NOTE | 2019-06-12 15:40 | IPNPDOC ---
Text Note Date of Service The patient was seen on 06/12/19. NOTE This publications writer was called to see Carina Julien for chest pain. The pain was pr imarily to her anterior chest wall, but she did have overall body aches. The patient has underlying history of a rectal mass for which she is undergoing palliative radiation. Cardiac history includes recent TAVR.. Objective: Physical exam: HENT: Neck was only moderately supple, I do not appreciate adenopathy or thyromegaly, oral mucosa was moist, patient was tearful Cardiovascular: Regular rate and rhythm, no appreciable murmur Respiratory: Occasional coarse breath sounds, but generally good air movement, chest wall to either side of the sternum in particular was very tender to touch. Abdomen: Soft, nontender. Extremities: No notable edema, these were somewhat tender to touch as well as th e ankles and feet. Neuro: Patient required assistance for any mobility and was tremulous. Psych: Patient was rather agitated and distressed. Assessment and plan: This publications writer was called to address complaints of chest pain. It was felt to be primarily musculoskeletal. Concern was raised for possible costochondritis. CBC obtained was within normal limits. Troponin was negative at less than 0.02. ESR was 73 with a C-reactive protein of 8.25. Although these are elevated they do not necessarily indicate acute inflammatory process in this patient. Upon reexamination, I do not elicit significant chest pain to palpation. Acute costochondritis or pericarditis has been ruled out; she does not require acute medical treatment such as steroids or NSAIDs at this time. VS,Fishbone, I+O VS, Fishbone, I+O Laboratory Tests 06/12/19 09:40 Red Blood Count 3.14 L, Mean Corpuscular Volume 91.4, Mean Corpuscular Hemoglobin 29.0, Mean Corpuscular Hemoglobin Concent 31.7 L, Red Cell Distribution Width 14.5, Calcium Level 7.8 L Vital Signs Date Time Temp Pulse Resp B/P (MAP) Pulse Ox O2 Delivery O2 Flow Rate FiO2 06/12/19 14:00 97.9 99 17 101/53 (32) 92 I&O- Last 24 Hours up to 6 AM 06/12/19 06:00 Intake Total 740 ml Balance 740 ml ROBYN SOLIS MD Jun 12, 2019 15:40
[2019-06-12 20:00] VITALS: BP 130/61
[2019-06-12] MEDS: SODIUM CHLORIDE 1 GM TAB PO SCH (20:34)
[2019-06-12] MEDS: SENNA 8.6 MG TAB (SENOKOT) PO SCH (20:35)
[2019-06-12] MEDS: MIRTAZAPINE 15 MG TAB PO SCH (20:35)
[2019-06-12] MEDS: ROSUVASTATIN 10 MG TAB (CRESTOR) PO SCH (20:36)
[2019-06-13 06:00] VITALS: BP 131/59
[2019-06-13 07:01] LABS: BASO % 0.2 % (0.0-1.0); EOS # 0.1 10^3/uL (0.0-0.5); EOS % 1.8 % (0.0-3.0); HEMATOCRIT 26.6 % (36.0-47.0); HEMOGLOBIN 8.4 g/dl (12.0-15.5); LYMPH # 0.5 10^3/uL (1.5-5.0); MEAN CORPUSCULAR HEMOGLOBIN 28.4 pg (27.0-33.0); MEAN CORPUSCULAR HGB CONC 31.6 g/dl (32.0-36.5); MEAN CORPUSCULAR VOLUME 89.9 fl (80.0-96.0); MONO # 0.7 10^3/uL (0.0-0.8); MONO % 12.1 % (0.0-5.0); NEUTROPHILS # 4.4 10^3/uL (1.5-8.5); NEUTROPHILS % 77.4 % (36.0-66.0); PLATELET COUNT, AUTOMATED 131 10^3/uL (150-450); RED BLOOD COUNT 2.96 10^6/uL (4.00-5.40); WHITE BLOOD COUNT 5.6 10^3/uL (4.0-10.0)
[2019-06-13 07:27] LABS: BLOOD UREA NITROGEN 14 MG/DL (7-18); CARBON DIOXIDE LEVEL 27 MEQ/L (21-32); CHLORIDE LEVEL 100 MEQ/L (98-107); CREATININE FOR GFR 0.43 MG/DL (0.55-1.30); GLOMERULAR FILTRATION RATE > 60.0 (>32); GLUCOSE, FASTING 86 MG/DL (70-100); SODIUM LEVEL 134 MEQ/L (136-145)
[2019-06-13] MEDS: BOUDREAUX'S BUTT PASTE TOP SCH (09:00)
[2019-06-13] MEDS: ACETAMINOPHEN TAB 650MG DOSE (2X325MG) PO SCH ×3 (09:05→21:53)
[2019-06-13] MEDS: DICLOFENAC EPOLAMINE 1.3 % PATCH TOP SCH ×2 (09:06→21:48)
[2019-06-13] MEDS: HEPARIN SOD (PORCINE) 5000 UNITS/ML VIAL SC SCH ×2 (09:06→21:51)
[2019-06-13] MEDS: DOCUSATE SODIUM 100 MG CAP PO SCH ×2 (09:06→21:51)
[2019-06-13] MEDS: PANTOPRAZOLE 40MG TAB (PROTONIX) PO SCH ×2 (09:06→21:51)
[2019-06-13] MEDS: FUROSEMIDE 20 MG TAB PO SCH (09:06)
[2019-06-13] MEDS: DULoxetine 30 MG CAP (CYMBALTA) PO SCH (09:07)
[2019-06-13] MEDS: POTASSIUM CHLORIDE 10 MEQ SR TABLET PO SCH (09:07)
[2019-06-13] MEDS: lisinopriL 5 MG TAB PO SCH (09:07)
[2019-06-13] MEDS: METOPROLOL TART 12.5 MG PER 1/2 TAB PO SCH ×2 (09:08→21:51)
[2019-06-13] MEDS: BENZOCAINE 10% 9GM TUBE (ANBESOL) MT SCH ×3 (09:09→21:54)
[2019-06-13] MEDS: SODIUM CHLORIDE 1 GM TAB PO SCH ×2 (09:09→21:51)
[2019-06-13] MEDS: predniSONE 5 MG TAB PO SCH (09:09)
[2019-06-13] MEDS: MAGIC MOUTHWASH SUSPENSION BTL SSP SCH ×2 (12:00→17:22)
[2019-06-13 14:00] VITALS: BP 110/58
[2019-06-13 20:00] VITALS: BP 120/59
[2019-06-13] MEDS: MIRTAZAPINE 15 MG TAB PO SCH (21:51)
[2019-06-13] MEDS: SENNA 8.6 MG TAB (SENOKOT) PO SCH (21:51)
[2019-06-13] MEDS: ROSUVASTATIN 10 MG TAB (CRESTOR) PO SCH (21:52)
[2019-06-14 05:23] VITALS: BP 130/60
[2019-06-14] MEDS: SODIUM CHLORIDE 1 GM TAB PO SCH ×2 (07:56→21:12)
[2019-06-14] MEDS: DULoxetine 30 MG CAP (CYMBALTA) PO SCH (07:56)
[2019-06-14] MEDS: HEPARIN SOD (PORCINE) 5000 UNITS/ML VIAL SC SCH ×2 (07:57→21:10)
[2019-06-14] MEDS: DICLOFENAC EPOLAMINE 1.3 % PATCH TOP SCH ×2 (07:58→21:07)
[2019-06-14] MEDS: FUROSEMIDE 20 MG TAB PO SCH (07:58)
[2019-06-14] MEDS: lisinopriL 5 MG TAB PO SCH (07:58)
[2019-06-14] MEDS: PANTOPRAZOLE 40MG TAB (PROTONIX) PO SCH ×2 (07:59→21:12)
[2019-06-14] MEDS: predniSONE 5 MG TAB PO SCH (07:59)
[2019-06-14] MEDS: ACETAMINOPHEN TAB 650MG DOSE (2X325MG) PO SCH ×3 (08:00→21:14)
[2019-06-14] MEDS: DOCUSATE SODIUM 100 MG CAP PO SCH ×2 (08:00→21:12)
[2019-06-14] MEDS: POTASSIUM CHLORIDE 10 MEQ SR TABLET PO SCH (08:00)
[2019-06-14] MEDS: METOPROLOL TART 12.5 MG PER 1/2 TAB PO SCH ×2 (08:00→21:12)
[2019-06-14] MEDS: BENZOCAINE 10% 9GM TUBE (ANBESOL) MT SCH ×3 (08:01→21:05)
[2019-06-14] MEDS: MAGIC MOUTHWASH SUSPENSION BTL SSP SCH ×3 (08:01→17:05)
--- NOTE | 2019-06-14 13:03 | IPNPDOC ---
PM&R Progress Note DATE OF SERVICE: Jun 13, 2019 Business Management Manager Progress Note Subjective: Patient seen in her room stating she is not sure whether she wants to continue with radiation and wants to leave the decision up to her children. She reports she is hallucinating at times, but is aware of it and that this had been happening prior to the addition of Remeron. She was encouraged to try to participate in therapy more, but endorsed a desire to not do therapy as she felt overwhelmed. REVIEW OF SYSTEMS: The following is a completed review of systems and has been reviewed. Review of systems otherwise unremarkable. PAIN: Patient self reports diffuse pain worst in the right knee EYES: No recent vision changes EARS, NOSE, & THROAT:+ [place] CARDIOVASCULAR: Denies chest pain or palpitations PULMONARY: Denies shortness of breath GASTROINTESTINAL:+ loose stools GENITOURINARY: +incontinence (chronic) MUSCULOSKELETAL: OA NEUROLOGICAL: no seizure activity or tremor HEMATOLOGICAL:+ anemia SKIN: no rash PSYCHIATRIC: Unremarkable All other review of systems found to be negative. PHYSICAL EXAMINATION: VITAL SIGNS: Please see below. GENERAL: Pleasant and cooperative. No acute distress. HEENT: PERRL. Extraocular movements intact. Clear conjunctiva CARDIOVASCULAR: Regular rate and rhythm. No murmurs, rubs, or gallops LUNGS: decreased breath sounds bilaterally. No wheezes. No rhonchi ABDOMEN: Soft, nontender, mildly distended. Positive bowel sounds. Normal active bowel sounds NEUROLOGICAL: Alert and oriented times three. Cranial nerves II through XII grossly intact. Sensation grossly intact EXTREMITIES: 4\5 strength bilateral upper extremities. >3\5 strength right lower extremity. >3/5 strength in left lower extremity. restricted range of motion in in all 4 extremities RUE edema (+) TTP bilateral knees- medial/lateral joint line, with minimal swelling (+) Hawkin's left shoulder with crepitus + gabriele's bilat ASSESSMENT:88-year-old F with past medical history of HTN, multi-joint OA who presents status post acute on chronic OA exacerbation with difficulty walking and newly diagnosed rectal tumor. PLAN: 1. Rehab: PT- improve strength, maintain ROM, stretch bilat LE- difficulty with bed mobility and standing, slightly improving with participation and tolerance OT- improve strength, maintain ROM, stretch bilat UE for optimal ADL management 2. Neuro: avoid delirogenic meds, patient reporting she became delirious with tramadol, still with episodes of delirium 3. Ortho: acute flare of bilateral knee OA and right shoulder OA severely limiting mobility in setting of rectal mass, c/u prednisone 5 mg daily, in flammation improving -c/u Cymbalta 60mg, c/u Flector patches, will hold Tylenol-3 for delirium although has only receive one dose since the 6th - stopped gabapentin for potential contribution to delirium 4. Cardio: pmh AVR, with grade 1 diastolic CHF, c/u BP and HLD meds, medicine consulted to assist in management, will start lasix 20 daily for suspected fluid overload 5. Resp: encourage incentive spirometry 6. GI/heme-onc- recently diagnosed rectal tumor, receiving radiation with Dr. Miller -c/u protonix increased to BID -c/u stool softener 7. Hyponatremia- c/u to fluid restrict to 1800cc/day in setting of grade 1 diastolic CHF, c/u regular diet, Na improving on salt tabs -continue LAsix 20mg daily 8. DVT ppx: dopplers negative for DVT, + left lew's cysts, c/u teds and heparin 9. Insomnia- c/u Remeron for insomnia, increased to 15mg, patient endorses feeling of depression 9. Dispo: tbd Allergies Coded Allergies: No Known Allergies (Verified , 01/06/05) Vital Signs Vital Signs Date Time Temp Pulse Resp B/P (MAP) Pulse Ox O2 Delivery O2 Flow Rate FiO2 06/14/19 08:00 20 06/14/19 08:00 72 130/60 06/14/19 05:23 97.5 92 Current Medications Current Medications Current Medications Medications (Trade) Dose Ordered Sig/Harleen Route PRN Reason Start Time Stop Time Status Last Admin Dose Admin Acetaminophen (Tylenol Tab) 650 mg TID PO 06/07/19 16:00 06/14/19 08:00 Acetaminophen (Tylenol Tab) 1,000 mg TID PO 05/30/19 16:00 06/07/19 09:45 DC 06/07/19 09:13 Acetaminophen/ Codeine Phosphate (Tylenol/Codeine #3 Tablet) 1 ea Q6HP PRN PO MILD PAIN (PS 8-10) 06/08/19 15:00 06/12/19 14:13 DC 06/09/19 06:29 Acetaminophen/ Codeine Phosphate (Tylenol/Codeine #3 Tablet) 1 ea TID PO 06/07/19 09:00 06/08/19 14:24 DC 06/08/19 09:27 Benzocaine (Anbesol Gel) TO MOUTH SORES TID MT 05/30/19 16:00 06/14/19 08:01 Bisacodyl (Dulcolax Suppository) 10 mg DAILYPRN PRN ME CONSTIPATION 05/30/19 14:15 Diclofenac Epolamine (Flector 1.3%) 2 patch Q12H TOP 05/30/19 21:00 06/14/19 07:58 Docusate Sodium (Colace) 100 mg BID PO 05/30/19 21:00 06/14/19 08:00 Duloxetine HCl (Cymbalta) 30 mg DAILY PO 05/30/19 09:00 06/07/19 09:45 DC 06/07/19 09:13 Duloxetine HCl (Cymbalta) 60 mg DAILY PO 06/08/19 09:00 06/14/19 07:56 Furosemide (Lasix) 20 mg DAILY PO 06/11/19 14:15 06/14/19 07:58 Gabapentin (Neurontin) 100 mg BID PO 06/07/19 09:00 06/12/19 14:13 DC 06/12/19 09:15 Heparin Sodium (Porcine) (Heparin) 5,000 units Q12H SC 05/30/19 21:00 06/14/19 07:57 Home Med (Med Rec Complete!) ASDIRECTED XX 05/30/19 15:15 05/30/19 15:20 DC Lidocaine/ Diphenhydr/Alum/ Mg/Simeth (Magic Mouthwash) 5ml AC SSP 06/13/19 12:00 06/14/19 08:01 Lisinopril (Prinivil) 5 mg DAILY PO 05/31/19 09:00 06/14/19 07:58 Methylprednisolone (Medrol) 4 mg ASDIRECTED PO 05/31/19 06:00 UNV Methylprednisolone (Medrol) 4 mg BID PO 06/04/19 09:00 06/04/19 21:01 DC 06/04/19 20:45 Methylprednisolone (Medrol) 4 mg DAILY PO 06/05/19 09:00 06/05/19 09:01 DC 06/05/19 09:48 Methylprednisolone (Medrol) 4 mg Q4H PO 05/31/19 04:00 06/01/19 00:01 DC 05/31/19 23:51 Methylprednisolone (Medrol) 4 mg Q4H PO 06/01/19 06:00 06/01/19 22:01 DC 06/01/19 20:51 Methylprednisolone (Medrol) 4 mg QID PO 06/02/19 09:00 06/02/19 21:01 DC 06/02/19 20:38 Methylprednisolone (Medrol) 4 mg TID PO 06/03/19 09:00 06/03/19 21:01 DC 06/03/19 21:36 Metoprolol Tartrate (Lopressor) 12.5 mg BID PO 05/30/19 21:00 06/14/19 08:00 Mirtazapine (Remeron) 7.5 mg QHS PO 06/07/19 21:00 06/11/19 14:10 DC 06/10/19 20:51 Mirtazapine (Remeron) 15 mg QHS PO 06/11/19 21:00 06/13/19 21:51 Miscellaneous (Unresolved Clarification Entry) SEE LABEL COMMENTS DAILY XX 06/11/19 09:00 06/11/19 14:14 DC 06/11/19 09:00 Pantoprazole Sodium (Protonix) 40 mg BID PO 05/30/19 21:00 06/14/19 07:59 Pantoprazole Sodium (Protonix) 40 mg DAILY PO 05/31/19 09:00 05/31/19 09:00 DC Potassium Chloride (Micro-K Extencaps) 20 meq DAILY PO 05/31/19 09:00 06/14/19 08:00 Prednisone (Deltasone) 5 mg DAILY PO 06/07/19 15:00 06/07/19 15:00 DC Prednisone (Deltasone) 5 mg DAILY PO 06/08/19 09:00 06/14/19 07:59 Rosuvastatin Calcium (Crestor) 40 mg QHS PO 05/31/19 21:00 06/13/19 21:52 Senna (Senokot) 1 tab QHS PO 05/30/19 21:00 06/13/19 21:51 Sodium Chloride (Sodium Chloride) 1 gm BID PO 06/12/19 21:00 06/14/19 07:56 Zinc Oxide (Boudreauxs Butt Paste) 1 dose TID TOP 06/05/19 21:00 06/13/19 11:28 DC 06/12/19 20:34 BROOKLYN CALLES MD Jun 14, 2019 13:03
--- NOTE | 2019-06-14 13:26 | IPNPDOC ---
PM&R Progress Note DATE OF SERVICE: Jun 14, 2019 Milk Pasteurizer Progress Note Subjective: Patient seen in her room lying on her side stating she stood for a little while in therapy and would like to sit in her chair for lunch today. REVIEW OF SYSTEMS: The following is a completed review of systems and has been reviewed. Review of systems otherwise unremarkable. PAIN: Patient self reports diffuse pain worst in the right knee EYES: No recent vision changes EARS, NOSE, & THROAT:+ [place] CARDIOVASCULAR: Denies chest pain or palpitations PULMONARY: Denies shortness of breath GASTROINTESTINAL:+ loose stools GENITOURINARY: +incontinence (chronic) MUSCULOSKELETAL: OA NEUROLOGICAL: no seizure activity or tremor HEMATOLOGICAL:+ anemia SKIN: no rash PSYCHIATRIC: Unremarkable All other review of systems found to be negative. PHYSICAL EXAMINATION: VITAL SIGNS: Please see below. GENERAL: Pleasant and cooperative. No acute distress. HEENT: PERRL. Extraocular movements intact. Clear conjunctiva CARDIOVASCULAR: Regular rate and rhythm. No murmurs, rubs, or gallops LUNGS: decreased breath sounds bilaterally. No wheezes. No rhonchi ABDOMEN: Soft, nontender, mildly distended. Positive bowel sounds. Normal active bowel sounds NEUROLOGICAL: Alert and oriented times three. Cranial nerves II through XII grossly intact. Sensation grossly intact EXTREMITIES: 4\5 strength bilateral upper extremities. >3\5 strength right lower extremity. >3/5 strength in left lower extremity. restricted range of motion in in all 4 extremities RUE edema (+) TTP bilateral knees- medial/lateral joint line, with minimal swelling (+) Hawkin's left shoulder with crepitus + gabriele's bilat ASSESSMENT:88-year-old F with past medical history of HTN, multi-joint OA who presents status post acute on chronic OA exacerbation with difficulty walking and newly diagnosed rectal tumor. PLAN: 1. Rehab: PT- improve strength, maintain ROM, stretch bilat LE- difficulty with bed mobility and standing, slightly improving with participation and tolerance OT- improve strength, maintain ROM, stretch bilat UE for optimal ADL management 2. Neuro: avoid delirogenic meds, patient reporting she became delirious with tramadol, still with episodes of delirium 3. 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 Cardio: pmh AVR, with grade 1 diastolic CHF, c/u BP and HLD meds, medicine consulted to assist in management, will start lasix 20 daily for suspected fluid overload 5. Resp: encourage incentive spirometry 6. GI/heme-onc- recently diagnosed rectal tumor, receiving radiation with Dr. Miller -c/u protonix increased to BID -c/u stool softener 7. Hyponatremia- c/u to fluid restrict to 1800cc/day in setting of grade 1 diastolic CHF, c/u regular diet, Na improving on salt tabs -continue LAsix 20mg daily 8. DVT ppx: dopplers negative for DVT, + left lew's cysts, c/u teds and heparin 9. Insomnia- c/u Remeron for insomnia, increased to 15mg, patient endorses feeling of depression 9. Dispo: pending approval for STR Allergies Coded Allergies: No Known Allergies (Verified , 01/06/05) Vital Signs Vital Signs Date Time Temp Pulse Resp B/P (MAP) Pulse Ox O2 Delivery O2 Flow Rate FiO2 06/14/19 08:00 20 06/14/19 08:00 72 130/60 06/14/19 05:23 97.5 92 Current Medications Current Medications Current Medications Medications (Trade) Dose Ordered Sig/Harleen Route PRN Reason Start Time Stop Time Status Last Admin Dose Admin Acetaminophen (Tylenol Tab) 650 mg TID PO 06/07/19 16:00 06/14/19 08:00 Acetaminophen (Tylenol Tab) 1,000 mg TID PO 05/30/19 16:00 06/07/19 09:45 DC 06/07/19 09:13 Acetaminophen/ Codeine Phosphate (Tylenol/Codeine #3 Tablet) 1 ea Q6HP PRN PO MILD PAIN (PS 8-10) 06/08/19 15:00 06/12/19 14:13 DC 06/09/19 06:29 Acetaminophen/ Codeine Phosphate (Tylenol/Codeine #3 Tablet) 1 ea TID PO 06/07/19 09:00 06/08/19 14:24 DC 06/08/19 09:27 Benzocaine (Anbesol Gel) TO MOUTH SORES TID MT 05/30/19 16:00 06/14/19 08:01 Bisacodyl (Dulcolax Suppository) 10 mg DAILYPRN PRN [place] CONSTIPATION 05/30/19 14:15 Diclofenac Epolamine (Flector 1.3%) 2 patch Q12H TOP 05/30/19 21:00 06/14/19 07:58 Docusate Sodium (Colace) 100 mg BID PO 05/30/19 21:00 06/14/19 08:00 Duloxetine HCl (Cymbalta) 30 mg DAILY PO 05/30/19 09:00 06/07/19 09:45 DC 06/07/19 09:13 Duloxetine HCl (Cymbalta) 60 mg DAILY PO 06/08/19 09:00 06/14/19 07:56 Furosemide (Lasix) 20 mg DAILY PO 06/11/19 14:15 06/14/19 07:58 Gabapentin (Neurontin) 100 mg BID PO 06/07/19 09:00 06/12/19 14:13 DC 06/12/19 09:15 Heparin Sodium (Porcine) (Heparin) 5,000 units Q12H SC 05/30/19 21:00 06/14/19 07:57 Home Med (Med Rec Complete!) ASDIRECTED XX 05/30/19 15:15 05/30/19 15:20 DC Lidocaine/ Diphenhydr/Alum/ Mg/Simeth (Magic Mouthwash) 5ml AC SSP 06/13/19 12:00 06/14/19 08:01 Lisinopril (Prinivil) 5 mg DAILY PO 05/31/19 09:00 06/14/19 07:58 Methylprednisolone (Medrol) 4 mg ASDIRECTED PO 05/31/19 06:00 UNV Methylprednisolone (Medrol) 4 mg BID PO 06/04/19 09:00 06/04/19 21:01 DC 06/04/19 20:45 Methylprednisolone (Medrol) 4 mg DAILY PO 06/05/19 09:00 06/05/19 09:01 DC 06/05/19 09:48 Methylprednisolone (Medrol) 4 mg Q4H PO 05/31/19 04:00 06/01/19 00:01 DC 05/31/19 23:51 Methylprednisolone (Medrol) 4 mg Q4H PO 06/01/19 06:00 06/01/19 22:01 DC 06/01/19 20:51 Methylprednisolone (Medrol) 4 mg QID PO 06/02/19 09:00 06/02/19 21:01 DC 06/02/19 20:38 Methylprednisolone (Medrol) 4 mg TID PO 06/03/19 09:00 06/03/19 21:01 DC 06/03/19 21:36 Metoprolol Tartrate (Lopressor) 12.5 mg BID PO 05/30/19 21:00 06/14/19 08:00 Mirtazapine (Remeron) 7.5 mg QHS PO 06/07/19 21:00 06/11/19 14:10 DC 06/10/19 20:51 Mirtazapine (Remeron) 15 mg QHS PO 06/11/19 21:00 06/13/19 21:51 Miscellaneous (Unresolved Clarification Entry) SEE LABEL COMMENTS DAILY XX 06/11/19 09:00 06/11/19 14:14 DC 06/11/19 09:00 Pantoprazole Sodium (Protonix) 40 mg BID PO 05/30/19 21:00 06/14/19 07:59 Pantoprazole Sodium (Protonix) 40 mg DAILY PO 05/31/19 09:00 05/31/19 09:00 DC Potassium Chloride (Micro-K Extencaps) 20 meq DAILY PO 05/31/19 09:00 06/14/19 08:00 Prednisone (Deltasone) 5 mg DAILY PO 06/07/19 15:00 06/07/19 15:00 DC Prednisone (Deltasone) 5 mg DAILY PO 06/08/19 09:00 06/14/19 07:59 Rosuvastatin Calcium (Crestor) 40 mg QHS PO 05/31/19 21:00 06/13/19 21:52 Senna (Senokot) 1 tab QHS PO 05/30/19 21:00 06/13/19 21:51 Sodium Chloride (Sodium Chloride) 1 gm BID PO 06/12/19 21:00 06/14/19 07:56 Zinc Oxide (Boudreauxs Butt Paste) 1 dose TID TOP 06/05/19 21:00 06/13/19 11:28 DC 06/12/19 20:34 BROOKLYN CALLES MD Jun 14, 2019 13:26
[2019-06-14 14:00] VITALS: BP 134/60
[2019-06-14 20:08] VITALS: BP 112/53
[2019-06-14] MEDS: SENNA 8.6 MG TAB (SENOKOT) PO SCH (21:12)
[2019-06-14] MEDS: ROSUVASTATIN 10 MG TAB (CRESTOR) PO SCH (21:12)
[2019-06-14] MEDS: MIRTAZAPINE 15 MG TAB PO SCH (21:12)
[2019-06-15 05:45] VITALS: BP 133/63
[2019-06-15 06:58] LABS: BASO % 0.2 % (0.0-1.0); EOS # 0.1 10^3/uL (0.0-0.5); EOS % 1.3 % (0.0-3.0); HEMOGLOBIN 8.3 g/dl (12.0-15.5); LYMPH # 0.4 10^3/uL (1.5-5.0); LYMPH % 6.7 % (24.0-44.0); MEAN CORPUSCULAR HEMOGLOBIN 27.9 pg (27.0-33.0); MEAN CORPUSCULAR HGB CONC 30.7 g/dl (32.0-36.5); MEAN CORPUSCULAR VOLUME 90.9 fl (80.0-96.0); MONO # 0.7 10^3/uL (0.0-0.8); MONO % 13.1 % (0.0-5.0); NEUTROPHILS # 4.3 10^3/uL (1.5-8.5); NEUTROPHILS % 78.2 % (36.0-66.0); PLATELET COUNT, AUTOMATED 141 10^3/uL (150-450); RED BLOOD COUNT 2.97 10^6/uL (4.00-5.40); WHITE BLOOD COUNT 5.5 10^3/uL (4.0-10.0)
[2019-06-15 07:14] LABS: BLOOD UREA NITROGEN 15 MG/DL (7-18); CALCIUM LEVEL 8.2 MG/DL (8.8-10.2); CARBON DIOXIDE LEVEL 26 MEQ/L (21-32); CHLORIDE LEVEL 102 MEQ/L (98-107); CREATININE FOR GFR 0.49 MG/DL (0.55-1.30); GLOMERULAR FILTRATION RATE > 60.0 (>32); GLUCOSE, FASTING 93 MG/DL (70-100); POTASSIUM SERUM 4.2 MEQ/L (3.5-5.1); SODIUM LEVEL 135 MEQ/L (136-145)
[2019-06-15] MEDS: DOCUSATE SODIUM 100 MG CAP PO SCH ×2 (09:00→21:35)
[2019-06-15] MEDS: BENZOCAINE 10% 9GM TUBE (ANBESOL) MT SCH ×3 (09:17→21:36)
[2019-06-15] MEDS: MAGIC MOUTHWASH SUSPENSION BTL SSP SCH ×3 (09:17→17:05)
[2019-06-15] MEDS: predniSONE 5 MG TAB PO SCH (09:20)
[2019-06-15] MEDS: HEPARIN SOD (PORCINE) 5000 UNITS/ML VIAL SC SCH ×2 (09:20→21:35)
[2019-06-15] MEDS: METOPROLOL TART 12.5 MG PER 1/2 TAB PO SCH ×2 (09:21→21:00)
[2019-06-15] MEDS: SODIUM CHLORIDE 1 GM TAB PO SCH ×2 (09:21→21:35)
[2019-06-15] MEDS: ACETAMINOPHEN TAB 650MG DOSE (2X325MG) PO SCH ×3 (09:21→21:35)
[2019-06-15] MEDS: FUROSEMIDE 20 MG TAB PO SCH (09:21)
[2019-06-15] MEDS: POTASSIUM CHLORIDE 10 MEQ SR TABLET PO SCH (09:21)
[2019-06-15] MEDS: DICLOFENAC EPOLAMINE 1.3 % PATCH TOP SCH ×2 (09:22→21:36)
[2019-06-15] MEDS: DULoxetine 30 MG CAP (CYMBALTA) PO SCH (09:22)
[2019-06-15] MEDS: lisinopriL 5 MG TAB PO SCH (09:22)
[2019-06-15] MEDS: PANTOPRAZOLE 40MG TAB (PROTONIX) PO SCH ×2 (09:22→21:35)
[2019-06-15 14:00] VITALS: BP 109/59
[2019-06-15 20:00] VITALS: BP 111/52
[2019-06-15] MEDS: SENNA 8.6 MG TAB (SENOKOT) PO SCH (21:35)
[2019-06-15] MEDS: MIRTAZAPINE 15 MG TAB PO SCH (21:35)
[2019-06-15] MEDS: ROSUVASTATIN 10 MG TAB (CRESTOR) PO SCH (21:35)
[2019-06-16 05:55] VITALS: BP 148/65
[2019-06-16] MEDS: MAGIC MOUTHWASH SUSPENSION BTL SSP SCH ×3 (07:30→17:02)
[2019-06-16] MEDS: BENZOCAINE 10% 9GM TUBE (ANBESOL) MT SCH ×3 (09:00→21:00)
[2019-06-16] MEDS: POTASSIUM CHLORIDE 10 MEQ SR TABLET PO SCH (10:24)
[2019-06-16] MEDS: HEPARIN SOD (PORCINE) 5000 UNITS/ML VIAL SC SCH ×2 (10:24→21:00)
[2019-06-16] MEDS: DULoxetine 30 MG CAP (CYMBALTA) PO SCH (10:24)
[2019-06-16] MEDS: predniSONE 5 MG TAB PO SCH (10:24)
[2019-06-16] MEDS: DOCUSATE SODIUM 100 MG CAP PO SCH ×2 (10:25→21:00)
[2019-06-16] MEDS: SODIUM CHLORIDE 1 GM TAB PO SCH ×2 (10:25→21:00)
[2019-06-16] MEDS: lisinopriL 5 MG TAB PO SCH (10:26)
[2019-06-16] MEDS: ACETAMINOPHEN TAB 650MG DOSE (2X325MG) PO SCH ×3 (10:26→21:00)
[2019-06-16] MEDS: FUROSEMIDE 20 MG TAB PO SCH (10:26)
[2019-06-16] MEDS: PANTOPRAZOLE 40MG TAB (PROTONIX) PO SCH ×2 (10:26→21:01)
[2019-06-16] MEDS: METOPROLOL TART 12.5 MG PER 1/2 TAB PO SCH ×2 (10:27→21:02)
[2019-06-16] MEDS: DICLOFENAC EPOLAMINE 1.3 % PATCH TOP SCH ×2 (10:27→21:00)
[2019-06-16 11:30] LABS: APPEARANCE, URINE MANUAL HAZY (CLEAR); COLOR, URINE MANUAL YELLOW (YELLOW)
[2019-06-16 11:31] LABS: BILIRUBIN, URINE MANUAL 1+ (NEGATIVE); GLUCOSE, URINE (UA) MANUAL NEGATIVE (NEGATIVE); KETONE, URINE MANUAL NEGATIVE (NEGATIVE); PROTEIN, URINE MANUAL 1+ mg/dL (NEGATIVE); UROBILINOGEN, URINE MANUAL 1 MG mg/dl (NORMAL)
[2019-06-16 11:32] LABS: BLOOD URINE MANUAL POSITIVE (NEGATIVE); LEUKOCYTE ESTERASE, URINE MAN POSITIVE (NEGATIVE); NITRITE, URINE MANUAL POSITIVE (NEGATIVE)
[2019-06-16 11:34] LABS: RBC, URINE NONE SEEN /hpf (0-3); SQUAMOUS EPITHELIAL CELL URINE NONE SEEN /hpf (SMALL AMT)
[2019-06-16 11:35] LABS: BACTERIA, URINE LARGE AMOUNT; HYALINE CAST, URINE NONE SEEN /lpf (0-1)
--- NOTE | 2019-06-16 11:46 | REP ---
REASON FOR EXAM: Cough and pyrexia. COMPARISON EXAM: 05/22/2019 The technique utilized in obtaining the radiograph has magnified the cardiac silhouette and accentuated the interstitial markings. There is no change from the prior exam. Fibrotic changes, status quo. Mild cardiomegaly accentuated by technique, status quo. Previous median sternotomy again noted. No new abnormal opacities have developed. There is no change in the osseous structures. IMPRESSION: Stable chest. Electronically Signed by Jesus Dowling DO 06/16/2019 11:50 A
--- NOTE | 2019-06-16 15:12 | IPNPDOC ---
Text Note Date of Service The patient was seen on 06/16/19. 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 Concern was raised for possible development of pneumonia. Patient is on acute rehabilitation where she is undergoing physical therapy and palliative radiation for rectal mass. Radiation therapy is reported complete. Patient also has a recent history of TAVR. She is not having any chest pain at this time. She does not have any notable complaints. OBJECTIVE: Patient has had temperature 99.1 - 100. Physical exam: General: Patient is up in a chair. She is hard of hearing and wears hearing aids. She is currently eating lunch and exhibiting a good appetite. HENT: Neck is supple, oral mucosa is moist, no adenopathy or thyromegaly. Cardiovascular: Regular rate and rhythm, murmur is audible to auscultation. Respiratory: Patient does have intermittent coarse, wheezy cough, cough is nonproductive. Abdomen: Soft, nontender, nondistended. Extremities: No peripheral edema or lesions, pedal pulses are palpable. : Patient is incontinent of stool and urine and wears a diaper. Neuro: Patient's mobility is limited by weakness; she requires remarkable assistance Psych: Patient is aware of and interactive with her family. Data of interest: Chest x-ray is unremarkable for any infiltrate or effusion, urinalysis is positive--urine has been sent for culture Assessment/plan: 1. Fever. Concern had been raised for pneumonia, but chest x-ray is clear. Likely source appears to be urine as she is incontinent and has a positive urinalysis. She will be placed on empiric antibiotics for now while awaiting culture results. 2. Rectal carcinoma. Patient has completed a course of palliative radiation. Will need to monitor for possible development of radiation proctitis. 3. The patient remains on the acute rehabilitation unit with her rehabilitation program. She is at risk of increased morbidity and mortality from her underlying medical problems. We have introduced a MOLST form to her medical power of set builder, who is her daughter. She plans to review and discuss it with her brothers before making any decisions. VS,Fishbone, I+O VS, Fishbone, I+O Vital Signs Date Time Temp Pulse Resp B/P (MAP) Pulse Ox O2 Delivery O2 Flow Rate FiO2 06/16/19 12:59 20 06/16/19 10:27 88 148/65 06/16/19 10:00 100.0 06/16/19 05:55 98 I&O- Last 24 Hours up to 6 AM 06/16/19 06:00 Intake Total 838 ml Output Total 0 ml Balance 838 ml ROBYN SOLIS MD Jun 16, 2019 15:12
[2019-06-16] MEDS: CIPROFLOXACIN 250 MG TAB PO SCH (17:00)
[2019-06-16 20:00] VITALS: BP 136/62
[2019-06-16] MEDS: SENNA 8.6 MG TAB (SENOKOT) PO SCH (21:00)
[2019-06-16] MEDS: MIRTAZAPINE 15 MG TAB PO SCH (21:01)
[2019-06-16] MEDS: ROSUVASTATIN 10 MG TAB (CRESTOR) PO SCH (21:01)
[2019-06-17 04:00] VITALS: BP 129/64
[2019-06-17] MEDS: CIPROFLOXACIN 250 MG TAB PO SCH ×2 (06:32→16:59)
[2019-06-17] MEDS: SODIUM CHLORIDE 1 GM TAB PO SCH ×2 (09:05→21:37)
[2019-06-17] MEDS: DOCUSATE SODIUM 100 MG CAP PO SCH ×2 (09:05→21:38)
[2019-06-17] MEDS: POTASSIUM CHLORIDE 10 MEQ SR TABLET PO SCH (09:05)
[2019-06-17] MEDS: HEPARIN SOD (PORCINE) 5000 UNITS/ML VIAL SC SCH ×2 (09:05→21:37)
[2019-06-17] MEDS: PANTOPRAZOLE 40MG TAB (PROTONIX) PO SCH ×2 (09:05→21:38)
[2019-06-17] MEDS: DULoxetine 30 MG CAP (CYMBALTA) PO SCH (09:06)
[2019-06-17] MEDS: predniSONE 5 MG TAB PO SCH (09:06)
[2019-06-17] MEDS: lisinopriL 5 MG TAB PO SCH (09:06)
[2019-06-17] MEDS: FUROSEMIDE 20 MG TAB PO SCH (09:06)
[2019-06-17] MEDS: DICLOFENAC EPOLAMINE 1.3 % PATCH TOP SCH ×2 (09:07→21:39)
[2019-06-17] MEDS: ACETAMINOPHEN TAB 650MG DOSE (2X325MG) PO SCH ×3 (09:07→21:38)
[2019-06-17] MEDS: BENZOCAINE 10% 9GM TUBE (ANBESOL) MT SCH ×3 (09:17→21:42)
[2019-06-17] MEDS: MAGIC MOUTHWASH SUSPENSION BTL SSP SCH ×3 (09:17→17:00)
[2019-06-17] MEDS: METOPROLOL TART 12.5 MG PER 1/2 TAB PO SCH ×2 (12:46→21:42)
[2019-06-17 14:00] VITALS: BP 134/63
--- NOTE | 2019-06-17 19:51 | IPNPDOC ---
Text Note Date of Service The patient was seen on 06/17/19. NOTE Subjective: Ms. Julien is not coughing as much today. She is tolerating a diet. She is not having any chest pain or shortness of breath. She is watching football. Objective: Physical exam: General: Patient is sitting up feeding herself and watching football. Her da ughter is at bedside. HENT: Neck is supple, no adenopathy, oral mucosa is moist. Cardiovascular: Regular rate and rhythm. Respiratory: The patient does not have a cough currently. She demonstrates good air movement Extremities: No peripheral edema or lesions ASSESSMENT/PLAN: 1. Fever. Concern had been raised for pneumonia, but chest x-ray is clear. Her cough appears resolved. Likely source appears to be urine as she is incontinent and has a positive urinalysis. She will be placed on empiric antibiotics for now while awaiting culture results. 2. Rectal carcinoma. Patient has completed a course of palliative radiation. Will need to monitor for possible development of radiation proctitis. VS,Fishbone, I+O VS, Fishbone, I+O Vital Signs Date Time Temp Pulse Resp B/P (MAP) Pulse Ox O2 Delivery O2 Flow Rate FiO2 06/17/19 14:50 18 06/17/19 14:10 99.1 06/17/19 14:00 95 134/63 (86) 95 I&O- Last 24 Hours up to 6 AM 06/17/19 05:59 Intake Total 820 ml Balance 820 ml ROBYN SOLIS MD Jun 17, 2019 19:51
[2019-06-17 20:00] VITALS: BP 126/60
[2019-06-17] MEDS: SENNA 8.6 MG TAB (SENOKOT) PO SCH (21:38)
[2019-06-17] MEDS: ROSUVASTATIN 10 MG TAB (CRESTOR) PO SCH (21:38)
[2019-06-17] MEDS: MIRTAZAPINE 15 MG TAB PO SCH (21:38)
[2019-06-18] MEDS: CIPROFLOXACIN 250 MG TAB PO SCH ×2 (05:37→17:33)
[2019-06-18 05:58] VITALS: BP 167/67
[2019-06-18 06:31] VITALS: BP 118/56
[2019-06-18] MEDS: PANTOPRAZOLE 40MG TAB (PROTONIX) PO SCH ×2 (09:15→20:51)
[2019-06-18] MEDS: METOPROLOL TART 12.5 MG PER 1/2 TAB PO SCH ×2 (09:15→21:00)
[2019-06-18] MEDS: DICLOFENAC EPOLAMINE 1.3 % PATCH TOP SCH ×2 (09:15→20:52)
[2019-06-18] MEDS: DOCUSATE SODIUM 100 MG CAP PO SCH ×2 (09:15→20:51)
[2019-06-18] MEDS: SODIUM CHLORIDE 1 GM TAB PO SCH ×2 (09:16→20:51)
[2019-06-18] MEDS: POTASSIUM CHLORIDE 10 MEQ SR TABLET PO SCH (09:16)
[2019-06-18] MEDS: ACETAMINOPHEN TAB 650MG DOSE (2X325MG) PO SCH ×3 (09:16→20:51)
[2019-06-18] MEDS: lisinopriL 5 MG TAB PO SCH (09:16)
[2019-06-18] MEDS: DULoxetine 30 MG CAP (CYMBALTA) PO SCH (09:16)
[2019-06-18] MEDS: predniSONE 5 MG TAB PO SCH (09:16)
[2019-06-18] MEDS: HEPARIN SOD (PORCINE) 5000 UNITS/ML VIAL SC SCH ×2 (09:17→20:50)
[2019-06-18] MEDS: FUROSEMIDE 20 MG TAB PO SCH (09:17)
[2019-06-18] MEDS: MAGIC MOUTHWASH SUSPENSION BTL SSP SCH ×3 (09:17→17:33)
[2019-06-18] MEDS: BENZOCAINE 10% 9GM TUBE (ANBESOL) MT SCH ×3 (09:17→20:52)
[2019-06-18] MEDS: LACTOBACILLUS ACIDOPHILUS CAP (BACID) PO SCH ×3 (12:28→20:51)
[2019-06-18 14:00] VITALS: BP 102/55
--- NOTE | 2019-06-18 15:25 | IPNPDOC ---
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 REVIEW OF SYSTEMS: The following is a completed review of systems and has been reviewed. Review of systems otherwise unremarkable. PAIN: Patient self reports diffuse pain worst in the right knee EYES: No recent vision changes EARS, NOSE, & THROAT:+ [place] CARDIOVASCULAR: Denies chest pain or palpitations PULMONARY: Denies shortness of breath GASTROINTESTINAL:+ loose stools GENITOURINARY: +incontinence (chronic) MUSCULOSKELETAL: OA NEUROLOGICAL: no seizure activity or tremor HEMATOLOGICAL:+ anemia SKIN: no rash PSYCHIATRIC: Unremarkable All other review of systems found to be negative. PHYSICAL EXAMINATION: VITAL SIGNS: Please see below. GENERAL: Pleasant and cooperative. No acute distress. HEENT: PERRL. Extraocular movements intact. Clear conjunctiva CARDIOVASCULAR: Regular rate and rhythm. No murmurs, rubs, or gallops LUNGS: decreased breath sounds bilaterally. No wheezes. No rhonchi ABDOMEN: Soft, nontender, mildly distended. Positive bowel sounds. Normal active bowel sounds NEUROLOGICAL: Alert and oriented times three. Cranial nerves II through XII grossly intact. Sensation grossly intact EXTREMITIES: 4\5 strength bilateral upper extremities. >3\5 strength right lower extremity. >3/5 strength in left lower extremity. restricted range of motion in in all 4 extremities RUE edema (+) TTP bilateral knees- medial/lateral joint line, with minimal swelling (+) Hawkin's left shoulder with crepitus + gabriele's bilat ASSESSMENT:88-year-old F with past medical history of HTN, multi-joint OA who presents status post acute on chronic OA exacerbation with difficulty walking and newly diagnosed rectal tumor. PLAN: 1. Rehab: PT- improve strength, maintain ROM, stretch bilat LE- difficulty with bed mobility and standing, slightly improving with participation and tolerance OT- improve strength, maintain ROM, stretch bilat UE for optimal ADL management 2. Neuro: avoid delirogenic meds, patient reporting she became delirious with tramadol, still with episodes of delirium 3. 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 Cardio: pmh AVR, with grade 1 diastolic CHF, c/u BP and HLD meds, medicine consulted to assist in management, will start lasix 20 daily for suspected fluid overload 5. Resp: encourage incentive spirometry 6. GI/heme-onc- recently diagnosed rectal tumor, receiving radiation with Dr. Miller -c/u protonix increased to BID -c/u stool softener 7. Hyponatremia- c/u to fluid restrict to 1800cc/day in setting of grade 1 milan stolic CHF, c/u regular diet, Na improving on salt tabs -continue LAsix 20mg daily 8. : patient on day 3 for UTI, will add bacid 8. DVT ppx: dopplers negative for DVT, + left lew's cysts, c/u teds and heparin 9. Insomnia- c/u Remeron for insomnia, increased to 15mg, patient endorses feeling of depression 9. Dispo: family and patient requesting to go home and are willing and able to provide 24-7 care and feel comfortable with difficult transfers. Patient and family aware that discharge at this time is not functionally optimal as patient is at high risk of falling and without daily therapy will likely grow weaker and more difficult to mobilize. Patient and family understand these risks and are wish to proceed towards home as soon as equipment is ready and once family training has been provided. Allergies Coded Allergies: No Known Allergies (Verified , 01/06/05) Vital Signs Vital Signs Date Time Temp Pulse Resp B/P (MAP) Pulse Ox O2 Delivery O2 Flow Rate FiO2 06/18/19 14:00 97.8 81 20 102/55 (87) 95 Current Medications Current Medications Current Medications Medications (Trade) Dose Ordered Sig/Harleen Route PRN Reason Start Time Stop Time Status Last Admin Dose Admin Acetaminophen (Tylenol Tab) 650 mg TID PO 06/07/19 16:00 06/18/19 09:16 Acetaminophen (Tylenol Tab) 1,000 mg TID PO 05/30/19 16:00 06/07/19 09:45 DC 06/07/19 09:13 Acetaminophen/ Codeine Phosphate (Tylenol/Codeine #3 Tablet) 1 ea Q6HP PRN PO MILD PAIN (PS 8-10) 06/08/19 15:00 06/12/19 14:13 DC 06/09/19 06:29 Acetaminophen/ Codeine Phosphate (Tylenol/Codeine #3 Tablet) 1 ea TID PO 06/07/19 09:00 06/08/19 14:24 DC 06/08/19 09:27 Benzocaine (Anbesol Gel) TO MOUTH SORES TID MT 05/30/19 16:00 06/18/19 09:17 Bisacodyl (Dulcolax Suppository) 10 mg DAILYPRN PRN [place] CONSTIPATION 05/30/19 14:15 Ciprofloxacin (Cipro) 250 mg BID@,18 PO 06/16/19 18:00 06/18/19 05:37 Diclofenac Epolamine (Flector 1.3%) 2 patch Q12H TOP 05/30/19 21:00 06/18/19 09:15 Docusate Sodium (Colace) 100 mg BID PO 05/30/19 21:00 06/18/19 09:15 Duloxetine HCl (Cymbalta) 30 mg DAILY PO 05/30/19 09:00 06/07/19 09:45 DC 06/07/19 09:13 Duloxetine HCl (Cymbalta) 60 mg DAILY PO 06/08/19 09:00 06/18/19 09:16 Furosemide (Lasix) 20 mg DAILY PO 06/11/19 14:15 06/18/19 09:17 Gabapentin (Neurontin) 100 mg BID PO 06/07/19 09:00 06/12/19 14:13 DC 06/12/19 09:15 Heparin Sodium (Porcine) (Heparin) 5,000 units Q12H SC 05/30/19 21:00 06/18/19 09:17 Home Med (Med Rec Complete!) ASDIRECTED XX 05/30/19 15:15 05/30/19 15:20 DC Lactobacillus Acidophilus (Bacid) 1 ea TID PO 06/18/19 09:00 06/18/19 12:28 Lidocaine/ Diphenhydr/Alum/ Mg/Simeth (Magic Mouthwash) 5ml AC SSP 06/13/19 12:00 06/18/19 12:28 Lisinopril (Prinivil) 5 mg DAILY PO 05/31/19 09:00 06/18/19 09:16 Methylprednisolone (Medrol) 4 mg ASDIRECTED PO 05/31/19 06:00 UNV Methylprednisolone (Medrol) 4 mg BID PO 06/04/19 09:00 06/04/19 21:01 DC 06/04/19 20:45 Methylprednisolone (Medrol) 4 mg DAILY PO 06/05/19 09:00 06/05/19 09:01 DC 06/05/19 09:48 Methylprednisolone (Medrol) 4 mg Q4H PO 05/31/19 04:00 06/01/19 00:01 DC 05/31/19 23:51 Methylprednisolone (Medrol) 4 mg Q4H PO 06/01/19 06:00 06/01/19 22:01 DC 06/01/19 20:51 Methylprednisolone (Medrol) 4 mg QID PO 06/02/19 09:00 06/02/19 21:01 DC 06/02/19 20:38 Methylprednisolone (Medrol) 4 mg TID PO 06/03/19 09:00 06/03/19 21:01 DC 06/03/19 21:36 Metoprolol Tartrate (Lopressor) 12.5 mg BID PO 05/30/19 21:00 06/18/19 09:15 Mirtazapine (Remeron) 7.5 mg QHS PO 06/07/19 21:00 06/11/19 14:10 DC 06/10/19 20:51 Mirtazapine (Remeron) 15 mg QHS PO 06/11/19 21:00 06/17/19 21:38 Miscellaneous (Unresolved Clarification Entry) SEE LABEL COMMENTS DAILY XX 06/17/19 09:00 06/18/19 10:01 DC Miscellaneous (Unresolved Clarification Entry) SEE LABEL COMMENTS DAILY XX 06/19/19 09:00 06/19/19 09:00 DC Miscellaneous (Unresolved Clarification Entry) SEE LABEL COMMENTS DAILY XX 06/11/19 09:00 06/11/19 14:14 DC 06/11/19 09:00 Pantoprazole Sodium (Protonix) 40 mg BID PO 05/30/19 21:00 06/18/19 09:15 Pantoprazole Sodium (Protonix) 40 mg DAILY PO 05/31/19 09:00 05/31/19 09:00 DC Potassium Chloride (Micro-K Extencaps) 20 meq DAILY PO 05/31/19 09:00 06/18/19 09:16 Prednisone (Deltasone) 5 mg DAILY PO 06/07/19 15:00 06/07/19 15:00 DC Prednisone (Deltasone) 5 mg DAILY PO 06/08/19 09:00 06/18/19 09:16 Rosuvastatin Calcium (Crestor) 40 mg QHS PO 05/31/19 21:00 06/17/19 21:38 Senna (Senokot) 1 tab QHS PO 05/30/19 21:00 06/17/19 21:38 Sodium Chloride (Sodium Chloride) 1 gm BID PO 06/12/19 21:00 06/18/19 09:16 Zinc Oxide (Boudreauxs Butt Paste) 1 dose TID TOP 06/05/19 21:00 06/13/19 11:28 DC 06/12/19 20:34 BROOKLYN CALLES MD Jun 18, 2019 15:25
[2019-06-18 19:52] VITALS: BP 110/55
[2019-06-18] MEDS: SENNA 8.6 MG TAB (SENOKOT) PO SCH (20:51)
[2019-06-18] MEDS: MIRTAZAPINE 15 MG TAB PO SCH (20:51)
[2019-06-18] MEDS: ROSUVASTATIN 10 MG TAB (CRESTOR) PO SCH (20:51)
[2019-06-19 05:31] VITALS: BP 144/69
[2019-06-19] MEDS: CIPROFLOXACIN 250 MG TAB PO SCH ×2 (05:56→18:18)
[2019-06-19] MEDS: POTASSIUM CHLORIDE 10 MEQ SR TABLET PO SCH (09:48)
[2019-06-19] MEDS: DULoxetine 30 MG CAP (CYMBALTA) PO SCH (09:48)
[2019-06-19] MEDS: METOPROLOL TART 12.5 MG PER 1/2 TAB PO SCH ×2 (09:48→21:43)
[2019-06-19] MEDS: DOCUSATE SODIUM 100 MG CAP PO SCH ×2 (09:48→21:42)
[2019-06-19] MEDS: LACTOBACILLUS ACIDOPHILUS CAP (BACID) PO SCH ×3 (09:48→21:43)
[2019-06-19] MEDS: predniSONE 5 MG TAB PO SCH (09:48)
[2019-06-19] MEDS: SODIUM CHLORIDE 1 GM TAB PO SCH ×2 (09:48→21:42)
[2019-06-19] MEDS: HEPARIN SOD (PORCINE) 5000 UNITS/ML VIAL SC SCH ×2 (09:49→21:41)
[2019-06-19] MEDS: FUROSEMIDE 20 MG TAB PO SCH (09:49)
[2019-06-19] MEDS: ACETAMINOPHEN TAB 650MG DOSE (2X325MG) PO SCH ×3 (09:49→21:43)
[2019-06-19] MEDS: PANTOPRAZOLE 40MG TAB (PROTONIX) PO SCH ×2 (09:49→21:42)
[2019-06-19] MEDS: lisinopriL 5 MG TAB PO SCH (09:49)
[2019-06-19] MEDS: DICLOFENAC EPOLAMINE 1.3 % PATCH TOP SCH ×2 (09:50→21:44)
[2019-06-19] MEDS: MAGIC MOUTHWASH SUSPENSION BTL SSP SCH ×3 (09:50→18:19)
[2019-06-19] MEDS: BENZOCAINE 10% 9GM TUBE (ANBESOL) MT SCH ×3 (09:51→21:43)
[2019-06-19 11:54] LABS: BASO % 0.2 % (0.0-1.0); EOS # 0.1 10^3/uL (0.0-0.5); HEMOGLOBIN 8.4 g/dl (12.0-15.5); LYMPH # 0.3 10^3/uL (1.5-5.0); LYMPH % 5.9 % (24.0-44.0); MEAN CORPUSCULAR HGB CONC 31.1 g/dl (32.0-36.5); MEAN CORPUSCULAR VOLUME 93.1 fl (80.0-96.0); MONO # 0.6 10^3/uL (0.0-0.8); MONO % 12.5 % (0.0-5.0); NEUTROPHILS # 3.9 10^3/uL (1.5-8.5); NEUTROPHILS % 79.6 % (36.0-66.0); PLATELET COUNT, AUTOMATED 120 10^3/uL (150-450)
[2019-06-19 12:22] LABS: BLOOD UREA NITROGEN 15 MG/DL (7-18); CALCIUM LEVEL 7.5 MG/DL (8.8-10.2); CARBON DIOXIDE LEVEL 26 MEQ/L (21-32); CHLORIDE LEVEL 99 MEQ/L (98-107); CREATININE FOR GFR 0.41 MG/DL (0.55-1.30); GLOMERULAR FILTRATION RATE > 60.0 (>32); GLUCOSE, FASTING 104 MG/DL (70-100); POTASSIUM SERUM 4.2 MEQ/L (3.5-5.1); SODIUM LEVEL 132 MEQ/L (136-145)
[2019-06-19 14:00] VITALS: BP 121/59
[2019-06-19] MEDS: MIRTAZAPINE 15 MG TAB PO SCH (21:42)
[2019-06-19] MEDS: ROSUVASTATIN 10 MG TAB (CRESTOR) PO SCH (21:42)
[2019-06-19] MEDS: SENNA 8.6 MG TAB (SENOKOT) PO SCH (21:42)
[2019-06-19 22:19] VITALS: BP 118/54
[2019-06-20] MEDS: CIPROFLOXACIN 250 MG TAB PO SCH ×2 (05:30→17:03)
[2019-06-20 06:13] VITALS: BP 125/59
[2019-06-20] MEDS: predniSONE 5 MG TAB PO SCH (08:18)
[2019-06-20] MEDS: LACTOBACILLUS ACIDOPHILUS CAP (BACID) PO SCH ×3 (08:18→20:49)
[2019-06-20] MEDS: POTASSIUM CHLORIDE 10 MEQ SR TABLET PO SCH (08:18)
[2019-06-20] MEDS: SODIUM CHLORIDE 1 GM TAB PO SCH ×3 (08:18→20:50)
[2019-06-20] MEDS: DOCUSATE SODIUM 100 MG CAP PO SCH ×2 (08:18→20:51)
[2019-06-20] MEDS: METOPROLOL TART 12.5 MG PER 1/2 TAB PO SCH ×2 (08:19→20:48)
[2019-06-20] MEDS: PANTOPRAZOLE 40MG TAB (PROTONIX) PO SCH ×2 (08:19→20:50)
[2019-06-20] MEDS: DICLOFENAC EPOLAMINE 1.3 % PATCH TOP SCH ×2 (08:19→21:06)
[2019-06-20] MEDS: HEPARIN SOD (PORCINE) 5000 UNITS/ML VIAL SC SCH ×2 (08:19→20:51)
[2019-06-20] MEDS: ACETAMINOPHEN TAB 650MG DOSE (2X325MG) PO SCH ×3 (08:19→20:50)
[2019-06-20] MEDS: lisinopriL 5 MG TAB PO SCH (08:20)
[2019-06-20] MEDS: MAGIC MOUTHWASH SUSPENSION BTL SSP SCH ×3 (08:20→17:06)
[2019-06-20] MEDS: FUROSEMIDE 20 MG TAB PO SCH (08:20)
[2019-06-20] MEDS: DULoxetine 30 MG CAP (CYMBALTA) PO SCH (08:20)
[2019-06-20] MEDS: BENZOCAINE 10% 9GM TUBE (ANBESOL) MT SCH ×3 (08:21→21:07)
[2019-06-20 14:00] VITALS: BP 125/60
[2019-06-20] MEDS ORDERED: FLUBLOK(EGG FREE)(QUAD)INFLUENZA VACC 0.5ML SYRINGE (90682)18YRS&OLDER IM ONE (15:45)
--- NOTE | 2019-06-20 16:23 | IPNPDOC ---
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 She sys her knee pain is better and she is eager to go home. REVIEW OF SYSTEMS: The following is a completed review of systems and has been reviewed. Review of systems otherwise unremarkable. PAIN: Patient self reports diffuse pain worst in the right knee EYES: No recent vision changes EARS, NOSE, & THROAT:+ TELLER CARDIOVASCULAR: Denies chest pain or palpitations PULMONARY: Denies shortness of breath GASTROINTESTINAL:+ loose stools GENITOURINARY: +incontinence (chronic) MUSCULOSKELETAL: OA NEUROLOGICAL: no seizure activity or tremor HEMATOLOGICAL:+ anemia SKIN: no rash PSYCHIATRIC: Unremarkable All other review of systems found to be negative. PHYSICAL EXAMINATION: VITAL SIGNS: Please see below. GENERAL: Pleasant and cooperative. No acute distress. HEENT: PERRL. Extraocular movements intact. Clear conjunctiva CARDIOVASCULAR: Regular rate and rhythm. No murmurs, rubs, or gallops LUNGS: decreased breath sounds bilaterally. No wheezes. No rhonchi ABDOMEN: Soft, nontender, mildly distended. Positive bowel sounds. Normal active bowel sounds NEUROLOGICAL: Alert and oriented times three. Cranial nerves II through XII grossly intact. Sensation grossly intact EXTREMITIES: 4\5 strength bilateral upper extremities. >3\5 strength right lower extremity. >3/5 strength in left lower extremity. restricted range of motion in in all 4 extremities RUE edema (+) TTP bilateral knees- medial/lateral joint line, with minimal swelling (+) Hawkin's left shoulder with crepitus + gabriele's bilat ASSESSMENT:88-year-old F with past medical history of HTN, multi-joint OA who presents status post acute on chronic OA exacerbation with difficulty walking and newly diagnosed rectal tumor. PLAN: 1. Rehab: PT- improve strength, maintain ROM, stretch bilat LE- difficulty with bed mobility and standing, slightly improving with participation and tolerance OT- improve strength, maintain ROM, stretch bilat UE for optimal ADL management 2. Neuro: avoid delirogenic meds, patient reporting she became delirious with tramadol, still with episodes of delirium 3. 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 Cardio: pmh AVR, with grade 1 diastolic CHF, c/u BP and HLD meds, medicine consulted to assist in management, will start lasix 20 daily for suspected fluid overload 5. Resp: encourage incentive spirometry 6. GI/heme-onc- recently diagnosed rectal tumor, receiving radiation with Dr. Miller -c/u protonix increased to BID -c/u stool softener 7. Hyponatremia- c/u to fluid restrict to 1800cc/day in setting of grade 1 diastolic CHF, c/u regular diet, Na improving on salt tabs -continue LAsix 20mg daily 8. : patient on day 3 for UTI, will add bacid 8. DVT ppx: dopplers negative for DVT, + left lew's cysts, c/u teds and heparin 9. Insomnia- c/u Remeron for insomnia, increased to 15mg, patient endorses feeling of depression 9. Dispo: family and patient requesting to go home and are willing and able to provide 24-7 care and feel comfortable with difficult transfers. Patient and family aware that discharge at this time is not functionally optimal as patient is at high risk of falling and without daily therapy will likely grow weaker and more difficult to mobilize. Patient and family understand these risks and are wish to proceed towards home as soon as equipment is ready and once family training has been provided. Waiting on aries lift. Allergies Coded Allergies: No Known Allergies (Verified , 01/06/05) Vital Signs Vital Signs Date Time Temp Pulse Resp B/P (MAP) Pulse Ox O2 Delivery O2 Flow Rate FiO2 06/20/19 14:00 97.4 81 24 125/60 (81) 99 Current Medications Current Medications Current Medications Medications (Trade) Dose Ordered Sig/Harleen Route PRN Reason Start Time Stop Time Status Last Admin Dose Admin Acetaminophen (Tylenol Tab) 650 mg TID PO 06/07/19 16:00 06/20/19 08:19 Acetaminophen (Tylenol Tab) 1,000 mg TID PO 05/30/19 16:00 06/07/19 09:45 DC 06/07/19 09:13 Acetaminophen/ Codeine Phosphate (Tylenol/Codeine #3 Tablet) 1 ea Q6HP PRN PO MILD PAIN (PS 8-10) 06/08/19 15:00 06/12/19 14:13 DC 06/09/19 06:29 Acetaminophen/ Codeine Phosphate (Tylenol/Codeine #3 Tablet) 1 ea TID PO 06/07/19 09:00 06/08/19 14:24 DC 06/08/19 09:27 Benzocaine (Anbesol Gel) TO MOUTH SORES TID MT 05/30/19 16:00 06/20/19 08:21 Bisacodyl (Dulcolax Suppository) 10 mg DAILYPRN PRN [place] CONSTIPATION 05/30/19 14:15 Ciprofloxacin (Cipro) 250 mg BID@18 PO 06/16/19 18:00 06/20/19 05:30 Diclofenac Epolamine (Flector 1.3%) 2 patch Q12H TOP 05/30/19 21:00 06/20/19 08:19 Docusate Sodium (Colace) 100 mg BID PO 05/30/19 21:00 06/20/19 08:18 Duloxetine HCl (Cymbalta) 30 mg DAILY PO 05/30/19 09:00 06/07/19 09:45 DC 06/07/19 09:13 Duloxetine HCl (Cymbalta) 60 mg DAILY PO 06/08/19 09:00 06/20/19 08:20 Furosemide (Lasix) 20 mg DAILY PO 06/11/19 14:15 06/20/19 10:13 DC 06/20/19 08:20 Gabapentin (Neurontin) 100 mg BID PO 06/07/19 09:00 06/12/19 14:13 DC 06/12/19 09:15 Heparin Sodium (Porcine) (Heparin) 5,000 units Q12H SC 05/30/19 21:00 06/20/19 08:19 Home Med (Med Rec Complete!) ASDIRECTED XX 05/30/19 15:15 05/30/19 15:20 DC Lactobacillus Acidophilus (Bacid) 1 ea TID PO 06/18/19 09:00 06/20/19 08:18 Lidocaine/ Diphenhydr/Alum/ Mg/Simeth (Magic Mouthwash) 5ml AC SSP 06/13/19 12:00 06/20/19 12:07 Lisinopril (Prinivil) 5 mg DAILY PO 05/31/19 09:00 06/20/19 08:20 Methylprednisolone (Medrol) 4 mg ASDIRECTED PO 05/31/19 06:00 UNV Methylprednisolone (Medrol) 4 mg BID PO 06/04/19 09:00 06/04/19 21:01 DC 06/04/19 20:45 Methylprednisolone (Medrol) 4 mg DAILY PO 06/05/19 09:00 06/05/19 09:01 DC 06/05/19 09:48 Methylprednisolone (Medrol) 4 mg Q4H PO 05/31/19 04:00 06/01/19 00:01 DC 05/31/19 23:51 Methylprednisolone (Medrol) 4 mg Q4H PO 06/01/19 06:00 06/01/19 22:01 DC 06/01/19 20:51 Methylprednisolone (Medrol) 4 mg QID PO 06/02/19 09:00 06/02/19 21:01 DC 06/02/19 20:38 Methylprednisolone (Medrol) 4 mg TID PO 06/03/19 09:00 06/03/19 21:01 DC 06/03/19 21:36 Metoprolol Tartrate (Lopressor) 12.5 mg BID PO 05/30/19 21:00 06/20/19 08:19 Mirtazapine (Remeron) 7.5 mg QHS PO 06/07/19 21:00 06/11/19 14:10 DC 06/10/19 20:51 Mirtazapine (Remeron) 15 mg QHS PO 06/11/19 21:00 06/19/19 21:42 Miscellaneous (Unresolved Clarification Entry) SEE LABEL COMMENTS DAILY XX 06/17/19 09:00 06/18/19 10:01 DC Miscellaneous (Unresolved Clarification Entry) SEE LABEL COMMENTS DAILY XX 06/19/19 09:00 06/19/19 09:00 DC Miscellaneous (Unresolved Clarification Entry) SEE LABEL COMMENTS DAILY XX 06/11/19 09:00 06/11/19 14:14 DC 06/11/19 09:00 Pantoprazole Sodium (Protonix) 40 mg BID PO 05/30/19 21:00 06/20/19 08:19 Pantoprazole Sodium (Protonix) 40 mg DAILY PO 05/31/19 09:00 05/31/19 09:00 DC Potassium Chloride (Micro-K Extencaps) 20 meq DAILY PO 05/31/19 09:00 06/20/19 08:18 Prednisone (Deltasone) 5 mg DAILY PO 06/07/19 15:00 06/07/19 15:00 DC Prednisone (Deltasone) 5 mg DAILY PO 06/08/19 09:00 06/20/19 08:18 Rosuvastatin Calcium (Crestor) 40 mg QHS PO 05/31/19 21:00 06/19/19 21:42 Senna (Senokot) 1 tab QHS PO 05/30/19 21:00 06/19/19 21:42 Sodium Chloride (Sodium Chloride) 1 gm BID PO 06/12/19 21:00 06/20/19 10:13 DC 06/20/19 08:18 Sodium Chloride (Sodium Chloride) 1 gm TID PO 06/20/19 16:00 Zinc Oxide (Boudreauxs Butt Paste) 1 dose TID TOP 06/05/19 21:00 06/13/19 11:28 DC 06/12/19 20:34 BROOKLYN CALLES MD Jun 20, 2019 16:23
--- NOTE | 2019-06-20 16:26 | IPNPDOC ---
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 REVIEW OF SYSTEMS: The following is a completed review of systems and has been reviewed. Review of systems otherwise unremarkable. PAIN: Patient self reports diffuse pain worst in the right knee EYES: No recent vision changes EARS, NOSE, & THROAT:+ [place] CARDIOVASCULAR: Denies chest pain or palpitations PULMONARY: Denies shortness of breath GASTROINTESTINAL:+ loose stools GENITOURINARY: +incontinence (chronic) MUSCULOSKELETAL: OA NEUROLOGICAL: no seizure activity or tremor HEMATOLOGICAL:+ anemia SKIN: no rash PSYCHIATRIC: Unremarkable All other review of systems found to be negative. PHYSICAL EXAMINATION: VITAL SIGNS: Please see below. GENERAL: Pleasant and cooperative. No acute distress. HEENT: PERRL. Extraocular movements intact. Clear conjunctiva CARDIOVASCULAR: Regular rate and rhythm. No murmurs, rubs, or gallops LUNGS: decreased breath sounds bilaterally. No wheezes. No rhonchi ABDOMEN: Soft, nontender, mildly distended. Positive bowel sounds. Normal active bowel sounds NEUROLOGICAL: Alert and oriented times three. Cranial nerves II through XII grossly intact. Sensation grossly intact EXTREMITIES: 4\5 strength bilateral upper extremities. >3\5 strength right lower extremity. >3/5 strength in left lower extremity. restricted range of motion in in all 4 extremities RUE edema (+) TTP bilateral knees- medial/lateral joint line, with minimal swelling (+) Hawkin's left shoulder with crepitus + gabriele's bilat ASSESSMENT:88-year-old F with past medical history of HTN, multi-joint OA who presents status post acute on chronic OA exacerbation with difficulty walking and newly diagnosed rectal tumor. PLAN: 1. Rehab: PT- improve strength, maintain ROM, stretch bilat LE- difficulty with bed mobility and standing, slightly improving with participation and tolerance OT- improve strength, maintain ROM, stretch bilat UE for optimal ADL management 2. Neuro: avoid delirogenic meds, patient reporting she became delirious with tramadol, still with episodes of delirium 3. Ortho: acute flare of bilateral knee OA and right shoulder OA severely limi ting mobility in setting of rectal mass, c/u prednisone 5 mg daily, inflammation improving -c/u Cymbalta 60mg, c/u Flector patches - stopped gabapentin for potential contribution to delirium- improved 4. Cardio: pmh AVR, with grade 1 diastolic CHF, c/u BP and HLD meds, medicine consulted to assist in management, will hold lasix due to persistent hyponatremia 5. Resp: encourage incentive spirometry 6. GI/heme-onc- recently diagnosed rectal tumor, receiving radiation with Dr. Miller -c/u protonix increased to BID -c/u stool softener 7. Hyponatremia- c/u to fluid restrict to 1800cc/day in setting of grade 1 diastolic CHF, c/u regular diet, Na was improving on salt tabs, will hold lasix and increase NaCl tabs, rechecking BMP 06/22/19 8. :c/u Cipro for UTI and Bacid 8. DVT ppx: dopplers negative for DVT, + left lew's cysts, c/u teds and heparin 9. Insomnia- c/u Remeron for insomnia, increased to 15mg, patient endorses feeling of depression 9. Dispo: family and patient requesting to go home and are willing and able to provide 24-7 care and feel comfortable with difficult transfers. Patient and family aware that discharge at this time is not functionally optimal as patient is at high risk of falling and without daily therapy will likely grow weaker and more difficult to mobilize. Patient and family understand these risks and are wish to proceed towards home as soon as equipment is ready and once family training has been provided. Waiting on aries lift. Allergies Coded Allergies: No Known Allergies (Verified , 01/06/05) Vital Signs Vital Signs Date Time Temp Pulse Resp B/P (MAP) Pulse Ox O2 Delivery O2 Flow Rate FiO2 06/20/19 14:00 97.4 81 24 125/60 (81) 99 Current Medications Current Medications Current Medications Medications (Trade) Dose Ordered Sig/Harleen Route PRN Reason Start Time Stop Time Status Last Admin Dose Admin Acetaminophen (Tylenol Tab) 650 mg TID PO 06/07/19 16:00 06/20/19 08:19 Acetaminophen (Tylenol Tab) 1,000 mg TID PO 05/30/19 16:00 06/07/19 09:45 DC 06/07/19 09:13 Acetaminophen/ Codeine Phosphate (Tylenol/Codeine #3 Tablet) 1 ea Q6HP PRN PO MILD PAIN (PS 8-10) 06/08/19 15:00 06/12/19 14:13 DC 06/09/19 06:29 Acetaminophen/ Codeine Phosphate (Tylenol/Codeine #3 Tablet) 1 ea TID PO 06/07/19 09:00 06/08/19 14:24 DC 06/08/19 09:27 Benzocaine (Anbesol Gel) TO MOUTH SORES TID MT 05/30/19 16:00 06/20/19 08:21 Bisacodyl (Dulcolax Suppository) 10 mg DAILYPRN PRN ID CONSTIPATION 05/30/19 14:15 Ciprofloxacin (Cipro) 250 mg BID@06,18 PO 06/16/19 18:00 06/20/19 05:30 Diclofenac Epolamine (Flector 1.3%) 2 patch Q12H TOP 05/30/19 21:00 06/20/19 08:19 Docusate Sodium (Colace) 100 mg BID PO 05/30/19 21:00 06/20/19 08:18 Duloxetine HCl (Cymbalta) 30 mg DAILY PO 05/30/19 09:00 06/07/19 09:45 DC 06/07/19 09:13 Duloxetine HCl (Cymbalta) 60 mg DAILY PO 06/08/19 09:00 06/20/19 08:20 Furosemide (Lasix) 20 mg DAILY PO 06/11/19 14:15 06/20/19 10:13 DC 06/20/19 08:20 Gabapentin (Neurontin) 100 mg BID PO 06/07/19 09:00 06/12/19 14:13 DC 06/12/19 09:15 Heparin Sodium (Porcine) (Heparin) 5,000 units Q12H SC 05/30/19 21:00 06/20/19 08:19 Home Med (Med Rec Complete!) ASDIRECTED XX 05/30/19 15:15 05/30/19 15:20 DC Lactobacillus Acidophilus (Bacid) 1 ea TID PO 06/18/19 09:00 06/20/19 08:18 Lidocaine/ Diphenhydr/Alum/ Mg/Simeth (Magic Mouthwash) 5ml AC SSP 06/13/19 12:00 06/20/19 12:07 Lisinopril (Prinivil) 5 mg DAILY PO 05/31/19 09:00 06/20/19 08:20 Methylprednisolone (Medrol) 4 mg ASDIRECTED PO 05/31/19 06:00 UNV Methylprednisolone (Medrol) 4 mg BID PO 06/04/19 09:00 06/04/19 21:01 DC 06/04/19 20:45 Methylprednisolone (Medrol) 4 mg DAILY PO 06/05/19 09:00 06/05/19 09:01 DC 06/05/19 09:48 Methylprednisolone (Medrol) 4 mg Q4H PO 05/31/19 04:00 06/01/19 00:01 DC 05/31/19 23:51 Methylprednisolone (Medrol) 4 mg Q4H PO 06/01/19 06:00 06/01/19 22:01 DC 06/01/19 20:51 Methylprednisolone (Medrol) 4 mg QID PO 06/02/19 09:00 06/02/19 21:01 DC 06/02/19 20:38 Methylprednisolone (Medrol) 4 mg TID PO 06/03/19 09:00 06/03/19 21:01 DC 06/03/19 21:36 Metoprolol Tartrate (Lopressor) 12.5 mg BID PO 05/30/19 21:00 06/20/19 08:19 Mirtazapine (Remeron) 7.5 mg QHS PO 06/07/19 21:00 06/11/19 14:10 DC 06/10/19 20:51 Mirtazapine (Remeron) 15 mg QHS PO 06/11/19 21:00 06/19/19 21:42 Miscellaneous (Unresolved Clarification Entry) SEE LABEL COMMENTS DAILY XX 06/17/19 09:00 06/18/19 10:01 DC Miscellaneous (Unresolved Clarification Entry) SEE LABEL COMMENTS DAILY XX 06/19/19 09:00 06/19/19 09:00 DC Miscellaneous (Unresolved Clarification Entry) SEE LABEL COMMENTS DAILY XX 06/11/19 09:00 06/11/19 14:14 DC 06/11/19 09:00 Pantoprazole Sodium (Protonix) 40 mg BID PO 05/30/19 21:00 06/20/19 08:19 Pantoprazole Sodium (Protonix) 40 mg DAILY PO 05/31/19 09:00 05/31/19 09:00 DC Potassium Chloride (Micro-K Extencaps) 20 meq DAILY PO 05/31/19 09:00 06/20/19 08:18 Prednisone (Deltasone) 5 mg DAILY PO 06/07/19 15:00 06/07/19 15:00 DC Prednisone (Deltasone) 5 mg DAILY PO 06/08/19 09:00 06/20/19 08:18 Rosuvastatin Calcium (Crestor) 40 mg QHS PO 05/31/19 21:00 06/19/19 21:42 Senna (Senokot) 1 tab QHS PO 05/30/19 21:00 06/19/19 21:42 Sodium Chloride (Sodium Chloride) 1 gm BID PO 06/12/19 21:00 06/20/19 10:13 DC 06/20/19 08:18 Sodium Chloride (Sodium Chloride) 1 gm TID PO 06/20/19 16:00 Zinc Oxide (Boudreauxs Butt Paste) 1 dose TID TOP 06/05/19 21:00 06/13/19 11:28 DC 06/12/19 20:34 BROOKLYN CALLES MD Jun 20, 2019 16:26
[2019-06-20 20:00] VITALS: BP 121/70
[2019-06-20] MEDS: ROSUVASTATIN 10 MG TAB (CRESTOR) PO SCH (20:49)
[2019-06-20] MEDS: MIRTAZAPINE 15 MG TAB PO SCH (20:51)
[2019-06-20] MEDS: SENNA 8.6 MG TAB (SENOKOT) PO SCH (21:00)
[2019-06-21 06:00] VITALS: BP 148/79
[2019-06-21] MEDS: CIPROFLOXACIN 250 MG TAB PO SCH ×2 (06:22→17:30)
[2019-06-21] MEDS: MAGIC MOUTHWASH SUSPENSION BTL SSP SCH ×3 (07:30→17:31)
[2019-06-21] MEDS: HEPARIN SOD (PORCINE) 5000 UNITS/ML VIAL SC SCH ×2 (08:47→21:56)
[2019-06-21] MEDS: DICLOFENAC EPOLAMINE 1.3 % PATCH TOP SCH ×2 (08:47→21:57)
[2019-06-21] MEDS: SODIUM CHLORIDE 1 GM TAB PO SCH ×3 (08:48→21:57)
[2019-06-21] MEDS: predniSONE 5 MG TAB PO SCH (08:48)
[2019-06-21] MEDS: POTASSIUM CHLORIDE 10 MEQ SR TABLET PO SCH (08:48)
[2019-06-21] MEDS: DOCUSATE SODIUM 100 MG CAP PO SCH ×2 (08:48→21:57)
[2019-06-21] MEDS: LACTOBACILLUS ACIDOPHILUS CAP (BACID) PO SCH ×3 (08:48→21:57)
[2019-06-21] MEDS: PANTOPRAZOLE 40MG TAB (PROTONIX) PO SCH ×2 (08:48→21:56)
[2019-06-21] MEDS: DULoxetine 30 MG CAP (CYMBALTA) PO SCH (08:48)
[2019-06-21] MEDS: lisinopriL 5 MG TAB PO SCH (08:48)
[2019-06-21] MEDS: ACETAMINOPHEN TAB 650MG DOSE (2X325MG) PO SCH ×3 (08:49→21:56)
[2019-06-21] MEDS: METOPROLOL TART 12.5 MG PER 1/2 TAB PO SCH ×2 (08:49→21:57)
[2019-06-21] MEDS: BENZOCAINE 10% 9GM TUBE (ANBESOL) MT SCH ×3 (08:49→21:57)
--- NOTE | 2019-06-21 11:00 | IPNPDOC ---
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 REVIEW OF SYSTEMS: The following is a completed review of systems and has been reviewed. Review of systems otherwise unremarkable. PAIN: Patient self reports diffuse pain worst in the right knee EYES: No recent vision changes EARS, NOSE, & THROAT:+ [place] CARDIOVASCULAR: Denies chest pain or palpitations PULMONARY: Denies shortness of breath GASTROINTESTINAL:+ loose stools GENITOURINARY: +incontinence (chronic) MUSCULOSKELETAL: OA NEUROLOGICAL: no seizure activity or tremor HEMATOLOGICAL:+ anemia SKIN: no rash PSYCHIATRIC: Unremarkable All other review of systems found to be negative. PHYSICAL EXAMINATION: VITAL SIGNS: Please see below. GENERAL: Pleasant and cooperative. No acute distress. HEENT: PERRL. Extraocular movements intact. Clear conjunctiva CARDIOVASCULAR: Regular rate and rhythm. No murmurs, rubs, or gallops LUNGS: decreased breath sounds bilaterally. No wheezes. No rhonchi ABDOMEN: Soft, nontender, mildly distended. Positive bowel sounds. Normal active bowel sounds NEUROLOGICAL: Alert and oriented times three. Cranial nerves II through XII g rossly intact. Sensation grossly intact EXTREMITIES: 4\5 strength bilateral upper extremities. >3\5 strength right lower extremity. >3/5 strength in left lower extremity. restricted range of motion in in all 4 extremities RUE edema (+) TTP bilateral knees- medial/lateral joint line, with minimal swelling (+) Hawkin's left shoulder with crepitus + gabriele's bilat ASSESSMENT:88-year-old F with past medical history of HTN, multi-joint OA who presents status post acute on chronic OA exacerbation with difficulty walking and newly diagnosed rectal tumor. PLAN: 1. Rehab: PT- improve strength, maintain ROM, stretch bilat LE- difficulty with bed mobility and standing, slightly improving with participation and tolerance OT- improve strength, maintain ROM, stretch bilat UE for optimal ADL management 2. Neuro: avoid delirogenic meds, patient reporting she became delirious with tramadol, still with episodes of delirium 3. 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 Cardio: pmh AVR, with grade 1 diastolic CHF, c/u BP and HLD meds, medicine consulted to assist in management, will hold lasix due to persistent hyponatremia 5. Resp: encourage incentive spirometry 6. GI/heme-onc- recently diagnosed rectal tumor, receiving radiation with Dr. Miller -c/u protonix increased to BID -c/u stool softener 7. Hyponatremia- c/u to fluid restrict to 1800cc/day in setting of grade 1 diastolic CHF, c/u regular diet, Na was improving on salt tabs, will hold lasix and increase NaCl tabs, rechecking BMP 06/22/19 8. :c/u Cipro for UTI and Bacid 8. DVT ppx: dopplers negative for DVT, + left lew's cysts, c/u teds and heparin 9. Insomnia- c/u Remeron for insomnia, increased to 15mg, patient endorses feeling of depression 9. Dispo: family and patient requesting to go home and are willing and able to provide 24-7 care and feel comfortable with difficult transfers. Patient and family aware that discharge at this time is not functionally optimal as patient is at high risk of falling and without daily therapy will likely grow weaker and more difficult to mobilize. Patient and family understand these risks and are wish to proceed towards home as soon as equipment is ready and once family training has been provided. Waiting on aries lift. Allergies Coded Allergies: No Known Allergies (Verified , 01/06/05) Vital Signs Vital Signs Date Time Temp Pulse Resp B/P (MAP) Pulse Ox O2 Delivery O2 Flow Rate FiO2 06/21/19 08:49 86 148/79 06/21/19 06:00 97.6 18 95 Current Medications Current Medications Current Medications Medications (Trade) Dose Ordered Sig/Harleen Route PRN Reason Start Time Stop Time Status Last Admin Dose Admin Acetaminophen (Tylenol Tab) 650 mg TID PO 06/07/19 16:00 06/21/19 08:49 Acetaminophen (Tylenol Tab) 1,000 mg TID PO 05/30/19 16:00 06/07/19 09:45 DC 06/07/19 09:13 Acetaminophen/ Codeine Phosphate (Tylenol/Codeine #3 Tablet) 1 ea Q6HP PRN PO MILD PAIN (PS 8-10) 06/08/19 15:00 06/12/19 14:13 DC 06/09/19 06:29 Acetaminophen/ Codeine Phosphate (Tylenol/Codeine #3 Tablet) 1 ea TID PO 06/07/19 09:00 06/08/19 14:24 DC 06/08/19 09:27 Benzocaine (Anbesol Gel) TO MOUTH SORES TID MT 05/30/19 16:00 06/20/19 21:07 Bisacodyl (Dulcolax Suppository) 10 mg DAILYPRN PRN [place] CONSTIPATION 05/30/19 14:15 Ciprofloxacin (Cipro) 250 mg BID@06,18 PO 06/16/19 18:00 06/21/19 06:22 Diclofenac Epolamine (Flector 1.3%) 2 patch Q12H TOP 05/30/19 21:00 06/21/19 08:47 Docusate Sodium (Colace) 100 mg BID PO 05/30/19 21:00 06/21/19 08:48 Duloxetine HCl (Cymbalta) 30 mg DAILY PO 05/30/19 09:00 06/07/19 09:45 DC 06/07/19 09:13 Duloxetine HCl (Cymbalta) 60 mg DAILY PO 06/08/19 09:00 06/21/19 08:48 Furosemide (Lasix) 20 mg DAILY PO 06/11/19 14:15 06/20/19 10:13 DC 06/20/19 08:20 Gabapentin (Neurontin) 100 mg BID PO 06/07/19 09:00 06/12/19 14:13 DC 06/12/19 09:15 Heparin Sodium (Porcine) (Heparin) 5,000 units Q12H SC 05/30/19 21:00 06/21/19 08:47 Home Med (Med Rec Complete!) ASDIRECTED XX 05/30/19 15:15 05/30/19 15:20 DC Lactobacillus Acidophilus (Bacid) 1 ea TID PO 06/18/19 09:00 06/21/19 08:48 Lidocaine/ Diphenhydr/Alum/ Mg/Simeth (Magic Mouthwash) 5ml AC SSP 06/13/19 12:00 06/21/19 07:30 Lisinopril (Prinivil) 5 mg DAILY PO 05/31/19 09:00 06/21/19 08:48 Methylprednisolone (Medrol) 4 mg ASDIRECTED PO 05/31/19 06:00 UNV Methylprednisolone (Medrol) 4 mg BID PO 06/04/19 09:00 06/04/19 21:01 DC 06/04/19 20:45 Methylprednisolone (Medrol) 4 mg DAILY PO 06/05/19 09:00 06/05/19 09:01 DC 06/05/19 09:48 Methylprednisolone (Medrol) 4 mg Q4H PO 05/31/19 04:00 06/01/19 00:01 DC 05/31/19 23:51 Methylprednisolone (Medrol) 4 mg Q4H PO 06/01/19 06:00 06/01/19 22:01 DC 06/01/19 20:51 Methylprednisolone (Medrol) 4 mg QID PO 06/02/19 09:00 06/02/19 21:01 DC 06/02/19 20:38 Methylprednisolone (Medrol) 4 mg TID PO 06/03/19 09:00 06/03/19 21:01 DC 06/03/19 21:36 Metoprolol Tartrate (Lopressor) 12.5 mg BID PO 05/30/19 21:00 06/21/19 08:49 Mirtazapine (Remeron) 7.5 mg QHS PO 06/07/19 21:00 06/11/19 14:10 DC 06/10/19 20:51 Mirtazapine (Remeron) 15 mg QHS PO 06/11/19 21:00 06/20/19 20:51 Miscellaneous (Unresolved Clarification Entry) SEE LABEL COMMENTS DAILY XX 06/17/19 09:00 06/18/19 10:01 DC Miscellaneous (Unresolved Clarification Entry) SEE LABEL COMMENTS DAILY XX 06/19/19 09:00 06/19/19 09:00 DC Miscellaneous (Unresolved Clarification Entry) SEE LABEL COMMENTS DAILY XX 06/11/19 09:00 06/11/19 14:14 DC 06/11/19 09:00 Pantoprazole Sodium (Protonix) 40 mg BID PO 05/30/19 21:00 06/21/19 08:48 Pantoprazole Sodium (Protonix) 40 mg DAILY PO 05/31/19 09:00 05/31/19 09:00 DC Potassium Chloride (Micro-K Extencaps) 20 meq DAILY PO 05/31/19 09:00 06/21/19 08:48 Prednisone (Deltasone) 5 mg DAILY PO 06/07/19 15:00 06/07/19 15:00 DC Prednisone (Deltasone) 5 mg DAILY PO 06/08/19 09:00 06/21/19 08:48 Rosuvastatin Calcium (Crestor) 40 mg QHS PO 05/31/19 21:00 06/20/19 20:49 Senna (Senokot) 1 tab QHS PO 05/30/19 21:00 06/19/19 21:42 Sodium Chloride (Sodium Chloride) 1 gm BID PO 06/12/19 21:00 06/20/19 10:13 DC 06/20/19 08:18 Sodium Chloride (Sodium Chloride) 1 gm TID PO 06/20/19 16:00 06/21/19 08:48 Zinc Oxide (Boudreauxs Butt Paste) 1 dose TID TOP 06/05/19 21:00 06/13/19 11:28 DC 06/12/19 20:34 BROOKLYN CALLES MD Jun 21, 2019 11:00
[2019-06-21 14:00] VITALS: BP 153/59
[2019-06-21 20:00] VITALS: BP 134/71
[2019-06-21] MEDS: MIRTAZAPINE 15 MG TAB PO SCH (21:56)
[2019-06-21] MEDS: ROSUVASTATIN 10 MG TAB (CRESTOR) PO SCH (21:56)
[2019-06-21] MEDS: SENNA 8.6 MG TAB (SENOKOT) PO SCH (21:57)
[2019-06-22] MEDS: CIPROFLOXACIN 250 MG TAB PO SCH ×2 (05:30→18:23)
[2019-06-22 06:32] VITALS: BP 140/67
[2019-06-22 07:24] LABS: BASO % 0.2 % (0.0-1.0); EOS # 0.1 10^3/uL (0.0-0.5); EOS % 1.3 % (0.0-3.0); HEMATOCRIT 24.2 % (36.0-47.0); HEMOGLOBIN 7.6 g/dl (12.0-15.5); LYMPH # 0.5 10^3/uL (1.5-5.0); LYMPH % 10.2 % (24.0-44.0); MEAN CORPUSCULAR HEMOGLOBIN 28.5 pg (27.0-33.0); MEAN CORPUSCULAR HGB CONC 31.4 g/dl (32.0-36.5); MEAN CORPUSCULAR VOLUME 90.6 fl (80.0-96.0); MONO # 0.7 10^3/uL (0.0-0.8); MONO % 14.4 % (0.0-5.0); NEUTROPHILS # 3.4 10^3/uL (1.5-8.5); NEUTROPHILS % 73.2 % (36.0-66.0); PLATELET COUNT, AUTOMATED 127 10^3/uL (150-450); RED BLOOD COUNT 2.67 10^6/uL (4.00-5.40); WHITE BLOOD COUNT 4.6 10^3/uL (4.0-10.0)
[2019-06-22 07:33] VITALS: BP 133/64
[2019-06-22 07:47] LABS: BLOOD UREA NITROGEN 15 MG/DL (7-18); CALCIUM LEVEL 7.8 MG/DL (8.8-10.2); CARBON DIOXIDE LEVEL 27 MEQ/L (21-32); CHLORIDE LEVEL 100 MEQ/L (98-107); CREATININE FOR GFR 0.37 MG/DL (0.55-1.30); GLOMERULAR FILTRATION RATE > 60.0 (>32); GLUCOSE, FASTING 92 MG/DL (70-100); POTASSIUM SERUM 4.1 MEQ/L (3.5-5.1); SODIUM LEVEL 133 MEQ/L (136-145)
[2019-06-22] MEDS: ACETAMINOPHEN TAB 650MG DOSE (2X325MG) PO SCH ×3 (08:36→22:05)
[2019-06-22] MEDS: DULoxetine 30 MG CAP (CYMBALTA) PO SCH (08:36)
[2019-06-22] MEDS: LACTOBACILLUS ACIDOPHILUS CAP (BACID) PO SCH ×3 (08:36→22:05)
[2019-06-22] MEDS: SODIUM CHLORIDE 1 GM TAB PO SCH ×5 (08:36→22:07)
[2019-06-22] MEDS: HEPARIN SOD (PORCINE) 5000 UNITS/ML VIAL SC SCH ×2 (08:37→22:03)
[2019-06-22] MEDS: DICLOFENAC EPOLAMINE 1.3 % PATCH TOP SCH ×2 (08:37→22:07)
[2019-06-22] MEDS: POTASSIUM CHLORIDE 10 MEQ SR TABLET PO SCH (08:37)
[2019-06-22] MEDS: PANTOPRAZOLE 40MG TAB (PROTONIX) PO SCH ×2 (08:37→22:06)
[2019-06-22] MEDS: predniSONE 5 MG TAB PO SCH (08:37)
[2019-06-22] MEDS: METOPROLOL TART 12.5 MG PER 1/2 TAB PO SCH ×2 (08:40→22:06)
[2019-06-22] MEDS: lisinopriL 5 MG TAB PO SCH (08:40)
[2019-06-22] MEDS: BENZOCAINE 10% 9GM TUBE (ANBESOL) MT SCH ×3 (08:41→22:07)
[2019-06-22] MEDS: MAGIC MOUTHWASH SUSPENSION BTL SSP SCH ×3 (08:41→18:23)
[2019-06-22] MEDS: DOCUSATE SODIUM 100 MG CAP PO SCH ×2 (08:41→22:06)
[2019-06-22] MEDS ORDERED: diphenhydrAMINE INJ 50MG/ML VIAL (J1200) IM ONE (09:15)
[2019-06-22] MEDS ORDERED: ACETAMINOPHEN TAB 650MG DOSE (2X325MG) PO ONE (09:15)
[2019-06-22] MEDS ORDERED: FUROSEMIDE 20 MG/2 ML VIAL (J1940) IV ONE (09:15)
--- NOTE | 2019-06-22 12:38 | IPNPDOC ---
PM&R Progress Note DATE OF SERVICE: Jun 22, 2019 Head Chopper Progress Note Subjective: Patient seen in her room with OT, states she is feeling well. REVIEW OF SYSTEMS: The following is a completed review of systems and has been reviewed. Review of systems otherwise unremarkable. PAIN: Patient self reports diffuse pain worst in the right knee EYES: No recent vision changes EARS, NOSE, & THROAT:+ [place] CARDIOVASCULAR: Denies chest pain or palpitations PULMONARY: Denies shortness of breath GASTROINTESTINAL:+ loose stools GENITOURINARY: +incontinence (chronic) MUSCULOSKELETAL: OA NEUROLOGICAL: no seizure activity or tremor HEMATOLOGICAL:+ anemia SKIN: no rash PSYCHIATRIC: Unremarkable All other review of systems found to be negative. PHYSICAL EXAMINATION: VITAL SIGNS: Please see below. GENERAL: Pleasant and cooperative. No acute distress. HEENT: PERRL. Extraocular movements intact. Clear conjunctiva CARDIOVASCULAR: Regular rate and rhythm. No murmurs, rubs, or gallops LUNGS: decreased breath sounds bilaterally. No wheezes. No rhonchi ABDOMEN: Soft, nontender, mildly distended. Positive bowel sounds. Normal active bowel sounds NEUROLOGICAL: Alert and oriented times three. Cranial nerves II through XII grossly intact. Sensation grossly intact EXTREMITIES: 4\5 strength bilateral upper extremities. >3\5 strength right lower extremity. >3/5 strength in left lower extremity. restricted range of motion in in all 4 extremities RUE edema (+) TTP bilateral knees- medial/lateral joint line, with minimal swelling (+) Hawkin's left shoulder with crepitus + gabriele's bilat ASSESSMENT:88-year-old F with past medical history of HTN, multi-joint OA who presents status post acute on chronic OA exacerbation with difficulty walking and newly diagnosed rectal tumor. PLAN: 1. Rehab: PT- improve strength, maintain ROM, stretch bilat LE- difficulty with bed mobility and standing, slightly improving with participation and tolerance OT- improve strength, maintain ROM, stretch bilat UE for optimal ADL management 2. Neuro: avoid delirogenic meds, patient reporting she became delirious with tramadol, still with episodes of delirium 3. 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 Cardio: pmh AVR, with grade 1 diastolic CHF, c/u BP and HLD meds, medicine consulted to assist in management, will hold lasix due to persistent hyponatremia 5. Resp: encourage incentive spirometry 6. GI/heme-onc- recently diagnosed rectal tumor, receiving radiation with Dr. Miller -c/u protonix increased to BID -c/u stool softener 7. Hyponatremia- c/u to fluid restrict to 1800cc/day in setting of grade 1 diastolic CHF, c/u regular diet, Na was improving on salt tabs, will hold lasix and increase NaCl tabs, rechecking BMP 06/22/19-stable 8. :c/u Cipro for UTI and Bacid 8. DVT ppx: dopplers negative for DVT, + left lew's cysts, c/u teds and heparin 9. Insomnia- c/u Remeron for insomnia, increased to 15mg, patient endorses feeling of depression 10. Heme: anemia due to chronic disease, recent FOBT negative, will give 2 units prbc today 9. Dispo: family and patient requesting to go home and are willing and able to provide 24-7 care and feel comfortable with difficult transfers. Patient and f amily aware that discharge at this time is not functionally optimal as patient is at high risk of falling and without daily therapy will likely grow weaker and more difficult to mobilize. Patient and family understand these risks and are wish to proceed towards home as soon as equipment is ready and once family training has been provided. Waiting on aries lift. DME: Patient will need a Hospital bed because she requires repositioning which she cannot due in an ordinary bed to prevent bed sores. She will need this for more than a month. She has diffuse body pain in the setting of rectal cancer and osteoarthritis so will need reposition herself to relieve pain She will need alternating bed heights to transfer from the bed to a wheelchair. She is at increased risk for bed sores and needs frequent changes in body position. Allergies Coded Allergies: No Known Allergies (Verified , 01/06/05) Vital Signs Vital Signs Date Time Temp Pulse Resp B/P (MAP) Pulse Ox O2 Delivery O2 Flow Rate FiO2 06/22/19 08:40 84 114/56 06/22/19 07:33 97.5 18 94 Laboratory Data CBC/BMP Laboratory Tests 06/22/19 07:08 Red Blood Count 2.67 L, Mean Corpuscular Volume 90.6, Mean Corpuscular Hemoglobin 28.5, Mean Corpuscular Hemoglobin Concent 31.4 L, Red Cell Distribution Width 15.6 H, Neutrophils (%) (Auto) 73.2 H, Lymphocytes (%) (Auto) 10.2 L, Monocytes (%) (Auto) 14.4 H, Eosinophils (%) (Auto) 1.3, Basophils (%) (Auto) 0.2, Neutrophils # (Auto) 3.4, Lymphocytes # (Auto) 0.5 L, Monocytes # (Auto) 0.7, Eosinophils # (Auto) 0.1, Basophils # (Auto) 0.0, Calcium Level 7.8 L Labs 24H Laboratory Tests 2 06/22/19 07:08: Immature Granulocyte % (Auto) 0.7, White Blood Count 4.6, Red Blood Count 2.67L, Hemoglobin 7.6L, Hematocrit 24.2L, Mean Corpuscular Volume 90.6, Mean Corpuscular Hemoglobin 28.5, Mean Corpuscular Hemoglobin Concent 31.4L, Red Cell Distribution Width 15.6H, Platelet Count 127L, Neutrophils (%) (Auto) 73.2H, Lym phocytes (%) (Auto) 10.2L, Monocytes (%) (Auto) 14.4H, Eosinophils (%) (Auto) 1.3, Basophils (%) (Auto) 0.2, Neutrophils # (Auto) 3.4, Lymphocytes # (Auto) 0.5L, Monocytes # (Auto) 0.7, Eosinophils # (Auto) 0.1, Basophils # (Auto) 0.0, Nucleated Red Blood Cells % (auto) 0.0, Anion Gap 6L, Glomerular Filtration Rate > 60.0, Blood Urea Nitrogen 15, Creatinine 0.37L, Sodium Level 133L, Potassium Level 4.1, Chloride Level 100, Carbon Dioxide Level 27, Calcium Level 7.8L Current Medications Current Medications Current Medications Medications (Trade) Dose Ordered Sig/Harleen Route PRN Reason Start Time Stop Time Status Last Admin Dose Admin Acetaminophen (Tylenol Tab) 650 mg TID PO 06/07/19 16:00 06/22/19 08:36 Acetaminophen (Tylenol Tab) 1,000 mg TID PO 05/30/19 16:00 06/07/19 09:45 DC 06/07/19 09:13 Acetaminophen/ Codeine Phosphate (Tylenol/Codeine #3 Tablet) 1 ea Q6HP PRN PO MILD PAIN (PS 8-10) 06/08/19 15:00 06/12/19 14:13 DC 06/09/19 06:29 Acetaminophen/ Codeine Phosphate (Tylenol/Codeine #3 Tablet) 1 ea TID PO 06/07/19 09:00 06/08/19 14:24 DC 06/08/19 09:27 Benzocaine (Anbesol Gel) TO MOUTH SORES TID MT 05/30/19 16:00 06/22/19 08:41 Bisacodyl (Dulcolax Suppository) 10 mg DAILYPRN PRN MS CONSTIPATION 05/30/19 14:15 Ciprofloxacin (Cipro) 250 mg BID@,18 PO 06/16/19 18:00 06/22/19 05:30 Diclofenac Epolamine (Flector 1.3%) 2 patch Q12H TOP 05/30/19 21:00 06/22/19 08:37 Docusate Sodium (Colace) 100 mg BID PO 05/30/19 21:00 06/21/19 21:57 Duloxetine HCl (Cymbalta) 30 mg DAILY PO 05/30/19 09:00 06/07/19 09:45 DC 06/07/19 09:13 Duloxetine HCl (Cymbalta) 60 mg DAILY PO 06/08/19 09:00 06/22/19 08:36 Furosemide (Lasix) 20 mg DAILY PO 06/11/19 14:15 06/20/19 10:13 DC 06/20/19 08:20 Gabapentin (Neurontin) 100 mg BID PO 06/07/19 09:00 06/12/19 14:13 DC 06/12/19 09:15 Heparin Sodium (Porcine) (Heparin) 5,000 units Q12H SC 05/30/19 21:00 06/22/19 08:37 Home Med (Med Rec Complete!) ASDIRECTED XX 05/30/19 15:15 05/30/19 15:20 DC Lactobacillus Acidophilus (Bacid) 1 ea TID PO 06/18/19 09:00 06/22/19 08:36 Lidocaine/ Diphenhydr/Alum/ Mg/Simeth (Magic Mouthwash) 5ml AC SSP 06/13/19 12:00 06/22/19 08:41 Lisinopril (Prinivil) 5 mg DAILY PO 05/31/19 09:00 06/22/19 08:40 Methylprednisolone (Medrol) 4 mg ASDIRECTED PO 05/31/19 06:00 UNV Methylprednisolone (Medrol) 4 mg BID PO 06/04/19 09:00 06/04/19 21:01 DC 06/04/19 20:45 Methylprednisolone (Medrol) 4 mg DAILY PO 06/05/19 09:00 06/05/19 09:01 DC 06/05/19 09:48 Methylprednisolone (Medrol) 4 mg Q4H PO 05/31/19 04:00 06/01/19 00:01 DC 05/31/19 23:51 Methylprednisolone (Medrol) 4 mg Q4H PO 06/01/19 06:00 06/01/19 22:01 DC 06/01/19 20:51 Methylprednisolone (Medrol) 4 mg QID PO 06/02/19 09:00 06/02/19 21:01 DC 06/02/19 20:38 Methylprednisolone (Medrol) 4 mg TID PO 06/03/19 09:00 06/03/19 21:01 DC 06/03/19 21:36 Metoprolol Tartrate (Lopressor) 12.5 mg BID PO 05/30/19 21:00 06/22/19 08:40 Mirtazapine (Remeron) 7.5 mg QHS PO 06/07/19 21:00 06/11/19 14:10 DC 06/10/19 20:51 Mirtazapine (Remeron) 15 mg QHS PO 06/11/19 21:00 06/21/19 21:56 Miscellaneous (Unresolved Clarification Entry) SEE LABEL COMMENTS DAILY XX 06/17/19 09:00 06/18/19 10:01 DC Miscellaneous (Unresolved Clarification Entry) SEE LABEL COMMENTS DAILY XX 06/19/19 09:00 06/19/19 09:00 DC Miscellaneous (Unresolved Clarification Entry) SEE LABEL COMMENTS DAILY XX 06/11/19 09:00 06/11/19 14:14 DC 06/11/19 09:00 Pantoprazole Sodium (Protonix) 40 mg BID PO 05/30/19 21:00 06/22/19 08:37 Pantoprazole Sodium (Protonix) 40 mg DAILY PO 05/31/19 09:00 05/31/19 09:00 DC Potassium Chloride (Micro-K Extencaps) 20 meq DAILY PO 05/31/19 09:00 06/22/19 08:37 Prednisone (Deltasone) 5 mg DAILY PO 06/07/19 15:00 06/07/19 15:00 DC Prednisone (Deltasone) 5 mg DAILY PO 06/08/19 09:00 06/22/19 08:37 Rosuvastatin Calcium (Crestor) 40 mg QHS PO 05/31/19 21:00 06/21/19 21:56 Senna (Senokot) 1 tab QHS PO 05/30/19 21:00 06/21/19 21:57 Sodium Chloride (Sodium Chloride) 1 gm BID PO 06/12/19 21:00 06/20/19 10:13 DC 06/20/19 08:18 Sodium Chloride (Sodium Chloride) 1 gm BID PO 06/22/19 09:00 Sodium Chloride (Sodium Chloride) 1 gm TID PO 06/20/19 16:00 06/22/19 08:36 Zinc Oxide (Boudreauxs Butt Paste) 1 dose TID TOP 06/05/19 21:00 06/13/19 11:28 DC 06/12/19 20:34 BROOKLYN CALLES MD Jun 22, 2019 12:38
[2019-06-22] MEDS: FERROUS SULFATE 325MG TAB PO SCH (13:42)
[2019-06-22 14:00] VITALS: BP 140/68
--- NOTE | 2019-06-22 18:46 | IPNPDOC ---
Subjective Date Seen The patient was seen on 06/22/19. Subjective Chief Complaint/HPI patient experienced choking episode last night, and subsequent forceful coughing, c/o pleuritic chest pain overnight. car shifter RN notified me this morning. Patient seen in her room, daughter at bedside. States she feels better now, no complaints of chest pain. Was given 1 unit of PRBCs for anemia today. No sob at rest. Cardiovascular: Reports: Edema (2+ b/l edema); Denies: Chest Pain, Palpitations, Orthopnea, Paroxysmal Noc. Dyspnea, Lt Headedness, Other Symptoms Gastrointestinal: Denies: Melena Objective Physical Examination General Exam: Positive: Alert, Cooperative, Other (obese body habitus) Eye Exam: Positive: PERRLA, EOMI; Negative: Sclera icteric ENT Exam: Positive: Atraumatic, Mucous membr. moist/pink Neck Exam: Positive: Supple; Negative: JVD, thyromegaly, Lymphadenopathy Chest Exam: Positive: Clear to auscultation, Normal air movement Abdomen Exam: Positive: Normal bowel sounds, Soft; Negative: Tenderness Extremity Exam: Positive: Swelling (2 ), Other (2+ pitting edema) Skin Exam: Negative: Rash Psych Exam: Positive: Mental status NL, Other (hard of hearing) Assessment /Plan Assessment # Pleuritic CP - previous workup normal, no further workup indicated at this time # Rectal Adenocarcinoma - Not a candidate for surgical intervention or chemo due to deconditioned state. # Anemia likely due to Rectal CA - agree with transfusion - would stop heparin sq # UTI - can stop cipro, has received 5 days # Severe OA with severe polyarthralgias - on low dose prednisone # HTN -BP controlled metoprolol. # Hyperlipidemia -continue Crestor 40 mg daily # 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 Plan/VTE VTE Prophylaxis Ordered?: Yes VTE Exclusion Mechanical Proph: N/A:VTE Prophy Ordered VTE Exclusion Pharmacological: N/A:VTE Prophy Ordered VS, I&O, 24H, Fishbone Vital Signs/I&O Vital Signs Date Time Temp Pulse Resp B/P (MAP) Pulse Ox O2 Delivery O2 Flow Rate FiO2 06/22/19 08:40 84 114/56 06/22/19 07:33 97.5 18 94 I&O- Last 24 Hours up to 6 AM 06/22/19 06:00 Intake Total 930 ml Balance 930 ml Laboratory Data 24H LABS Laboratory Tests 2 06/22/19 07:08: Immature Granulocyte % (Auto) 0.7, White Blood Count 4.6, Red Blood Count 2.67L, Hemoglobin 7.6L, Hematocrit 24.2L, Mean Corpuscular Volume 90.6, Mean Corpuscular Hemoglobin 28.5, Mean Corpuscular Hemoglobin Concent 31.4L, Red Cell Distribution Width 15.6H, Platelet Count 127L, Neutrophils (%) (Auto) 73.2H, Lymphocytes (%) (Auto) 10.2L, Monocytes (%) (Auto) 14.4H, Eosinophils (%) (Auto) 1.3, Basophils (%) (Auto) 0.2, Neutrophils # (Auto) 3.4, Lymphocytes # (Auto) 0.5L, Monocytes # (Auto) 0.7, Eosinophils # (Auto) 0.1, Basophils # (Auto) 0.0, Nucleated Red Blood Cells % (auto) 0.0, Anion Gap 6L, Glomerular Filtration Rate > 60.0, Blood Urea Nitrogen 15, Creatinine 0.37L, Sodium Level 133L, Potassium Level 4.1, Chloride Level 100, Carbon Dioxide Level 27, Calcium Level 7.8L CBC/BMP Laboratory Tests 06/22/19 07:08 Red Blood Count 2.67 L, Mean Corpuscular Volume 90.6, Mean Corpuscular Hemoglobin 28.5, Mean Corpuscular Hemoglobin Concent 31.4 L, Red Cell Distribution Width 15.6 H, Neutrophils (%) (Auto) 73.2 H, Lymphocytes (%) (Auto) 10.2 L, Monocytes (%) (Auto) 14.4 H, Eosinophils (%) (Auto) 1.3, Basophils (%) (Auto) 0.2, Neutrophils # (Auto) 3.4, Lymphocytes # (Auto) 0.5 L, Monocytes # (Auto) 0.7, Eosinophils # (Auto) 0.1, Basophils # (Auto) 0.0, Calcium Level 7.8 L SHEKHAR WASHINGTON MD Jun 22, 2019 18:46
[2019-06-22] MEDS ORDERED: diphenhydrAMINE 25 MG CAP PO ONE (19:00)
[2019-06-22 20:00] VITALS: BP 143/67
[2019-06-22] MEDS: MIRTAZAPINE 15 MG TAB PO SCH (22:03)
[2019-06-22] MEDS: SENNA 8.6 MG TAB (SENOKOT) PO SCH (22:05)
[2019-06-22] MEDS: ROSUVASTATIN 10 MG TAB (CRESTOR) PO SCH (22:06)
[2019-06-23 04:00] VITALS: BP 134/63
[2019-06-23 07:09] LABS: BASO % 0.2 % (0.0-1.0); EOS # 0.1 10^3/uL (0.0-0.5); EOS % 2.4 % (0.0-3.0); LYMPH # 0.5 10^3/uL (1.5-5.0); LYMPH % 8.8 % (24.0-44.0); MEAN CORPUSCULAR HEMOGLOBIN 29.2 pg (27.0-33.0); MEAN CORPUSCULAR HGB CONC 32.2 g/dl (32.0-36.5); MEAN CORPUSCULAR VOLUME 90.7 fl (80.0-96.0); MONO # 0.8 10^3/uL (0.0-0.8); MONO % 15.8 % (0.0-5.0); NEUTROPHILS # 3.8 10^3/uL (1.5-8.5); NEUTROPHILS % 72.2 % (36.0-66.0); PLATELET COUNT, AUTOMATED 118 10^3/uL (150-450); RED BLOOD COUNT 3.53 10^6/uL (4.00-5.40); WHITE BLOOD COUNT 5.3 10^3/uL (4.0-10.0)
[2019-06-23 07:22] LABS: HEMOGLOBIN 10.3 g/dl (12.0-15.5)
[2019-06-23] MEDS: METOPROLOL TART 12.5 MG PER 1/2 TAB PO SCH ×2 (09:00→21:34)
[2019-06-23] MEDS: DICLOFENAC EPOLAMINE 1.3 % PATCH TOP SCH ×2 (09:23→21:34)
[2019-06-23] MEDS: HEPARIN SOD (PORCINE) 5000 UNITS/ML VIAL SC SCH ×2 (09:24→21:33)
[2019-06-23] MEDS: DOCUSATE SODIUM 100 MG CAP PO SCH ×2 (09:25→21:34)
[2019-06-23] MEDS: predniSONE 5 MG TAB PO SCH (09:25)
[2019-06-23] MEDS: FERROUS SULFATE 325MG TAB PO SCH (09:25)
[2019-06-23] MEDS: PANTOPRAZOLE 40MG TAB (PROTONIX) PO SCH ×2 (09:25→21:35)
[2019-06-23] MEDS: lisinopriL 5 MG TAB PO SCH (09:25)
[2019-06-23] MEDS: POTASSIUM CHLORIDE 10 MEQ SR TABLET PO SCH (09:26)
[2019-06-23] MEDS: LACTOBACILLUS ACIDOPHILUS CAP (BACID) PO SCH ×4 (09:26→21:34)
[2019-06-23] MEDS: DULoxetine 30 MG CAP (CYMBALTA) PO SCH (09:26)
[2019-06-23] MEDS: ACETAMINOPHEN TAB 650MG DOSE (2X325MG) PO SCH ×3 (09:27→21:34)
[2019-06-23] MEDS: SODIUM CHLORIDE 1 GM TAB PO SCH ×3 (09:30→21:34)
[2019-06-23] MEDS: BENZOCAINE 10% 9GM TUBE (ANBESOL) MT SCH ×3 (10:15→21:33)
[2019-06-23] MEDS: MAGIC MOUTHWASH SUSPENSION BTL SSP SCH ×3 (10:15→16:18)
[2019-06-23 14:00] VITALS: BP 143/63
[2019-06-23 20:00] VITALS: BP 136/70
[2019-06-23] MEDS: ROSUVASTATIN 10 MG TAB (CRESTOR) PO SCH (21:34)
[2019-06-23] MEDS: SENNA 8.6 MG TAB (SENOKOT) PO SCH (21:35)
[2019-06-23] MEDS: MIRTAZAPINE 15 MG TAB PO SCH (21:35)
[2019-06-24 04:00] VITALS: BP 178/79
[2019-06-24] MEDS: DULoxetine 30 MG CAP (CYMBALTA) PO SCH (08:05)
[2019-06-24] MEDS: DICLOFENAC EPOLAMINE 1.3 % PATCH TOP SCH ×2 (08:05→22:03)
[2019-06-24] MEDS: ACETAMINOPHEN TAB 650MG DOSE (2X325MG) PO SCH ×3 (08:05→22:01)
[2019-06-24] MEDS: HEPARIN SOD (PORCINE) 5000 UNITS/ML VIAL SC SCH ×2 (08:10→22:02)
[2019-06-24] MEDS: POTASSIUM CHLORIDE 10 MEQ SR TABLET PO SCH (08:10)
[2019-06-24] MEDS: SODIUM CHLORIDE 1 GM TAB PO SCH ×3 (08:11→22:02)
[2019-06-24] MEDS: predniSONE 5 MG TAB PO SCH (08:11)
[2019-06-24] MEDS: LACTOBACILLUS ACIDOPHILUS CAP (BACID) PO SCH ×3 (08:11→22:01)
[2019-06-24] MEDS: METOPROLOL TART 12.5 MG PER 1/2 TAB PO SCH ×2 (08:11→22:02)
[2019-06-24] MEDS: FERROUS SULFATE 325MG TAB PO SCH (08:11)
[2019-06-24] MEDS: DOCUSATE SODIUM 100 MG CAP PO SCH ×2 (08:11→22:02)
[2019-06-24] MEDS: lisinopriL 5 MG TAB PO SCH (08:11)
[2019-06-24] MEDS: PANTOPRAZOLE 40MG TAB (PROTONIX) PO SCH ×2 (08:11→22:01)
[2019-06-24] MEDS: MAGIC MOUTHWASH SUSPENSION BTL SSP SCH ×3 (08:12→17:12)
[2019-06-24] MEDS: BENZOCAINE 10% 9GM TUBE (ANBESOL) MT SCH ×3 (08:12→22:03)
[2019-06-24 14:00] VITALS: BP 117/59
--- NOTE | 2019-06-24 14:14 | IPNPDOC ---
Subjective Date Seen The patient was seen on 06/24/19. Subjective Chief Complaint/HPI SBP elevated overnight, but 116/56 currently, resting in bed. No pallor, No CP this morning. Objective Physical Examination General Exam: Positive: Alert, Cooperative, No Acute Distress Eye Exam: Positive: PERRLA; Negative: Sclera icteric ENT Exam: Positive: Atraumatic, Mucous membr. moist/pink Neck Exam: Positive: Supple; Negative: JVD, thyromegaly, Lymphadenopathy Chest Exam: Positive: Clear to auscultation, Normal air movement Abdomen Exam: Positive: Normal bowel sounds, Soft; Negative: Tenderness, Hepatospenomegaly Extremity Exam: Positive: Swelling (2+ ), Other (2+ pitting edema); Negative: Clubbing, Cyanosis Skin Exam: Negative: Rash Psych Exam: Positive: Mental status NL, Other (hard of hearing) Assessment /Plan Assessment # Pleuritic CP - previous workup normal, no further workup indicated at this time # Rectal Adenocarcinoma - Not a candidate for surgical intervention or chemo due to deconditioned state. # Anemia likely due to Rectal CA - agree with transfusion - hgb stable this am # UTI - cipro discontinued completed 5 day course # Severe OA with severe polyarthralgias - on low dose prednisone # HTN -BP controlled metoprolol. # Hyperlipidemia -continue Crestor 40 mg daily # 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 Dispo: home in am Plan/VTE VTE Prophylaxis Ordered?: Yes VTE Exclusion Mechanical Proph: N/A:VTE Prophy Ordered VTE Exclusion Pharmacological: N/A:VTE Prophy Ordered VS, I&O, 24H, Fishbone Vital Signs/I&O Vital Signs Date Time Temp Pulse Resp B/P (MAP) Pulse Ox O2 Delivery O2 Flow Rate FiO2 06/24/19 08:11 88 178/79 06/24/19 04:00 99.8 18 95 I&O- Last 24 Hours up to 6 AM 06/24/19 06:00 Intake Total 740 ml Balance 740 ml SHEKHAR WASHINGTON MD Jun 24, 2019 14:14
[2019-06-24 20:00] VITALS: BP 115/57
[2019-06-24] MEDS: ROSUVASTATIN 10 MG TAB (CRESTOR) PO SCH (22:01)
[2019-06-24] MEDS: MIRTAZAPINE 15 MG TAB PO SCH (22:02)
[2019-06-24] MEDS: SENNA 8.6 MG TAB (SENOKOT) PO SCH (22:02)
[2019-06-25 06:00] VITALS: BP 135/63
[2019-06-25 07:15] LABS: BLOOD UREA NITROGEN 18 MG/DL (7-18); CALCIUM LEVEL 8.2 MG/DL (8.8-10.2); CARBON DIOXIDE LEVEL 27 MEQ/L (21-32); CHLORIDE LEVEL 103 MEQ/L (98-107); CREATININE FOR GFR 0.44 MG/DL (0.55-1.30); GLOMERULAR FILTRATION RATE > 60.0 (>32); GLUCOSE, FASTING 91 MG/DL (70-100); POTASSIUM SERUM 4.2 MEQ/L (3.5-5.1); SODIUM LEVEL 135 MEQ/L (136-145)
[2019-06-25] MEDS: LACTOBACILLUS ACIDOPHILUS CAP (BACID) PO SCH ×2 (08:35→15:55)
[2019-06-25] MEDS: SODIUM CHLORIDE 1 GM TAB PO SCH ×2 (08:35→15:54)
[2019-06-25] MEDS: HEPARIN SOD (PORCINE) 5000 UNITS/ML VIAL SC SCH (08:36)
[2019-06-25] MEDS: PANTOPRAZOLE 40MG TAB (PROTONIX) PO SCH (08:36)
[2019-06-25] MEDS: METOPROLOL TART 12.5 MG PER 1/2 TAB PO SCH (08:36)
[2019-06-25] MEDS: ACETAMINOPHEN TAB 650MG DOSE (2X325MG) PO SCH ×2 (08:36→15:55)
[2019-06-25 08:37] VITALS: BP 135/63
[2019-06-25] MEDS: FERROUS SULFATE 325MG TAB PO SCH (08:37)
[2019-06-25] MEDS: POTASSIUM CHLORIDE 10 MEQ SR TABLET PO SCH (08:37)
[2019-06-25] MEDS: DOCUSATE SODIUM 100 MG CAP PO SCH (08:37)
[2019-06-25] MEDS: DULoxetine 30 MG CAP (CYMBALTA) PO SCH (08:37)
[2019-06-25] MEDS: lisinopriL 5 MG TAB PO SCH (08:37)
[2019-06-25] MEDS: predniSONE 5 MG TAB PO SCH (08:37)
[2019-06-25] MEDS: DICLOFENAC EPOLAMINE 1.3 % PATCH TOP SCH (08:38)
[2019-06-25] MEDS: MAGIC MOUTHWASH SUSPENSION BTL SSP SCH ×2 (08:38→12:00)
[2019-06-25] MEDS: BENZOCAINE 10% 9GM TUBE (ANBESOL) MT SCH (08:38)
[2019-06-25] MEDS ORDERED: CYMB1CAP5 PO (08:57)
[2019-06-25] MEDS ORDERED: PRED5TA PO (08:57)
[2019-06-25] MEDS ORDERED: METO1TAB87 PO (08:57)
[2019-06-25] MEDS ORDERED: REME15TA PO (08:57)
[2019-06-25] MEDS ORDERED: LISI-542 PO (08:57)
[2019-06-25] MEDS ORDERED: KLOR10TA76 PO (08:57)
[2019-06-25] MEDS ORDERED: CRES10TA PO (08:57)
[2019-06-25] MEDS ORDERED: RISATAB3 PO (08:57)
[2019-06-25] MEDS ORDERED: FERR325T18 PO (08:57)
[2019-06-25] MEDS ORDERED: PANT40TA3 PO (08:57)
[2019-06-25] MEDS ORDERED: SODI1TAB6 PO (08:57)
[2019-06-25 11:08] VITALS: BP 115/55
[2019-06-25 14:00] VITALS: BP 119/74
[2019-06-25] MEDS ORDERED: ANUS2.5C2 TOP (16:13)
[2019-06-25] MEDS ORDERED: ANUS25SU PR (16:14)
[2019-06-25] MEDS ORDERED: LASI20TA3 PO (16:37)
--- NOTE | 2019-07-10 08:55 | PMRDS ---
DATE OF ADMISSION: 05/30/2019 DATE OF DISCHARGE: 06/25/2019 CHIEF COMPLAINT/DISCHARGE DIAGNOSIS: Multijoint osteoarthritis and inability to walk in the setting of rectal cancer. HISTORY OF PRESENT ILLNESS: This is an 88-year-old female with past medical history of hypertension, hyperlipidemia, hiatal hernia, aortic valve replacement 2002 status post transaortic valve replacement (TAVR) 2014, bilateral knee osteoarthritis (OA) and right shoulder OA, who had multiple steroid injections, failed outpatient therapy, and followed by orthopedics, was admitted to the [facility] Emergency Department (ED) on 05/22/2019 with inability to walk and worsening knee and shoulder pain. While in the ED, she had melena which was positive for blood and reported having loose black stools for weeks. She reported her knee pain was her greatest concern, for which x-rays revealed arthritis, arthritic changes. She was provided with pain medicine and evaluated by GI, who performed an endoscopy on 05/25/2019 showing a large hiatal hernia, and a colonoscopy was not successfully completed due to poor bowel prep. The patient was found to have a rectal mass, which was biopsy with pathology showing adenocarcinoma. She was evaluated by surgery, who did not recommend surgical intervention. CT abdomen and pelvis and chest did rule out metastatic disease, and she was scheduled for radiation treatment. The patient was seen by therapy, noted to well below her prior level of function for mobility and activities of daily living (ADLs) and deemed medically appropriate for discharge to acute rehabilitation unit (ARU) on 05/30/2019. PAST MEDICAL HISTORY: As per history of present illness (HPI). HOSPITAL COURSE: The patient was admitted and enrolled in a comprehensive physical therapy (PT)/occupational therapy (OT) program. She received 24-hour nursing supervision, and weekly team meetings were held to discuss her progress. For her pain, the patient was started on low-dose oral prednisone with mild improvement in her overall joint swelling. She was also started on Cymbalta and provided with Flector patch patches. The patient had persistent borderline hyponatremia, for which her Lasix was at times held and then later restarted, and ultimately the patient was discharged on Lasix and salt tablets. She received palliative radiation and was placed on Remeron for insomnia and for feelings of depression. She had persistent anemia due to chronic disease, and a fecal occult blood test (FOBT) done on the ARU unit was negative. She did ultimately receive 2 units of packed red blood cells (PRBC), after which she felt better. The patient did not make significant gains in therapy due to an inability and lack of motivation to participate, given her new diagnosis of rectal cancer. Family was trained. She was provided with equipment to return home with 24 supervision, and she was deemed functionally and medically stable to be discharged. DISCHARGE MEDICATIONS: As per discharge instructions. FUNCTIONAL HISTORY ON DISCHARGE: The patient was moderate to total assist for functional transfers; and in occupational therapy, she was total assist for bed mobility. Thank you for this referral.
== END 2019-06-25 17:05 | disposition home health service (06) | DRG 554 ==
LOC: M PM&R 12:50
PROVIDERS: ADMIT Physical Medicine & Rehabilitation; ATTEND Physical Medicine & Rehabilitation
PROC: 30233N1 Transfusion of Nonautologous Red Blood Cells into Peripheral Vein, Percutaneous Approach (ICD-10-PCS; principal; 2019-06-22)
DX: M17.0 Bilateral primary osteoarthritis of knee (principal); C20 Malignant neoplasm of rectum; I50.32 Chronic diastolic (congestive) heart failure; E22.2 Syndrome of inappropriate secretion of antidiuretic hormone; N39.0 Urinary tract infection, site not specified; R26.2 Difficulty in walking, not elsewhere classified; M19.011 Primary osteoarthritis, right shoulder; M19.012 Primary osteoarthritis, left shoulder; H91.93 Unspecified hearing loss, bilateral; R53.81 Other malaise; R41.0 Disorientation, unspecified; I11.0 Hypertensive heart disease with heart failure; F32.9 Major depressive disorder, single episode, unspecified; T40.4X5A Adverse effect of other synthetic narcotics, initial encounter; G47.00 Insomnia, unspecified; M71.22 Synovial cyst of popliteal space [Baker], left knee; E78.5 Hyperlipidemia, unspecified; R32 Unspecified urinary incontinence; D63.0 Anemia in neoplastic disease; Z79.899 Other long term (current) drug therapy

== ENCOUNTER 2019-06-01 15:12 | Outpatient (RCR) | payer MEDICARE, OTHER ==
[~2019-06-01 15:12] MED LIST changes: +ACET-908 PO; +CRES40TA PO
--- NOTE | 2019-06-19 10:10 | RADONC ---
RADIATION ONCOLOGY TREATMENT SUMMARY NOTE DATE: 06/14/2019 CHART NUMBER: [id number] DIAGNOSIS: Rectal cancer. STAGE: In progress. ECOG PERFORMANCE STATUS: 4. PLAN OF RADIOTHERAPY: Palliation. DATE RADIOTHERAPY STARTED: May 31. DATE RADIOTHERAPY COMPLETED: June 14. DOSE: The patient received a total of 3000 cGy administered in 10 fractions over 15 elapsed days. Prior to treatment delivery localization was accomplished upon our CT simulator and treatment portals defined by the use of multiple leaf collimators. The patient was treated via a 3-D conformal radiotherapy technique with treatments given via a 15 MV photon beam with a dose assessed at the 95% isodose line. Prior to treatment delivery localization was accomplished upon our CT simulator and treatment portals were shaped via the use of multiple leaf collimators. STATUS OF TUMOR: The patient clinically had an excellent palliation during her course of radiotherapy and did not complain of pain at the conclusion. Tolerance in general treatments were relatively well tolerated. She did complain on various days of certain aches and pains which had changed by the next day for example her shoulder and neck were hurting one day and these pains had resolved by the next visit. At that time of completion she had no specific issues regarding pain control. DISPOSITION: Return to clinic in 1 month for post radiotherapy followup visit and skin check and she was advised to return to her referring physicians as per their directions and instructions. Thank you for allowing us the opportunity of participation in the management of this very ed patient.
== END 2019-06-02 ==
LOC: M ONCR 15:12
PROVIDERS: ATTEND Radiology Radiation Oncology
DX: C19 Malignant neoplasm of rectosigmoid junction (principal)

== ENCOUNTER → 2019-07-05 | Outpatient (REF) | payer MEDICARE, OTHER ==
[~2019-07-05] MED LIST changes: +ACET-907 PO; +ANUS2.5C2 TOP; +ANUS25SU PR; +BACITAB PO; +CRES10TA PO; +CYMB1CAP5 PO; +FERR1TAB8 PO; +FERR325T18 PO; +KLOR10TA76 PO; +LASI20TA3 PO; +METO1TAB87 PO; +MIRT1TAB15 PO; +PANT-23 PO; +PANT40TA3 PO; +POTA10TA17 PO; +PRED5TA PO; +REME15TA PO; +RISATAB3 PO; +SODI1TAB6 PO
[2019-07-05 19:51] LABS: HEMATOCRIT 33.8 % (36.0-47.0); HEMOGLOBIN 10.4 g/dl (12.0-15.5); MEAN CORPUSCULAR HEMOGLOBIN 27.7 pg (27.0-33.0); MEAN CORPUSCULAR HGB CONC 30.8 g/dl (32.0-36.5); MEAN CORPUSCULAR VOLUME 89.9 fl (80.0-96.0); RED BLOOD COUNT 3.76 10^6/uL (4.00-5.40); WHITE BLOOD COUNT 7.6 10^3/uL (4.0-10.0)
[2019-07-05 20:15] LABS: ALBUMIN 1.8 GM/DL (3.2-5.2); ALT/SGPT 18 U/L (12-78); BILIRUBIN,TOTAL 0.4 MG/DL (0.2-1.0); BLOOD UREA NITROGEN 19 MG/DL (7-18); CALCIUM LEVEL 8.1 MG/DL (8.8-10.2); CARBON DIOXIDE LEVEL 30 MEQ/L (21-32); CHLORIDE LEVEL 99 MEQ/L (98-107); CREATININE FOR GFR 0.55 MG/DL (0.55-1.30); GLOMERULAR FILTRATION RATE > 60.0 (>32); GLUCOSE, FASTING 111 MG/DL (70-100); POTASSIUM SERUM 4.1 MEQ/L (3.5-5.1); SODIUM LEVEL 134 MEQ/L (136-145); TOTAL PROTEIN 6.2 GM/DL (6.4-8.2)
== END ==
LOC: M SFHCADAM 13:16
PROVIDERS: ATTEND Physician Assistant
DX: R60.0 Localized edema (principal); E43 Unspecified severe protein-calorie malnutrition; D50.0 Iron deficiency anemia secondary to blood loss (chronic); K62.89 Other specified diseases of anus and rectum
CPT/HCPCS: 80053; 85027; G0463

== ENCOUNTER → 2019-07-11 | Outpatient (CLI) | payer MEDICARE, OTHER ==
--- NOTE | 2019-07-13 10:18 | RADONC ---
RADIATION ONCOLOGY FOLLOWUP NOTE DATE: 07/11/2019 CHART #: [id number] DIAGNOSIS: Rectal cancer. ECOG PERFORMANCE STATUS: 4. FOLLOWUP NOTE: Ms. Julien is a very pleasant 88-year-old white female with the diagnosis of a rectal moderately differentiated adenocarcinoma who is presenting to us today for routine followup visit 1 month post completion of palliative radiation therapy to her rectum. The patient presents today reporting that she is doing quite well with no difficulties related to her radiation therapy. She has been having bowel movements and her rectal bleeding has largely resolved, although occasionally there is still some light bleeding. She is reporting no pain at the present time other than her normal arthritic and shoulder pain which she has had for many years. REVIEW OF SYSTEMS: The patient's review of systems is positive for the physical limitations secondary to her old age as well as some shoulder and other arthritic pain which is unchanged. She denies nausea, vomiting, fevers, chills, night sweats, diplopia, headaches, anxiety, depression, anorexia. Her weight remains stable. PHYSICAL EXAMINATION: The patient is presenting in a wheelchair. Basically, her physical exam is generally unchanged. HEENT: Exam is normocephalic, atraumatic. Extraocular movements are intact. The remainder of the physical examination was deferred at this point. ASSESSMENT: Ms. Julien is clinically stable at this time and has achieved palliation for her rectal obstructive symptoms. I have scheduled the patient to see us again in 3 months for routine followup. She will also continue to be followed by her other physicians as well. The patient's family has been given my cell phone number and office number to contact me if I could be of any assistance in the meantime. cc: Parish Butt Jr, MD [place], MD Imtiaz Khokhar, MD Gerald Weinstein, MD
== END ==
LOC: M ONCR 10:47
PROVIDERS: ATTEND Radiology Radiation Oncology
DX: C19 Malignant neoplasm of rectosigmoid junction (principal); Z92.3 Personal history of irradiation

== ENCOUNTER 2019-07-15 06:15 | Observation (INO) | payer MEDICARE, OTHER ==
[~2019-07-15] VITALS: Ht 152.4 cm; Wt 68.2 kg
[~2019-07-15 06:15] MED LIST changes: -ACET-907 PO; -BACITAB PO; -FERR1TAB8 PO; -MIRT1TAB15 PO; -PANT-23 PO; -POTA10TA17 PO
[2019-07-15] MEDS ORDERED: NALOXONE INJ 0.4 MG/1 ML VIAL (J2310) As Ordered ONE (06:25)
[2019-07-15] MEDS ORDERED: NALOXONE INJ 2 MG/2 ML SYRINGE (J2310) As Ordered ONE (06:25)
[2019-07-15] MEDS ORDERED: NALOXONE INJ 2 MG/2 ML SYRINGE (J2310) IV STA (06:38)
--- NOTE | 2019-07-15 06:46 | REPVR ---
PROCEDURE INFORMATION: Exam: CT Head Without Contrast Exam date and time: 07/15/2019 6:35 AM Clinical history: 88 years old, female; Other: Unresponsive TECHNIQUE: Imaging protocol: Computed tomography of the head without contrast. Radiation optimization: All CT scans at this facility use at least one of these dose optimization techniques: automated exposure control; mA and/or kV adjustment per patient size (includes targeted exams where dose is matched to clinical indication); or iterative reconstruction. Other technique: STROKE PROTOCOL was implemented. COMPARISON: No relevant prior studies available. FINDINGS: Brain: 4.3 x 4.8 cm left frontal lobe intraparenchymal hemorrhage with associated subarachnoid hemorrhage extending into the lateral, left greater than right and third ventricle. Mass effect on the left cerebral hemisphere and left lateral ventricle with midline shift to the left measuring up to 9.6 mm. There is entrapment of the right lateral ventricle. Ventricles: See Brain Finding. Bones/joints: Unremarkable. No acute fracture. Sinuses: Mild mucosal thickening of the ethmoidal air cells. Mastoid air cells: Visualized mastoid air cells are well aerated. Soft tissues: Unremarkable. IMPRESSION: 4.3 x 4.8 cm left frontal lobe intraparenchymal hemorrhage with associated subarachnoid hemorrhage extending into the lateral, left greater than right and third ventricle. Mass effect on the left cerebral hemisphere and left lateral ventricle with midline shift to the left measuring up to 9.6 mm. There is entrapment of the right lateral ventricle. Differential diagnoses would include hemorrhagic infarct, hemorrhagic tumor, hypertensive hemorrhage, among other possibilities, further evaluation with contrast-enhanced MR examination is recommended. Electronically signed by: Gloria Becerril On 07/15/2019 06:46:19 AM
[2019-07-15 06:49] LABS: BASO % 0.1 % (0.0-1.0); EOS % 0.2 % (0.0-3.0); HEMATOCRIT 29.2 % (36.0-47.0); HEMOGLOBIN 9.2 g/dl (12.0-15.5); LYMPH # 0.9 10^3/uL (1.5-5.0); LYMPH % 9.3 % (24.0-44.0); MEAN CORPUSCULAR HGB CONC 31.5 g/dl (32.0-36.5); MEAN CORPUSCULAR VOLUME 88.8 fl (80.0-96.0); MONO # 1.2 10^3/uL (0.0-0.8); MONO % 12.6 % (0.0-5.0); NEUTROPHILS # 7.3 10^3/uL (1.5-8.5); NEUTROPHILS % 77.1 % (36.0-66.0); PLATELET COUNT, AUTOMATED 133 10^3/uL (150-450); RED BLOOD COUNT 3.29 10^6/uL (4.00-5.40); WHITE BLOOD COUNT 9.5 10^3/uL (4.0-10.0)
[2019-07-15 07:05] LABS: ALBUMIN 1.8 GM/DL (3.2-5.2); ALT/SGPT 18 U/L (12-78); BILIRUBIN,DIRECT 0.2 MG/DL (0.0-0.2); BILIRUBIN,TOTAL 0.5 MG/DL (0.2-1.0); BLOOD UREA NITROGEN 25 MG/DL (7-18); CALCIUM LEVEL 7.9 MG/DL (8.8-10.2); CARBON DIOXIDE LEVEL 26 MEQ/L (21-32); CHLORIDE LEVEL 100 MEQ/L (98-107); CK-MB VALUE MASS < 1.0 NG/ML (<3.6); CPK CREATINE PHOSPHOKINASE 11 U/L (26-192); CREATININE FOR GFR 0.68 MG/DL (0.55-1.30); ETHYL ALCOHOL (ETHANOL) < 0.003 % (0.000-0.010); FREE THYROXINE INDEX 3.2 % (1.3-4.8); GLOMERULAR FILTRATION RATE > 60.0 (>32); GLUCOSE, FASTING 145 MG/DL (70-100); MB/CK RELATIVE INDEX 9.09 (< OR =4); SODIUM LEVEL 132 MEQ/L (136-145); T UPTAKE 41 % (30-39); THYROXINE (T4) 7.8 UG/DL (4.5-12.0); TOTAL PROTEIN 5.9 GM/DL (6.4-8.2); TROPONIN I < 0.02 NG/ML (< 0.10)
[2019-07-15] MEDS ORDERED: PANT-23 PO (07:19)
[2019-07-15] MEDS ORDERED: LISI-542 PO (07:19)
[2019-07-15] MEDS ORDERED: POTA10TA17 PO (07:19)
[2019-07-15] MEDS ORDERED: ANUS25SU PR (07:19)
[2019-07-15] MEDS ORDERED: FURO20TA2 PO (07:19)
[2019-07-15] MEDS ORDERED: FERR1TAB8 PO (07:19)
[2019-07-15] MEDS ORDERED: SODI1TAB6 PO (07:19)
[2019-07-15] MEDS ORDERED: PRED5TA PO (07:19)
[2019-07-15] MEDS ORDERED: MIRT1TAB15 PO (07:19)
[2019-07-15] MEDS ORDERED: CYMB1CAP5 PO (07:19)
[2019-07-15] MEDS ORDERED: BACITAB PO (07:19)
[2019-07-15] MEDS ORDERED: CRES40TA PO (07:19)
[2019-07-15] MEDS ORDERED: METO1TAB87 PO (07:19)
[2019-07-15] MEDS ORDERED: ACET-907 PO (07:19)
[2019-07-15 08:30] VITALS: BP 126/64
[2019-07-15] MEDS: MORPHINE 4 MG/ML 1ML VIAL/SYRINGE (J2270) IV PRN ×4 (09:00→23:36)
[2019-07-15] MEDS: LORazepam 2 MG/ML VIAL (J2060) IV PRN ×4 (10:14→23:36)
[2019-07-15] MEDS ORDERED: SCOPOLAMINE 1MG TRANSDERMAL PATCH TOP SCH (14:00)
--- NOTE | 2019-07-15 15:26 | HPEPDOC ---
General Date of Admission Jul 15, 2019 at 06:16 Date of Service: Jul 15, 2019 Chief Complaint The patient is a 88-year-old female admitted with a reason for visit of Intracerebral Hemorrhage. 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 This morning at 4 am when rios patient's sister came to change her she was poorly responsive , making gurgling noises with noisy respiration and could only grasp the sister's hand. Pateint was brought to the ED and CT showed massive intracerebral hemorrhage on the left with subarachnoid hemorrhage and midline shift. Radiology read was 4.3 x 4.8 cm left frontal lobe intraparenchymal hemorrhage with associated subarachnoid hemorrhage extending into the lateral, left greater than right and third ventricle. Mass effect on the left cerebral hemisphere and left lateral ventricle with midline shift to the left measuring up to 9.6 mm. There is entrapment of the right lateral ventricle. Differential diagnoses would include hemorrhagic infarct, hemorrhagic tumor, hypertensive hemorrhage. Family opted to keep her comfortable and decided any further medical interventions. 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 Home Medications Scheduled Duloxetine Hcl (Cymbalta) 30 Mg Capsule.dr, 60 MG PO DAILY, (Reported) Ferrous Sulfate (Ferrous Sulfate) 325 Mg Tablet, 325 MG PO DAILY, (Reported) L.acidoph/L.bulg/B.bif/S.therm (Bacid Caplet) 1 Each Tablet, 1 TAB PO TID, (Reported) Lisinopril (Lisinopril) 5 Mg Tablet, 5 MG PO DAILY, (Reported) Metoprolol Tartrate (Metoprolol Tartrate) 25 Mg Tablet, 12.5 MG PO BID, (Reported) Mirtazapine (Mirtazapine) 15 Mg Tab.rapdis, 15 MG PO QHS, (Reported) Pantoprazole Sodium (Pantoprazole Sodium) 40 Mg Tablet.dr, 40 MG PO BID, (Reported) Potassium Chloride (Potassium Chloride) 10 Meq Tab.er.prt, 20 MEQ PO DAILY, (Reported) Prednisone (Prednisone) 5 Mg Tablet, 5 MG PO DAILY, (Reported) Rosuvastatin Calcium (Crestor) 40 Mg Tablet, 40 MG PO QHS, (Reported) Sodium Chloride (Sodium Chloride) 1 Gm Tablet, 1 GM PO TID, (Reported) Scheduled PRN Acetaminophen (Tylenol) 325 Mg Tablet, 650 MG PO Q4H PRN for PAIN, (Reported) Furosemide (Furosemide) 20 Mg Tablet, 20 MG PO BID PRN for SWELLING, (Reported) Hydrocortisone Acetate (Anusol-Hc) 25 Mg Supp.rect, 25 MG MN BID PRN for HEMORRHOIDS, (Reported) Allergies Coded Allergies: No Known Allergies (Verified , 01/06/05) Past Medical History Medical History 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 Advanced osteoarthritis in both knees Surgical History AVR TAVR Cortisone injections in several joints Family History Significant Family History: Hypertension Social History * Smoker: Denies Alcohol: Denies Drugs: denies A-FIB/CHADSVASC A-FIB History Current/History of A-Fib/PAF?: No Review of Systems Other systems Patient nonresponsive at present. As per sister she did not have any fever or chills, did not complain of headache, no cough or phlegm , No chest pain , vomiting or diarrhea at home Physical Examination General Exam: Positive: Other (nonresponsive, GCS 3) Eye Exam: Positive: Conjunctiva & lids normal, Other Eye Symptoms (pupils pin point no reaction to light ); Negative: Sclera icteric ENT Exam: Positive: Atraumatic, Mucous membr. moist/pink Neck Exam: Positive: Supple; Negative: JVD, thyromegaly Chest Exam: Positive: Other (coarse breath sounds with conducted sounds from rios throat) Heart Exam: Positive: Tachycardic, Regular Rhythm, Normal S1, Normal S2 Telemetry: Positive: Sinus, Tachycardia Abdomen Exam: Positive: BS Hypoactive, Soft; Negative: Tenderness, Hepatospenomegaly Extremity Exam: Positive: Edema (bipedal 3 +); Negative: Clubbing, Cyanosis Vital Signs Vital Signs Date Time Temp Pulse Resp B/P (MAP) Pulse Ox O2 Delivery O2 Flow Rate FiO2 07/15/19 09:00 15.0 07/15/19 08:30 98.1 108 126/64 (84) 99 07/15/19 07:06 32 Laboratory Data Labs 24H Laboratory Tests 2 07/15/19 06:23: Immature Granulocyte % (Auto) 0.7, White Blood Count 9.5, Red Blood Count 3.29L, Hemoglobin 9.2L, Hematocrit 29.2L, Mean Corpuscular Volume 88.8, Mean Corpuscular Hemoglobin 28.0, Mean Corpuscular Hemoglobin Concent 31.5L, Red Cell Distribution Width 17.9H, Platelet Count 133L, Neutrophils (%) (Auto) 77.1H, Lymphocytes (%) (Auto) 9.3L, Monocytes (%) (Auto) 12.6H, Eosinophils (%) (Auto) 0.2, Basophils (%) (Auto) 0.1, Neutrophils # (Auto) 7.3, Lymphocytes # (Auto) 0.9L, Monocytes # (Auto) 1.2H, Eosinophils # (Auto) 0.0, Basophils # (Auto) 0.0, Nucleated Red Blood Cells % (auto) 0.0, Anion Gap 6L, Glomerular Filtration Rate > 60.0, Calcium Level 7.9L, Aspartate Amino Transf (AST/SGOT) 23, Alanine Aminotransferase (ALT/SGPT) 18, Alkaline Phosphatase 106, Total Bilirubin 0.5, Direct Bilirubin 0.2, Ammonia 25, Total Creatine Kinase 11L, Creatine Kinase MB < 1.0, Creatine Kinase MB Relative Index 9.09H, Troponin I < 0.02, Total Protein 5.9L, Albumin 1.8L, Albumin/Globulin Ratio 0.44L, Thyroid Stimulating Hormone (TSH) 1.840, Free Thyroxine Index 3.2, Thyroxine (T4) 7.8, Triiodothyronine (T3) Uptake 41H, Ethyl Alcohol Level < 0.003 CBC/BMP Laboratory Tests 07/15/19 06:23 Red Blood Count 3.29 L, Mean Corpuscular Volume 88.8, Mean Corpuscular Hemoglobin 28.0, Mean Corpuscular Hemoglobin Concent 31.5 L, Red Cell Distribution Width 17.9 H, Neutrophils (%) (Auto) 77.1 H, Lymphocytes (%) (Auto) 9.3 L, Monocytes (%) (Auto) 12.6 H, Eosinophils (%) (Auto) 0.2, Basophils (%) (Auto) 0.1, Neutrophils # (Auto) 7.3, Lymphocytes # (Auto) 0.9 L, Monocytes # (Auto) 1.2 H, Eosinophils # (Auto) 0.0, Basophils # (Auto) 0.0 Assessment/Plan This is an 88-year-old female with past medical history of Recal adenocarcinoma s/p palliative RT, hypertension, hyperlipidemia, hiatal hernia, aortic valve replacement 2001 status post transaortic valve replacement (TAVR) 2014, bilateral knee osteoarthritis (OA) and right shoulder OA, urinary incontinence who was in her usual state of health when she went to bed last night seen by her sister who lives with her. This morning at 4 am when rios patient's sister came to change her she was poorly responsive , making gurgling noises with noisy respiration and could only grasp the sister's hand. Pateint was brought to the ED and CT showed massive intracerebral hemorrhage on the left with subarachnoid hemorrhage and midline shift. Radiology read was 4.3 x 4.8 cm left frontal lobe intraparenchymal hemorrhage with associated subarachnoid hemorrhage extending into the lateral, left greater than right and third ventricle. Mass effect on the left cerebral hemisphere and left lateral ventricle with midline shift to the left measuring up to 9.6 mm. There is entrapment of the right lateral ventricle. Differential diagnoses would include hemorrhagic infarct, hemorrhagic tumor, hypertensive hemorrhage. Family opted to keep her comfortable and decided any further medical interventions. 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 Intracerebral and subarachnoid hemorrhage with mass effect on the left with midline shift Seems like impending coning GCS 3 . patient SENIOR INTERACTIVE DEVELOPER morphine and ativan prn NPO scopolamine patch. Plan / VTE VTE Prophylaxis Ordered?: No RANDELL CARRION MD Jul 15, 2019 15:26
[2019-07-16] MEDS: MORPHINE 4 MG/ML 1ML VIAL/SYRINGE (J2270) IV PRN ×4 (04:38→22:52)
[2019-07-16] MEDS: LORazepam 2 MG/ML VIAL (J2060) IV PRN ×4 (04:39→22:52)
--- NOTE | 2019-07-16 09:48 | IPNPDOC ---
Subjective Date Seen The patient was seen on 07/16/19. Subjective Chief Complaint/HPI SAH Events since last encounter Admitted with findings of intracranial hemorrhage. 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 Spoke with family this morning, patient has been comfortable per family report. General: Reports: ROS Unobtainable Objective Physical Examination General Exam: Positive: Other (no reponse) Eye Exam: Positive: Conjunctiva & lids normal, Other Eye Symptoms (pupils pin point no reaction to light ); Negative: Sclera icteric ENT Exam: Positive: Atraumatic, Mucous membr. moist/pink Neck Exam: Positive: Supple; Negative: JVD, thyromegaly Chest Exam: Positive: Other (coarse breath sounds with conducted sounds from the throat) Heart Exam: Positive: Tachycardic, Regular Rhythm, Normal S1, Normal S2 Telemetry: Positive: Sinus, Tachycardia Abdomen Exam: Positive: BS Hypoactive, Soft; Negative: Tenderness, Hepatospenomegaly Extremity Exam: Positive: Edema (bipedal 3 +); Negative: Clubbing, Cyanosis Assessment /Plan Problems (1) Intracerebral hemorrhage Problem Text: continue [employer] status. HOLD hospice consult. Patient is unlikely to survive more than 72 hrs. Plan/VTE VTE Prophylaxis Ordered?: No VTE Exclusion Pharmacological: Hemorrhage VS, I&O, 24H, Fishbone Vital Signs/I&O Vital Signs Date Time Temp Pulse Resp B/P (MAP) Pulse Ox O2 Delivery O2 Flow Rate FiO2 07/16/19 05:05 15.0 07/15/19 08:30 98.1 108 126/64 (84) 99 07/15/19 07:06 32 I&O- Last 24 Hours up to 6 AM 07/16/19 06:00 Intake Total 0 ml Balance 0 ml Evelyn Burrows [employer] Jul 16, 2019 09:48
[2019-07-17] MEDS: LORazepam 2 MG/ML VIAL (J2060) IV PRN ×5 (02:13→17:42)
[2019-07-17] MEDS: MORPHINE 4 MG/ML 1ML VIAL/SYRINGE (J2270) IV PRN ×5 (02:13→17:42)
--- NOTE | 2019-07-17 08:34 | IPNPDOC ---
Subjective Date Seen The patient was seen on 07/17/19. Subjective Chief Complaint/HPI Son (Rip) is at bedside. Reports his mother seems comfortable Eyes: Denies: Pain Pulmonary: Reports: Dyspnea Cardiovascular: Denies: Chest Pain Gastrointestinal: Denies: Vomiting Objective Physical Examination General Exam: Positive: Other (Unresponsive, tachypnea) Eye Exam: Positive: Conjunctiva & lids normal, Other Eye Symptoms (pupils pin point no reaction to light ); Negative: Sclera icteric ENT Exam: Positive: Atraumatic, Mucous membr. moist/pink Neck Exam: Positive: Supple; Negative: JVD, thyromegaly Chest Exam: Positive: Other (coarse breath sounds with conducted sounds from the throat) Heart Exam: Positive: Tachycardic, Regular Rhythm, Normal S1, Normal S2 Telemetry: Positive: Sinus, Tachycardia Abdomen Exam: Positive: BS Hypoactive, Soft; Negative: Tenderness, Hepatospenomegaly Extremity Exam: Positive: Edema (trace edma BL); Negative: Clubbing, Cyanosis Assessment /Plan Problems (1) Intracerebral hemorrhage Problem Text: Per Rip - plan to keep her in hospital continue [employer]GER [employer] status. HOLD hospice consult. Patient is unlikely to survive more than 72 hrs. Plan/VTE VTE Prophylaxis Ordered?: No VTE Exclusion Pharmacological: Hemorrhage VS, I&O, 24H, Fishbone Vital Signs/I&O Vital Signs Date Time Temp Pulse Resp B/P (MAP) Pulse Ox O2 Delivery O2 Flow Rate FiO2 07/17/19 04:47 4.0 07/16/19 16:41 28 07/15/19 08:30 98.1 108 126/64 (84) 99 I&O- Last 24 Hours up to 6 AM 07/17/19 06:00 Intake Total 0 ml Output Total 0 ml Balance 0 ml YAS MORELAND PA-C Jul 17, 2019 08:34
== END 2019-07-17 18:25 | disposition expired ==
LOC: M ED 06:15 → EDBD 06:15 → M ED INP 06:16 → M MS5PR 08:48
PROVIDERS: ADMIT Internal Medicine Nephrology; ATTEND Family Medicine
DX: I61.9 Nontraumatic intracerebral hemorrhage, unspecified (principal); I10 Essential (primary) hypertension; E78.49 Other hyperlipidemia; K44.9 Diaphragmatic hernia without obstruction or gangrene; Z79.899 Other long term (current) drug therapy; C20 Malignant neoplasm of rectum; Z92.3 Personal history of irradiation; Z95.2 Presence of prosthetic heart valve
CPT/HCPCS: 70450; 80048; 80076; 82140; 82550; 82553; 84436; 84443; 84479; 84484; 85025; 93041; 94760; 96374; 96375; 96376; 99285; G0378; G0480; J2060; J2270; J2310